=== PATIENT | female | born 1980 | race Caucasian/White ===

== ENCOUNTER 2022-08-31 16:14 | Outpatient (OUT) | payer BC, OTHER, SELFPAY ==
--- NOTE | 2022-08-31 16:15 | XR_ITS ---
The [address] [address] Patient Name: MELISSA BRYSON MRN: [id number] date: 1980 Sex: F Assigned Patient Location: [facility] Current Patient Location: [facility] Accession/Order Number: [id number] Exam Date: 08/31/2022 16:15 Report Date: 08/31/2022 16:56 At the request of: NON-STAFF PHYSICIAN Procedure: XR hand RT min 3V EXAM: XR hand RT min 3V HISTORY: right hand pain M79.641 COMPARISON: None. TECHNIQUE: 3 views of the right hand were obtained. FINDINGS: There is no evidence of an acute fracture or dislocation. No significant focal osseous abnormality is identified. The joint spaces are intact throughout. No abnormal soft tissue calcification or radiopaque foreign body is identified. IMPRESSION: No acute fracture or dislocation. No significant degenerative changes are present. Electronically authenticated by: NIK CORTEZ Date: 08/31/2022 16:56
== END 2022-08-31 16:15 ==
LOC: RAD 16:17
DX: M79.641 Pain in right hand (principal)
CPT/HCPCS: 73130

== ENCOUNTER 2022-09-08 07:48 | Outpatient (OUT) | payer BC, OTHER, SELFPAY ==
--- NOTE | 2022-09-08 08:31 | CT_ITS ---
The [address] [address] Patient Name: MELISSA BRYSON MRN: [id number] date: 1980 Sex: F Assigned Patient Location: CT Current Patient Location: CT Accession/Order Number: [id number] Exam Date: 09/08/2022 08:31 Report Date: 09/08/2022 09:03 At the request of: NON-STAFF PHYSICIAN Procedure: CT abdomen wo con EXAM: CT abdomen wo con HISTORY: Abdominal pain COMPARISON: None. TECHNIQUE: Axial soft tissue windows of the abdomen with coronal and sagittal reformats. CT dose reduction technique was used including Automated Exposure Control. Findings: Lack of intravenous contrast limits evaluation. The liver, gallbladder, spleen, pancreas, adrenal glands and kidneys are unremarkable. The visualized portions of the bilateral ureters are nondilated. The visualized bowel loops are unremarkable without evidence of wall thickening or obstruction. The aorta is normal caliber. No enlarged lymph nodes or free fluid. Small fat-containing umbilicus hernia. No aggressive sclerotic or lytic osseous lesions. IMPRESSION: 1. No acute abdominal abnormality. Electronically authenticated by: BRYN CALZADA Date: 09/08/2022 09:03
== END 2022-09-08 07:49 | disposition home or self-care (01) ==
DX: R10.11 Right upper quadrant pain (principal); R10.12 Left upper quadrant pain; R14.0 Abdominal distension (gaseous); R19.7 Diarrhea, unspecified
CPT/HCPCS: 74150

== ENCOUNTER 2022-09-15 13:49 | Emergency (ER) | payer BC, OTHER, SELFPAY ==
[2022-09-15 14:07] VITALS: BP 156/95; PULSE 72; RESP 16; TEMP 36.9; O2SAT 100; BMI 27.3
[2022-09-15 14:30] LABS: Glucometer 94 mg/dL (74-106)
--- NOTE | 2022-09-15 14:31 | ECG_ITS ---
The [facility] Test Date: 2022-09-15 Pat Name: MELISSA BRYSON Department: Room: - Gender: Female [place] Operator: : 1980 Requested By: Order Number: [id number] Reading MD: BRUCE HARDING Measurements Intervals [place] Rate: 71 P: 51 NC: 144 QRS: 53 QRSD: 74 T: 43 QT: 396 QTc: 419 Interpretive Statements 1100 Sinus rhythm [address] depression 9150 abnormal ECG No previous ECG available for comparison Electronically Signed On 09-18-2022 7:28:53 EDT by BRUCE HARDING
[2022-09-15 14:57] LABS: Basophils Absolute Auto 0.1 10^3/uL (0.0-0.1); Basophils Percent Auto 0.7 % (0.2-2.0); Eosinophils Absolute Auto 0.3 10^3/uL (0.0-0.7); Eosinophils Percent Auto 3.3 % (0.9-7.0); Hematocrit 36.8 % (36.0-48.0); Hemoglobin 12.3 g/dL (12.0-16.0); Immature Granulocytes Abs Auto 0.05 10^3/uL (0.00-0.03); Immature Granulocytes Pct Auto 0.5 % (0.0-0.5); Lymphocytes Absolute Auto 2.9 10^3/uL (1.2-3.8); Lymphocytes Percent Auto 29.5 % (20.5-60.0); Mean Corpuscular HGB Conc 33.4 g/dL (29.9-35.2); Mean Corpuscular Hemoglobin 30.5 pg (26.7-34.0); Mean Corpuscular Volume 91.3 fL (81.0-99.0); Mean Platelet Volume 9.8 fL (9.5-13.5); Monocytes Absolute Auto 0.8 10^3/uL (0.3-0.8); Monocytes Percent Auto 8.1 % (1.7-12.0); Neutrophils Absolute Auto 5.6 10^3/uL (1.4-6.5); Neutrophils Percent Auto 57.9 % (43.0-75.0); Platelet Count 302 10^3/uL (150-450); Red Blood Count 4.03 10^6/uL (4.20-5.40); White Blood Count 9.7 10^3/uL (4.0-11.0)
[2022-09-15 15:09] LABS: Bilirubin Urine NEGATIVE (NEGATIVE); Blood Urine NEGATIVE (NEGATIVE); Clarity Urine CLEAR (CLEAR); Color Urine LT. YELLOW (YELLOW); Glucose Urine UA NEGATIVE (NEGATIVE); Ketones Urine NEGATIVE (NEGATIVE); Leukocyte Esterase Urine NEGATIVE (NEGATIVE); Nitrite Urine NEGATIVE (NEGATIVE); Protein Urine NEGATIVE (NEG/TRACE); Specific Gravity Urine <=1.005 (1.005-1.025); Urobilinogen Urine 0.2 EU/dL (0.2-1.0); pH Urine 5.5 (5.0-9.0)
[2022-09-15 15:10] LABS: HCG Qualitative Urine* NEGATIVE (NEGATIVE)
[2022-09-15 15:12] LABS: Urine Microscopic Indicated NO
[2022-09-15 15:15] LABS: Alanine Aminotransferase 61 U/L (14-59); Albumin Level 3.8 g/dL (3.4-5.0); Alkaline Phosphatase 80 U/L (46-116); Anion Gap 12.8; Aspartate Amino Transferase 31 U/L (15-37); BUN Creatinine Ratio 8.3; Bilirubin Total 0.3 mg/dL (0.2-1.0); Calcium 9.2 mg/dL (8.5-10.1); Carbon Dioxide 25.6 mmol/L (21.0-32.0); Chloride 104 mmol/L (98-107); Estimated GFR (African America >60 (>=60); Estimated GFR (Non-African Ame >60 (>=60); Globulin 3.8 g/dL; Glucose 89 mg/dL (74-106); Potassium 3.4 mmol/L (3.5-5.1); Sodium 139 mmol/L (136-145); Total Protein 7.6 g/dL (6.4-8.2)
--- NOTE | 2022-09-15 15:15 | CT_ITS ---
The [address] [address] Patient Name: MELISSA BRYSON MRN: [id number] date: 1980 Sex: F Assigned Patient Location: ER Current Patient Location: Accession/Order Number: [id number] Exam Date: 09/15/2022 15:11 Report Date: 09/15/2022 16:25 At the request of: FINN HORVATH Procedure: CT head/brain wo con HEAD CT WITHOUT CONTRAST, 09/15/2022, 3:11 PM EDT: COMPARISON: CT scan of the head, 07/07/2022. CLINICAL HISTORY: Dizzy/confused while at work. Patient feels out of it. TECHNIQUE: 3 mm axial images performed through the head without contrast. 3 mm sagittal and coronal MPR reconstructions performed. Dose reduction techniques were achieved by using automated exposure control and/or adjustment of mA and/or kV according to patient size and/or use of iterative reconstruction technique. FINDINGS: Right eyebrow piercing cannot be removed creating some subtle adjacent to metallic streaking artifact. No acute hemorrhage, mass effect, or midline shift. The ventricles are normal in size, shape, and position. Visualized paranasal sinuses, mastoid air cells and bony structures are unremarkable. IMPRESSION: No acute intracranial abnormality identified. Electronically authenticated by: Kimberly GONZALEZ Date: 09/15/2022 16:25
--- NOTE | 2022-09-15 16:01 | ED.DIZZY1 ---
HPI - Dizziness General Chief Complaint: Dizziness Stated Complaint: CONFUSION/DIZZINESS Time Seen by Provider: 09/15/22 14:18 Source: patient Mode of arrival: walk-in Limitations: no limitations History of Present Illness HPI Narrative: 42-year-old female presents for an episode of dizziness which happened just before coming into the emergency department. She was at work and was standing up talking to her boss. She was in an air-conditioned area and hadn't had breakfast and lunch already today. Nothing unusual happened at work. She has had no changes in her medications. She did not pass out and she's feeling much better now. Her significant other states that she is essentially back to normal now. when the event occurred she felt like she could hear people talking but did not understand what they were saying. Related Data Home Medications Medication Instructions Recorded Confirmed asenapine maleate 5 mg sublingual 5 mg sublingual .at bedtime 09/15/22 09/15/22 tablet buspirone 10 mg tablet 10 mg PO BID 09/15/22 09/15/22 hydroxyzine pamoate 50 mg capsule 50 mg PO Q8H 09/15/22 09/15/22 (Vistaril) minocycline 50 mg capsule 50 mg PO DAILY 09/15/22 09/15/22 Allergies Allergy/AdvReac Type Severity Reaction Status Date / Time No Known Drug Allergies Allergy Verified 09/15/22 14:13 Review of Systems ROS Narrative A ten point review of systems is negative except as noted above. PFSH PFSH Social History Smoking status: Former smoker Exam Narrative Exam Narrative: Nurses note and vital signs reviewed and patient is not hypoxic. General: The patient appears well and in no apparent distress. Patient is resting comfortably on cart. Skin: Warm, dry, no pallor noted. There is no rash noted. Head: Normocephalic, atraumatic Eye: Normal conjunctiva, no drainage, EOMI. PERRL Ears, Nose, Mouth, and Throat: oral mucosa is moist. Nares patent. Cardiovascular: Regular Rate and Rhythm Respiratory: Patient is in no distress, no accessory muscle use, lungs are clear to auscultation, no wheezing, rales or rhonchi Back: non-tender GI: soft and nontender Musculoskeletal: The patient has no evidence of calf tenderness, no pitting edema, symmetrical pulses noted bilaterally Neurological: A&O x4, normal speech; upper and lower extremities five out of five and symmetric. Psychiatric: Cooperative Constitutional Vital Signs - 24 hr 09/15/22 14:07 Temperature 98.5 F Pulse Rate [Monitor] 72 Respiratory Rate 16 Blood Pressure [Left Arm] 156/95 H Pulse Oximetry 100 Oxygen Delivery Method Room Air Course Vital Signs Vital signs: Vital Signs Temperature 98.5 F 09/15/22 14:07 Pulse Rate 72 09/15/22 14:07 Respiratory Rate 16 09/15/22 14:07 Blood Pressure 156/95 H 09/15/22 14:07 Pulse Oximetry 100 09/15/22 14:07 Oxygen Delivery Method Room Air 09/15/22 14:07 Temperature 98.5 F 09/15/22 14:07 Pulse Rate 72 09/15/22 14:07 Respiratory Rate 16 09/15/22 14:07 Blood Pressure 156/95 H 09/15/22 14:07 Pulse Oximetry 100 09/15/22 14:07 Oxygen Delivery Method Room Air 09/15/22 14:07 MDM - Dizziness MDM Narrative Medical decision making narrative: her workup including CT of the brain is negative. She has a normal neurologic exam and is fully oriented now. She does not requiree admission the hospital or further workup at this time. Treatment diagnosis and follow-up were discussed with the patient. Differential Diagnosis Differential diagnosis: Likely benign paroxysmal positional vertigo, orthostatic hypotension and other (anemia, dehydration) Lab Data Attestation: I reviewed the patient's lab results. Labs: Lab Results 09/15/22 09/15/22 09/15/22 Range/Units 14:20 14:30 14:45 WBC 9.7 (4.0-11.0) 10^3/uL RBC 4.03 L (4.20-5.40) 10^6/uL Hgb 12.3 (12.0-16.0) g/dL Hct 36.8 (36.0-48.0) % MCV 91.3 (81.0-99.0) fL MCH 30.5 (26.7-34.0) pg MCHC 33.4 (29.9-35.2) g/dL RDW 13.0 (11.0-15.0) % Plt Count 302 (150-450) 10^3/uL MPV 9.8 (9.5-13.5) fL Neut % (Auto) 57.9 (43.0-75.0) % Lymph % (Auto) 29.5 (20.5-60.0) % [place] % (Auto) 8.1 (1.7-12.0) % Eos % (Auto) 3.3 (0.9-7.0) % Baso % (Auto) 0.7 (0.2-2.0) % Neut # (Auto) 5.6 (1.4-6.5) 10^3/uL Lymph # (Auto) 2.9 (1.2-3.8) 10^3/uL [place] # (Auto) 0.8 (0.3-0.8) 10^3/uL Eos # (Auto) 0.3 (0.0-0.7) 10^3/uL Baso # (Auto) 0.1 (0.0-0.1) 10^3/uL Abs Immat Gran (auto) 0.05 H (0.00-0.03) 10^3/uL Imm/Tot Granulo (auto) 0.5 (0.0-0.5) % Sodium 139 (136-145) mmol/L Potassium 3.4 L (3.5-5.1) mmol/L Chloride 104 (98-107) mmol/L Carbon Dioxide 25.6 (21.0-32.0) mmol/L Anion Gap 12.8 BUN 8.0 (7.0-18.0) mg/dL Creatinine 0.96 (0.55-1.02) mg/dL Est GFR ( Amer) >60 (>=60) Est GFR (Non-Af Amer) >60 (>=60) BUN/Creatinine Ratio 8.3 Glucose 89 (74-106) mg/dL Calcium 9.2 (8.5-10.1) mg/dL Total Bilirubin 0.3 (0.2-1.0) mg/dL AST 31 (15-37) U/L ALT 61 H (14-59) U/L Alkaline Phosphatase 80 (46-116) U/L Total Protein 7.6 (6.4-8.2) g/dL Albumin 3.8 (3.4-5.0) g/dL Globulin 3.8 g/dL Albumin/Globulin Ratio 1.0 Urine Color Lt. yellow (YELLOW) Urine Clarity Clear (CLEAR) Urine pH 5.5 (5.0-9.0) Ur Specific [place] <=1.005 A (1.005-1.025) Urine Protein Negative (NEG/TRACE) mg/dL Urine Glucose (UA) Negative (NEGATIVE) mg/dL Urine Ketones Negative (NEGATIVE) mg/dL Urine Occult Blood Negative (NEGATIVE) Urine Nitrite Negative (NEGATIVE) Urine Bilirubin Negative (NEGATIVE) Urine Urobilinogen 0.2 (0.2-1.0) EU/dL Ur Leukocyte Esterase Negative (NEGATIVE) Urine HCG, Qual (NEGATIVE) POC Glucose 94 (74-106) mg/dL 09/15/22 Range/Units 14:48 WBC (4.0-11.0) 10^3/uL RBC (4.20-5.40) 10^6/uL Hgb (12.0-16.0) g/dL Hct (36.0-48.0) % MCV (81.0-99.0) fL MCH (26.7-34.0) pg MCHC (29.9-35.2) g/dL RDW (11.0-15.0) % Plt Count (150-450) 10^3/uL MPV (9.5-13.5) fL Neut % (Auto) (43.0-75.0) % Lymph % (Auto) (20.5-60.0) % [place] % (Auto) (1.7-12.0) % Eos % (Auto) (0.9-7.0) % Baso % (Auto) (0.2-2.0) % Neut # (Auto) (1.4-6.5) 10^3/uL Lymph # (Auto) (1.2-3.8) 10^3/uL [place] # (Auto) (0.3-0.8) 10^3/uL Eos # (Auto) (0.0-0.7) 10^3/uL Baso # (Auto) (0.0-0.1) 10^3/uL Abs Immat Gran (auto) (0.00-0.03) 10^3/uL Imm/Tot Granulo (auto) (0.0-0.5) % Sodium (136-145) mmol/L Potassium (3.5-5.1) mmol/L Chloride (98-107) mmol/L Carbon Dioxide (21.0-32.0) mmol/L Anion Gap BUN (7.0-18.0) mg/dL Creatinine (0.55-1.02) mg/dL Est GFR ( Amer) (>=60) Est GFR (Non-Af Amer) (>=60) BUN/Creatinine Ratio Glucose (74-106) mg/dL Calcium (8.5-10.1) mg/dL Total Bilirubin (0.2-1.0) mg/dL AST (15-37) U/L ALT (14-59) U/L Alkaline Phosphatase (46-116) U/L Total Protein (6.4-8.2) g/dL Albumin (3.4-5.0) g/dL Globulin g/dL Albumin/Globulin Ratio Urine Color (YELLOW) Urine Clarity (CLEAR) Urine pH (5.0-9.0) Ur Specific [place] (1.005-1.025) Urine Protein (NEG/TRACE) mg/dL Urine Glucose (UA) (NEGATIVE) mg/dL Urine Ketones (NEGATIVE) mg/dL Urine Occult Blood (NEGATIVE) Urine Nitrite (NEGATIVE) Urine Bilirubin (NEGATIVE) Urine Urobilinogen (0.2-1.0) EU/dL Ur Leukocyte Esterase (NEGATIVE) Urine HCG, Qual Negative (NEGATIVE) POC Glucose (74-106) mg/dL ECG Data Attestation: I personally reviewed and interpreted this ECG as follows: (EKG on my interpretation shows normal sinus rhythm with a rate of 71) Discharge Plan Discharge Chief Complaint: Dizziness Clinical Impression: Dizziness Patient Disposition: Home, Self-Care Time of Disposition Decision: 16:00 Condition: Good Mode of Transportation: Private Vehicle Prescriptions / Home Meds: No Action asenapine maleate 5 mg tablet, sublingual 5 mg SUBLINGUAL .at bedtime buspirone 10 mg tablet 10 mg PO BID hydroxyzine pamoate [Vistaril] 50 mg capsule 50 mg PO Q8H minocycline 50 mg capsule 50 mg PO DAILY Instructions: Dizziness (ED) Stand Alone Forms: Portal Instructions Referrals: Physician,Non-Staff, MD [Primary Care Provider] - 1 week
[2022-09-15 16:12] VITALS: BP 128/88; PULSE 78; RESP 16; TEMP 37; O2SAT 99
== END 2022-09-15 16:13 | disposition home or self-care (01) ==
PROVIDERS: Physician Assistant; Emergency Provider Emergency Medicine
DX: R42 Dizziness and giddiness (principal); Z79.899 Other long term (current) drug therapy; Z87.891 Personal history of nicotine dependence
CPT/HCPCS: 36415; 36416; 70450; 80053; 81003; 82948; 84703; 85025; 93005; 99285

== ENCOUNTER 2022-10-04 15:37 | Outpatient (OUT) | payer BC, OTHER, SELFPAY ==
[2022-10-04 16:09] LABS: Amylase 29 U/L (25-115)
== END 2022-10-04 15:38 | disposition home or self-care (01) ==
LOC: LAB 15:39
DX: R19.7 Diarrhea, unspecified (principal); Z09 Encounter for follow-up examination after completed treatment for conditions other than malignant neoplasm; R14.0 Abdominal distension (gaseous); K21.9 Gastro-esophageal reflux disease without esophagitis
CPT/HCPCS: 36415; 82150; 83690

== ENCOUNTER 2023-01-02 09:21 | Outpatient (OUT) | payer BC, OTHER, SELFPAY ==
[2023-01-02 10:15] LABS: Erythrocyte Sedimentation Rate 10 mm/hr (<=20)
[2023-01-02 10:30] LABS: Thyroid Stimulating Hormone 0.352 uIU/mL (0.358-3.740)
[2023-01-02 10:35] LABS: C Reactive Protein <0.2 mg/dL (<=1.0)
[2023-01-02 15:18] LABS: C. Difficile PCR NEGATIVE (NEGATIVE)
[2023-01-03 08:11] LABS: HIV Ab/p24 Ag Screen Non Reactive (Non Reactive)
[2023-01-03 16:11] LABS: Deamidated Gliadin Abs, IgA 7 units (0-19); Deamidated Gliadin Abs, IgG 2 units (0-19); Endomysial Antibody IgA Negative (Negative); Immunoglobulin A, Qn, Serum 308 mg/dL (87-352); t-Transglutaminase (tTG) IgA <2 U/mL (0-3); t-Transglutaminase (tTG) IgG <2 U/mL (0-5)
[2023-01-07 00:06] LABS: Pancreatic Elastase, Fecal 311 (>200)
[2023-01-08 17:07] LABS: Calprotectin, Fecal <5 ug/g (0-120)
[2023-01-15 18:07] LABS: Ova + Parasite Exam Final report (.)
== END 2023-01-02 09:22 | disposition home or self-care (01) ==
LOC: LAB 09:22
DX: R19.7 Diarrhea, unspecified (principal)
CPT/HCPCS: 36415; 82656; 83993; 84443; 85652; 86140; 87045; 87046; 87177; 87209; 87389; 87427; 87493

== ENCOUNTER 2023-01-28 09:11 | Emergency (ER) | payer BC, OTHER, SELFPAY ==
[2023-01-28 09:21] VITALS: BP 123/92; PULSE 64; RESP 18; TEMP 36.7; O2SAT 100; BMI 25.1
--- NOTE | 2023-01-28 09:23 | ED.EYEPROB1 ---
HPI - Eye Problem General Chief complaint: Eye Problems Stated complaint: EYE PAIN Time Seen by Provider: 01/28/23 09:13 History of Present Illness HPI Narrative: patient got new contact lenses 3 days ago - initially they felt fine . 2 days ago she had a sensation of foreign body in the right eye. She removed her contact lens and cleaned it thoroughly and put it back in the eye. She then kept it in for greater than 48 hours and woke this morning with rredness and pain in the right eye. She removed the contact lens this morning. No visual change or loss. Related Data Home Medications Medication Instructions Recorded Confirmed asenapine maleate 5 mg sublingual 5 mg sublingual .at bedtime 09/15/22 09/15/22 tablet buspirone 10 mg tablet 10 mg PO BID 09/15/22 09/15/22 hydroxyzine pamoate 50 mg capsule 50 mg PO Q8H 09/15/22 09/15/22 (Vistaril) minocycline 50 mg capsule 50 mg PO DAILY 09/15/22 09/15/22 Previous Rx's Medication Instructions Recorded tobramycin 0.3 %-dexamethasone 1 drp ophthalmic (eye) Q6H 7 days 01/28/23 0.05 % eye drops,suspension #5 mL (Tobradex ST) Allergies Allergy/AdvReac Type Severity Reaction Status Date / Time No Known Drug Allergies Allergy Verified 09/15/22 14:13 PFSH [facility] Social History Smoking status: Never smoker Exam Narrative Exam Narrative: General: The patient appears well and in no apparent distress. Patient is resting comfortably on cart. Skin: Warm, dry, no pallor noted. Head: Normocephalic, atraumatic Neck: Supple, trachea mid-line, no tenderness, no lymphadenopathy Eye: Normal extraocular motion without associated pain. Pupils equal, round and reactive to light. Conjunctival injection noted. Mild swelling of the right upper eyelid. Patient's upper eyelid was everted - no evidence of foreign body. The patient had TETRACAINE applied to the right eye with fluorescein dye instilled afterward. Exam with Wood's lamp showed no uptake on the cornea. No evidence of hyphema, dendritic lesion, corneal ulcerations, preseptal cellulitis or orbital cellulitis. Ears, Nose, Mouth, and Throat: oral mucosa is moist Respiratory: Patient is in no distress Neurological: A&O x4, normal speech Psychiatric: Cooperative and interactive. Constitutional Vital Signs, click to edit/add: Last Vital Signs Temp 98.1 F 01/28/23 09:21 Pulse 64 01/28/23 09:21 Resp 18 01/28/23 09:21 BP 123/92 H 01/28/23 09:21 Pulse Ox 100 01/28/23 09:21 O2 Del Method Room Air 01/28/23 09:21 Course Vital Signs Vital signs: Vital Signs Temperature 98.1 F 01/28/23 09:21 Pulse Rate 64 01/28/23 09:21 Respiratory Rate 18 01/28/23 09:21 Blood Pressure 123/92 H 01/28/23 09:21 Pulse Oximetry 100 01/28/23 09:21 Oxygen Delivery Method Room Air 01/28/23 09:21 Temperature 98.1 F 01/28/23 09:21 Pulse Rate 64 01/28/23 09:21 Respiratory Rate 18 01/28/23 09:21 Blood Pressure 123/92 H 01/28/23 09:21 Pulse Oximetry 100 01/28/23 09:21 Oxygen Delivery Method Room Air 01/28/23 09:21 MDM - Eye Problem MDM Narrative Medical decision making narrative: No corneal ulcer or abrasion. Suspect irritation from prolonged contact lens wearing with associated conjunctivitis and blepharitis. Prescribed tobradex ophth drops - recommended to see her eye physician for follow up Discharge Plan Discharge Chief Complaint: Eye Problems Clinical Impression: Acute iritis, Blepharitis Patient Disposition: Home, Self-Care Time of Disposition Decision: 09:31 Prescriptions / Home Meds: New Tobradex ST 0.3-0.05 % drops,suspension 1 drp ophthalmic (eye) Q6H 7 Days Qty: 5 0RF Rx Instructions: one drop to right eye No Action asenapine maleate 5 mg tablet, sublingual 5 mg SUBLINGUAL .at bedtime buspirone 10 mg tablet 10 mg PO BID hydroxyzine pamoate [Vistaril] 50 mg capsule 50 mg PO Q8H minocycline 50 mg capsule 50 mg PO DAILY Instructions: Iritis (ED), Blepharitis (ED) Additional Instructions: call her eye doctor for follow up Stand Alone Forms: Portal Instructions
[2023-01-28] MEDS: FLUORESCEIN SODIUM 1 MG STRIP OP (09:33)
[2023-01-28] MEDS: TETRACAINE HCL 0.5% OP SOL 80 DROP/4 ML BOTTLE OP (09:33)
== END 2023-01-28 09:41 | disposition home or self-care (01) ==
PROVIDERS: Emergency Provider Emergency Medicine
DX: H20.00 Unspecified acute and subacute iridocyclitis (principal); H01.001 Unspecified blepharitis right upper eyelid; Z79.899 Other long term (current) drug therapy
CPT/HCPCS: 99283

== ENCOUNTER 2023-08-09 16:10 | Outpatient (OUT) | payer BC, SELFPAY ==
--- NOTE | 2023-08-09 | XR_ITS ---
The [address] [address] Patient Name: MELISSA BRYSON MRN: [id number] date: 1980 Sex: F Assigned Patient Location: [facility] Current Patient Location: Accession/Order Number: [id number] Exam Date: 08/09/2023 16:25 Report Date: 08/10/2023 10:51 At the request of: KHANH GALINDO Procedure: XR cervical spine w flex/ext EXAMINATION: XR cervical spine w flex/ext HISTORY: Cervical pain M54.2 COMPARISON: No relevant comparison available. FINDINGS: BONES: Mild degenerative facet arthropathy C6-7. No significant spondylosis, scoliosis, fracture, or visible bony lesion. No change in alignment during flexion and extension. DISC SPACES: No significant disc height narrowing, subluxation, or endplate abnormality. PARASPINOUS: Negative. No paraspinous abnormality is seen. OTHER: Negative. XR/XR cervical spine w flex/ext IMPRESSION: 1. Mild degenerative facet arthropathy of lower cervical spine. 2. No significant degenerative disc disease. Electronically authenticated by: ANUPAMA GRAMAJO Date: 08/10/2023 10:51
--- OUTSIDE RECORDS SUMMARY | 2023-08-09 16:31 | XMS_ITS | CCD ---
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 Neutrophils/100 WBC (Bld) 56.8 % Normal 43.0-75.0 [facility] Comment on above: Performed By: #### C BC #### [facility] [address] [place] [address] Dr. Jason Floyd Platelet mean volume (Bld) [Entitic vol] 10.1 fL Normal 9.5-13.5 [facility] Comment on above: Performed By: #### C BC #### [facility] [address] [place] [address] Dr. Jason Floyd PLT 275 103/ul Normal 150-450 [facility] Comment on above: Performed By: #### C BC #### [facility] [address] [place] [address] Dr. Jason Floyd RBC 4.31 106/ul Normal 4.20-5.40 [facility] Comment on above: Performed By: #### C BC #### [facility] [address] [place] [address] Dr. Jason Floyd WBC 8.2 103/ul Normal 4.0-11.0 [facility] Comment on above: Performed By: #### C BC #### [facility] [address] [place] [address] Dr. Jason Floyd PROF 14(COMP METB)on 023 Albumin [Mass/Vol] 4.4 g/dL Normal 3.4-5.0 [facility] Comment on above: Performed By: #### C MP #### [facility] [address] [place] [address] Dr. Jason Floyd Albumin/Globulin [Mass ratio] 1.5 {ratio} Normal [facility] Comment on above: Performed By: #### C MP #### [facility] [address] [address] [address] Jason Floyd ALP [Catalytic activity/Vol] 73 U/L Normal 46-116 [facility] Comment on above: Performed By: #### C MP #### [facility] [address] [address] [address] Jason Floyd ALT [Catalytic activity/Vol] 30 U/L Normal 14-59 [facility] Comment on above: Performed By: #### C MP #### [facility] [address] [address] [address] Jason Floyd Anion gap [Moles/Vol] 13.0 mmol/L Normal [facility] Comment on above: Performed By: #### C MP #### [facility] [address] [place] [address] Dr. Jason Floyd AST [Catalytic activity/Vol] 17 U/L Normal 15-37 [facility] Comment on above: Performed By: #### C MP #### [facility] [address] [address] [address] Jason Floyd Bilirubin [Mass/Vol] 0.4 mg/dL Normal 0.2-1.0 [facility] Comment on above: Performed By: #### C MP #### [facility] [address] [address] [address] Jason Floyd Calcium [Mass/Vol] 10.8 mg/dL Critically high 8.5-10.1 [facility] Comment on above: Performed By: #### C MP #### [facility] [address] [address] [address] Jason Floyd Chloride [Moles/Vol] 101 mmol/L Normal 98-107 [facility] Comment on above: Performed By: #### C MP #### [facility] [address] [address] [address] Jason Floyd CO2 [Moles/Vol] 27.6 mmol/L Normal 21.0-32.0 [facility] Comment on above: Performed By: #### C MP #### [facility] [address] [address] [address] Jason Floyd Creatinine [Mass/Vol] 0.83 mg/dL Normal 0.55-1.02 [facility] Comment on above: Performed By: #### C MP #### [facility] [address] [address] [address] Jason Floyd EGFR-AF BOLIVIAN >60 Normal >=60 [facility] Comment on above: Performed By: #### C MP #### [facility] [address] [address] [address] Jason Floyd EGFR-NON AF BOLIVIAN >60 Normal >=60 [facility] Comment on above: Performed By: #### C MP #### [facility] [address] [place] [address] Dr. Jason Floyd Globulin (S) [Mass/Vol] 2.9 g/dL Normal [facility] Comment on above: Performed By: #### C MP #### [facility] [address] [place] [address] Dr. Jason Floyd Glucose [Mass/Vol] 99 mg/dL Normal 74-106 [facility] Comment on above: Performed By: #### C MP #### [facility] [address] [place] [address] Dr. Jason Floyd Potassium [Moles/Vol] 3.6 mmol/L Normal 3.5-5.1 [facility] Comment on above: Performed By: #### C MP #### [facility] [address] [place] [address] Dr. Jason Floyd Protein [Mass/Vol] 7.3 g/dL Normal 6.4-8.2 [facility] Comment on above: Performed By: #### C MP #### [facility] [address] [place] [address] Dr. Jason Floyd Sodium [Moles/Vol] 138 mmol/L Normal 136-145 [facility] Comment on above: Performed By: #### C MP #### [facility] [address] [place] [address] Dr. Jason Floyd Urea nitrogen [Mass/Vol] 8.0 mg/dL Normal 7.0-18.0 [facility] Comment on above: Performed By: #### C MP #### [facility] [address] [address] [address] Jason Floyd Urea nitrogen/Creatinine [Mass ratio] 9.6 mg/mg Normal [facility] Comment on above: Performed By: #### C MP #### [facility] [address] [address] [address] Jason Floyd 29on 01-20-2022 29 Addended by: LUCA VILLAGRAN on: 01/23/2022 09:04 AM Modules accepted: Level of Service Normal [facility] Follow-Upon 01-20-2022 Follow-Up [id number] Isis Bryson 1980 F Date Provider Department Center 01/20/2022 LUCA CEJA HVC CARD [facility] Family History Problem Relation Age of Onset Heart attack Father Family Status - Relation Status Age at Father Level of Service:42646 OR OFFICE/OUTPATIENT ESTABLISHED LOW MDM 20-29 MIN Reason for Visit and Comments: Follow-up [432483] Normal [facility] Abstracton 11-10-2021 Abstract [id number] Isis Goncalves 1980 Date Provider Department Center 11/10/2021 CAMERON BERNAL HVC CARD [facility] Family History Problem Relation Age of Onset Heart attack Father Family Status - Relation Status Age at Father Normal [facility] SARS-CoV-2 (COVID-19) RNA NA A+probe Ql (Resp)on 10-19-2021 SARS-CoV-2 (COVID-19) RNA DIANE+probe Ql (Unsp spec) Negative [employer] Other Cardiovascular Lab Reporton 01-06-2021 Cardiovascular Lab Report [facility] Patient Name: Isis Goncalves [facility] MR #: [id number] Physician: Luca Villagran MD Department of Service Date: 01/06/2021 Medicine Birthdate: 1980 Division of Room #: CC Cardiology Adult Cardiovascular Services [facility] [address] [place], [place] [address] Cardiovascular Laboratory Report LOOP IMPLANT PROCEDURE NOTE DATE OF PROCEDURE: 01/06/2021 PERFORMING PHYSICIAN: Dr. Luca Villagran INDICATIONS FOR PROCEDURE: 1. Palpitations CONSENT: Patient LOCATION: EP Lab PROCEDURAL SEDATION: None FLUOROSCOPY TIME: 0min PREPARATION: Preoperative antibiotics was administered. PROCEDURES PERFORMED: 1. LOOP implant PROCEDURE NOTE: 40-year-old lady with a history of palpitation, who had an event monitor placed with no conclusive evidence fo pathology is having a loop monitor for detection of the arrhythmia. The risks, benefits and alternatives of the procedure were discussed with the patient who agreed to proceed. Please refer to my consult note for details of the discussion and of indications. Patient was brought to the EP lab in the post absorptive state. A procedural pause was performed verifying the patient, the procedure. Sterile prep and drape were performed over the left precordium and anesthesia with 1% lidocaine was followed by a small incision was made in the 3rd intercostal space near the sternum on the left using the Pegastech tool. The loop recorder was then injected subcutaneously. It is to be noted that when we placed the device in standard way at 45degrees agle, the patient had significant amount of noise. Hence, I did try to manipulate and put the location in 2, 3 other areas, still was noted to have noise. I tried also in a vertical position slightly down with the RV sensing in the 0.12 range with more noise. Hence, I repositioned back into the tangential position and interrogation device noted good sensing parameters. Technical details of the device as noted below. The skin was then closed with 3-0 absorbable monofilament suture and glue applied to hold the edges together. Tegaderm was applied to cover the wound. The patient appeared to tolerate the procedure well and was returned to her room in stable condition. No complications were immediately observed. LOOP details: Device Model: M301 Lux-Dx Serial#: [id number] Sensing is 0.18mV. IMPRESSION: Successful placement of LOOP implant with excellent sensing parameters. RECOMMENDATIONS: 1. Occlusive dressing to be changed after 7 days. 2. Do not wet the incision. Luca Villagran MD Cardiac Electrophysiology Electronically Signed by: Luca Villagran MD 01/17/2021 04:41 P Luca Villagran MD Date Dict: 01/06/2021/01:22 P/Luca Villagran MD Date Trans: 01/06/2021 01:32 P/so [id number] Normal [facility] POC SARS COV2 ANTIGEN NEGATI VEon 01-06-2021 POC SARS COV2 ANTIGEN NEG Negative Normal NEGATIVE [facility] Comment on above: Result Comment: Nega tive results from patients with symptom onset beyond seven days, should be treated presumptive and confirmation with a molecular assay, if necessary, for patient management, may be performed. Negative results do not rule out SARS-CoV-2 infection and should not be used as the sole basis for treatment or patient management decisions, including infection control decisions. Negative results should be considered in the context of a patient?s recent exposures, history and the presence of clinical signs and symptoms consistent with COVID-19. The [employer] COVID-19 Ag Card is a lateral flow immunoassay intended for the qualitative detection of nucleocapsid protein antigen from SARS-CoV-2 in direct nasal swabs from individuals within the first seven days of symptom onset. Testing is limited to laboratories certified under the Clinical Laboratory Improvement Amendments of 1988 (CLIA), 42 U.S.C. ???263a, that meet the requirements to perform moderate, high or waived complexity tests. This test is authorized for use at the Point of Care (POC), i.e., in patient care settings operating under a CLIA Certificate of Waiver, Certificate of Compliance, or Certificate of Accreditation. Performed By: #### 3 1977 #### [address] [place] [address], [facility] [place] LIPID PANEL (CORONARY RISK 2 )on 11-05-2019 Cholesterol [Mass/Vol] 164 mg/dL Normal 0 - 199 [facility] Comment on above: Order Comment: Order ing is aware patient is non-fasting. Result Comment: . AGE DESIRABLE BORDERLINE HIGH HIGH 0-19 Y 0 - 169 170 - 199 >/= 200 20-24 Y 0 - 189 190 - 224 >/= 225 >24 Y 0 - 199 200 - 239 >/= 240 All ranges are based on fasting samples. Specific therapeutic targets will vary based on patient-specific cardiac risk. . Pediatric guidelines reference:Pediatrics 2011, 128(S5). Adult guidelines reference: NCEP ATPIII Guidelines, YURIY 2001, 258:2486-97 . Venipuncture immediately after or during the administration of Metamizole may lead to falsely low results. Testing should be performed immediately prior to Metamizole dosing. Performed By: #### L IPID #### [address] [id number] Cholesterol in HDL [Mass/Vol] 39.0 mg/dL Abnormal [facility] Comment on above: Order Comment: Order ing is aware patient is non-fasting. Result Comment: . AGE VERY LOW LOW NORMAL HIGH 0-19 Y < 35 < 40 40-45 ---- 20-24 Y ---- < 40 >45 ---- >24 Y ---- < 40 40-60 >60 . Performed By: #### L IPID #### [address] [id number] Cholesterol in LDL [Mass/Vol] 79 mg/dL Normal 0 - 99 [facility] Comment on above: Order Comment: Order ing is aware patient is non-fasting. Result Comment: . NEAR BORD AGE DESIRABLE OPTIMAL HIGH HIGH VERY HIGH 0-19 Y 0 - 109 --- 110-129 >/= 130 ---- 20-24 Y 0 - 119 --- 120-159 >/= 160 ---- >24 Y 0 - 99 100-129 130-159 160-189 >/=190 . Performed By: #### L IPID #### [address] [id number] Cholesterol in VLDL [Mass/Vol] 46 mg/dL High 0 - 40 [facility] Comment on above: Order Comment: Order ing is aware patient is non-fasting. Performed By: #### L IPID #### [address] [id number] Cholesterol.total/C holesterol in HDL [Mass ratio] 4.2 {ratio} Normal [facility] Comment on above: Order Comment: Order ing is aware patient is non-fasting. Result Comment: REF VALUES DESIRABLE < 3.4 HIGH RISK > 5.0 Performed By: #### L IPID #### [address] [id number] NON-HDL CHOLESTEROL 125 mg/dL Normal [facility] [place] Comment on above: Order Comment: Order ing is aware patient is non-fasting. Result Comment: AGE DESIRABLE BORDERLINE HIGH HIGH VERY HIGH 0-19 Y 0 - 119 120 - 144 >/= 145 >/= 160 20-24 Y 0 - 149 150 - 189 >/= 190 ---- >24 Y 30 MG/DL ABOVE LDL CHOLESTEROL GOAL . Performed By: #### L IPID #### [address] [id number] Triglyceride [Mass/Vol] 230 mg/dL High 0 - 149 [facility] Comment on above: Order Comment: Order ing is aware patient is non-fasting. Result Comment: . AGE DESIRABLE BORDERLINE HIGH HIGH VERY HIGH 0 D-90 D 19 - 174 ---- ---- ---- 91 D- 9 Y 0 - 74 75 - 99 >/= 100 ---- 10-19 Y 0 - 89 90 - 129 >/= 130 ---- 20-24 Y 0 - 114 115 - 149 >/= 150 ---- >24 Y 0 - 149 150 - 199 200- 499 >/= 500 . Venipuncture immediately after or during the administration of Metamizole may lead to falsely low results. Testing should be performed immediately prior to Metamizole dosing. Performed By: #### L IPID #### [address] [id number] MARIAHOVon 04-22-2018 CNOV Office Visit ([facility] ) ISIS [id number]) 1980 F Date Time Provider Department 04/22/18 1:10 PM LISE PIRES (ALISON) MARIA G During your visit today, we recorded the following information about you: Pulse Respiration Blood pressure Weight 89/minute 18/minute 114/64 51.7 kg Height 1.753 m Lise Pires APRN.CNP 04/22/2018 1:58 PM Signed [facility] Follow up/ Established patient visit Date of last visit : 01/22/2018 IMPRESSION: ? 37 yoa woman with Bipolar Disorder and Tobacco Use disorder (with recent start of Chantix) presents to clinic for management of Narcolepsy which is stable on current stimulant regimen. She recently identified new PCP and remains engaged in care with her Counselor. At next visit with Counselor, she will request referral to Psychiatry. ? PLAN: - Continue taking Metadate ER 20-60 mg/day as directed. - Avoid driving when drowsy. - covered button maker for short naps (20-30 minutes) and use of caffeine if needed to help stay awake when driving. - Try to get at least 7-9 hours of sleep in a 24 hour period. Healthy diet and exercise can also promote better sleep. - Follow up in 3 months in the office. Recommend scheduling this appointment now to ensure the best time for you. ? ?? Lise Pires APRN.CNP Interval history : Here for follow up for refill on stimulant medication. She sees new Psychiatrist on 05/02/18. HYPERSOMNIA : Narcolepsy 2009 MSLT demonstrated MSL 4.1 min with 3 SOREMPs. Naps: Yes. Number of naps per day: daily, Timing of naps: about 1-2 PM when able to do so, Nap duration: 45 min - 1+ hours She sometimes wakes up feeling refreshed from naps. Reports that is she does not sleep long enough, then she odes not feel refreshed from nap. Drowsy driving: No Current medications: Metadate ER 60 mg/day She takes 20 mg around 5:30 AM, at 9 AM and between 12-1 PM. SLEEP HYGIENE QUESTIONS: Bedtime : 9-10 PM Wake up Time : 6:45 - 7 AM (sometimes earlier or later) Time it takes to fall sleep : 30 minutes Activities in bed before falling asleep : Listening to boyfriend snoring in bed Number of times patient wakes up per night : Not usually Estimated total sleep time ( in a 24 hour period of time) : 8-9 SLEEP FUNCTIONAL OUTCOME MEASURES See end of note for questionnaire answers PMH, PSH, SH: see HPI SLEEP RELATED ROS REVIEW OF SYSTEMS SLEEP RELATED ROS GENERAL: See HPI RESPIRATORY: negative dyspnea on exertion CARDIOVASCULAR: negative palpitations and chest pain MUSCULOSKELETAL: positive joint discomfort PSYCH: positive bipolar disorder NEURO: negative morning headaches All other systems reviewed and are negative. ALLERGIES No Known Allergies CURRENT MEDICATIONS: varenicline tartrate (CHANTIX ORAL) Take by mouth twice daily. methylphenidate ER (METADATE ER) 20 mg ER tablet Take 1-3 tablets by mouth each day as needed.Earliest Fill Date: 03/23/18 PHYSICAL EXAMINATION: Vital Signs: BP 114/64 (BP Site: Right Arm, BP Position: Sitting, BP Cuff Size: Pediatric) Pulse 89 Resp 18 Ht 175.3 cm (5' 9 ) Wt 51.7 kg (114 lb) SpO2 100% BMI 16.83 kg/m? PHYSICAL EXAM: General appearance: NAD, pleasant Mental status: awake AND alert Constitutional: WNL Skin: WNL Chest: Regular S1 and S2, Lungs clear to auscultation Neuro: Normal gait IMPRESSION: 37 yoa woman with Bipolar Disorder and Tobacco Use disorder (on Chantix) presents to clinic for management of Narcolepsy which is stable on current stimulant regimen. She will meet with new Psychiatrist next week. PLAN: - Continue taking Metadate ER 20-60 mg as directed. - Avoid driving when drowsy. - covered button maker for short naps (20-30 minutes) and use of caffeine if needed to help stay awake when driving. - Try to get at least 7-9 hours of sleep in a 24 hour period. Healthy diet and exercise can also promote better sleep. - Follow up in 3 months in the office. Recommend scheduling this appointment now to ensure the best time for you. 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 Earliest Fill Date: 06/19/18Disp: 90 tabletRfl: 0 Prescriptions as of 04/22/2018 Sig: METHYLPHENIDATE ER 20 MG TABL* Take 1-3 tablets by mouth eac* CHANTIX ORAL Take by mouth twice daily. Problem List As Of Date: 04/22/2018 (None) Prescriptions ordered this encounter Disp Refills Start End METHYLPHENIDATE ER 20 MG TABLET,EXTE* 90 t* 0 04/22/2018 04/22/2018 Class: Print RX Sig: Take 1-3 tablets by mouth each day as needed. METHYLPHENIDATE ER 20 MG TABLET,EXTE* 90 t* 0 05/20/2018 04/22/2018 Class: Print RX Sig: Take 1-3 tablets by mouth each day as needed. Earliest Fill Date: 05/20/18 METHYLPHENIDATE ER 20 MG TABLET,EXTE* 90 t* 0 06/19/2018 07/21/2018 Class: Print RX Sig: Take 1-3 tablets by mouth each day as needed. Earliest Fill Date: 06/19/18 Medications Discontinued During This Encounter methylphenidate ER (METADATE ER) 20 * 90 t* 0 03/23/2018 04/22/2018 Class: Print RX Sig: Take 1-3 tablets by mouth each day as needed. Earliest Fill Date: 03/23/18 Disc: Reason for discontinue is not on file. methylphenidate ER (METADATE ER) 20 * 90 t* 0 04/22/2018 04/22/2018 Class: Print RX Sig: Take 1-3 tablets by mouth each day as needed. Disc: Reason for discontinue is not on file. methylphenidate ER (METADATE ER) 20 * 90 t* 0 05/20/2018 04/22/2018 Class: Print RX Sig: Take 1-3 tablets by mouth each day as needed. Earliest Fill Date: 05/20/18 Disc: Reason for discontinue is not on file. Disposition: Return in about 3 months (around 07/20/2018) for with Dr. Pablo. Follow-up and Disposition History Recorded Encounter Status:Closed by ALISON PIRES on 04/22/18 Normal [facility] PROGRESSon 04-22-2018 Protein mass conc HNO ID: [id number] Author: Lise Dewitt (Alison) Eloisa Service: (none) Author Type: Nurse Practitioner Type: Progress Notes Filed: 04/22/2018 1:58 PM Note Text: [facility] Follow up/ Established patient visit Date of last visit : 01/22/2018 IMPRESSION: ? 37 yoa woman with Bipolar Disorder and Tobacco Use disorder (with recent start of Chantix) presents to clinic for management of Narcolepsy which is stable on current stimulant regimen. She recently identified new PCP and remains engaged in care with her Counselor. At next visit with Counselor, she will request referral to Psychiatry. ? PLAN: - Continue taking Metadate ER 20-60 mg/day as directed. - Avoid driving when drowsy. - covered button maker for short naps (20-30 minutes) and use of caffeine if needed to help stay awake when driving. - Try to get at least 7-9 hours of sleep in a 24 hour period. Healthy diet and exercise can also promote better sleep. - Follow up in 3 months in the office. Recommend scheduling this appointment now to ensure the best time for you. ? ?? Lise Pires APRN.ALISON Interval history : Here for follow up for refill on stimulant medication. She sees new Psychiatrist on 05/02/18. HYPERSOMNIA : Narcolepsy 2009 MSLT demonstrated MSL 4.1 min with 3 SOREMPs. Naps: Yes. Number of naps per day: daily, Timing of naps: about 1-2 PM when able to do so, Nap duration: 45 min - 1+ hours She sometimes wakes up feeling refreshed from naps. Reports that is she does not sleep long enough, then she odes not feel refreshed from nap. Drowsy driving: No Current medications: Metadate ER 60 mg/day She takes 20 mg around 5:30 AM, at 9 AM and between 12-1 PM. SLEEP HYGIENE QUESTIONS: Bedtime : 9-10 PM Wake up Time : 6:45 - 7 AM (sometimes earlier or later) Time it takes to fall sleep : 30 minutes Activities in bed before falling asleep : Listening to boyfriend snoring in bed Number of times patient wakes up per night : Not usually Estimated total sleep time ( in a 24 hour period of time) : 8-9 SLEEP FUNCTIONAL OUTCOME MEASURES See end of note for questionnaire answers PMH, PSH, SH: see HPI SLEEP RELATED ROS REVIEW OF SYSTEMS SLEEP RELATED ROS GENERAL: See HPI RESPIRATORY: negative dyspnea on exertion CARDIOVASCULAR: negative palpitations and chest pain MUSCULOSKELETAL: positive joint discomfort PSYCH: positive bipolar disorder NEURO: negative morning headaches All other systems reviewed and are negative. ALLERGIES No Known Allergies CURRENT MEDICATIONS: varenicline tartrate (CHANTIX ORAL) Take by mouth twice daily. methylphenidate ER (METADATE ER) 20 mg ER tablet Take 1-3 tablets by mouth each day as needed.Earliest Fill Date: 03/23/18 PHYSICAL EXAMINATION: Vital Signs: BP 114/64 (BP Site: Right Arm, BP Position: Sitting, BP Cuff Size: Pediatric) Pulse 89 Resp 18 Ht 175.3 cm (5' 9 ) Wt 51.7 kg (114 lb) SpO2 100% BMI 16.83 kg/m? PHYSICAL EXAM: General appearance: NAD, pleasant Mental status: awake AND alert Constitutional: WNL Skin: WNL Chest: Regular S1 and S2, Lungs clear to auscultation Neuro: Normal gait IMPRESSION: 37 yoa woman with Bipolar Disorder and Tobacco Use disorder (on Chantix) presents to clinic for management of Narcolepsy which is stable on current stimulant regimen. She will meet with new Psychiatrist next week. PLAN: - Continue taking Metadate ER 20-60 mg as directed. - Avoid driving when drowsy. - covered button maker for short naps (20-30 minutes) and use of caffeine if needed to help stay awake when driving. - Try to get at least 7-9 hours of sleep in a 24 hour period. Healthy diet and exercise can also promote better sleep. - Follow up in 3 months in the office. Recommend scheduling this appointment now to ensure the best time for you. Lise Pires APRN.[facility] 01-22-2018 CNOV Office Visit ([facility] ) ISIS GONCALVES ([id number]) 1980 F Date Time Provider Department 01/22/18 10:10 AM LISE PIRES (ALISON) MARIA G During your visit today, we recorded the following information about you: Pulse Respiration Blood pressure Weight 64/minute 19/minute 100/64 51.4 kg Height 1.727 m Lise Pires APRN.CNP 01/22/2018 11:01 AM Signed [facility] Follow up/ Established patient visit Date of last visit : 10/22/2017 IMPRESSION: ? 37 yoa woman with Bipolar disorder presents to clinic after stimulants restarted at last visit. ? Narcolepsy without cataplexy improved with Metadate ER 30 mg with no SE. She would like to increase dosage. Insurance provider limits quantity of extended release capsules to 90/month. She was previously taking 60 mg with Provigil. She is uncertain if there were SE with Provigil. Could consider adding Nuvigil and perhaps have her try taking it at bedtime to assist with daytime awakening. Before further adjustments can be made to medication regimen, it would be best for her to engage in care with Psychiatry. ? PLAN: - Increase Metadate ER from 30 mg up to 60 mg/day as directed. - Avoid driving when drowsy. - covered button maker for short naps (20-30 minutes) and use of caffeine if needed to help stay awake when driving. - Try to get at least 7-9 hours of sleep in a 24 hour period. Healthy diet and exercise can also promote better sleep. - Discussed Stimulant Refill clinic. At this time, she is not a candidate as there may need to be additional changes to medication regimen. - Encouraged to engage in care with Psychiatry. There has been no neri with stimulants. - Follow up in 3 months in the office. Recommend scheduling this appointment now to ensure the best time for you. ?? ? Lise Pires APRN.CNP Interval history : Time in: 10:08 AM Time out: 10:36 AM Here for follow up for management of Narcolepsy. Reports that she has a good appetite since starting Chantix. HYPERSOMNIA : Narcolepsy Drowsy driving: No Reports that she is able to get up and drive her kids to school. It is not a far distance from home to school. Current medications: She takes Metadate ER 10-20 mg in the morning and 10 mg around 1-2 PM. No neri has occurred with stimulants. Her next appointment with her Counselor is next week and she will discuss options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
== END 2023-08-09 16:11 | disposition home or self-care (01) ==
LOC: RAD 16:11
PROVIDERS: Visit Provider Psychiatry & Neurology Neurology
DX: M54.2 Cervicalgia (principal); M47.812 Spondylosis without myelopathy or radiculopathy, cervical region
CPT/HCPCS: 72052

== ENCOUNTER 2023-09-21 11:05 | Outpatient (OUT) | payer BC, SELFPAY ==
--- OUTSIDE RECORDS SUMMARY | 2023-09-21 11:20 | XMS_ITS | CCD ---
Author Organization [facility] Care Team Providers Care Supervisor Ditching Name Role Phone TULIO PABLO Attending Unavailable LISE PIRES (FIGHTING VEHICLE SYSTEMS MAINTAINER) Attending Unavailable TULIO PABLO Referring Unavailable LISE PIRES (FIGHTING VEHICLE SYSTEMS MAINTAINER) Attending Unavailable TULIO PABLO Referring Unavailable LISE PIRES (FIGHTING VEHICLE SYSTEMS MAINTAINER) Attending Unavailable TULIO PABLO Referring Unavailable SELF, REFERRED Referring Unavailable ALEJANDRA EDWARD Primary Care Unavailable LUCA VILLAGRAN Attending Unavailable LUCA VILLAGRAN Admitting Unavailable SELF, REFERRED Referring Unavailable SELF, REFERRED Primary Care Unavailable LUCA VILLAGRAN Attending Unavailable LUCA VILLAGRAN Admitting Unavailable LUCA VILLAGRAN Admitting Unavailable SELF, REFERRED Referring Unavailable SELF, REFERRED Primary Care Unavailable LUCA VILLAGRAN Attending Unavailable Lilly Ellington Unavailable LUCA VILLAGRAN Referring Unavailable LUCA VILLAGRAN Referring Unavailable [...] Unavailable LIZBET EDWARD Primary Care Physician Unavailab le Triston Moe G. Admitting Unavailable BEKHANH Morfin Referring Unavailable Moe Basem G. Attending Unavailable Moe Basem G. Attending Unavailable Moe, Basem GShahrzad Admitting Unavailable BENavjot KHANH D Referring Unavailable Moe Basem G. Attending Unavailable Moe, Basem G. Admitting Unavailable Roshan Plaza Unavailable TIMOTHY Edward Primary Care Provider [phone] MACK Plaza Attending Provider Francesca Stiles MD Primary Care Provider [phone] Lizbet Edward NP Unavailable Francesca Stiles MD Unavailable [phone] LIZBET EDWARD Attending Unavailable LUCIANO TOAMS Attending Unavailable LUCIANO TOMAS Referring Unavailable DOLLUCIANO CHOI Referring Unavailable BEJ, KHANH Flores Attending Unavailable LIZBET EDWARD Referring Unavailable BEJKHANH Attending Unavailable BEJ, KHANH Flores Attending Unavailable BEJKHANH Attending Unavailable ISABELL FLOYD Attending Unavailable BEJ, KHANH Flores Referring Unavailable BANG BADILLO Attending Unavailable BEJ, KHANH Flores Referring Unavailable BEJKHANH Attending Unavailable BEJKHANH Referring Unavailable BEJKHANH Attending Unavailable BENavjot, KHANH Flores Referring Unavailable CANDICE URRUTIA Attending Unavailable Roshan Plaza Admitting Unavailable Lizbet Edward Primary Care Unavailable Roshan Plaza Attending Unavailable Sloan West Attending Unavailab Sloan Mercedes Admitting Unavailab Lizbet Morrison Primary Care Unavailable Allergies Allergy Classification Reported Allergen(s) Allergy Type Date of Onset Reaction(s) Facility (1 source) 83898,00 Drug allergy (disorder) 1 [facility] Repository (2 sources) Azithromycin Drug Allergy 3 Shortness of breath [facility] Healthcare (2 sources) Cephalexin Drug Allergy 3 Shortness of breath [facility] Medications Current Medications Medication Drug Class(es) [...] day for 30 days PLEASE CHECK ALLERGIES 11 Dec, 2022 Active Loperamide (3 sources) Opioid Agonist Imodium A-D Active meloxicam 15 mg oral tablet (2 sources) Nonsteroidal Anti-inflammatory Drug Start: 05-06-2020 take 1 tablet by mouth once daily at mealtime meloxicam 15 mg oral tablet 15 mg = 1 tab(s), Oral, Daily, with food, # 30 tab(s), Refills(s) 1, [facility] Start Date: 05/06/20 Status: Ordered minocycline [...] Active Anuja Cohn (2 sources) Start: 04-30-2019 Anuja Cohn SubLingual, BID, Refills(s) 0 Start Date: [...] Prednisone Discontinued 50 MG PO Daily 5 5 October 01, 2020 11:00pm May 16, [...] 06-04-2019 Episodic Other aftercare (1 source) Other intermediate (current) drug therapy; Translations: [OTH SKILLED NURSING CURRENT DRUG THERAPY] Onset: 3 Episodic Other connective tissue disease (1 source) Musculoskeletal pain; Translations: [Myalgia, other site] 06-11-2019 Episodic Other gastrointestinal disorders (4 sources) Diarrhea; Translations: [Diarrhea, unspecified] 05-16-2021 Episodic Other gastrointestinal disorders (2 sources) Swollen abdomen; Translations: [Abdominal distension (gaseous)] Episodic Other nervous system disorders (2 sources) Narcolepsy without cataplexy; 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 THE [employer] GUIDELINES RECOMMEND THAT WOMEN 40 [...] pelvis w tara CT abdomen pelvis w [facility] [place] [address] CT Scan Report Signed Patient: Isis Dumas MR#: [id number] : 1980 Acct:[id number] Age/Sex: 42 / F ADM Date: 01/25/23 Loc: CT Room: Type: [facility] Attending Dr: Roshan Plaza APRN Copies to: [...] Esme Taylor M.D.01/25/2023 1:18 PM Dictation Location: [place] [address] Transcribed By: [facility] 01/25/23 1318 Dictated By: Esme Taylor MD 01/25/23 1309 Signed By: 01/25/23 1318 Normal [facility] Consenton 09-28-2022 Consent [id number]# 1.00CD:127 Normal [facility] Patient Eval Forms Officeon 09-28-2022 Patient Eval Forms Office [id number]# 1.00CD:127 Normal [facility] Consent for Treatmenton 09-16 Consent for Treatment [id number]#1 .00CD:127 Normal [facility] Physician Orderon 08-08-2022 Physician Order [id number]# 1.00CD:127 Normal [facility] Physician Orderon 08-01-2022 Physician Order [id number]# 1.00CD:127 Normal [facility] CT HEAD WO CONon 07-07-2022 CT HEAD [...] by: MAU ROSE Date: 2022-07-07 14:18 Normal [facility] CALCIUM IONIZEDon 05-19-2022 Calcium, Ionized, Serum 5.5 mg/dL Normal 4.5-5.6 [facility] Comment on above: Performed By: #### C FORTINO #### [facility] [address] [address] [address] Jason Floyd PTH INTACTon 05-19-2022 PTH, Intact 16 pg/mL Normal 15-65 [facility] Comment on above: Performed By: #### P THINT #### [facility] [address] [place] [address] Dr. Jason Floyd CBC AUTO DIFFon 05-15-2022 BASO # 0.0 103/ul Normal 0.0-0.1 [facility] Comment on above: Performed By: #### C BC #### [facility] [address] [place] [address] Dr. Jason Floyd Basophils/100 WBC (Bld) 0.5 % Normal 0.2-2.0 [facility] Comment on above: Performed By: #### C BC #### [facility] [address] [place] [address] Dr. Jason Floyd EO # 0.2 103/ul Normal 0.0-0.7 [facility] Comment on above: Performed By: #### C BC #### [facility] [address] [place] [address] Dr. Jason Floyd Eosinophils/100 WBC (Bld) 2.2 % Normal 0.9-7.0 [facility] Comment on above: Performed By: #### C BC #### [facility] [address] [place] [address] Dr. Jason Floyd Erythrocyte distribution width (RBC) [Ratio] 12.7 % Normal 11.0-15.0 [facility] Comment on above: Performed By: #### C BC #### [facility] [address] [place] [address] Dr. Jason Floyd Hematocrit (Bld) [Volume fraction] 38.2 % Normal 36.0-48.0 [facility] Comment on above: Performed By: #### C BC #### [facility] [address] [place] [address] Dr. Jason Floyd Hemoglobin (Bld) [Mass/Vol] 12.9 g/dL Normal 12.0-16.0 [facility] Comment on above: Performed By: #### C BC #### [facility] [address] [place] [address] Dr. Jason Floyd IG # 0.01 10e3/ul Normal 0.00-0.03 [facility] Comment on above: Performed By: #### C BC #### [facility] [address] [place] [address] Dr. Jason Floyd IG % 0.1 % Normal 0.0-0.5 [facility] Comment on above: Performed By: #### C BC #### [facility] [address] [place] [address] Dr. Jason Floyd LYMPH # 2.8 103/ul Normal 1.2-3.8 [facility] Comment on above: Performed By: #### C BC #### [facility] [address] [place] [address] Dr. Jason Floyd Lymphocytes/100 WBC (Bld) 33.4 % Normal 20.5-60.0 [facility] Comment on above: Performed By: #### C BC #### [facility] [address] [place] [address] Dr. Jason Floyd MANUAL DIFF REQ NO Normal [facility] Comment on above: Performed By: #### C BC #### [facility] [address] [place] [address] Dr. Jason Floyd MCH (RBC) [Entitic mass] 29.9 pg Normal 26.7-34.0 [facility] Comment on above: Performed By: #### C BC #### [facility] [address] [place] [address] Dr. Jason Floyd MCHC (RBC) [Mass/Vol] 33.8 g/dL Normal 29.9-35.2 [facility] Comment on above: Performed By: #### C BC #### [facility] [address] [place] [address] Dr. Jason Floyd MCV (RBC) [Entitic vol] 88.6 fL Normal 81.0-99.0 [facility] Comment on above: Performed By: #### C BC #### [facility] [address] [place] [address] Dr. Jason Floyd MONO # 0.6 103/ul Normal 0.3-0.8 [facility] Comment on above: Performed By: #### C BC #### [facility] [address] [place] [address] Dr. Jason Floyd Monocytes/100 WBC (Bld) 7.0 % Normal 1.7-12.0 [facility] Comment on above: Performed By: #### C BC #### [facility] [address] [place] [address] Dr. Jason Floyd NEUT # 4.7 103/ul Normal 1.4-6.5 [facility] Comment on above: Performed By: #### C BC #### [facility] [address] [place] [address] Dr. Jason Floyd Neutrophils/100 WBC (Bld) 56.8 % Normal 43.0-75.0 [facility] Comment on above: Performed By: #### C BC #### [facility] [address] [place] [address] Dr. Jason Floyd Platelet mean volume (Bld) [Entitic vol] 10.1 fL Normal 9.5-13.5 [facility] Comment on above: Performed By: #### C BC #### [facility] [address] [place] [address] Dr. Jason Floyd PLT 275 103/ul Normal 150-450 [facility] Comment on above: Performed By: #### C BC #### [facility] [address] [place] [address] Dr. Jason Floyd RBC 4.31 106/ul Normal 4.20-5.40 [facility] Comment on above: Performed By: #### C BC #### [facility] [address] [place] [address] Dr. Jason Floyd WBC 8.2 103/ul Normal 4.0-11.0 [facility] Comment on above: Performed By: #### C BC #### [facility] [address] [place] [address] Dr. Jason Floyd PROF 14(COMP METB)on 023 Albumin [Mass/Vol] 4.4 g/dL Normal 3.4-5.0 [facility] Comment on above: Performed By: #### C MP #### [facility] [address] [place] [address] Dr. Jason Floyd Albumin/Globulin [Mass ratio] 1.5 {ratio} Normal [facility] Comment on above: Performed By: #### C MP #### [facility] [address] [place] [address] Dr. Jason Floyd ALP [Catalytic activity/Vol] 73 U/L Normal 46-116 [facility] Comment on above: Performed By: #### C MP #### [facility] [address] [address] [address] Jason Floyd ALT [Catalytic activity/Vol] 30 U/L Normal 14-59 [facility] Comment on above: Performed By: #### C MP #### [facility] [address] [place] [address] Dr. Jason Floyd Anion gap [Moles/Vol] 13.0 mmol/L Normal [facility] Comment on above: Performed By: #### C MP #### [facility] [address] [place] [address] Dr. Jason Floyd AST [Catalytic activity/Vol] 17 U/L Normal 15-37 [facility] Comment on above: Performed By: #### C MP #### [facility] [address] [place] [address] Dr. Jason Floyd Bilirubin [Mass/Vol] 0.4 mg/dL Normal 0.2-1.0 [facility] Comment on above: Performed By: #### C MP #### [facility] [address] [place] [address] Dr. Jason Floyd Calcium [Mass/Vol] 10.8 mg/dL Critically high 8.5-10.1 [facility] Comment on above: Performed By: #### C MP #### [facility] [address] [place] [address] Dr. Jason Floyd Chloride [Moles/Vol] 101 mmol/L Normal 98-107 [facility] Comment on above: Performed By: #### C MP #### [facility] [address] [place] [address] Dr. Jason Floyd CO2 [Moles/Vol] 27.6 mmol/L Normal 21.0-32.0 [facility] Comment on above: Performed By: #### C MP #### [facility] [address] [address] [address] Jason Floyd Creatinine [Mass/Vol] 0.83 mg/dL Normal 0.55-1.02 [facility] Comment on above: Performed By: #### C MP #### [facility] [address] [address] [address] Jason Floyd EGFR-AF CENTRAL AFRICAN >60 Normal >=60 [facility] Comment on above: Performed By: #### C MP #### [facility] [address] [address] [address] Jason Floyd EGFR-NON AF CENTRAL AFRICAN >60 Normal >=60 [facility] Comment on above: Performed By: #### C MP #### [facility] [address] [address] [address] Jason Floyd Globulin (S) [Mass/Vol] 2.9 g/dL Normal [facility] Comment on above: Performed By: #### C MP #### [facility] [address] [address] [address] Jason Floyd Glucose [Mass/Vol] 99 mg/dL Normal 74-106 [facility] Comment on above: Performed By: #### C MP #### [facility] [address] [place] [address] Dr. Jason Floyd Potassium [Moles/Vol] 3.6 mmol/L Normal 3.5-5.1 [facility] Comment on above: Performed By: #### C MP #### [facility] [address] [address] [address] Jason Floyd Protein [Mass/Vol] 7.3 g/dL Normal 6.4-8.2 [facility] Comment on above: Performed By: #### C MP #### [facility] [address] [place] [address] Dr. Jason Floyd Sodium [Moles/Vol] 138 mmol/L Normal 136-145 [facility] Comment on above: Performed By: #### C MP #### [facility] [address] [address] [address] Jason Floyd Urea nitrogen [Mass/Vol] 8.0 mg/dL Normal 7.0-18.0 [facility] Comment on above: Performed By: #### C MP #### [facility] [address] [address] [address] Jason Floyd Urea nitrogen/Creatinine [Mass ratio] 9.6 mg/mg Normal [facility] Comment on above: Performed By: #### C MP #### [facility] [address] [address] [address] Jason Floyd 29on 01-20-2022 29 Addended by: LUCA VILLAGRAN on: 01/23/2022 09:04 AM Modules accepted: Level of Service Normal [facility] Follow-Upon 01-20-2022 Follow-Up [id number] Isis Dumas 1980 F Date Provider Department Center 01/20/2022 LUCA CEJA HVC CARD [facility] Family History Problem Relation Age of Onset Heart attack Father Family Status - Relation Status Age at Father Level of Service:73637 SC OFFICE/OUTPATIENT ESTABLISHED LOW MDM 20-29 MIN Reason for Visit and Comments: Follow-up [889323] Normal [facility] Abstracton 11-10-2021 Abstract [id number] Isis Goncalves 1980 Date Provider Department Center 11/10/2021 CAMERON BERNAL HVC CARD [facility] Family History Problem Relation Age of Onset Heart attack Father Family Status - Relation Status Age at Father Normal [facility] SARS-CoV-2 (COVID-19) RNA NA A+probe Ql (Resp)on 10-19-2021 SARS-CoV-2 (COVID-19) RNA DIANE+probe Ql (Unsp spec) Negative [facility] Other Cardiovascular Lab Reporton 01-06-2021 Cardiovascular Lab Report [facility] Patient Name: Isis Goncalves [facility] MR #: [id number] Physician: Luca Villagran MD Department of Service Date: 01/06/2021 Medicine Birthdate: 1980 Division of Room #: CC Cardiology Adult Cardiovascular Services [facility] [address] [place], [place] [address] Cardiovascular Laboratory Report LOOP IMPLANT PROCEDURE NOTE [...] the sternum on the left using the C2cube tool. The loop recorder was then injected [...] LOOP details: Device Model: M301 Lux-Dx Serial#: [id number] Sensing is 0.18mV. IMPRESSION: Successful placement of LOOP implant with excellent sensing parameters. RECOMMENDATIONS: 1. Occlusive dressing to be changed after 7 days. 2. Do not wet the incision. Luca Villagran MD Cardiac Electrophysiology Electronically Signed by: Luca Villagran MD 01/17/2021 04:41 P Luca Villagran MD Date Dict: 01/06/2021/01:22 P/Luca Villagran MD Date Trans: 01/06/2021 01:32 P/so [id number] Normal [facility] POC SARS COV2 ANTIGEN NEGATI VEon 01-06-2021 POC SARS COV2 ANTIGEN NEG Negative Normal NEGATIVE [facility] Comment on above: Result Comment: [...] signs and symptoms consistent with COVID-19. [facility] COVID-19 Ag Card is a lateral flow [...] Accreditation. Performed By: #### 3 1977 #### [address] [place] [address], [facility] LIPID PANEL (CORONARY RISK 2 )on 11-05-2019 Cholesterol [Mass/Vol] 164 mg/dL Normal 0 - 199 [facility] Comment on above: Order Comment: Order ing [...] dosing. Performed By: #### L IPID #### [address] [id number] Cholesterol in HDL [Mass/Vol] 39.0 mg/dL Abnormal [facility] Comment on above: Order Comment: Order ing is aware patient is non-fasting. Result Comment: . AGE VERY LOW LOW NORMAL HIGH 0-19 Y < 35 < 40 40-45 ---- 20-24 Y ---- < 40 >45 ---- >24 Y ---- < 40 40-60 >60 . Performed By: #### L IPID #### [address] [id number] Cholesterol in LDL [Mass/Vol] 79 mg/dL Normal 0 - 99 [facility] Comment on above: Order Comment: Order ing is aware patient is non-fasting. Result Comment: . NEAR BORD AGE DESIRABLE OPTIMAL HIGH HIGH VERY HIGH 0-19 Y 0 - 109 --- 110-129 >/= 130 ---- 20-24 Y 0 - 119 --- 120-159 >/= 160 ---- >24 Y 0 - 99 100-129 130-159 160-189 >/=190 . Performed By: #### L IPID #### [address] [id number] Cholesterol in VLDL [Mass/Vol] 46 mg/dL High 0 - 40 [facility] Comment on above: Order Comment: Order ing is aware patient is non-fasting. Performed By: #### L IPID #### [address] [id number] Cholesterol.total/C holesterol in HDL [Mass ratio] 4.2 {ratio} Normal [facility] Comment on above: Order Comment: Suzy ing is aware patient is non-fasting. Result Comment: REF VALUES DESIRABLE < 3.4 HIGH RISK > 5.0 Performed By: #### L IPID #### [address] [id number] NON-HDL CHOLESTEROL 125 mg/dL Normal [facility] Comment on above: Order Comment: Suzy ing is aware patient is non-fasting. Result Comment: AGE DESIRABLE BORDERLINE HIGH HIGH VERY HIGH 0-19 Y 0 - 119 120 - 144 >/= 145 >/= 160 20-24 Y 0 - 149 150 - 189 >/= 190 ---- >24 Y 30 MG/DL ABOVE LDL CHOLESTEROL GOAL . Performed By: #### L IPID #### [address] [id number] Triglyceride [Mass/Vol] 230 mg/dL High 0 - 149 [facility] Comment on above: Order Comment: Suzy tinajero Dr is aware patient is non-fasting. Result Comment: [...] dosing. Performed By: #### L IPID #### [address] [id number] Gloria 04-22-2018 CNOV Office Visit ([facility] ) ISIS GONCALVES ([id number]) 1980 F Date Time Provider Department 04/22/18 1:10 PM LISE PIRES (ALISON) GABE During your visit today, we recorded the following information about you: Pulse Respiration Blood pressure Weight 89/minute 18/minute 114/64 51.7 kg Height 1.753 m Lise Pires APRN.CNP 04/22/2018 1:58 PM Signed [facility] Follow up/ Established patient [...] directed. - Avoid driving when drowsy. - blade groover for short naps (20-30 minutes) and use [...] directed. - Avoid driving when drowsy. - blade groover for short naps (20-30 minutes) and use [...] the best time for you. Lise Pires APRN.FIGHTING VEHICLE SYSTEMS MAINTAINER Referring Provider: TULIO PABLO [[id number]] Allergies As of Date: 04/22/2018 (No Known [...] Status:Closed by ALISON PIRES on 04/22/18 Normal [facility] PROGRESSon 04-22-2018 Protein mass conc HNO ID: [id number] Author: Lise Dewitt (Alison) Eloisa Service: (none) Author Type: Nurse Practitioner Type: Progress Notes Filed: 04/22/2018 1:58 PM Note Text: [facility] Follow up/ Established patient [...] directed. - Avoid driving when drowsy. - blade groover for short naps (20-30 minutes) and use [...] directed. - Avoid driving when drowsy. - blade groover for short naps (20-30 minutes) and use [...] the best time for you. Lise Pires APRN.[facility] Normal [facility] Gloria 01-22-2018 CNOV Office Visit ([facility] ) ISIS GONCALVES ([id number]) 1980 F Date Time Provider Department 01/22/18 10:10 AM LISE PIRES (ALISON) MARIA G During your visit today, we recorded the following information about you: Pulse Respiration Blood pressure Weight 64/minute 19/minute 100/64 51.4 kg Height 1.727 m Lise Pires APRN.CNP 01/22/2018 11:01 AM Signed [facility] Follow up/ Established patient [...] directed. - Avoid driving when drowsy. - blade groover for short naps (20-30 minutes) and use [...] directed. - Avoid driving when drowsy. - blade groover for short naps (20-30 minutes) and use of caffeine if needed to help stay awake when driving. - Try to get at least 7-9 hours of sleep in a 24 hour period. Healthy diet and exercise can also promote better sleep. - Follow up in 3 months in the office. Recommend scheduling this appointment now to ensure the best time for you. Lise Pires, PEDIATRIC OCCUPATIONAL THERAPIST.FIGHTING VEHICLE SYSTEMS MAINTAINER Referring Provider: TULIO PABLO [[id number]] Allergies As of Date: 01/22/2018 (No Known [...] with MACK and [address] aPblo. Follow-up and Disposition History Recorded Encounter Status:Closed by ALISON PIRES on 01/22/18 Normal [facility] PROGRESSon 01-22-2018 Protein mass conc HNO ID: [id number] Author: Lise Pires Service: (none) Author Type: Nurse Practitioner Type: Progress Notes Filed: 01/22/2018 11:01 AM Note Text: [facility] Follow up/ Established patient [...] directed. - Avoid driving when drowsy. - blade groover for short naps (20-30 minutes) and use [...] time for you. ?? ? Lise Pires, PEDIATRIC OCCUPATIONAL THERAPIST.FIGHTING VEHICLE SYSTEMS MAINTAINER Interval history : Time in: 10:08 AM [...] directed. - Avoid driving when drowsy. - blade groover for short naps (20-30 minutes) and use of caffeine if needed to help stay awake when driving. - Try to get at least 7-9 hours of sleep in a 24 hour period. Healthy diet and exercise can also promote better sleep. - Follow up in 3 months in the office. Recommend scheduling this appointment now to ensure the best time for you. Lise Pires, MACK.[facility] Normal [facility] CNOVon 10-22-2017 CNOV Office Visit ([facility] ) ISIS GONCALVES ([id number]) 1980 F Date Time Provider Department 10/22/17 8:40 AM LISE PIRES (ALISON) GABE During your visit today, we recorded the following information about you: Pulse Blood pressure Weight Height 60/minute 105/75 58.5 kg 1.753 m Lise Pires APRN.CNP 10/22/2017 10:00 AM Signed [facility] Follow up/ Established patient [...] directed. - Avoid driving when drowsy. - blade groover for short naps (20-30 minutes) and use [...] the best time for you. Lise Pires APRN.FIGHTING VEHICLE SYSTEMS MAINTAINER Referring Provider: TULIO PABLO [[id number]] Allergies As of Date: 10/22/2017 (No Known [...] Encounter Status:Closed by ALISON PIRES on 10/22/17 Normal [facility] PROGRESSon 10-22-2017 Protein mass conc HNO ID: [id number] Author: Lise Dewitt (Viri Pires Service: (none) Author Type: Nurse Practitioner Type: Progress Notes Filed: 10/22/2017 10:00 AM Note Text: [facility] Follow up/ Established patient [...] directed. - Avoid driving when drowsy. - blade groover for short naps (20-30 minutes) and use [...] the best time for you. 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 [...] in 3 months. Tulio Pablo MD Normal [facility] Vital Signs Date Time Vital Sign Value Performing Clinician Facility 04-24-2023 16:14-0500 Body height 175.3 cm Khanh Cerda MD Work Phone: [facility] [employer] 04-24-2023 16:14-0500 Body mass index (BMI) [Ratio] 24.22 kg/m2 Khanh Cerda MD Work Phone: [facility] 04-24-2023 16:14-0500 Body weight 74.39 kg Khanh Cerda MD Work Phone: [facility] 04-24-2023 16:14-0500 Diastolic blood pressure 77 mm[Hg] Khanh Cerda MD Work Phone: [facility] 04-24-2023 16:14-0500 Heart rate 67 /min Khanh Cerda MD Work Phone: [facility] 04-24-2023 16:14-0500 Systolic blood pressure 128 mm[Hg] Khanh Cerda MD Work Phone: [facility] 03-07-2023 14:20-0500 Body height 175.26 cm Roshan Scovanner Other [facility] Other 03-07-2023 14:20-0500 Body mass index (BMI) [Ratio] 25.54 kg/m2 Roshan Scovanner Other [facility] Other 03-07-2023 14:20-0500 Body weight 78.47 kg Roshan Scovanner Other [facility] Other 12-27-2022 09:20-0400 Body height 175.26 cm Roshan Scovanner Other [facility] Other 12-27-2022 09:20-0400 Body mass index (BMI) [Ratio] 25.54 kg/m2 Roshan Scovanner Other [facility] Other 12-27-2022 09:20-0400 Body weight 78.47 kg Roshan Scovanner Other [facility] Other 12-27-2022 09:20-0400 Diastolic blood pressure 77 mm[Hg] Roshan Plaza Other [facility] Other 12-27-2022 09:20-0400 Systolic blood pressure 120 mm[Hg] Roshan Mela Other [facility] Other 10-19-2021 10:05-0400 Body height 175.26 cm Lilly Ellington Other [facility] Other 10-19-2021 10:05-0400 Body mass index (BMI) [Ratio] 25.1 kg/m2 Lilly Ellington Other [facility] Other 10-19-2021 10:05-0400 Body temperature 98.9 [degF] Lilly Ellington Other [facility] Other 10-19-2021 10:05-0400 Body weight 77.11 kg Lilly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
[2023-09-21 12:20] LABS: Free T4 0.93 ng/dL (0.76-1.46)
[2023-09-21 12:28] LABS: Thyroid Stimulating Hormone 0.808 uIU/mL (0.358-3.740)
[2023-09-21 12:53] LABS: Estimated Average Glucose 97 mg/dL
== END 2023-09-21 11:06 | disposition home or self-care (01) ==
PROVIDERS: Visit Provider Psychiatry & Neurology Neurology
DX: G62.9 Polyneuropathy, unspecified (principal); R79.89 Other specified abnormal findings of blood chemistry; G60.9 Hereditary and idiopathic neuropathy, unspecified; Z11.3 Encounter for screening for infections with a predominantly sexual mode of transmission; E53.1 Pyridoxine deficiency; I70.91 Generalized atherosclerosis; D51.3 Other dietary vitamin B12 deficiency anemia; M79.10 Myalgia, unspecified site; E78.5 Hyperlipidemia, unspecified
CPT/HCPCS: 36415; 83036; 84439; 84443

== ENCOUNTER 2023-12-22 07:23 | Outpatient (OUT) | payer BC, SELFPAY ==
--- OUTSIDE RECORDS SUMMARY | 2023-12-22 07:27 | XMS_ITS | CCD ---
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 information in this document.
[2023-12-22 09:00] LABS: Cholesterol 159 mg/dL (<=200); Glucose Fasting 89 mg/dL (<95); HDL Cholesterol 40 mg/dL (40-60); LDL Cholesterol Calculated 95.6 mg/dL; Thyroid Stimulating Hormone 0.883 uIU/mL (0.358-3.740); Triglycerides 117 mg/dL (<=150); VLDL CHOLESTEROL 23.4 mg/dL
== END 2023-12-22 07:24 | disposition home or self-care (01) ==
PROVIDERS: PCP Student in an Organized Health Care Education/Training Program
DX: Z00.00 Encounter for general adult medical examination without abnormal findings (principal)
CPT/HCPCS: 36415; 80061; 82947; 84443

== ENCOUNTER 2024-05-13 07:02 | Outpatient (OUT) | payer BC, SELFPAY ==
--- OUTSIDE RECORDS SUMMARY | 2024-05-13 07:08 | XMS_ITS | CCD ---
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 [facility] [address] [place] [address] Dr. Jason Floyd Platelet mean volume (Bld) [Entitic vol] 10.1 fL Normal 9.5-13.5 [facility] Comment on above: Performed By: #### C BC #### [facility] [address] [place] [address] Dr. Jason Floyd PLT 275 103/ul Normal 150-450 [facility] Comment on above: Performed By: #### C BC #### [facility] [address] [place] [address] Dr. Jasno Floyd RBC 4.31 106/ul Normal 4.20-5.40 [facility] Comment on above: Performed By: #### C BC #### [facility] [address] [place] [address] Dr. Jason Floyd WBC 8.2 103/ul Normal 4.0-11.0 [facility] Comment on above: Performed By: #### C BC #### [facility] [address] [place] [address] Dr. Jason Floyd PROF 14(COMP METB)on 023 Albumin [Mass/Vol] 4.4 g/dL Normal 3.4-5.0 [facility] Comment on above: Performed By: #### C MP #### [facility] [address] [address] [address] Jason Floyd Albumin/Globulin [Mass ratio] 1.5 {ratio} Normal [facility] Comment on above: Performed By: #### C MP #### [facility] [address] [address] [address] Jason Floyd ALP [Catalytic activity/Vol] 73 U/L Normal 46-116 [facility] Comment on above: Performed By: #### C MP #### [facility] [address] [address] [address] Jason Floyd ALT [Catalytic activity/Vol] 30 U/L Normal 14-59 [facility] Comment on above: Performed By: #### C MP #### [facility] [address] [place] [address] Dr. Jason Floyd Anion gap [Moles/Vol] 13.0 mmol/L Normal [facility] Comment on above: Performed By: #### C MP #### [facility] [address] [place] [address] Dr. Jason Floyd AST [Catalytic activity/Vol] 17 U/L Normal 15-37 [facility] Comment on above: Performed By: #### C MP #### [facility] [address] [place] [address] Dr. Jason Floyd Bilirubin [Mass/Vol] 0.4 mg/dL Normal 0.2-1.0 [facility] Comment on above: Performed By: #### C MP #### [facility] [address] [place] [address] Dr. Jason Floyd Calcium [Mass/Vol] 10.8 mg/dL Critically high 8.5-10.1 T [facility] Comment on above: Performed By: #### C MP #### [facility] [address] [place] [address] Dr. Jason Floyd Chloride [Moles/Vol] 101 mmol/L Normal 98-107 [facility] Comment on above: Performed By: #### C MP #### [facility] [address] [address] [address] Jason Floyd CO2 [Moles/Vol] 27.6 mmol/L Normal 21.0-32.[address] [facility] Comment on above: Performed By: #### C MP #### [facility] [address] [address] [address] Jason Floyd Creatinine [Mass/Vol] 0.83 mg/dL Normal 0.55-1.02 [facility] Comment on above: Performed By: #### C MP #### [facility] [address] [address] [address] Jason Floyd EGFR-AF ISRAELI >60 Normal >=[address] [facility] Comment on above: Performed By: #### C MP #### [facility] [address] [address] [address] Jason Floyd EGFR-NON AF ISRAELI >60 Normal >=60 [facility] Comment on above: Performed By: #### C MP #### [facility] [address] [address] [address] Jason Floyd Globulin (S) [Mass/Vol] 2.9 g/dL Normal [facility] Comment on above: Performed By: #### C MP #### [facility] [address] [address] [address] Jason Floyd Glucose [Mass/Vol] 99 mg/dL Normal 74-106 [facility] Comment on above: Performed By: #### C MP #### [facility] [address] [address] [address] Jason Floyd Potassium [Moles/Vol] 3.6 mmol/L Normal 3.5-5.1 [facility] Comment on above: Performed By: #### C MP #### [facility] [address] [address] [address] Jason Floyd Protein [Mass/Vol] 7.3 g/dL Normal 6.4-8.2 [facility] Comment on above: Performed By: #### C MP #### [facility] [address] [address] [address] Jason Floyd Sodium [Moles/Vol] 138 mmol/L Normal 136-145 [facility] Comment on above: Performed By: #### C MP #### [facility] [address] [address] [address] Jason Floyd Urea nitrogen [Mass/Vol] 8.0 mg/dL Normal 7.0-18.0 [facility] Comment on above: Performed By: #### C MP #### [facility] [address] [address] [address] Jason Floyd Urea nitrogen/Creatinin e [Mass ratio] 9.6 mg/mg Normal [facility] Comment on above: Performed By: #### C MP #### [facility] [address] [address] [address] Jason Floyd 29on 01-20-2022 29 Addended by: LUCA VILLAGRAN on: 01/23/2022 09:04 AM Modules accepted: Level of Service Normal [facility] Follow-Upon 01-20-2022 Follow-Up [id number] Isis Bryson 1980 F Date Provider Department Center 01/20/2022 LUCA CEJA [facility] CARD AR HeartVAS Family History Problem Relation Age of Onset Heart attack Father Family Status - Relation Status Age at Father Level of Service:[address]387 [place] OFFICE/OUTPATIENT ESTABLISHED LOW MDM 20-29 MIN Reason for Visit and Comments: Follow-up [295776] Normal [facility] Abstracton 11-10-2021 Abstract [id number] Isis Goncalves 1980 Date Provider Department Center 11/10/2021 CAMERON BERNAL [facility] CARD AR HeartVAS Family History Problem Relation Age of Onset Heart attack Father Family Status - Relation Status Age at Father Normal [facility] SARS-CoV-2 (COVID-19) RNA NA A+probe Ql (Resp)on 10-19-2021 SARS-CoV-2 (COVID-19) RNA DIANE+probe Ql (Unsp spec) Negative [employer] [employer] Other Cardiovascular Lab Reporton 01-06-2021 Cardiovascular Lab Report [facility] Patient Name: Isis Goncalves [facility] MR #: [id number] Physician: Luca Villagran MD Department of Service Date: 01/06/2021 Medicine Birthdate: 1980 Division of Room #: CC Cardiology Adult Cardiovascular Services [address] [place] [address] Cardiovascular Laboratory Report LOOP IMPLANT PROCEDURE NOTE [...] the sternum on the left using the Insight Guru tool. The loop recorder was then injected [...] LOOP details: Device Model: M301 Lux-Dx Serial#: [id number] Sensing is 0.18mV. IMPRESSION: Successful placement of LOOP implant with excellent sensing parameters. RECOMMENDATIONS: 1. Occlusive dressing to be changed after 7 days. 2. Do not wet the incision. Luca Villagran MD Cardiac Electrophysiology Electronically Signed by: Luca Villagran MD 01/17/2021 04:41 P Luca Villagran MD Date Dict: 01/06/2021/01:22 P/Luca Villagran MD Date Trans: 01/06/2021 01:32 P/mmo [id number] Normal The [facility] POC SARS COV2 ANTIGEN NEGATI VEon 01-06-2021 POC SARS COV2 ANTIGEN NEG Negative Normal NEGATIVE The [facility] Comment on above: Result Comment: Nega [...] signs and symptoms consistent with COVID-19. The [employer] COVID-19 Ag Card is a lateral flow [...] Accreditation. Performed By: #### 3 1977 #### [facility] [address] [place] [address], [facility] LIPID PANEL (CORONARY RISK 2 )on 11-05-2019 Cholesterol [Mass/Vol] 164 mg/dL Normal 0 - 199 [facility] Comment on above: Order Comment: Order ing [...] dosing. Performed By: #### L IPID #### [address] [id number] Cholesterol in HDL [Mass/Vol] 39.0 mg/dL Abnormal [facility] Comment on above: Order Comment: Order ing is aware patient is non-fasting. Result Comment: . AGE VERY LOW LOW NORMAL HIGH 0-19 Y < 35 < 40 40-45 ---- 20-24 Y ---- < 40 >45 ---- >24 Y ---- < 40 40-60 >60 . Performed By: #### L IPID #### [address] [id number] Cholesterol in LDL [Mass/Vol] 79 mg/dL Normal 0 - 99 [facility] Comment on above: Order Comment: Order tanvi Tse is aware patient is non-fasting. Result Comment: . NEAR BORD AGE DESIRABLE OPTIMAL HIGH HIGH VERY HIGH 0-19 Y 0 - 109 --- 110-129 >/= 130 ---- 20-24 Y 0 - 119 --- 120-159 >/= 160 ---- >24 Y 0 - 99 100-129 130-159 160-189 >/=190 . Performed By: #### L IPID #### [address] [id number] Cholesterol in VLDL [Mass/Vol] 46 mg/dL High 0 - 40 [facility] Comment on above: Order Comment: Order tanvi Tse is aware patient is non-fasting. Performed By: #### L IPID #### [address] [id number] Cholesterol.total/ Cholesterol in HDL [Mass ratio] 4.2 {ratio} Normal [facility] Comment on above: Order Comment: Order ing is aware patient is non-fasting. Result Comment: REF VALUES DESIRABLE < 3.4 HIGH RISK > 5.0 Performed By: #### L IPID #### [address] [id number] NON-HDL CHOLESTEROL 125 mg/dL Normal [facility] Comment on above: Order Comment: Order ing is aware patient is non-fasting. Result Comment: AGE DESIRABLE BORDERLINE HIGH HIGH VERY HIGH 0-19 Y 0 - 119 120 - 144 >/= 145 >/= 160 20-24 Y 0 - 149 150 - 189 >/= 190 ---- >24 Y 30 MG/DL ABOVE LDL CHOLESTEROL GOAL . Performed By: #### L IPID #### [address] [id number] Triglyceride [Mass/Vol] 230 mg/dL High 0 - 149 [facility] Comment on above: Order Comment: Order ing [...] dosing. Performed By: #### L IPID #### [address] [id number] CNOVon 04-22-2018 CNOV Office Visit ([facility] ) ISIS GONCALVES ([id number]) 1980 F Date Time Provider Department 04/22/18 1:10 PM LISE PIRES (IAN) MARIA G During your visit today, we recorded the following information about you: Pulse Respiration Blood pressure Weight 89/minute 18/minute 114/64 51.7 kg Height 1.753 m Lise Pires APRN.CNP 04/22/2018 1:58 PM Signed [facility] Follow up/ Established [...] directed. - Avoid driving when drowsy. - stock mover for short naps (20-30 minutes) and use [...] directed. - Avoid driving when drowsy. - stock mover for short naps (20-30 minutes) and use [...] the best time for you. Lise Pires APRN.PROJECT HIRE Referring Provider: TULIO PABLO [[id number]] Allergies As of Date: 04/22/2018 (No Known [...] and Disposition History Recorded Encounter Status:Closed by IAN PIRES on 04/22/[address] [facility] PROGRESSon 04-22-2018 Protein mass conc HNO ID: [id number] Author: Lise Dewitt (Ian) Eloisa Service: (none) Author Type: Nurse Practitioner Type: Progress Notes Filed: 04/22/2018 1:58 PM Note Text: [facility] Follow up/ Established [...] directed. - Avoid driving when drowsy. - stock mover for short naps (20-30 minutes) and use [...] time for you. ? ?? Lise Pires APRN.IAN Interval history : Here for follow up [...] directed. - Avoid driving when drowsy. - stock mover for short naps (20-30 minutes) and use [...] the best time for you. Lise Pires APRN.[facility] Normal [facility] MARIAHOVon 01-22-2018 CNOV Office Visit ([facility] ) ISIS GONCALVES ([id number]) 1980 F Date Time Provider Department 01/22/18 10:10 AM LISE PIRES (IAN) MARIA G During your visit today, we recorded the following information about you: Pulse Respiration Blood pressure Weight 64/minute 19/minute 100/64 51.4 kg Height 1.727 m Lise Pires APRN.CNP 01/22/2018 11:01 AM Signed [facility] Follow up/ Established [...] directed. - Avoid driving when drowsy. - stock mover for short naps (20-30 minutes) and use [...] directed. - Avoid driving when drowsy. - stock mover for short naps (20-30 minutes) and use [...] the best time for you. Lise Pires APRN.PROJECT HIRE Referring Provider: TULIO PABLO [[id number]] Allergies As of Date: 01/22/2018 (No Known [...] and Disposition History Recorded Encounter Status:Closed by IAN PIRES on 01/22/[address] [facility] PROGRESSon 01-22-2018 Protein mass conc HNO ID: [id number] Author: Lise Pires Service: (none) Author Type: Nurse Practitioner Type: Progress Notes Filed: 01/22/2018 11:01 AM Note Text: [facility] Follow up/ Established [...] directed. - Avoid driving when drowsy. - stock mover for short naps (20-30 minutes) and use [...] time for you. ?? ? Lise Pires, PHYSICIAN CODING SPECIALIST.PROJECT HIRE Interval history : Time in: 10:08 AM [...] directed. - Avoid driving when drowsy. - stock mover for short naps (20-30 minutes) and use [...] the best time for you. Lise Pires APRN.[facility] Normal [facility] Gloria 10-22-2017 CNOV Office Visit ([facility] ) ISIS GONCALVES ([id number]) 1980 F Date Time Provider Department 10/22/17 8:40 AM LISE PIRES (IAN) GABE During your visit today, we recorded the following information about you: Pulse Blood pressure Weight Height 60/minute 105/75 58.5 kg 1.753 m Lise Pires APRN.CNP 10/22/2017 10:00 AM Signed [facility] Follow up/ Established [...] directed. - Avoid driving when drowsy. - stock mover for short naps (20-30 minutes) and use [...] the best time for you. Lise Pires, MACK.PROJECT HIRE Referring Provider: TULIO PABLO [[id number]] Allergies As of Date: 10/22/2017 (No Known [...] about 3 months (around 01/22/2018) for with PHYSICIAN CODING SPECIALIST or Dr. Pablo. Follow-up and Disposition History Recorded Encounter Status:Closed by IAN PIRES on 10/22/[address] [facility] PROGRESSon 10-22-2017 Protein mass conc HNO ID: [id number] Author: Lise Dewitt (Ian) Eloisa Service: (none) Author Type: Nurse Practitioner Type: Progress Notes Filed: 10/22/2017 10:00 AM Note Text: [facility] Follow up/ Established [...] directed. - Avoid driving when drowsy. - stock mover for short naps (20-30 minutes) and use [...] the best time for you. Lise Pires APRN.PROJECT HIRE Normal 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 [...] by TULIO PABLO MD on 07/20/[address] 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 [...] up in 3 months. Tulio Pablo MD [facility] Vital Signs Date Time Vital Sign Value Performing Clinician Facility 05-12-2024 09:52-0500 Body height 175.3 cm Candice King MD, IBCLC Work Phone: [facility] 05-12-2024 09:52-0500 Body mass index (BMI) [Ratio] 20.05 kg/m2 Candice King MD, IBCLC Work Phone: [facility] 05-12-2024 09:52-0500 Body temperature 97.11 [degF] Candice King MD, IBCLC Work Phone: [facility] 05-12-2024 09:52-0500 Body weight 61.6 kg Candice King MD, IBCLC Work Phone: [facility] 05-12-2024 09:52-0500 Diastolic blood pressure 74 mm[Hg] Candice King MD, IBCLC Work Phone: [facility] 05-12-2024 09:52-0500 Heart rate 75 /min Candice King MD, IBCLC Work Phone: [facility] 05-12-2024 09:52-0500 SaO2% (BldA) [Mass fraction] 99 % Candice King MD, IBCLC Work Phone: [facility] 05-12-2024 09:52-0500 Systolic blood pressure 124 mm[Hg] Candice King MD, IBCLC Work Phone: [facility] 03-25-2024 10:22-0500 Body height 175.3 cm Khanh Cerda MD Work Phone: [facility] 03-25-2024 10:22-0500 Body mass index (BMI) [Ratio] 20.67 kg/m2 Khanh Cerda MD Work Phone: [facility] 03-25-2024 10:22-0500 Body weight 63.5 kg Khanh Cerda MD Work Phone: [facility] 03-25-2024 10:22-0500 Diastolic blood pressure 83 mm[Hg] Khanh Prashant SCHROEDER Work Phone: [facility] 03-25-2024 10:22-0500 Heart rate 86 /min Khanh Prashant SCHROEDER Work Phone: [facility] 03-25-2024 10:22-0500 Systolic blood pressure 134 mm[Hg] Khanh Prashant SCHROEDER Work Phone: [facility] 01-22-2024 11:35-0500 Body height 175.3 cm Khanh Prashant SCHROEDER Work Phone: [facility] 01-22-2024 11:35-0500 Body mass index (BMI) [Ratio] 21.56 kg/m2 Khanh Prashant SCHROEDER Work Phone: [facility] 01-22-2024 11:35-0500 Body weight 66.22 kg Khanh Cerda MD Work Phone: [facility] 01-22-2024 11:35-0500 Diastolic blood pressure 88 mm[Hg] Khanh Prashant SCHROEDER Work Phone: [facility] 01-22-2024 11:35-0500 Heart rate 62 /min Khanh Cerda MD Work Phone: [facility] 01-22-2024 11:35-0500 Systolic blood pressure 117 mm[Hg] Khanh Cerda MD Work Phone: [facility] 12-18-2023 16:04-0400 Body height 175.3 cm Khanh Cerda MD Work Phone: [facility] 12-18-2023 16:04-0400 Body mass index (BMI) [Ratio] 21.41 kg/m2 Khanh Cerda MD Work Phone: [facility] 12-18-2023 16:04-0400 Body weight 65.77 kg Khanh Cerda MD Work Phone: [facility] 12-18-2023 16:04-0400 Diastolic blood pressure 77 mm[Hg] Khanh Cerda MD Work Phone: [facility] 12-18-2023 16:04-0400 Heart rate 72 /min Khanh Cerda MD Work Phone: [facility] 12-18-2023 16:04-0400 Systolic blood pressure 117 mm[Hg] Khanh Cerda MD Work Phone: [facility] 04-24-2023 16:14-0500 Body height 175.3 cm Khanh Cerda MD Work Phone: [facility] 04-24-2023 16:14-0500 Body mass index (BMI) [Ratio] 24.22 kg/m2 Khanh Cerda MD Work Phone: [facility] 04-24-2023 16:14-0500 Body weight 74.39 kg Khanh Cerda MD Work Phone: [facility] 04-24-2023 16:14-0500 Diastolic blood pressure 77 mm[Hg] Khanh Cerda MD Work Phone: [facility] 04-24-2023 16:14-0500 Heart rate 67 /min Khanh Cerda MD Work Phone: [facility] 04-24-2023 16:14-0500 Systolic blood pressure 128 mm[Hg] Khanh Cerda MD Work Phone: [facility] 03-07-2023 14:20-0500 Body height 175.[address] Other [employer] Other 03-07-2023 14:20-0500 Body mass index (BMI) [Ratio] 25.54 kg/m2 Roshan Scovanjorge Other [employer] Other 03-07-2023 14:20-0500 Body weight 78.47 kg Roshan Scludwig Other [employer] Other 12-27-2022 09:20-0400 Body height 175.[address] Other [employer] Other 12-27-2022 09:20-0400 Body mass index (BMI) [Ratio] 25.54 kg/m2 Roshan Kanaovanner Other [employer] Other 12-27-2022 09:20-0400 Body weight 78.47 kg Roshan Scovanner Other [employer] Other 12-27-2022 09:20-0400 Diastolic blood pressure 77 mm[Hg] Roshan Scovanner Other [employer] Other 12-27-2022 09:20-0400 Systolic blood pressure 120 mm[Hg] Roshan Scovanner Other [employer] Other 10-19-2021 10:05-0400 Body height 175.26 cm Lilly Rakel Other [employer] Other 10-19-2021 10:05-0400 Body mass index (BMI) [Ratio] 25.1 kg/m2 Lilly Rakel Other [employer] Other 10-19-2021 10:05-0400 Body temperature 98.9 [degF] Lilly Rakel Other [employer] Other 10-19-2021 10:05-0400 Body weight 77.11 kg Lilly Duttonmond Other [employer] Other 10-19-2021 10:05-0400 Respiratory rate 18 /min Lilly Rakel Other [employer] Other 10-19-2021 10:05-0400 SaO2% (BldA) [Mass fraction] 95 % Lilly Ellington Other [facility] [employer] Other Encounters Encounter Date Encounter Type Care Provider Facility Start: 05-12-2024 End: 05-12-2024 Bamboo capri King MD, IBCLC Work Phone: [facility] Start: 05-12-2024 End: 05-12-2024 Chapoboo capri King MD, IBCLC Work Phone: [facility] Start: 05-12-2024 End: 05-12-2024 Office outpatient visit 25 minutes Candice King MD, IBCLC Work Phone: [facility] Comment on above: Diarrhea, unspecifie d type (Primary Dx); TMJ (temporomandibular joint disorder); Hemorrhoids, unspecified hemorrhoid type; Hot flashes; Encounter for screening mammogram for malignant neoplasm of breast Start: 04-23-2024 End: 04-23-2024 Bamboo flowsheet Jamil [facility] PA Work Phone: [facility] Start: 04-23-2024 End: 04-23-2024 [facility] Start: 04-23-2024 End: 04-23-2024 [facility] Comment on above: Other rosacea (Prima ry Dx); Acrochordon Start: 04-23-2024 End: 04-23-2024 ambulatory [facility] Not Available Start: 04-14-2024 End: 04-15-2024 Telephone encounter Khanh Cerda MD Work Phone: [facility] Start: 03-25-2024 End: 03-25-2024 Bamboo flowsheet Khanh Cerda MD Work Phone: [facility] Start: 03-25-2024 End: 03-25-2024 Bamboo flowsheet Khanh Cerda MD Work Phone: [facility] Start: 03-25-2024 End: 03-25-2024 Office outpatient visit 15 minutes Khanh Cerda MD Work Phone: [facility] Comment on above: Narcolepsy and catap soledad (CMS/HCC) (Primary Dx); Carpal tunnel syndrome, bilateral; Cervical paraspinal muscle spasm Start: 03-25-2024 End: 03-25-2024 ambulatory KHANH Flores BENavjot Not Available Start: 02-19-2024 End: 02-20-2024 Refill Rocio Taylor MA [facility] 111 Comment on above: Narcolepsy and catap soledad (CMS/HCC) (Primary Dx) Start: 01-29-2024 ambulatory Sloan Christianson acility:[facility] Start: 01-22-2024 End: 01-22-2024 Bamboo flowsmiguelina Cerda MD Work Phone: [facility] Start: 01-22-2024 End: 01-22-2024 Bamboo flowsmiguelina Cerda MD Work Phone: [facility] Start: 01-22-2024 End: 01-22-2024 Office outpatient visit 25 minutes Khanh Cerda MD Work Phone: [facility] Comment on above: Narcolepsy and catap soledad (CMS/HCC) (Primary Dx); Carpal tunnel syndrome, bilateral; Cervical paraspinal muscle spasm Start: 01-22-2024 End: 01-22-2024 ambulatory KHANH Flores BENavjot Not Available Start: 01-09-2024 End: 01-09-2024 Telephone encounter Khanh Cerda MD Work Phone: [facility] Start: 12-18-2023 End: 12-18-2023 Office outpatient visit 25 minutes Khanh Cerda MD Work Phone: [facility] Comment on above: Narcolepsy and catap soledad (CMS/HCC) (Primary Dx); Carpal tunnel syndrome, bilateral; Cervical paraspinal muscle spasm Start: 12-18-2023 End: 12-18-2023 ambulatory KHANH D BEJ Not Available Start: 12-18-2023 End: 12-18-2023 Chapoboo flowsmiguelina Cerda MD Work Phone: [facility] Start: 12-18-2023 End: 12-18-2023 Bamboo flowsmiguelina Cerda MD Work Phone: [facility] Start: 12-11-2023 End: 12-13-2023 Telephone encounter Khanh Cerda MD Work Phone: [facility] Start: 12-03-2023 End: 12-03-2023 ambulatory Alyssa J Shaina Facility:[facility] Start: 12-03-2023 End: 12-03-2023 Lab Drop off Alyssa J Shaina [facility] Start: 11-23-2023 End: 11-23-2023 Refill Rocio Taylor MA [facility] Comment on above: Narcolepsy and catap soledad (CMS/HCC) Start: 11-20-2023 End: 11-21-2023 Refill Khanh Cerda MD Work Phone: [facility] Comment on above: Narcolepsy and catap soledad (CMS/HCC) Start: 10-26-2023 End: 10-26-2023 ambulatory Alyssa J Shaina Facility:[facility] Start: 10-26-2023 End: 10-26-2023 Lab Drop off Alyssa J Shaina [facility] Start: 10-23-2023 End: 10-23-2023 ambulatory KHANH D BEJ Not Available Start: 09-25-2023 End: 09-25-2023 ambulatory KHANH D BEJ Not Available Start: 08-30-2023 End: 08-30-2023 ambulatory CANDICE CHRISTINE Not Available Start: 08-24-2023 End: 08-24-2023 ambulatory KHANH D BEJ Not Available Start: 08-02-2023 End: 08-02-2023 ambulatory KHANH D BEJ Not Available Start: 07-17-2023 End: 07-19-2023 ambulatory BANG BADILLO Not Available Start: 07-11-2023 End: 07-11-2023 ambulatory ISABELL FLOYD Not Available Start: 06-26-2023 End: 06-26-2023 ambulatory KHANH D BEJ Not Available Start: 05-04-2023 End: 05-04-2023 ambulatory KILO EDWARD Not Available Start: 04-24-2023 End: 04-24-2023 Office outpatient visit 15 minutes Khahn Cerda MD Work Phone: [facility] Comment on above: Narcolepsy and catap soledad (CMS/HCC) (Primary Dx); Carpal tunnel syndrome, bilateral Start: 03-07-2023 End: 03-07-[address] Other [employer] Other Start: 03-07-2023 Office outpatient visit 15 minutes Ros[address] Plaza [facility] G[facility] Start: 02-19-2023 End: 02-19-20[address] Other [employer] Other Start: 02-19-2023 Telephone encounter [facility] Start: 01-25-2023 End: 01-25-2023 ambulatory SLOTTER OPERATOR-C Kilo Edward Work Phone: [facility] Work Phone: Start: 01-25-2023 End: 01-25-2023 Patient encounter procedure SLOTTER OPERATOR-Ministerio Edward Work Phone: [facility] [place] Work Phone: Start: 12-27-2022 End: 12-27-20[address] Other [employer] Other Start: 12-27-2022 Office outpatient visit 15 minutes [address] [facility] Gastro[facility] Start: 09-29-2022 End: 09-29-2022 Pre-admission assessment Triston Moe [facility] Start: 08-01-2022 End: 08-01-2022 Patient encounter procedure Triston Moe [facility] Start: 07-07-2022 End: 07-07-[address] DOCTOR SHEETS Facility:[facility] Start: 05-17-2022 End: 05-18-[address] DOCTOR SHEETS Facility:[facility] Start: 05-15-2022 End: 05-16-[address] DOCTOR SHEETS Facility:[facility] Start: 04-13-2022 ambulatory [facility] Start: 01-20-2022 End: 01-21-2022 ambulatory [facility] Start: 10-19-2021 End: 10-19-2021 ambulatory Lilly Ellington Other [employer] Other Start: 10-19-2021 Office outpatient ne w 20 minutes Lilly Ellington [facility] Start: 01-07-2021 End: 01-16-2021 ambulatory LUCA TROY Facility:[facility] Start: 01-06-2021 End: 01-07-2021 ambulatory REFERRED SELF Facility:[facility] Start: 11-30-2020 End: 12-30-2020 ambulatory REFERRED SELF Facility:[facility] Start: 04-22-2018 End: 04-22-2018 Patient encounter procedure LISE Dewitt (IAN) ELOISA [facility] Start: 01-22-2018 End: 01-22-2018 Patient encounter procedure LISE Dewitt (IAN) ELOISA [facility] Start: 10-22-2017 End: 10-22-2017 Patient encounter procedure LISE Dewitt (IAN) ELOISA [facility] Start: 07-20-2017 End: 07-23-2017 Patient encounter procedure TULIO PABLO [facility] Procedures Date Procedure Procedure Detail Performing Clinician Start: 05-04-2023 Mammography Khanh Flores Work Phone: Start: 01-25-2023 Computed tomography of abdomen and pelvis with contrast TIMOTHY Edward Work Phone: Start: 09-23-2020 Microscopic observat ion [Identifier] in Cervix by Cyto stain Khanh Cerda MD Work Phone: [facility] Base[facility] Moe H/O: tubal ligation Basem Zaragoza ddad Plan of Treatment Date Care Activity Detail Author Start: 09-23-2025 Screening for malign ant neoplasm of cervix [facility] Start: 06-24-2024 End: 06-24-2024 Patient encounter procedure 06/24/2024 4:00 PM EDT Office Visit [facility] [address] [facility] [address] [place] [address] Kiarra Macias, SLOTTER OPERATOR [address], [facility] [address] [place] [address] [facility] Start: 05-12-2024 End: 05-12-2025 25-hydroxyvitamin D3 [Mass/volume] in Serum or Plasma Vitamin D 25 hydroxy Total Lab Routine Diarrhea, unspecified type Hot flashes Expected: 05/12/2024 (Approximate), Expires: 05/12/2025 [facility] Comment on above: Expected: 05/12/2024 (Approximate), Expires: 05/12/2025 Start: 05-12-2024 End: 05-12-2025 CBC W Auto Differential panel - Blood CBC and differential Lab Routine Diarrhea, unspecified type Hot flashes Expected: 05/12/2024 (Approximate), Expires: 05/12/2025 [facility] Work Phone: Comment on above: Expected: 05/12/2024 (Approximate), Expires: 05/12/2025 Start: 05-12-2024 End: 05-12-2025 Cobalamin (Vitamin B12) [Mass/volume] in Serum or Plasma Vitamin B12 Lab Routine Diarrhea, unspecified type Hot flashes Expected: 05/12/2024 (Approximate), Expires: 05/12/2025 [facility] Comment on above: Expected: 05/12/2024 (Approximate), Expires: 05/12/2025 Start: 05-12-2024 End: 05-12-2025 Comprehensive metabolic 2000 panel - Serum or Plasma Comprehensive metabolic panel Lab Routine Diarrhea, unspecified type Hot flashes Expected: 05/12/2024 (Approximate), Expires: 05/12/2025 [facility] Comment on above: Expected: 05/12/2024 (Approximate), Expires: 05/12/2025 Start: 05-12-2024 End: 07-10-2025 DBT Breast - bilateral screening Bilateral screening mammogram with tomosynthesis Imaging Routine Encounter for screening mammogram for malignant neoplasm of breast Expected: 05/12/2024, Expires: 07/10/2025 [facility] Comment on above: Expected: 05/12/2024 , Expires: 07/10/2025 Start: 05-12-2024 End: 05-12-2025 Ferritin [Mass/volume] in Serum or Plasma Ferritin Lab Routine Diarrhea, unspecified type Hot flashes Expected: 05/12/2024 (Approximate), Expires: 05/12/2025 [facility] Comment on above: Expected: 05/12/2024 (Approximate), Expires: 05/12/2025 Start: 05-12-2024 End: 05-12-2025 IgA [Mass/volume] in Serum or Plasma IgA Lab Routine Diarrhea, unspecified type Hot flashes Expected: 05/12/2024 (Approximate), Expires: 05/12/2025 [facility] Comment on above: Expected: 05/12/2024 (Approximate), Expires: 05/12/2025 Start: 05-12-2024 End: 05-12-2025 Lipid 1996 panel - Serum or Plasma Lipid panel Lab Routine Diarrhea, unspecified type Hot flashes Expected: 05/12/2024 (Approximate), Expires: 05/12/2025 [facility] Comment on above: Expected: 05/12/2024 (Approximate), Expires: 05/12/2025 Start: 05-12-2024 End: 05-12-2025 Thyrotropin [Units/volume] in Serum or Plasma TSH Lab Routine Diarrhea, unspecified type Hot flashes Expected: 05/12/2024 (Approximate), Expires: 05/12/2025 [facility] Comment on above: Expected: 05/12/2024 (Approximate), Expires: 05/12/2025 Start: 05-12-2024 End: 05-12-2025 Thyroxine (T4) free [Mass/volume] in Serum or Plasma T4, free Lab Routine Diarrhea, unspecified type Hot flashes Expected: 05/12/2024 (Approximate), Expires: 05/12/2025 [facility] Comment on above: Expected: 05/12/2024 (Approximate), Expires: 05/12/2025 Start: 05-12-2024 End: 05-12-2025 Tissue transglutaminase, IgA Tissue transglutaminase, IgA Lab Routine Diarrhea, unspecified type Hot flashes Expected: 05/12/2024 (Approximate), Expires: 05/12/2025 [facility] Comment on above: Expected: 05/12/2024 (Approximate), Expires: 05/12/2025 Start: 05-12-2024 End: 05-12-2024 Patient encounter procedure 05/12/2024 10:00 AM EST Office Visit [facility] [address] [place] [address] Candice King MD, IBCLC [address] [place], [place] [id number] [facility] Comment on above: Arrived Start: 05-04-2024 Screening for malign ant neoplasm of breast Mammogram [facility] Start: 04-23-2024 End: 04-23-2024 Patient encounter procedure [facility] Comment on above: Arrived Start: 03-25-2024 End: 03-25-2024 Patient encounter procedure [facility] Comment on above: Arrived Start: 03-04-2024 End: 03-04-2024 Patient encounter procedure 03/04/2024 4:30 PM EST Office Visit [facility] [address] [place] [address] Khanh Cerda MD [address] [facility] [address] [id number] [facility] Start: 01-22-2024 End: 01-22-2024 Patient encounter procedure 01/22/2024 11:30 AM EST Office Visit [facility] [address] [place] [address] [place] [id number] Khanh Cerda MD [address] [address] Arrived [facility] Comment on above: Arrived Start: 01-21-2024 End: 01-21-2024 Patient encounter procedure 01/21/2024 4:00 PM EST Office Visit [facility] [address] [place] [address] Candice King MD, IBCLC [address] [place] [address] [facility] Start: 12-20-2023 End: 12-20-2023 Patient encounter procedure 12/20/2023 8:20 AM EDT Office Visit [facility] [address] [place] [address] Candice King MD, IBCLC [address] [place] [address] [facility] Start: 12-18-2023 End: 12-18-2023 Patient encounter procedure [facility] Comment on above: Arrived Start: 11-18-2023 Influenza vaccination Influenza Vacc ine (#1) [facility] Start: 09-24-2023 Screening for malign ant neoplasm of cervix Pap Smear [facility] Start: 09-16-2023 Influenza vaccination Influenza Vacc ine (#1) [facility] Comment on above: Postponed from 11/17 (Patient Refused) Start: 06-26-2023 End: 06-26-2023 Patient encounter procedure 06/26/2023 4:15 PM EDT Office Visit [facility] [address] [place] [address] Khanh Cerda MD [address] [facility] [address] [place] [address] [facility] Start: 2020 Screening for malign ant neoplasm of breast Mammogram [facility] Start: 2010 Screening for malign ant neoplasm of cervix [facility] Start: 2001 Screening for malign ant neoplasm of cervix Pap Smear [facility] Immunizations Immunization Date Immunization Notes Care Provider Fa cility 10-02-2020 COVID-19 mRNA, Comirnaty (Pfizer) SLOTTER OPERATOR-Ministerio Edward Work Phone: [facility] 09-11-2020 COVID-19 mRNA, Comirnaty (Pfizer) SLOTTER OPERATOR-Ministerio Edward Work Phone: [facility] 07-09-2014 tetanus toxoid, redu alesha diphtheria toxoid, and acellular pertussis vaccine, adsorbed Basem Moe [facility] Payers Date Payer Category Payer Self-pay [id number] 2021 [place] [employer] [place] [id number] 5 2021 Unknown [id number] .[id number] 2018 Unknown [id number] 2014 Medicaid [employer] [place] [id number] 2014-Present [address] [place] [address] [id number] 2014 Medicaid [id number] [id number] 1980 Unknown [id number] 2.16.840.1.631729.3.579 .2.647 1980 Unknown [id number] 2.16.840.1.992607.3.579 .2.647 1980 Unknown [id number] 2.16.840.1.272516.3.579 .2.647 1980 Unknown [id number] 2.16.840.1.622763.3.579 .2.593 1980 Unknown [id number] 2.16.840.1.868320.3.579 .2.593 1980 Unknown [id number] 2.16.840.1.057169.3.579 .2.593 1980 Unknown [id number] 2.16.840.1.409573.3.579 .2.727 1980 Unknown [id number] 2.16.840.1.847982.3.579 .2.727 1980 Unknown [id number] 2.16.840.1.550818.3.579 .2.1259 1980 Unknown [id number] 2.16.840.1.389814.3.579 .2.1259 1980 Unknown [id number] 2.16.840.1.660306.3.579 .2.1258 1980 Unknown [id number] 2.16.840.1.608232.3.579 .2.1258 1980 Unknown [id number] 2.16.840.1.961526.3.579 .2.1258 1980 Unknown [id number] 2.16.840.1.006775.3.579 .2.1258 1980 Unknown [id number] 2.16.840.1.139681.3.579 .2.1258 1980 Unknown [id number] 2.16.840.1.478184.3.579 .2.1258 1980 Unknown [id number] 2.16.840.1.190477.3.579 .2.1258 1980 Unknown [id number] 2.16.840.1.470502.3.579 .2.1258 1980 Unknown [id number] 2.16.840.1.238090.3.579 .2.1258 1980 Unknown [id number] 2.16.840.1.506225.3.579 .2.1258 1980 Unknown [id number] 2.16.840.1.705564.3.579 .2.9 1959 [facility] [id number] 2.16.840.1.398628.19 Medicaid [employer] [id number] Unknown [id number] 2.16.840.1.143497.3.579 .2.531 Worker's Compensation [id number] Social History Date Type Detail Facility Start: 04-13-2023 End: 05-12-2024 Sex Assigned At [facility] Start: 04-30-2019 Tobacco smoking status Former smokeless tobacco user, quit more than 30 days ago [facility] Start: 05-16-2021 End: 08-30-2023 Tobacco smoking status NHIS Ex-smoker (finding) [facility] Start: 1980 Sex Assigned At Female F [facility] End: 03-19-2018 History of tobacco use Current smoker [facility] End: 03-19-2018 History of tobacco use Cigar Smoker [facility] Start: 01-30-2023 End: 08-30-2023 Tobacco use and exposure Smokeless tobacco non-user [facility] Start: 04-13-2023 End: 05-12-2024 Alcohol intake Current drinker of alcohol (finding) [facility] Start: 04-13-2023 End: 05-12-2024 History of Social function [facility] Start: 09-01-2022 Alcohol Comment Monthly or les s, Caffeine: 1-2 cups per day [facility] Start: 1980 Sex Assigned At Not on file [facility] Start: 08-30-2023 Tobacco Comment 3-[address] [facility] Clinical Notes 10-19-2021 to 05-12-2024 Candice King MD, IBCLC - 05/12/2024 10:00 AM YING Han - 04/23/2024 8:40 AM ESTTelephone Encounter - Kiarra Macias NP - 04/15/2024 12:37 PM EST Note Date & Type Note Facility 05-12-2024 History of Present illness Narrative Images from the original note were not included. Isis Bryson is a 43 y.o. female here today for Hemorrhoids and neck spasm SUBJECTIVE: History Provided by: patient History of Present Illness The patient came in to discuss several issues including neck spasms, hemorrhoids, diarrhea, weight loss, and general health maintenance. She mentioned having sharp neck spasms that started a few weeks ago. These spasms come and go, and sometimes the pain shoots up into her ear, making one side of her neck stiff. The last episode was a couple of days ago. She hasn't noticed any numbness, tingling, or changes in her speech when this happens. This is the first time she's experiencing these symptoms. She hasn't started any new medications or activities, and there haven't been any recent injuries. She does neck stretching exercises and hasn't changed her sleeping arrangements or pillows. 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 She also mentioned frequent numbness and tingling in her hands and fingers, which is an ongoing issue. She isn't sure if she grinds her teeth at night and can't take medications that make her tired because of her other medications. She hasn't noticed any vision changes during these episodes but did mention having severe anxiety, which might be making things worse. She has felt a lump or mass in her rectal area for the past 6 months, which she thinks is a hemorrhoid. It doesn't hurt or bleed, and she hasn't seen any blood in her stool. Her bowel habits are irregular, switching between constipation and diarrhea, with diarrhea being more common. She usually has diarrhea a few times a day, with loose, watery stools. She saw a type soldering machine tender for her diarrhea, who gave her medication that worked at first but then made her very constipated, so she stopped taking it. She had a colonoscopy less than a year ago, which was normal. She hasn't noticed any mucus in her stool and isn't taking magnesium supplements. She's been dealing with chronic diarrhea since 2017 and uses Imodium to manage it, which then leads to constipation. She has lost a lot of weight unintentionally. She was taking buspirone twice a day without Focalin, which suppressed her appetite. The buspirone made her overeat for 2 hours in the morning and evening, leading to a weight loss of 66 pounds from almost 200 pounds. She's currently going through a divorce, which has been stressful. She isn't a stress eater and is trying to regain some weight and maintain it. She is seeing Dr. Reyez for narcolepsy and mentioned having severe night sweats. She recalled a previous episode of elevated liver enzymes and calcium levels. She is also due for a mammogram. She was having dizzy spells and heart palpitations, which were eventually attributed to anxiety. However, one doctor noticed something on an EKG, where one part dropped really low (long Q). She went to a social media community manager who put a Holter monitor on her, and now she has a 3-year implant. They thought it was just static with the device, but it still doesn't explain the long Q on her EKGs. 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 MEDICATIONS Current: Imodium, buspirone, Focalin Current Outpatient Medications Medication Instructions busPIRone (Buspar) 5 MG tablet 2 times daily clindamycin (Cleocin T) 1 % lotion 1 application , Daily dexmethylphenidate XR (Focalin XR) 5 MG 24 hr capsule 1 cap QAM and 1 cap Qnoon minocycline 100 MG capsule 1 capsule, 2 times daily nitroglycerin (Rectiv) 0.4 % (w/w) rectal ointment 1 application , Rectal, Every 12 hours oxybates, calcium, magnesium, potassium and sodium, (Xywav) 500 MG/ML solution 3.5 g pantoprazole (ProtoNix) 40 MG EC tablet TAKE 1 TABLET BY MOUTH EVERY DAY FOR 30 DAYS varenicline (CHANTIX CONTINUING MONTH MAI) 1 mg, Oral, 2 times daily, Take with full glass of water. varenicline (CHANTIX CONTINUING MONTH MAI) 1 mg, Oral, 2 times daily, Take with full glass of water. I have reviewed and reconciled the history, allergies, family history, social history, and medication list with the patient today. OBJECTIVE: BP 124/74 Pulse 75 Temp 97.1 F Ht 5' 9 Wt 135 lb 12.8 oz SpO2 99% BMI 20.05 kg/m Physical Exam Physical Exam General Appearance: Awake, Alert, NAD. HEENT: palpable click on left TMJ. TMs normal. Respiratory: Clear to auscultation, no wheezing/rhonchi/rales. Back, Musculoskeletal: Good range of motion of the neck. No tenderness in the spine. No muscle spasm Skin: Warm and dry, no rash. Neurological: motor and sensory function grossly intact, normal gait. CN II-XII intact Psychiatric: appropriate affect, normal speech, good eye contact. Results ASSESSMENT AND PLAN: Assessment & Plan 1. Temporomandibular joint disorder - chronic DISCUSSION: - The patient's symptoms are likely attributable to temporomandibular joint (TMJ) disorder, potentially exacerbated by nocturnal bruxism. The neurological examination yielded normal results, and there was no evidence of spinal tenderness or muscle tightness. A slight clicking sound was detected upon palpation of the jaw. PLAN - She was advised to utilize an [id number]-hvv-[id number] mouthguard during sleep. The application of an ice pack to the jaw prior to bedtime was also recommended. For symptomatic relief, ibuprofen may be taken as needed. If these measures prove ineffective, the use of a muscle relaxant could be considered; however, this option is not preferred due to her current medication regimen. 2. Hemorrhoids - chronic DISCUSSION: - The patient's symptoms are consistent with a diagnosis of hemorrhoids, likely resulting from chronic constipation. She was informed that the absence of pain suggests that the hemorrhoid originates from higher up in the rectum. PLAN - She was advised to maintain adequate hydration and ensure soft stools to prevent constipation and facilitate the natural resolution of the hemorrhoid. A prescription for a topical cream was provided, to be applied once daily for a duration of 2 weeks. The prescription was sent to [facility] in [place]. If the cream does not provide relief, she is to inform the provider. 3. Diarrhea - chronic DISCUSSION: - The patient reports chronic diarrhea, which occurs 90% of the time. She has previously seen a GI specialist and was prescribed medication that resulted in severe constipation. PLAN - She was advised to avoid magnesium supplements, which can exacerbate diarrhea. A comprehensive blood panel will be ordered to assess vitamin D, B12, thyroid function, and celiac disease screening. She was instructed to fast prior to the blood draw. 4. Weight loss - chronic DISCUSSION: - The patient has experienced significant weight loss, losing 66 pounds unintentionally. She attributes this to the use of buspirone, which caused her to overeat, and the stress from her ongoing divorce. PLAN - She was advised to try to regain some weight and maintain it. 5. Health maintenance PLAN - A mammogram was ordered, and she will be contacted to schedule the appointment. A comprehensive blood panel will be ordered to assess vitamin D, B12, thyroid function, and celiac disease screening. She was instructed to fast prior to the blood draw. Follow-up: pending labs PROCEDURE Colonoscopy performed less than a year ago did not reveal any abnormalities. Problem List Items Addressed This Visit None Visit Diagnoses Diarrhea, unspecified type - Primary Relevant Orders CBC and differential Comprehensive metabolic panel Lipid panel Vitamin D 25 hydroxy Total Vitamin B12 TSH T4, free Ferritin Tissue transglutaminase, IgA IgA Hot flashes Relevant Orders CBC and differential Comprehensive metabolic panel Lipid panel Vitamin D 25 hydroxy Total Vitamin B12 TSH T4, free Ferritin Tissue transglutaminase, IgA IgA Hemorrhoids, unspecified hemorrhoid type Relevant Medications nitroglycerin (Rectiv) 0.4 % (w/w) rectal ointment Encounter for screening mammogram for malignant neoplasm of breast Relevant Orders Bilateral screening mammogram with tomosynthesis Candice King MD, IBCLC [facility] documented in this encounter [facility] 04-23-2024 History of Present illness Narrative Lesions: Location: nose Duration: 1 week Quality: denies pain, denies itch, denies bleeding Associated symptoms: non-healing, red Treatments: none Patient states they are mostly clear today but has redness and textured skin on cheeks. Lesion # 2: Location: right inner thigh Duration: on going Quality: painful Modifying factors: rubs on clothing Associated symptoms: non-healing Treatments: none New patient All pertinent medical history, medications, and allergies were reviewed. General Exam: alert, oriented to person, place, and time, normal affect, well appearing Unaccompanied A focused exam completed based on patient reported problems, see below: 1. Other rosacea Head - Anterior (Face) Mid face erythema with telangiectasias +/- scattered inflammatory papules/pustules. The patient was informed that rosacea is a chronic condition that can be controlled but not cured. The appearance of redness and pimples can often be improved with a low dose antibiotic or topical medications. The patient was informed that telangiectasia is common and can be improved with laser treatment. Patient has done well with Minocycline in the past. Restart Minocycline 100 mg BID daily or as needed for rosacea symptoms. minocycline 100 MG capsule - Head - Anterior (Face) Take 1 capsule, by mouth, bid, 30 days 2. Acrochordon Right Medial Thigh Fleshy, skin-colored sessile and pedunculated papules with surrounding erythema The patient was informed that skin tags are benign growths usually found around the neck or in the axillae. Due to symptoms/inflammation, removal performed today, see procedure note. Procedure: Skin tag removal Informed consent: Discussed risks (permanent scarring, infection, pain, bleeding, bruising, redness, and recurrence of the lesion) and benefits of the procedure, as well as the alternatives. She is aware that skin tags are benign lesions, and their removal is often not considered medically necessary. Informed consent was obtained and waiver was signed if needed. Anesthesia: 1% lidocaine with epinephrine and a 1:10 solution of 8.4% sodium bicarbonate, Quantity: 1.0 ml The area was prepared and draped in a standard fashion. Snip removal was performed. Bleeding was controlled with electrocautery A sterile dressing was applied. The patient tolerated procedure well. The patient was instructed on post-op care. Number of lesions removed: 1 Next Visit: prn for any new/changing lesions documented in this encounter [facility] 04-15-2024 Telephone encounter Note Told her to stop the 5mg first for 3-4 days (already done). Stop the 15mg and take 2 of the 5mg (10mg) for 3-4 days. Then 5mg for 3-4 days then DC. If at anytime she feels like she is feeling better and still focused she can stay at the lower dose. She will let us know what dose she is ultimately staying on for a refill or if she stops it all together. [facility] Work Phone: 04-15-2024 Miscellaneous Notes Told her to stop the 5mg first for 3-4 days (already done). Stop the 15mg and take 2 of the 5mg (10mg) for 3-4 days. Then 5mg for 3-4 days then DC. If at anytime she feels like she is feeling better and still focused she can stay at the lower dose. She will let us know what dose she is ultimately staying on for a refill or if she stops it all together. Patient is taking Focalin XR 15 mg in the morning and Focalin XR 5 mg at noon. She wants to go off both meds, because she is losing too much weight and her anxiety is through the roof. She wants to start by decreasing both meds. If she finds her anxiety is under control while decreasing she will considering staying on it with that dose. documented in this encounter [facility] 04-14-2024 Telephone encounter Note Patient is taking Focalin XR 15 mg in the morning and Focalin XR 5 mg at noon. She wants to go off both meds, because she is losing too much weight and her anxiety is through the roof. She wants to start by decreasing both meds. If she finds her anxiety is under control while decreasing she will considering staying on it with that dose. [facility] 03-25-2024 History of Present illness Narrative Associated Problem(s): Narcolepsy and cataplexy (CMS/HCC) (Continue dMPH.) Recommend not taking 2nd dose sooner than 11:00. Incr GHB to 4.5 g bin. Urine level q Dec. Associated Problem(s): Carpal tunnel syndrome, bilateral (Continue splints B nightly.) Associated Problem(s): Cervical paraspinal muscle spasm (Continue home PT, Mg.) Images from the original note were not included. Outpatient Progress Note Patient: Isis Bryson Dept: Neurology : 1980 Appt Date: 03/25/2024 Prev Appt: 01/22/2024 Chief Complaint Patient presents with Narcolepsy Assessment and Plan - Assessment & Plan Narcolepsy and cataplexy (CMS/HCC) (Continue dMPH.) Recommend not taking 2nd dose sooner than 11:00. Incr GHB to 4.5 g bin. Urine level q Dec. Carpal tunnel syndrome, bilateral (Continue splints B nightly.) Cervical paraspinal muscle spasm (Continue home PT, Mg.) No orders of the defined types were placed in this encounter. Follow-Up - Follow up in about 3 months (around 06/23/2024), or MD. Lab Frequency Next Occurrence History of Present Illness, Associated Treatments and Results - Dx NARCOLEPSY Tx Focalin ER 31/07 @ 0500, 1200 + GHB (Xywav) 3.5 g bin (buspirone 10 bid --psych) + CBT for insomnia AEs Hx Diurnal - dMPH tolerated, fairly well controlled. Pt had questions about timing of 2nd dose. Nocturnal - tolerating this dose of GHB, noticeably more alert. Effect still somewhat variable for half of nights; often . Brain still going . Bipolar, hx suicide attempt. Failed MPH XR 30 ( hyper even with XR, tachycardia, anxiety), Adderall (tachycardia), modafinil 300 ( fog ) GHB/Xyrem (nausea) Semeiology Diurnal hypersomnia. Sleep paralysis. No known HH. 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 getting upset. Circadian Often works until 1800, sometimes 1900. In bed 2940-7676. Noct oxim PSG ([facility]) - AHI=0.8, REM=3.3 vs 0, supine=2.9 vs 0.2; PLMI=3.7, PLMAI=1.1 ~2009, ([facility]) - no longer available. PAPT MSLT ([facility]) - SOREM x 5 ~2009 ([facility]) - no longer available. [facility] Imaging Testing Surgery Dx CTS . MYOFASCIITIS Tx splints + injs (07/2023, 02/2023) AEs Hx CTS - no new complaints. Myofasciitis - neck remains stiff. Onset Semeiology Imaging Testing [facility] (08/2023, [facility]) - DMLs 4.4R 4.5L sens CVs 55B . . . . (12/2022) - DMLs 3.6R 3.8L, mild chronic APBs Surgery Failed Physical Exam - General appearance, mentation, extraocular movements, facial strength and movement, hearing, upper and lower extremity strength and tone, sensation to gross testing, coordination, and gait are normal or at baseline unless noted below. HEENT - ___, unchanged: ___, orig: ___ MS - Significantly more alert, not yawning, unchanged: ___, orig: Yawning CNN - ___, unchanged: ___, orig: ___ [...] ___ Vital Signs - Visit Vitals BP 134/83 Pulse 86 Ht 5' 9 Wt 140 lb BMI 20.67 kg/m Smoking Status Former BSA 1.76 m Review of Systems - . Const: [...] Neg Hx Outpatient Encounter Medications as of 03/25/2024 Medication Sig Dispense Refill asenapine (Saphris) SL tablet Place 5 mg under the tongue at bedtime. (Patient not taking: Reported on 03/25/2024) busPIRone (Buspar) 5 MG tablet Take by mouth 2 (two) times a day clindamycin (Cleocin T) 1 % lotion Apply 1 application topically 1 (one) time each day. dexmethylphenidate XR (Focalin XR) 15 MG 24 hr capsule Take 1 capsule (15 mg) by mouth in the morning. 30 capsule 0 dexmethylphenidate XR (Focalin XR) 15 MG 24 hr capsule 1 cap QAM 30 capsule 0 dexmethylphenidate XR (Focalin XR) 15 MG 24 hr capsule 1 cap QAM Do not start before March 20, 2024. 30 capsule 0 [START ON 04/19/2024] dexmethylphenidate XR (Focalin XR) 15 MG 24 hr capsule 1 cap QAM Do not start before April 19, 2024. 30 capsule 0 dexmethylphenidate XR (Focalin XR) 5 MG 24 hr capsule Take 1 capsule (5 mg) by mouth at noon. Take with meals 30 capsule 0 dexmethylphenidate XR (Focalin XR) 5 MG 24 hr capsule 1 cap Qnoon 30 capsule 0 dexmethylphenidate XR (Focalin XR) 5 MG 24 hr capsule 1 cap Qnoon Do not start before March 20, 2024. 30 capsule 0 [START ON 04/19/2024] dexmethylphenidate XR (Focalin XR) 5 MG 24 hr capsule 1 cap Qnoon Do not start before April 19, 2024. 30 capsule 0 minocycline 100 MG capsule Take 1 capsule by mouth in the morning and 1 capsule in the evening. oxybates, calcium, magnesium, potassium and sodium, (Xywav) 500 MG/ML solution 3.5 g Twice nightly pantoprazole (ProtoNix) 40 MG EC tablet TAKE 1 TABLET BY MOUTH EVERY DAY FOR 30 DAYS varenicline (Chantix Continuing Month Mai) 1 MG tablet Take 1 tablet (1 mg) by mouth in the morning and 1 tablet (1 mg) before bedtime. Take with full glass of water.. 180 tablet 0 varenicline (Chantix Continuing Month Mai) 1 MG tablet Take 1 tablet (1 mg) by mouth in the morning and 1 tablet (1 mg) before bedtime. Take with full glass of water.. 60 tablet 2 No facility-administered encounter medications on file as of 03/25/2024. Khanh Cerda M.D. [facility] Neurology ? [address] [facility] [address] ? [place], [place] [address] ? ? fax Neurology ? Clinical Neurophysiology ? Epilepsy ? Sleep Disorders ? Clinical Informatics documented in this encounter [facility] 02-19-2024 Telephone encounter Note Pt called and said she felt Focalin XR 15/5 was enough and she did not want to incr afternoon dose to 10. Pt asked for 3 mo scripts to go to [facility] 02-19-2024 Miscellaneous Notes Pt called and said she felt Focalin XR 15/5 was enough and she did not want to incr afternoon dose to 10. Pt asked for 3 mo scripts to go to [facility] documented in this encounter [facility] 01-22-2024 History of Present illness Narrative Associated Problem(s): Narcolepsy and cataplexy (CMS/HCC) [facility] Pt to observe effect for 1-2 w. If she feels that PM dose needs to be increased to 10, proceed. Orders: dexmethylphenidate XR (Focalin XR) 5 MG 24 hr capsule; Take 1 capsule (5 mg) by mouth at noon. Take with meals dexmethylphenidate XR (Focalin XR) 15 MG 24 hr capsule; Take 1 capsule (15 mg) by mouth in the morning. Associated Problem(s): Carpal tunnel syndrome, bilateral (Continue splints B nightly.) Associated Problem(s): Cervical paraspinal muscle spasm (Continue home PT, Mg.) Images from the original note were not included. Outpatient Progress Note Patient: Isis Bryson Dept: Neurology : 1980 Appt Date: 01/22/2024 Prev Appt: 12/18/2023 Chief Complaint Patient presents with Narcolepsy Assessment and Plan - Assessment & Plan Narcolepsy and cataplexy (CMS/HCC) Incr [facility] ER to 31/07. Pt to observe effect for 1-2 w. If she feels that PM dose needs to be increased to 10, proceed. Orders: dexmethylphenidate XR (Focalin XR) 5 MG 24 hr capsule; Take 1 capsule (5 mg) by mouth at noon. Take with meals dexmethylphenidate XR (Focalin XR) 15 MG 24 hr capsule; Take 1 capsule (15 mg) by mouth in the morning. Carpal tunnel syndrome, bilateral (Continue splints B nightly.) Cervical paraspinal muscle spasm (Continue home PT, Mg.) No orders of the defined types were placed in this encounter. Follow-Up - Follow up in about 2 months (around 03/23/2024). Lab Frequency Next Occurrence History of Present Illness, Associated Treatments and Results - Dx NARCOLEPSY Tx Focalin ER 12/21 + GHB (Xywav) 3.5 g bin (buspirone 10 bid --psych) + CBT for insomnia AEs nausea, mild Hx Diurnal - dMPH tolerated, somewhat less effective than Adderall was at double this dose. Nocturnal - tolerating this dose of GHB. Noticeably more alert. GHB takes 1 h to be effective, brain still going . Sleep is also better now that is not in the bedroom with her. Bipolar, hx suicide attempt. Failed MPH XR 30 ( hyper even with XR, tachycardia, anxiety), Adderall (tachycardia), modafinil 300 ( fog ) GHB/Xyrem (nausea) Semeiology Diurnal hypersomnia. Sleep paralysis. No known HH. 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 getting upset. Circadian Often works until 1800, sometimes 1900. In bed [id number]. Noct oxim PSG ([facility]) - AHI=0.8, REM=3.3 vs 0, supine=2.9 vs 0.2; PLMI=3.7, PLMAI=1.1 ~2009, ([facility]) - no longer available. PAPT MSLT ([facility]) - SOREM x ~2009 ([facility]) - no longer available. [facility] Imaging Testing Surgery Dx CTS . MYOFASCIITIS Tx splints + injs (07/2023, 02/2023) AEs Hx CTS - no new complaints. Myofasciitis - neck remains stiff. Onset Semeiology Imaging Testing [facility] (08/2023, [facility]) - DMLs 4.4R 4.5L sens CVs 55B . . . . (12/2022) - DMLs 3.6R 3.8L, mild chronic APBs Surgery Failed Physical Exam - General appearance, mentation, extraocular movements, facial strength and movement, hearing, upper and lower extremity strength and tone, sensation to gross testing, coordination, and gait are normal or at baseline unless noted below. HEENT - ___, unchanged: ___, orig: ___ MS - Significantly more alert, not yawning, unchanged: ___, orig: Yawning CNN - ___, unchanged: ___, orig: ___ [...] ___ Vital Signs - Visit Vitals BP 117/88 Pulse 62 Ht 5' 9 Wt 146 lb BMI 21.56 kg/m Smoking Status Former BSA 1.8 m Review of Systems - . Const: [...] (CMS/HCC) Narcolepsy (CMS/HCC) PTSD (post-traumatic stress disorder) (CMS/[facility]) Past Surgical History: Procedure Laterality Date [...] Neg Hx Outpatient Encounter Medications as of 01/22/2024 Medication Sig Dispense Refill amphetamine-dextroamphetamine XR (Adderall XR) 10 MG 24 hr capsule Take 1 capsule (10 mg) by mouth at noon. Take with meals Do not start before October 24, 2023. 30 capsule 0 amphetamine-dextroamphetamine XR (Adderall XR) 10 MG 24 hr capsule Take 1 capsule (10 mg) by mouth at noon. Take with meals 30 capsule 0 amphetamine-dextroamphetamine XR (Adderall XR) 20 MG 24 hr capsule Take 1 capsule (20 mg) by mouth in the morning. 30 capsule 0 amphetamine-dextroamphetamine XR (Adderall XR) 20 MG 24 hr capsule Take 1 capsule (20 mg) by mouth in the morning. Do not start before November 22, 2023. 30 capsule 0 asenapine (Saphris) SL tablet Place 5 mg under the tongue at bedtime. busPIRone (Buspar) 5 MG tablet Take by mouth 2 (two) times a day clindamycin (Cleocin T) 1 % lotion Apply 1 application topically 1 (one) time each day. dexmethylphenidate XR (Focalin XR) 10 MG 24 hr capsule Take 1 capsule (10 mg) by mouth in the morning. 30 capsule 0 dexmethylphenidate XR (Focalin XR) 5 MG 24 hr capsule Take 1 capsule (5 mg) by mouth at noon. Take with meals 30 capsule 0 minocycline 100 MG capsule Take 1 capsule by mouth in the morning and 1 capsule in the evening. oxybates, calcium, magnesium, potassium and sodium, (Xywav) 500 MG/ML solution 4.5 g Twice nightly pantoprazole (ProtoNix) 40 MG EC tablet TAKE 1 TABLET BY MOUTH EVERY DAY FOR 30 DAYS varenicline (Chantix Continuing Month Mai) 1 MG tablet Take 1 tablet (1 mg) by mouth in the morning and 1 tablet (1 mg) before bedtime. Take with full glass of water.. 180 tablet 0 varenicline (Chantix Continuing Month Mai) 1 MG tablet Take 1 tablet (1 mg) by mouth in the morning and 1 tablet (1 mg) before bedtime. Take with full glass of water.. 60 tablet 2 No facility-administered encounter medications on file as of 01/22/2024. Khanh Cerda M.D. [facility] Neurology ? [address] ? [place], [place] [address] ? ? fax Neurology ? Clinical Neurophysiology ? Epilepsy ? Sleep Disorders ? Clinical Informatics documented in this encounter [facility] 01-09-2024 Telephone encounter Note Patient canceled her 01/10/24 appt. States she wants to try meds the way they are, she has been working a lot of hours lately. [facility] 01-09-2024 Miscellaneous Notes Patient canceled her 01/10/24 appt. States she wants to try meds the way they are, she has been working a lot of hours lately. documented in this encounter [facility] 12-18-2023 History of Present illness Narrative Associated Problem(s): Cervical paraspinal muscle spasm (Continue home PT, Mg.) Associated Problem(s): Carpal tunnel syndrome, bilateral (Continue splints B nightly.) Associated Problem(s): Narcolepsy and cataplexy (CMS/HCC) Continue GHB titration. Pt may need further titration toward 6 g for first dose. (Pt must remain off clonazepam & THC gummies while on GHB. Pt must remain on tx for bipolar while on GHB.) Urine level q Jun. Images from the original note were not included. Outpatient Progress Note Prev Appt: 10/23/2023 Chief Complaint Patient presents with Narcolepsy Assessment and Plan - Narcolepsy and cataplexy (CMS/HCC) Continue GHB titration. Pt may need further titration toward 6 g for first dose. (Pt must remain off clonazepam & THC gummies while on GHB. Pt must remain on tx for bipolar while on GHB.) Urine level q Jun. Carpal tunnel syndrome, bilateral (Continue splints B nightly.) Cervical paraspinal muscle spasm (Continue home PT, Mg.) No orders of the defined types were placed in this encounter. Follow-Up - Follow up in about 2 months (around 02/17/2024). Lab Frequency Next Occurrence History of Present Illness, Associated Treatments and Results - Dx NARCOLEPSY Tx Adderall XR / + GHB (Xywav) 4 g bin NOW OFF asenapine (Saphris) ... NOW ON buspirone 5 qd + CBT for insomnia AEs nausea, mild Hx Regimen reasonably effective. Noticeably more alert. Sleeping at least 4 h daily. GHB takes 1-1.5 h to be effective, brain still going . Bipolar, hx suicide attempt. Failed MPH XR 30 ( hyper even with XR, tachycardia, anxiety), Adderall (tachycardia), modafinil 300 ( fog ) GHB/Xyrem (nausea) Semeiology Diurnal hypersomnia. Sleep paralysis. No known HH. 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 getting upset. Circadian Often works until 1800, sometimes 1900. In bed [id number]. Noct oxim PSG ([facility]) - AHI=0.8, REM=3.3 vs 0, supine=2.9 vs 0.2; PLMI=3.7, PLMAI=1.1 ~2009, ([facility]) - no longer available. PAPT MSLT ([facility]) - SOREM x ~2009 ([facility]) - no longer available. [facility] Imaging Testing Surgery Dx CTS . MYOFASCIITIS Tx splints + injs (07/2023, 02/2023) AEs Hx CTS - no new complaints. Myofasciitis - neck remains stiff. Onset Semeiology Imaging Testing [facility] (08/2023, [facility]) - DMLs 4.4R 4.5L sens CVs 55B . . . . (12/2022) - DMLs 3.6R 3.8L, mild chronic APBs Surgery Failed Physical Exam - General appearance, mentation, extraocular movements, facial strength and movement, hearing, upper and lower extremity strength and tone, sensation to gross testing, coordination, and gait are normal or at baseline unless noted below. HEENT - ___, unchanged: ___, orig: ___ MS - Significantly more alert, not yawning, unchanged: ___, orig: Yawning CNN - ___, unchanged: ___, orig: ___ Motor - ___, unchanged: ___, orig: ___ Sens - ___, unchanged: ___, orig: ___ Reflex - ___, unchanged: ___, orig: ___ Coord - ___, unchanged: ___, orig: ___ Gait - ___, unchanged: ___, orig: ___ Vestib - ___, unchanged: ___, orig: ___ MSK - Spasm - SCMs sev Tr C mod, unchanged: ___, orig: ___ Other - ___, unchanged: ___, orig: ___ Vital Signs - Visit Vitals BP 117/77 Pulse 72 Ht 5' 9 Wt 145 lb BMI 21.41 kg/m Smoking Status Former BSA 1.79 m Review of Systems - . Const: [...] Neg Hx Outpatient Encounter Medications as of 12/18/2023 Medication Sig Dispense Refill amphetamine-dextroamphetamine XR (Adderall XR) 10 MG 24 hr capsule Take 1 capsule (10 mg) by mouth at noon. Take with meals Do not start before October 24, 2023. 30 capsule 0 amphetamine-dextroamphetamine XR (Adderall XR) 10 MG 24 hr capsule Take 1 capsule (10 mg) by mouth at noon. Take with meals 30 capsule 0 amphetamine-dextroamphetamine XR (Adderall XR) 20 MG 24 hr capsule Take 1 capsule (20 mg) by mouth in the morning. 30 capsule 0 amphetamine-dextroamphetamine XR (Adderall XR) 20 MG 24 hr capsule Take 1 capsule (20 mg) by mouth in the morning. Do not start before November 22, 2023. 30 capsule 0 asenapine (Saphris) SL tablet Place 5 mg under the tongue at bedtime. busPIRone (Buspar) 5 MG tablet Take by mouth 2 (two) times a day clindamycin (Cleocin T) 1 % lotion Apply 1 application topically 1 (one) time each day. minocycline 100 MG capsule Take 1 capsule by mouth in the morning and 1 capsule in the evening. oxybates, calcium, magnesium, potassium and sodium, (Xywav) 500 MG/ML solution 4.5 g Twice nightly pantoprazole (ProtoNix) 40 MG EC tablet TAKE 1 TABLET BY MOUTH EVERY DAY FOR 30 DAYS varenicline (Chantix Continuing Month Mai) 1 MG tablet Take 1 tablet (1 mg) by mouth in the morning and 1 tablet (1 mg) before bedtime. Take with full glass of water.. 180 tablet 0 varenicline (Chantix Continuing Month Mai) 1 MG tablet Take 1 tablet (1 mg) by mouth in the morning and 1 tablet (1 mg) before bedtime. Take with full glass of water.. 60 tablet 2 No facility-administered encounter medications on file as of 12/18/2023. Khanh Cerda M.D. documented in this encounter [facility] 12-13-2023 Telephone encounter Note Advised patient and completed xywav paperwork, on station waiting for signature. [facility] 12-13-2023 Miscellaneous Notes Advised patient and completed xywav paperwork, on station waiting for signature. Spoke to patient and advised of Dr. Cerda answer may incr to 4.5 g bin. (IF she desires, she may increase the first dose first, then a couple of days later, the 2nd dose.) Re-review that she must take these on an empty stomach (no food for 3 hours prior) or else it will not absorb well & be less effective. Isis wants to know if she can increase her Xywav? She is still not sleeping-She is extremely relaxed and getting maybe 1 hour of sleep with each 3 gram dose for a total of maybe 2 hours of sleep. documented in this encounter [facility] 12-12-2023 Telephone encounter Note Spoke to patient and advised of Dr. Cerda answer may incr to 4.5 g bin. (IF she desires, she may increase the first dose first, then a couple of days later, the 2nd dose.) Re-review that she must take these on an empty stomach (no food for 3 hours prior) or else it will not absorb well & be less effective. [facility] 12-11-2023 Telephone encounter Note Isis wants to know if she can increase her Xywav? She is still not sleeping-She is extremely relaxed and getting maybe 1 hour of sleep with each 3 gram dose for a total of maybe 2 hours of sleep. [facility] 11-23-2023 Telephone encounter Note Charlee was out of Focalin XR 10mg by the time they received the last script. Pt states she spoke to pharmacist at [facility] and they have 10's in stock. Please send script to [facility]. [facility] 11-23-2023 Miscellaneous Notes Charlee was out of Focalin XR 10mg by the time they received the last script. Pt states she spoke to pharmacist at [facility] and they have 10's in stock. Please send script to [facility]. documented in this encounter [facility] 11-20-2023 Telephone encounter Note Patient needs adderall xr 10 mg and adderall xr 20 mg called into [facility] or another pharmacy in [place] Please. Thank You [facility] 11-20-2023 Miscellaneous Notes Patient needs adderall xr 10 mg and adderall xr 20 mg called into [facility] or another pharmacy in [place] Please. Thank You documented in this encounter [facility] 10-28-2023 Note Microbiology PROCEDURE: Gynecological Culture [R1] [...] Locations R1: This test was performed at: [facility], [address] [place] [address], [id number] , , [facility] Comment on above: Performed By: #### 1 [id number] #### [facility] [address] [place] [address] 10-26-2023 Evaluation + Plan note Diagnostic Tests PendingGynecological Culture 10/26/23 [facility] 04-24-2023 History of Present illness Narrative Associated [...] works until 1800, sometimes 1900. In bed [id number]. Noct oxim PSG ([facility]) - AHI=0.8, REM=3.3 vs 0, supine=2.9 vs 0.2; PLMI=3.7, PLMAI=1.1 ~2009, ([facility]) - no longer available. PAPT MSLT ([facility]) - SOREM x 5 ~2009 ([facility]) - no longer available. [facility] Imaging Testing [...] (CMS/HCC) Narcolepsy (CMS/HCC) PTSD (post-traumatic stress disorder) (CMS/[facility]) Past Surgical History: Procedure Laterality Date [...] as of 04/24/2023. documented in this encounter [facility] [facility] Evaluation note Encounter Date [...] (gastroesoph ageal reflux disease) (ICD-10 - K21.9) [employer] Other 10-11-2023 Evaluation note* Encounter Date Diagnosis Assessment Notes Treatment Notes Treatment Clinical Notes Dec, Diarrhea (ICD-10 - R19.7) Patient advised to start low fodmap diet-educational handout given to patient Rto 2 months Dec, GERD (gastroesophageal reflux disease) (ICD-10 - K21.9) Dec, Bloating (ICD-10 - R14.0) Dec, Abdominal pain (ICD-10 - R10.9) [employer] Other 11-04-2022 Note Attestation signed by Luca [...] be an additional personal documentation from me. [facility] Consult Note Reason for Consultation: palpitations, [...] previous work done including holter monitors ([facility] and Dr. Dunn in [place]), stress testing, echo. However, these have been [...] no bleeding gums, no (more content not included)...[facility]08-03-2022 Evaluation note* Encounter Date Diagnosis Assessment [...] no improvement in 2 to 3 days. [employer] Other Evaluation + Plan note No data available for this section [facility] assessment information available [facility] Work Phone: Evaluation noteNo InformationNort Times [employer] Other Evaluation note* Diagnosis 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 Carpal tunnel syndrome, bilateral Carpal tunnel syndrome [facility] Diagnosis 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 Carpal tunnel syndrome, bilateral Carpal tunnel syndrome Cervical paraspinal muscle spasm Spasm of muscle [facility] Diagnosis 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 Carpal tunnel syndrome, bilateral Carpal tunnel syndrome Cervical paraspinal muscle spasm Spasm of muscle Hypersomnia Hypersomnia, unspecified 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 Carpal tunnel syndrome, bilateral Carpal tunnel syndrome 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 Carpal tunnel syndrome, bilateral Carpal tunnel syndrome Cervical paraspinal muscle spasm Spasm of muscle 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 Carpal tunnel syndrome, bilateral Carpal tunnel syndrome Cervical paraspinal muscle spasm Spasm of muscle 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 Carpal tunnel syndrome, bilateral Carpal tunnel syndrome Cervical paraspinal muscle spasm Spasm of muscle 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 Carpal tunnel syndrome, bilateral Carpal tunnel syndrome Cervical paraspinal muscle spasm Spasm of muscle 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 Carpal tunnel syndrome, bilateral Carpal tunnel syndrome Cervical paraspinal muscle spasm Spasm of muscle [facility] Diagnosis 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 Carpal tunnel syndrome, bilateral Carpal tunnel syndrome Cervical paraspinal muscle spasm Spasm of muscle Hypersomnia Hypersomnia, unspecified 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 Carpal tunnel syndrome, bilateral Carpal tunnel syndrome 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 Carpal tunnel syndrome, bilateral Carpal tunnel syndrome Cervical paraspinal muscle spasm Spasm of muscle 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 Carpal tunnel syndrome, bilateral Carpal tunnel syndrome Cervical paraspinal muscle spasm Spasm of muscle 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 Carpal tunnel syndrome, bilateral Carpal tunnel syndrome Cervical paraspinal muscle spasm Spasm of muscle 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 Carpal tunnel syndrome, bilateral Carpal tunnel syndrome Cervical paraspinal muscle spasm Spasm of muscle 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 Carpal tunnel syndrome, bilateral Carpal tunnel syndrome Cervical paraspinal muscle spasm Spasm of muscle 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 [facility] Diagnosis 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 [facility] Diagnosis 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 [facility] Diagnosis 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 Carpal tunnel syndrome, bilateral Carpal tunnel syndrome Cervical paraspinal muscle spasm Spasm of muscle Hypersomnia Hypersomnia, unspecified 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 Carpal tunnel syndrome, bilateral Carpal tunnel syndrome 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 Carpal tunnel syndrome, bilateral Carpal tunnel syndrome Cervical paraspinal muscle spasm Spasm of muscle 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 Carpal tunnel syndrome, bilateral Carpal tunnel syndrome Cervical paraspinal muscle spasm Spasm of muscle 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 Carpal tunnel syndrome, bilateral Carpal tunnel syndrome Cervical paraspinal muscle spasm Spasm of muscle 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 Carpal tunnel syndrome, bilateral Carpal tunnel syndrome Cervical paraspinal muscle spasm Spasm of muscle 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 Carpal tunnel syndrome, bilateral Carpal tunnel syndrome Cervical paraspinal muscle spasm Spasm of muscle 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 Carpal tunnel syndrome, bilateral Carpal tunnel syndrome Cervical paraspinal muscle spasm Spasm of muscle [facility] Diagnosis 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 Carpal tunnel syndrome, bilateral Carpal tunnel syndrome Cervical paraspinal muscle spasm Spasm of muscle Hypersomnia Hypersomnia, unspecified 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 Carpal tunnel syndrome, bilateral Carpal tunnel syndrome 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 Carpal tunnel syndrome, bilateral Carpal tunnel syndrome Cervical paraspinal muscle spasm Spasm of muscle 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 Carpal tunnel syndrome, bilateral Carpal tunnel syndrome Cervical paraspinal muscle spasm Spasm of muscle 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 Carpal tunnel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
[2024-05-13 07:45] LABS: Basophils Percent Auto 0.3 % (0.2-2.0); Eosinophils Absolute Auto 0.2 10^3/uL (0.0-0.7); Eosinophils Percent Auto 2.3 % (0.9-7.0); Hemoglobin 12.8 g/dL (12.0-16.0); Immature Granulocytes Abs Auto 0.01 10^3/uL (0.00-0.03); Immature Granulocytes Pct Auto 0.1 % (0.0-0.5); Lymphocytes Absolute Auto 2.4 10^3/uL (1.2-3.8); Lymphocytes Percent Auto 33.5 % (20.5-60.0); Mean Corpuscular HGB Conc 33.7 g/dL (29.9-35.2); Mean Corpuscular Hemoglobin 30.7 pg (26.7-34.0); Mean Corpuscular Volume 91.1 fL (81.0-99.0); Mean Platelet Volume 10.7 fL (9.5-13.5); Monocytes Absolute Auto 0.5 10^3/uL (0.3-0.8); Monocytes Percent Auto 7.3 % (1.7-12.0); Neutrophils Percent Auto 56.5 % (43.0-75.0); Platelet Count 290 10^3/uL (150-450); Red Blood Count 4.17 10^6/uL (4.20-5.40); Red Cell Distribution Width 13.1 % (11.0-15.0); White Blood Count 7.1 10^3/uL (4.0-11.0)
[2024-05-13 10:13] LABS: Alanine Aminotransferase 22 U/L (14-59); Albumin Globulin Ratio 1.2; Albumin Level 3.7 g/dL (3.4-5.0); Alkaline Phosphatase 59 U/L (46-116); Anion Gap 12.3; Aspartate Amino Transferase 9 U/L (15-37); BUN Creatinine Ratio 8.2; Carbon Dioxide 28.4 mmol/L (21.0-32.0); Chloride 104 mmol/L (98-107); Cholesterol 142 mg/dL (<=200); Estimated GFR (African America >60 (>=60 mL/min/1.73m^2); Estimated GFR (Non-African Ame >60 (>=60 mL/min/1.73m^2); Globulin 3.2 g/dL; Glucose 87 mg/dL (74-106); HDL Cholesterol 48 mg/dL (40-60); LDL Cholesterol Calculated 66.2 mg/dL; Potassium 3.7 mmol/L (3.5-5.1); Sodium 141 mmol/L (136-145); Thyroid Stimulating Hormone 0.952 uIU/mL (0.358-3.740); Total Protein 6.9 g/dL (6.4-8.2); Triglycerides 139 mg/dL (<=150); VLDL CHOLESTEROL 27.8 mg/dL
[2024-05-13 10:31] LABS: Free T4 0.99 ng/dL (0.76-1.46)
[2024-05-14 04:07] LABS: Vitamin B12 308 pg/mL (232-1245)
[2024-05-14 06:08] LABS: Immunoglobulin A, Qn 303 mg/dL (87-352)
[2024-05-14 15:09] LABS: t-Transglutaminase (tTG) IgA <2 U/mL (0-3)
== END 2024-05-13 07:03 | disposition home or self-care (01) ==
LOC: LAB 07:06
PROVIDERS: PCP Student in an Organized Health Care Education/Training Program; Visit Provider Student in an Organized Health Care Education/Training Program
DX: R19.7 Diarrhea, unspecified (principal); R23.2 Flushing
CPT/HCPCS: 36415; 80053; 80061; 82306; 82607; 82728; 82784; 84439; 84443; 85025; 86364

== ENCOUNTER 2024-09-16 19:09 | Emergency (ER) | payer BC, SELFPAY ==
[2024-09-16 19:13] VITALS: BP 155/92; PULSE 78; TEMP 36.9; O2SAT 100; BMI 19.9
--- OUTSIDE RECORDS SUMMARY | 2024-09-16 19:13 | XMS_ITS | Encounter Summary ---
Author Organization [facility] Address [address] [place] [address] Care Team Providers Care Wash Box Operator Name Role Phone Lizbet Sandoval MOTOR AND GENERATOR ASSEMBLER Unavailable [phone] Francesca Stiles MD Primary Care Provider [phone] Lizbet Sandoval MOTOR AND GENERATOR ASSEMBLER Unavailable [phone] Francesca Stiles MD Unavailable [phone] Audrey King MD, IBCLC Primary Care Provid er Encounter Details Date Type Department Care Team (Late st Contact Info) Description 09/29/2022 Orders Only [facility] [address] [place] [phone] Provider, MD Dao [address] [place], [place] [id number] Social History Tobacco Use Types Packs/Day Years Used Date Smoking Tobacco: Former Cigarettes Q uit: 03/19/2018 Smokeless Tobacco: Never Alcohol Use Standard Drinks/Week Comments Yes 0 (1 standard drink = 0.6 oz pure alcohol) Monthly or less, Caffeine: 1-2 cups per day Comments Unknown Sex and Gender Information Value Date Recorded Sex Assigned at Not on file Legal Sex Female 6:37 PM EDT Gender Identity Not on file Sexual Orientation Not on file documented as of this encounter Plan of Treatment Upcoming Encounters Date Type Department Care Team (Late st Contact Info) Description 12/16/2024 4:30 PM EDT Office Visit [facility] [address] [place] [address] Kingston Cerda MD [address] [facility] [address] [place], [place] [phone] documented as of this encounter Procedures Procedure Name Priority Date/Time Associated Diagnosis Comments ECG 12-LEAD Routine 09/15/2022 11:17 AM EDT documented in this encounter Results * ECG 12 lead (09/15/2022 11:17 AM EDT) us Historical Provider ECG ORDERABLES Final Res ult documented in this encounter Visit Diagnoses Not on filedocumented in this encounter Care Teams Wash Box Operator Relationship Specialty Start Date End Date Lizbet Sandoval, MOTOR AND GENERATOR ASSEMBLER [address] [place] [address] PCP - [place] [employer] 03/19/21 Francesca Stiles MD [address] [place], [place] [phone] PCP - General Family Medicine 08/29/22 04/04/24 Lizbet Sandoval, MOTOR AND GENERATOR ASSEMBLER [address] [place], [place] [phone] PCP - [facility] 06/17/22 Francesca Stiles MD [address] [place] [address] PCP - [place] [employer] 10/17/22 Audrey King MD, IBCLC [address] [place], [place] [phone] PCP - General Family Medicine 04/05/24 documented as of this encounter
--- OUTSIDE RECORDS SUMMARY | 2024-09-16 19:13 | XMS_ITS | Encounter Summary ---
Author Organization [facility] Address [address] [place] [address] Care Team Providers Care Tool Grinder Operator Name Role Phone Francesca Stiles MD Primary Care Provider [phone] Francesca Stiles MD Unavailable [phone] Audrey King MD, IBCLC Primary Care Provid er Reason for Visit * Reason Comments Med Refill Encounter Details Date Type Department Care Team (Late st Contact Info) Description 09/30/2023 Refill [facility] [address] [place] [address] Audrey King MD, IBCLC [address] [place] [address] Tobacco use; Encounter for smoking cessation counseling Social History Tobacco Use Types Packs/Day Years Used Date Smoking Tobacco: Former Cigars Q uit: 03/19/2018 Smokeless Tobacco: Never Comments:3-4 cigars per day Alcohol Use Standard Drinks/Week Comments Yes 0 (1 standard drink = 0.6 oz pure alcohol) Monthly or less, Caffeine: 1-2 cups per day Comments Unknown Sex and Gender Information Value Date Recorded Sex Assigned at Not on file Legal Sex Female 6:37 PM EDT Gender Identity Not on file Sexual Orientation Not on file documented as of this encounter Miscellaneous Notes * Telephone Encounter - Audrey King MD, IBCLC - 10/02/2023 12:44 PM EDT Duplicate: Addressed in a previous response or encounter documented in this encounter Plan of Treatment Upcoming Encounters Date Type Department Care Team (Late st Contact Info) Description 12/16/2024 4:30 PM EDT Office Visit [facility] [address] [place] [phone] Kingston Cerda MD [address] [facility] [address] [place], [place] [phone] documented as of this encounter Visit Diagnoses Diagnosis Tobacco use Encounter for smoking cessation counseling documented in this encounter Care Teams Tool Grinder Operator Relationship Specialty Start Date End Date Francesca Stiles MD [address] [place] [address] PCP - General Family Medicine 08/29/22 04/04/24 Francesca Stiles MD [address] [place] [address] [facility] 10/17/22 Audrey King MD, IBCLC [address] [place] [address] PCP - General Family Medicine 04/05/24 documented as of this encounter
--- OUTSIDE RECORDS SUMMARY | 2024-09-16 19:13 | XMS_ITS | Clinical Summary ---
Author Organization [facility] Address [address] [place] [address] Care Team Providers Care Gang Worker Name Role Phone Luca Villagran MD Unavailable Allergies No known active allergies Medications asenapine (Saphris) SL tablet DISSOLVE 1 TABLET UNDER THE FORREST DAILY AT BEDTIME Active clindamycin (Cleocin T) 1 % lotion APPLY TO THE AFFECTED AREA ON THE FACE DAILY IN THE MORNING Active ibuprofen 800 mg tablet TAKE 1 TABLET BY MOUTH THREE TIMES A DAY WITH FOOD OR MILK NEEDED FOR 7 DAYS Active minocycline 100 mg capsule Take 1 capsule by mouth in the morning and at bedtime. Active tretinoin (Retin-A) 0.025 % cream APPLY TO THE FACE DAILY IN THE EVENING Active doxycycline (Vibra-Tabs) 100 mg tablet Take 100 mg by mouth in the morning and at bedtime. Take with a full glass of water and do not lie down for at least 30 minutes after. Active Family History Medical History Relation Name Comments Heart attack Father Relation Name Status Comments Father Social History Tobacco Use Types Packs/Day Years Used Date Smoking Tobacco: Former Cigarettes Tobacco Cessation:Counseling Given: Not Answered Alcohol Use Standard Drinks/Week Comments Yes 0 (1 standard drink = 0.6 oz pur e alcohol) [place] Safety & Environment Answer Date Rec orded Fear of Current or Ex-Partner Not on file Emotionally Abused Not on file 05/10/2023 Physically Abused Not on file 05/10/2023 Sexually Abused Not on file 05/10/2023 Physically or Sexually Abused Not on file Comments Unknown Sex and Gender Information Value Date Recorded Sex Assigned at Not on file Legal Sex Female 11:52 PM EDT Gender Identity Not on file Sexual Orientation Not on file Last Filed Vital Signs Vital Sign Reading Time Taken Comments Blood Pressure 113/67 01/20/2022 1:42 PM EDT Pulse 74 01/20/2022 1:42 PM EDT Temperature - - Respiratory Rate - - Oxygen Saturation 100% 11/26/2020 1:47 PM EDT Inhaled Oxygen Concentration - - Weight 84.8 kg (187 lb) 01/20/2022 1:42 PM EDT Height 175.3 cm (5' 9 ) 11/26/2020 1:45 PM EDT Body Mass Index 27.62 11/26/2020 1:45 PM EDT Plan of Treatment Health Maintenance Due Date Last Done Comments Depression Screening 1992 Varicella Vaccines (1 of 2 - 13+ 2-dose series) 1993 Hepatitis B Vaccines (1 of 3 - 19+ 3-dose series) 08/05/1999 Pap Smear 2001 Cervical Cancer Screening 2010 HPV/Cotest 2010 Mammogram 2020 Adult Tetanus 07/09/2024 07/09/2014 Influenza Vaccine (Season Ended) 2024 Zoster Vaccines (1 of 2) 2030 HIB Vaccines Aged Out No longer eligi ble based on patient's age to complete this topic HPV Vaccines Aged Out No longer eligi ble based on patient's age to complete this topic IPV Vaccines Aged Out No longer eligi ble based on patient's age to complete this topic Meningococcal B Vaccine Aged Out No l onger eligible based on patient's age to complete this topic Meningococcal Vaccine Aged Out No kirk carlos eligible based on patient's age to complete this topic Pneumococcal Vaccine: Pediat rics (0 to 5 Years) and At-Risk Patients (6 to 64 Years) Aged Out No longer eligi ble based on patient's age to complete this topic Rotavirus Vaccines Aged Out No longer eligible based on patient's age to complete this topic Medical Devices Implanted Type Area Php Developer Device Identifier Shelf Expiration Date Model / Serial / Lot [id number] Implanted:12/18 (Quantity not on file) Implantable Loop Recorder [id number] / [id number] / Insurance [employer] [place] MEDICA[place] [facility] Care Teams Gang Worker Relationship Specialty Start Date End Date Luca Villagran MD [address] [place] [address] Consulting Physician Electrophysiology 01/23/22
--- OUTSIDE RECORDS SUMMARY | 2024-09-16 19:13 | XMS_ITS | Referral Summary ---
Author Organization [facility] Address [address] [place] [address] Care Team Providers Care Tearoom Hostess Name Role Phone Luca Villagran MD Unavailable [...] for at least 30 minutes after. Active Social History Tobacco Use Types Packs/Day Years [...] 11/26/2020 1:45 PM EDT Plan of Treatment Not on file Medical Devices Implanted Type Area Carbon Capture Power Plant Operator Device Identifier Shelf Expiration Date Model / Serial / Lot [id number] Implanted:12/18 (Quantity not on file) Implantable Loop Recorder [id number] / [id number] / Insurance [employer] [place] [facility] Care Teams Tearoom Hostess Relationship Specialty Start Date End Date Luca Villagran MD [address] [place] [phone] Consulting Physician Electrophysiology 01/23/22
--- OUTSIDE RECORDS SUMMARY | 2024-09-16 19:13 | XMS_ITS | Encounter Summary ---
Author Organization [facility] Address [address] [place] [address] Care Team Providers Care Finish Rolls Operator Name Role Phone Lizbet Sandoval INSULATION ENGINEMAN Unavailable [phone] Francesca Stiles MD Primary Care Provider [phone] Lizbet Sandoval INSULATION ENGINEMAN Unavailable [phone] Francesca Stiles MD Unavailable [phone] Audrey King MD, IBCLC Primary Care Provid er Encounter Details Date Type Department Care Team (Late st Contact Info) Description 09/13/2022 Orders Only [facility] [address] [place] [phone] Provider, MD Dao [address] [place], [place] [id number] Social History Tobacco Use Types Packs/Day Years [...] B [address] [place] [address] Kingston Cerda MD [address] [facility] [address] [place], [place] [id number] documented as of this encounter Procedures Procedure Name Priority Date/Time Associated Diagnosis Comments CT ABDOMEN WO IV CONTRAST Routine 09/08/2022 2:41 PM EDT documented in this encounter Results * CT abdomen wo IV contrast (09/08/2022 2:41 PM EDT) Anatomical Region Laterality Modality Body, Abdomen Computed Tomogra phy us Historical Provider MD LOPEZ CT PROCEDURES Final R esult documented in this encounter Visit Diagnoses Not on filedocumented in this encounter Care Teams Finish Rolls Operator Relationship Specialty Start Date End Date Lizbet Sandoval NP [address] [place] [address] PCP - [facility] 03/19/21 Francesca Stiles MD [address] [place] [address] PCP - General Family Medicine 08/29/22 04/04/24 Lizbet Sandoval NP [address] [place] [address] PCP - [facility] 06/17/22 Francesca Stiles MD [address] [place] [address] PCP - [facility] 10/17/22 Audrey King MD, IBCLC [address] [place], [place] [id number] PCP - General Family Medicine 04/05/24 documented as of this encounter
--- OUTSIDE RECORDS SUMMARY | 2024-09-16 19:13 | XMS_ITS | Encounter Summary ---
Author Organization [facility] Address [address] [facility] [address] [place] [address] Care Team Providers Care Geriatrics Physician Name Role Phone Francesca Stiles MD Primary Care Provider [phone] Lizbet Sandoval CUSTOMER ASSISTANT Unavailable [phone] Francesca Stiles MD Unavailable [phone] Audrey King MD, IBCLC Primary Care Provid er Encounter Details Date Type Department Care Team (Late st Contact Info) Description 04/13/2023 Abstract [facility] [address] [address] Lily Marie MA Social History Tobacco Use Types Packs/Day Years Used Date Smoking Tobacco: Former Cigars Q uit: 03/19/2018 Smokeless Tobacco: Never Alcohol [...] B [address] [place] [id number] Kingston Cerda MD [address] [address] documented as of this encounter Visit Diagnoses Not on filedocumented in this encounter Care Teams Geriatrics Physician Relationship Specialty Start Date End Date Francesca Stiles MD [address] [place], [place] [id number] PCP - General Family Medicine 08/29/22 04/04/24 Lizbet Sandoval, ISAIAH [address] [place] [address] PCP - [facility] 06/17/22 Francesca Stiles MD [address] [place], [place] [phone] PCP - [facility] 10/17/22 Audrey King MD, IBCLC [address] [place] [address] PCP - General Family Medicine 04/05/24 documented as of this encounter
--- OUTSIDE RECORDS SUMMARY | 2024-09-16 19:13 | XMS_ITS | Encounter Summary ---
Author Organization [facility] Address [address] [place] [address] Care Team Providers Care Mining Consultant Name Role Phone Lizbet Sandoval CHAMBER MAGISTRATE Unavailable [phone] Francesca Stiles MD Primary Care Provider [phone] Lizbet Sandoval CHAMBER MAGISTRATE Unavailable [phone] Francesca Stiles MD Unavailable [phone] Audrey King MD, IBCLC Primary Care Provid er Encounter Details Date Type Department Care Team (Late st Contact Info) Description 09/06/2022 Orders Only [facility] [address] [place] [phone] Provider, MD Dao [address] [place], [place] [id number] Social History Tobacco Use Types Packs/Day Years [...] [facility] NEUR B [address] [facility] [address] [place] [address] Kingston Cerda MD [address] [facility] [address] [place], [place] [phone] documented as of this encounter Procedures Procedure Name Priority Date/Time Associated Diagnosis Comments XR HAND 3+ VIEWS RIGHT Routine 08/31/2022 1:45 PM EDT documented in this encounter Results * XR hand 3+ views right (08/31/2022 1:45 PM EDT) Anatomical Region Laterality Modality Upper Extremities, Hand Right Radiogra phic Imaging us Historical Provider MD LOPEZ XR PROCEDURES Final R esult documented in this encounter Visit Diagnoses Not on filedocumented in this encounter Care Teams Mining Consultant Relationship Specialty Start Date End Date Lizbet Sandoval NP [address] [place] [address] PCP - [place] [facility] 03/19/21 Francesca Stiles MD [address] [place] [address] PCP - General Family Medicine 08/29/22 04/04/24 Lizbet Sandoval NP [address] [place] [address] PCP - [facility] 06/17/22 Francesca Stiles MD [address] [place], [place] [id number] PCP - [place] [facility] 10/17/22 Audrey King MD, IBCLC [address] [place], [place] [phone] PCP - General Family Medicine 04/05/24 documented as of this encounter
--- OUTSIDE RECORDS SUMMARY | 2024-09-16 19:13 | XMS_ITS | Encounter Summary ---
Author Organization [facility] Address [address] [place] [address] Care Team Providers Care Lab Specialist Name Role Phone Lizbet Sandoval SUPERVISOR TELLERS Unavailable [phone] Francesca Stiles MD Primary Care Provider [phone] Lizbet Sandoval SUPERVISOR TELLERS Unavailable [phone] Francesca Stiles MD Unavailable [phone] Audrey King MD, IBCLC Primary Care Provid er Encounter Details Date Type Department Care Team (Late st Contact Info) Description 09/01/2022 Abstract [facility] FM [address] [place] [address] Lizbet Sandoval, SUPERVISOR TELLERS [address] [place] [address] Social History Tobacco Use Types Packs/Day Years [...] Visit [facility] B [address] [facility] [address] [place] [address] Kingston Cerda MD [address] [facility] [address] [place] [address] documented as of this encounter Visit Diagnoses Not on filedocumented in this encounter Care Teams Lab Specialist Relationship Specialty Start Date End Date Lizbet Sandoval, SUPERVISOR TELLERS [address] [place], [place] [phone] PCP - [place] [facility] 03/19/21 Francesca Stiles MD [address] [place], [place] [phone] PCP - General Family Medicine 08/29/22 04/04/24 Lizbet Sandoval, SUPERVISOR TELLERS [address] [place], [place] [phone] PCP - [facility] 06/17/22 Francesca Stiles MD [address] [place], [place] [phone] PCP - [place] [facility] 10/17/22 Audrey King MD, IBCLC [address] [place], [place] [phone] PCP - General Family Medicine 04/05/24 documented as of this encounter
--- OUTSIDE RECORDS SUMMARY | 2024-09-16 19:13 | XMS_ITS | Encounter Summary ---
Author Organization [facility] Address [address] [place] [address] Care Team Providers Care Mission Analyst Name Role Phone Francesca Stiles MD Unavailable [phone] Audrey King MD, IBCLC Primary Care Provid er Reason for Visit * Reason Onset Date Comments Med Refill 06/10/2024 Encounter Details Date Type Department Care Team (Late st Contact Info) Description 06/10/2024 Telephone [facility] NEURO [address] [place] [address] Kingston Cerda MD [address] [place], [place] [phone] Med Refill Social History Tobacco Use Types Packs/Day Years [...] encounter Miscellaneous Notes * Telephone Encounter - Manolo Rodgers - 06/10/2024 3:37 PM EDT On 05/20/24 only received 40 pills of Dexmethylphenidate ER 5 1 cap qam and 1 cap noon due to shortage. She needs a new prescription and future script sent to [facility]. Thank You, documented in this encounter Plan of Treatment Upcoming Encounters Date Type Department Care Team (Late st Contact Info) Description 12/16/2024 4:30 PM EDT Office Visit [facility] [address] [place] [address] Kingston Cerda MD 7[address] [facility] [address] [place], [place] [phone] documented as of this encounter Visit Diagnoses Not on filedocumented in this encounter Care Teams Mission Analyst Relationship Specialty Start Date End Date Francesca Stiles MD [address] [place] [address] PCP - [place] [facility] 10/17/22 Audrey King MD, IBCLC [address] [place], [place] [phone] PCP - General Family Medicine 04/05/24 documented as of this encounter
--- OUTSIDE RECORDS SUMMARY | 2024-09-16 19:13 | XMS_ITS | Encounter Summary ---
Author Organization [facility] Address [address] [place] [address] Care Team Providers Care Gusset Folder Name Role Phone Francesca Stiles MD Primary Care Provider [phone] Francesca Stiles MD Unavailable [phone] Audrey King MD, IBCLC Primary Care Provid er Encounter Details Date Type Department Care Team (Late st Contact Info) Description 08/30/2023 Orders Only [facility] FM [address] [place] [address] Lizbet Sandoval, SPINNING SUPERVISOR [address] [place] [address] Social History Tobacco Use Types [...] B [address] [place] [address] Kingston Cerda MD [address] [facility] [address] [place] [address] documented as of this encounter Procedures Procedure Name Priority Date/Time Associated Diagnosis Comments HM COLONOSCOPY Routine 05/16/2021 1:08 PM EST PAP SMEAR Routine 09/23/2020 10:19 AM EDT documented in this encounter Results * Hm Colonoscopy (05/16/2021 1:08 PM EST) Anatomical Region Laterality Modality Other us Santos Harmon MD HEALTH MAINTENANCE Final Result * Pap Smear (09/23/2020 10:19 AM EDT) Swab Cervical swab / Unknown Lizbet Sandoval SPINNING SUPERVISOR LAB CYTOLOGY ORDERABLES Paula l Result documented in this encounter Visit Diagnoses Not on filedocumented in this encounter Care Teams Gusset Folder Relationship Specialty Start Date End Date Francesca Stiles MD [address] [place], [place] [phone] PCP - General Family Medicine 08/29/22 04/04/24 Francesca Stiles MD [address] [place], [place] [phone] PCP - [place] [facility] 10/17/22 Audrey King MD, IBCLC [address] [place], [place] [phone] PCP - General Family Medicine 04/05/24 documented as of this encounter
--- NOTE | 2024-09-16 19:22 | ED.GENADUL1 ---
HPI HPI - General Adult General Stated complaint: LOWER EXTREMITY PAIN, POSSIBLE BUG BITE Time Seen by Provider: 09/16/24 19:10 Source: patient Mode of arrival: walk-in Limitations: no limitations History of Present Illness HPI narrative: Patient is a 44-year-old female who presents to the emergency department today for evaluation concerns for an insect bite to the anterior aspect of her left leg. She states this morning she noticed there was an area of erythema to her leg around 4 AM that she did not go to bed with last night. She is concerned for a spider bite. She states she does have pets however has not spent any time outside. No fever/chills or sick symptoms of nausea/vomiting. Related Data Home Medications ?Medication ?Instructions ?Recorded ?Confirmed asenapine maleate 5 mg sublingual 5 mg sublingual .at bedtime 09/15/22 09/15/22 tablet buspirone 10 mg tablet 10 mg PO BID 09/15/22 09/15/22 hydroxyzine pamoate 50 mg capsule 50 mg PO Q8H 09/15/22 09/15/22 (Vistaril) minocycline 50 mg capsule 50 mg PO DAILY 09/15/22 09/15/22 Previous Rx's ?Medication ?Instructions ?Recorded tobramycin 0.3 %-dexamethasone 1 drp ophthalmic (eye) Q6H 7 days 01/28/23 0.05 % eye drops,suspension #5 mL (Tobradex ST) doxycycline hyclate 100 mg capsule 100 mg PO BID 14 days #28 caps 09/16/24 Allergies Allergy/AdvReac Type Severity Reaction Status Date / Time No Known Drug Allergies Allergy Verified 09/16/24 19:18 Opioid HPI Opioid Management Most Recent Opioid Data: Last Pain Scale 5 09/16/24, 19:13 Review of Systems ROS Status of ROS 10 or more systems reviewed and unremarkable except as noted in history and below PFSH PFSH Social History Smoking status: Never smoker Little interest or pleasure in doing things: not at all Feeling down, depressed, or hopeless: not at all Exam Narrative Exam Narrative: Constituational: Awake/ alert, no apparent distress, well hydrated HENMT: normocephalic, external ears normal, moist oral mucous membranes and oropharynx normal Eyes: EOMI and conjunctivae normal Neck: ROM intact Chest: inspection of chest normal Respiratory: Normal respiratory effort MSK: ROM intact, +NVI Skin: + Area of erythema with target lesion to the anterior aspect of the distal L lower leg, otherwise no rashes or petechiae. Neuro: no focal deficits Psych: mental status grossly normal Constitutional Vital Signs, click to edit/add: Last Vital Signs Temp 98.5 F 09/16/24 19:13 Pulse 78 09/16/24 19:13 Resp 16 09/16/24 19:13 BP 155/92 H 09/16/24 19:13 Pulse Ox 100 09/16/24 19:13 O2 Del Method Room Air 09/16/24 19:13 Course Vital Signs Vital signs: Vital Signs Temperature 98.5 F 09/16/24 19:13 Pulse Rate 78 09/16/24 19:13 Respiratory Rate 16 09/16/24 19:13 Blood Pressure 155/92 H 09/16/24 19:13 Pulse Oximetry 100 09/16/24 19:13 Oxygen Delivery Method Room Air 09/16/24 19:13 Temperature 98.5 F 09/16/24 19:13 Pulse Rate 78 09/16/24 19:13 Respiratory Rate 16 09/16/24 19:13 Blood Pressure 155/92 H 09/16/24 19:13 Pulse Oximetry 100 09/16/24 19:13 Oxygen Delivery Method Room Air 09/16/24 19:13 Medical Decision Making MDM Narrative Medical decision making narrative: Patient is a well-appearing 44-year-old female who presented to the emergency department today for evaluation concerns for an insect bite to her left lower leg. Initial examination patient with clinical evidence concerning for tick bite as evidenced by a target lesion to the anterior and distal left lower leg. No evidence of cellulitis or abscess present. Additionally concerning neurovascular or motor findings on exam. Labs for Lyme and tickborne illness are pending at discharge. Will discharge home with doxycycline. Historically patient is on low-dose minocycline intermittently for acne. Advised on holding the minocycline and initiating doxycycline. Conditions were close follow-up with your primary care provider for reevaluation. Discussed signs and symptoms of any worsening condition and when to consider reevaluation by the emergency department. Patient verbalized an understanding of this and is agreeable with the plan to be discharged home. Medical Records Medical records reviewed: Yes I reviewed the patient's medical records Lab Data Lab results reviewed: Yes I reviewed the patient's lab results Lab results narrative: Lyme and tickborne illness labs are pending at discharge Discharge Plan Discharge Clinical Impression: Insect bite Patient Disposition: Home, Self-Care Prescriptions / Home Meds: New doxycycline hyclate 100 mg capsule 100 mg PO BID 14 Days Qty: 28 0RF No Action asenapine maleate 5 mg tablet, sublingual 5 mg SUBLINGUAL .at bedtime buspirone 10 mg tablet 10 mg PO BID hydroxyzine pamoate [Vistaril] 50 mg capsule 50 mg PO Q8H minocycline 50 mg capsule 50 mg PO DAILY Tobradex ST 0.3-0.05 % drops,suspension 1 drp ophthalmic (eye) Q6H 7 Days Qty: 5 0RF Rx Instructions: one drop to right eye Print Language: Bahamian Instructions: Tick Bite (ED) Additional Instructions: Taking doxycycline as prescribed and stop your minocycline for your acne. Please follow-up closely with your primary care provider for reevaluation as discussed. May return to the ER with any new or worsening symptoms/concerns. Referrals: Audrey King MD [Primary Care Provider] - 1 week Discharge Date/Time: 09/16/24 20:01
--- OUTSIDE RECORDS SUMMARY | 2024-09-16 19:31 | XMS_ITS | CCD ---
Author Organization [facility] Care Team Providers Care Music Pastor Name Role Phone TULIO PABLO Attending Unavailable LISE PIRES (HARNESS TIER) Attending Unavailable TULIO PABLO Referring Unavailable LISE PIRES (HARNESS TIER) Attending Unavailable TULIO PABLO Referring Unavailable LISE PIRES (HARNESS TIER) Attending Unavailable TULIO PABLO Referring Unavailable SELF, REFERRED Referring Unavailable ALEJANDRA EDWARD Primary Care Unavailable LUCA VILLAGRAN Attending Unavailable LUCA VILLAGRAN Admitting Unavailable SELF, REFERRED Referring Unavailable SELF, REFERRED Primary Care Unavailable LUCA VILLAGRAN Attending Unavailable LUCA VILLAGRAN Admitting Unavailable LUCA VILLAGRAN Admitting Unavailable SELF, REFERRED Referring Unavailable SELF, REFERRED Primary Care Unavailable LCUA VILLAGRAN Attending Unavailable Lilly Ellington Unavailable LUCA [...] Unavailable TIMOTHY Edward Primary Care Provider [phone] Attending Provider Francesca Stiles MD Primary Care Provider Kilo Edward NP Unavailable Francesca Stiles MD Unavailable Alyssa Merritt Attending Unavailable Alyssa Merritt Admitting Unavailable Alyssa Merritt Attending Unavailable Alyssa Merritt Admitting Unavailable Francesca Stiles MD Unavailable Christine SCHROEDER, IBCLC, Candice Primary Care [facility] [place] Attending Unavailab le [place] Admitting Unavailab le Kilo Edward Primary Care Unavailable JAMIL ALONZO Attending Unavailable CANDICE KING Attending Unavailable CANDICE KING Referring Unavailable GONZALO PINZON Attending Unavailable GONZALO PINZON Attending Unavailable KHANH CERDA Attending Unavailable KHANH CERDA Attending Unavailable KHANH CERDA Attending Unavailable KHANH CERDA Attending Unavailable KHANH CERDA Attending Unavailable Allergies Allergy Classification Reported Allergen(s) Allergy Type Date of Onset Reaction(s) Facility (1 source) 04698,00 Drug allergy (disorder) 1 [facility] Repository (20 sources) Azithromycin Drug Allergy 3 Shortness of breath [facility] (20 sources) Cephalexin Drug Allergy 3 Shortness of breath [facility] Medications Current Medications Medication Drug Class(es) [...] Active busPIRone hydrochloride 15 mg oral tablet (20 sources) Start: 05-16-2021 take 15 mg by mouth once daily Buspirone Active 15 MG PO Daily May 16, 2021 12:00am busPIRone (Buspa r) 5 MG tablet Take by mouth 2 (two) times a day Active BuSpar Active clonazePAM 0.5 mg oral tablet (4 sources) Benzodiazepine Start: 02-13-2023 take 0.25 mg by mouth at bedtime clonazePAM (KlonoPIN) 0.5 MG tablet Take 0.25 mg by mouth at bedtime 0 02/13/2023 Active take 0.5 tablet by mouth once da warren KlonoPIN 0.5 MG 1/2 tab Orally Once a day Active dicyclomine hydrochloride 20 mg oral tablet [...] by mouth, bid, 30 days 60 capsule 11 04/23/2024 05/12/2024 Discontinued Start: 05-16-2021 take 100 [...] Status: Ordered nitroglycerin 0.004 mg/mg rectal ointment (3 sources) Nitrate Vasodilator Start: 05-12-2024 End: 05-26-2024 nitroglycerin (Rectiv) 0.4 % (w/w) rectal ointment Indications: Hemorrhoids, unspecified hemorrhoid type Insert 1 inch (1 application ) into the rectum every 12 (twelve) hours for 14 days 30 g 05/12/2024 05/26/2024 Active oxybates, calcium, magnesium, potassium and sodium, (Xywav) 500 MG/ML solution (20 sources) oxybates, calciu m, magnesium, potassium and sodium, (Xywav) 500 MG/ML solution 3.5 g Twice nightly Active oxybates, calciu m, magnesium, potassium and sodium, (Xywav) 500 MG/ML solution 4.5 g Twice nightly Active Saphris Black Cohn (4 sources) Start: [...] a day for 30 days Feb, Not-Taking/PRN clindamycin 10 mg/ml topical lotion (20 sources) Lincosamide Antibacterial End: 08-28-2024 clindamycin (Cleocin T) 1 % lotion Apply 1 application topically 1 (one) time each day. 08/28/2024 Discontinued cyclobenzaprine hydrochloride 10 mg oral tablet (2 [...] 03, 2019 11:00pm June 11, 2019 9:13pm 24 hr dexmethylphenidate hydrochloride 5 mg extended release oral capsule (20 sources) Central Nervous System Stimulant Start: 07-12-2024 End: 08-28-2024 dexmethylphenidate XR (Focalin XR) 5 MG 24 hr capsule Indications: Narcolepsy and cataplexy (HCC) 1 cap QAM and 1 cap Qnoon Do not start before July 12, 2024. 60 capsule 07/12/2024 08/28/2024 Discontinued Start: 07-12-2024 dexmethylpheni date XR (Focalin XR) 5 MG 24 hr capsule Indications: Narcolepsy and cataplexy 1 cap QAM and 1 cap Qnoon Do not start before July 12, 2024. 60 capsule 07/12/2024 Active Start: 07-12-2024 dexmethylpheni date XR (Focalin XR) 5 MG 24 hr capsule Indications: Narcolepsy and cataplexy 1 cap QAM and 1 cap Qnoon Do not start before July 12, 2024. 60 capsule 07/12/2024 Active Start: 07-12-2024 dexmethylpheni date XR (Focalin XR) 5 MG 24 hr capsule Indications: Narcolepsy and cataplexy 1 cap QAM and 1 cap Qnoon Do not start before July 12, 2024. 60 capsule 07/12/2024 Active Start: 07-12-2024 dexmethylpheni date XR (Focalin XR) 5 MG 24 hr capsule Indications: Narcolepsy and cataplexy (CMS/HCC) 1 cap QAM and 1 cap Qnoon Do not start before July 12, 2024. 60 capsule 07/12/2024 Active Start: 06-18-2024 End: 06-12-2024 dexmethylphenidate XR (Focal in XR) 5 MG 24 hr capsule Indications: Narcolepsy and cataplexy (CMS/HCC) 1 cap QAM and 1 cap Qnoon Do not start before June 18, 2024. 60 capsule 06/18/2024 06/12/2024 Discontinued (Reorder) Start: 06-18-2024 dexmethylpheni date XR (Focalin XR) 5 MG 24 hr capsule Indications: Narcolepsy and cataplexy (CMS/HCC) 1 cap QAM and 1 cap Qnoon Do not start before June 18, 2024. 60 capsule 06/18/2024 Active Start: 06-18-2024 dexmethylpheni date XR (Focalin XR) 5 MG 24 hr capsule Indications: Narcolepsy and cataplexy (CMS/HCC) 1 cap QAM and 1 cap Qnoon Do not start before June 18, 2024. 60 capsule 06/18/2024 Active Start: 06-12-2024 End: 08-28-2024 dexmethylphenidate XR (Focal in XR) 5 MG 24 hr capsule Indications: Narcolepsy and cataplexy (HCC) Take 1 capsule (5 mg) by mouth in the morning and 1 capsule (5 mg) before bedtime. 1 cap QAM and 1 cap Qnoon. 60 capsule 06/12/2024 08/28/2024 Discontinued Start: 04-21-2024 End: 06-12-2024 dexmethylphenidate XR (Focal in XR) 5 MG 24 hr capsule Indications: Narcolepsy and cataplexy (CMS/HCC) 1 cap QAM and 1 cap Qnoon 60 capsule 05/20/2024 06/12/2024 Discontinued (Reorder) Start: 04-19-2024 dexmethylpheni date XR (Focalin XR) [...] 10 MG 1 tablet Orally qam Active lidocaine 0.05 mg/mg medicated patch (1 source) [...] 20, 2017 11:00pm June 03, 2019 9:25pm pantoprazole 40 mg delayed release oral tablet (20 sources) Proton Pump Inhibitor Start: 12-27-2022 End: 06-24-2024 take 1 tablet by mouth once daily pantoprazole (ProtoNix) 40 MG EC tablet TAKE 1 TABLET BY MOUTH EVERY DAY FOR 30 DAYS 12/27/2022 06/24/2024 Discontinued predniSONE 50 mg oral tablet (5 sources) [...] 08-29-2022 Chronic Other aftercare (1 source) Other care home (current) drug therapy; Translations: [OTH SUPERVISOR ESTERS AND EMULSIFIERS CURRENT DRUG THERAPY] Onset: 3 Episodic Other connective tissue disease (1 source) Musculoskeletal pain; Translations: [Myalgia, other site] 06-11-2019 Episodic Other connective tissue disease (20 sources) Spasm of cervical paraspinous muscle; Translations: [Other muscle spasm] Onset: 3 08-29-2022 Episodic Other gastrointestinal disorders (2 sources) Swollen [...] conditions (not mental disorders or infectious disease) (3 sources) Patient encounter status; Translations: [Encounter for [...] Onset: 08-29-2022 Resolved: 01-15-2023 01-15-2023 Chronic Other gastrointestinal disorders (20 sources) Diarrhea; Translations: [Diarrhea, unspecified] Onset: 05-14-2023 Resolved: 08-30-2023 05-16-2021 Episodic Other inflammatory condition of skin (20 [...] Value Interpretation Reference Range Facility BI MAMMOGRAM SCREENING TOMOS YNTHESIS BILATERALon 06-09-2024 BI MAMMOGRAM SCREENING TOMOSYNTHESIS BILATERAL This is a summary report. The complete report is available in the patient's medical record. If you cannot access the medical record, please contact the sending organization for a detailed fax or copy. Examination: BI MAMMOGRAM SCREENING TOMOSYNTHESIS BILATERAL Clinical History: screening Technique: Screening digital mammography study of both breasts was performed with 2-D and 3-D tomosynthesis imaging. Study was compared to the prior exam dated 05/04/2023. Findings: There is no evidence of interval dominant spiculated mass, grouped microcalcifications, or skin thickening which would be suggestive of malignancy. Axillary lymph nodes are noted on the right which appear grossly unremarkable. A loop recorder is seen overlying the left axillary region on the MLO view similar to the prior study. IMPRESSION: Impression: No specific evidence of malignancy seen in either breast. BIRADS 2 - Benign Findings DENSITY: The breasts are heterogeneously dense, which may obscure small masses. FOLLOW-UP: Routine Screening Mammogram ELECTRONICALLY SIGNED BY: Yahir Zuniga M.D. Normal Not Available PAP [id number] 12-08-2023 Cytology report Cyto stain Doc (Cvx/Vag) Note Invalid Interpretation Code [facility] Comment on above: Result Comment: TEST S RESULT FLAG UNITS REF RANGE LAB Clinician Provided Cytology Information Source.............Endocervix No. of containers..01 ThinPrep Vial DIAGNOSIS: 01 NEGATIVE FOR INTRAEPITHELIAL LESION OR MALIGNANCY. Specimen adequacy: 01 Satisfactory for evaluation. Endocervical and/or squamous metaplastic cells (endocervical component) are present. Performed by: Kevyn Reese, Foaming Machine Operator ([facility]) . 01 Note: Note 01 The Pap [...] <-Panic Low,>-Panic High,A-Abnormal,AA-Critical Abnormal Performed at: [address] [facility] [id number] Randi Sol MD, Performed By: #### 3 [id number] #### [facility] [address] [place] [id number] HPV 16+18+31+33+35+39+ 45+51+52+56+58+59+ 66+68 DNA Probe+sig amp Ql (Cvx) Negative Invalid Interpretation Code Negative [facility] Comment on above: Result Comment: This nucleic acid amplification test detects fourteen high-risk HPV types (16,18,31,33,35,39,45,51,52,56,58,59,66,68) without differentiation. Performed at: [facility] [address] [place], [place] [id number] MD Ebenezer Bryan Performed at: =[facility] [address] [facility], [place] [id number] MD Ebenezer Bryan Performed By: #### 3 [id number] #### [facility] [address] [place] [address] PAP [id number] 12-04-2023 Collection Technique BRUSH-SPATULA Normal [facility] Comment on above: Performed By: #### 3 [id number] #### [facility] [address] [place] [address] Gynecological Body Site ENDOCERVIX Normal [facility] Comment on above: Performed By: #### 3 [id number] #### [facility] [address] [place] [address] CT HEAD WO CONon 07-07-2022 CT HEAD [...] by: MAU ROSE Date: 2022-07-07 14:18 Normal [facility] CALCIUM IONIZEDon 05-19-2022 Calcium, Ionized, Serum 5.5 mg/dL Normal 4.5-5.6 [facility] Comment on above: Performed By: #### C AIONZ #### [facility] [address] [place] [address] Dr. Jason Floyd PTH INTACTon 05-19-2022 PTH, Intact 16 pg/mL Normal 15-65 [facility] Comment on above: Performed By: #### P THINT #### [facility] [address] [place] [address] Dr. Jason Floyd CBC AUTO DIFFon 05-15-2022 BASO # 0.0 103/ul Normal 0.0-0.1 [facility] Comment on above: Performed By: #### C BC #### [facility] [address] [place] [address] Dr. Jason Floyd Basophils/100 WBC (Bld) 0.5 % Normal 0.2-2.0 [facility] Comment on above: Performed By: #### C BC #### [facility] [address] [place] [address] Dr. Jason Floyd EO # 0.2 103/ul Normal 0.0-0.7 [facility] Comment on above: Performed By: #### C BC #### [facility] [address] [place] [address] Dr. Jason Floyd Eosinophils/100 WBC (Bld) 2.2 % Normal 0.9-7.0 [facility] Comment on above: Performed By: #### C BC #### [facility] [address] [place] [address] Dr. Jason Floyd Erythrocyte distribution width (RBC) [Ratio] 12.7 % Normal 11.0-15.0 [facility] Comment on above: Performed By: #### C BC #### [facility] [address] [place] [address] Dr. Jason Floyd Hematocrit (Bld) [Volume fraction] 38.2 % Normal 36.0-48.0 [facility] Comment on above: Performed By: #### C BC #### [facility] [address] [place] [address] Dr. Jason Floyd Hemoglobin (Bld) [Mass/Vol] 12.9 g/dL Normal 12.0-16.0 [facility] Comment on above: Performed By: #### C BC #### [facility] [address] [place] [address] Dr. Jason Floyd IG # 0.01 10e3/ul Normal 0.00-0.03 [facility] Comment on above: Performed By: #### C BC #### [facility] [address] [place] [address] Dr. Jason Floyd IG % 0.1 % Normal 0.0-0.5 [facility] Comment on above: Performed By: #### C BC #### [facility] [address] [place] [address] Dr. Jason Floyd LYMPH # 2.8 103/ul Normal 1.2-3.8 [facility] Comment on above: Performed By: #### C BC #### [facility] [address] [place] [address] Dr. Jason Floyd Lymphocytes/100 WBC (Bld) 33.4 % Normal 20.5-60.0 [facility] Comment on above: Performed By: #### C BC #### [facility] [address] [place] [address] Dr. Jason Floyd MANUAL DIFF REQ NO Normal [facility] Comment on above: Performed By: #### C BC #### [facility] [address] [place] [address] Dr. Jason Floyd MCH (RBC) [Entitic mass] 29.9 pg Normal 26.7-34.0 [facility] Comment on above: Performed By: #### C BC #### [facility] [address] [place] [address] Dr. Jason Floyd MCHC (RBC) [Mass/Vol] 33.8 g/dL Normal 29.9-35.2 [facility] Comment on above: Performed By: #### C BC #### [facility] [address] [place] [address] Dr. Jason Floyd MCV (RBC) [Entitic vol] 88.6 fL Normal 81.0-99.0 [facility] Comment on above: Performed By: #### C BC #### [facility] [address] [place] [address] Dr. Jason Floyd MONO # 0.6 103/ul Normal 0.3-0.8 [facility] Comment on above: Performed By: #### C BC #### [facility] [address] [place] [address] Dr. Jason Floyd Monocytes/100 WBC (Bld) 7.0 % Normal 1.7-12.0 [facility] Comment on above: Performed By: #### C BC #### [facility] [address] [place] [address] Dr. Jason Floyd NEUT # 4.7 103/ul Normal 1.4-6.5 [facility] Comment on above: Performed By: #### C BC #### [facility] [address] [place] [address] Dr. Jason Floyd Neutrophils/100 WBC (Bld) 56.8 % Normal 43.0-75.0 [facility] Comment on above: Performed By: #### C BC #### [facility] [address] [place] [address] Dr. Jason Floyd Platelet mean volume (Bld) [Entitic vol] 10.1 fL Normal 9.5-13.5 [facility] Comment on above: Performed By: #### C BC #### [facility] [address] [place] [address] Dr. Jason Floyd PLT 275 103/ul Normal 150-450 [facility] Comment on above: Performed By: #### C BC #### [facility] [address] [place] [address] Dr. Jason Floyd RBC 4.31 106/ul Normal 4.20-5.40 [facility] Comment on above: Performed By: #### C BC #### [facility] [address] [place] [address] Dr. Jason Floyd WBC 8.2 103/ul Normal 4.0-11.0 [facility] Comment on above: Performed By: #### C BC #### [facility] [address] [place] [address] Dr. Jason Floyd PROF 14(COMP METB)on 023 Albumin [Mass/Vol] 4.4 g/dL Normal 3.4-5.0 [facility] Comment on above: Performed By: #### C MP #### [facility] [address] [place] [address] Dr. Jason Floyd Albumin/Globulin [Mass ratio] 1.5 {ratio} Normal [facility] Comment on above: Performed By: #### C MP #### [facility] [address] [place] [address] Dr. Jason Floyd ALP [Catalytic activity/Vol] 73 U/L Normal 46-116 [facility] Comment on above: Performed By: #### C MP #### [facility] [address] [place] [address] Dr. Jason Floyd ALT [Catalytic activity/Vol] 30 U/L Normal 14-59 [facility] Comment on above: Performed By: #### C MP #### [facility] [address] [place] [address] Dr. Jason Floyd Anion gap [Moles/Vol] 13.0 mmol/L Normal [facility] Comment on above: Performed By: #### C MP #### [facility] [address] [place] [address] Dr. Jason Floyd AST [Catalytic activity/Vol] 17 U/L Normal 15-37 [facility] Comment on above: Performed By: #### C MP #### [facility] [address] [place] [address] Dr. Jason Floyd Bilirubin [Mass/Vol] 0.4 mg/dL Normal 0.2-1.0 [facility] Comment on above: Performed By: #### C MP #### [facility] [address] [place] [address] Dr. Jason Floyd Calcium [Mass/Vol] 10.8 mg/dL Critically high 8.5-10.1 [facility] Comment on above: Performed By: #### C MP #### [facility] [address] [place] [address] [address] Jason Floyd Chloride [Moles/Vol] 101 mmol/L Normal 98-107 [facility] Comment on above: Performed By: #### C MP #### [facility] [address] [address] [address] Jason Floyd CO2 [Moles/Vol] 27.6 mmol/L Normal 21.0-32.0 [facility] Comment on above: Performed By: #### C MP #### [facility] [address] [address] [address] Jason Floyd Creatinine [Mass/Vol] 0.83 mg/dL Normal 0.55-1.02 [facility] Comment on above: Performed By: #### C MP #### [facility] [address] [address] [address] Jason Floyd EGFR-AF [place]ER >60 Normal >=60 [facility] Comment on above: Performed By: #### C MP #### [facility] [address] [address] [address] Jason Floyd EGFR-NON AF [place] >60 Normal >=60 [facility] Comment on above: Performed By: #### C MP #### [facility] [address] [address] [address] Jason Floyd Globulin (S) [Mass/Vol] 2.9 g/dL Normal [facility] Comment on above: Performed By: #### C MP #### [facility] [address] [address] [address] Jason Floyd Glucose [Mass/Vol] 99 mg/dL Normal 74-106 [facility] Comment on above: Performed By: #### C MP #### [facility] [address] [address] [address] Jason Floyd Potassium [Moles/Vol] 3.6 mmol/L Normal 3.5-5.1 [facility] Comment on above: Performed By: #### C MP #### [facility] [address] [address] [address] Jason Floyd Protein [Mass/Vol] 7.3 g/dL Normal 6.4-8.2 [facility] Comment on above: Performed By: #### C MP #### [facility] [address] [address] [address] Jason Floyd Sodium [Moles/Vol] 138 mmol/L Normal 136-145 [facility] Comment on above: Performed By: #### C MP #### [facility] [address] [address] [address] Jason Floyd Urea nitrogen [Mass/Vol] 8.0 mg/dL Normal 7.0-18.0 [facility] Comment on above: Performed By: #### C MP #### [facility] [address] [address] [address] Jason Floyd Urea nitrogen/Creatinin e [Mass ratio] 9.6 mg/mg Normal [facility] Comment on above: Performed By: #### C MP #### [facility] [address] [address] [address] Jason Floyd 29on 01-20-2022 29 Addended by: LUCA VILLAGRAN on: 01/23/2022 09:04 AM Modules accepted: Level of Service Normal [facility] Follow-Upon 01-20-2022 Follow-Up [id number] Isis Bryson 1980 F Date Provider Department Center 01/20/2022 241-LUCA VILLAGRAN [facility] CARD MS HeartVAS Family History Problem Relation Age of Onset Heart attack Father Family Status - Relation Status Age at Father Level of Service:74241 LA OFFICE/OUTPATIENT ESTABLISHED LOW MDM 20-29 MIN Reason for Visit and Comments: Follow-up [018362] Normal [facility] Abstracton 11-10-2021 Abstract [id number] Isis Goncalves 1980 F Date Provider Department Center 11/10/2021 CAMERON BERNAL [facility] CARD MS HeartVAS Family History Problem Relation Age of Onset Heart attack Father Family Status - Relation Status Age at Father Normal [facility] SARS-CoV-2 (COVID-19) RNA NA A+probe Ql (Resp)on 10-19-2021 SARS-CoV-2 (COVID-19) RNA DIANE+probe Ql (Unsp spec) Negative Good[employer] Platform Other Cardiovascular Lab Reporton 01-06-2021 Cardiovascular Lab Report [facility] Patient Name: Isis Goncalves [facility] MR #: [id number] Physician: Luca Villagran MD Department of Service Date: 01/06/2021 Medicine Birthdate: 1980 Division of Room #: CC Cardiology Adult Cardiovascular Services [facility] [address] [facility] [place] [address] Cardiovascular Laboratory Report LOOP IMPLANT PROCEDURE NOTE [...] the sternum on the left using the [employer] tool. The loop recorder was then [...] LOOP details: Device Model: M301 Lux-Dx Serial#: [id number] Sensing is 0.18mV. IMPRESSION: Successful placement of LOOP implant with excellent sensing parameters. RECOMMENDATIONS: 1. Occlusive dressing to be changed after 7 days. 2. Do not wet the incision. Luca Villagran MD Cardiac Electrophysiology Electronically Signed by: Luca Villagran MD 01/17/2021 04:41 P Luca Villagran MD Date Dict: 01/06/2021/01:22 P/Luca Villagran MD Date Trans: 01/06/2021 01:32 P/so [id number] Normal [facility] POC SARS COV2 ANTIGEN NEGATI VEon 01-06-2021 POC SARS COV2 ANTIGEN NEG Negative Normal NEGATIVE [facility] Comment on above: Result Comment: Nega tive [...] signs and symptoms consistent with COVID-19. The NWIXW COVID-19 Ag Card is a lateral flow [...] Accreditation. Performed By: #### 3 1977 #### [facility] [address] [place] [address], [facility] LIPID PANEL (CORONARY RISK 2 )on 11-05-2019 Cholesterol [Mass/Vol] 164 mg/dL Normal 0 - 199 [facility] Comment on above: Order Comment: Order ing [...] guidelines reference: NCEP ATPIII Guidelines, YURIY 2001, 258:5006-97 . Venipuncture immediately after or during the administration of Metamizole may lead to falsely low results. Testing should be performed immediately prior to Metamizole dosing. Performed By: #### L IPID #### [facility] [address] [place], [place] [id number] Cholesterol in HDL [Mass/Vol] 39.0 mg/dL Abnormal [facility] Comment on above: Order Comment: Order ing is aware patient is non-fasting. Result Comment: . AGE VERY LOW LOW NORMAL HIGH 0-19 Y < 35 < 40 40-45 ---- 20-24 Y ---- < 40 >45 ---- >24 Y ---- < 40 40-60 >60 . Performed By: #### L IPID #### [facility] [address] [place], [place] [id number] Cholesterol in LDL [Mass/Vol] 79 mg/dL Normal 0 - 99 [facility] Comment on above: Order Comment: Order ing is aware patient is non-fasting. Result Comment: . NEAR BORD AGE DESIRABLE OPTIMAL HIGH HIGH VERY HIGH 0-19 Y 0 - 109 --- 110-129 >/= 130 ---- 20-24 Y 0 - 119 --- 120-159 >/= 160 ---- >24 Y 0 - 99 100-129 130-159 160-189 >/=190 . Performed By: #### L IPID #### [address] [id number] Cholesterol in VLDL [Mass/Vol] 46 mg/dL High 0 - 40 [facility] Comment on above: Order Comment: Order ing is aware patient is non-fasting. Performed By: #### L IPID #### [address] [id number] Cholesterol.total/ Cholesterol in HDL [Mass ratio] 4.2 {ratio} Normal [facility] Comment on above: Order Comment: Order ing is aware patient is non-fasting. Result Comment: REF VALUES DESIRABLE < 3.4 HIGH RISK > 5.0 Performed By: #### L IPID #### [address] [id number] NON-HDL CHOLESTEROL 125 mg/dL Normal [facility] Comment on above: Order Comment: Order ing is aware patient is non-fasting. Result Comment: AGE DESIRABLE BORDERLINE HIGH HIGH VERY HIGH 0-19 Y 0 - 119 120 - 144 >/= 145 >/= 160 20-24 Y 0 - 149 150 - 189 >/= 190 ---- >24 Y 30 MG/DL ABOVE LDL CHOLESTEROL GOAL . Performed By: #### L IPID #### [address] [id number] Triglyceride [Mass/Vol] 230 mg/dL High 0 - 149 [facility] Comment on above: Order Comment: Order ing [...] dosing. Performed By: #### L IPID #### [address] [id number] CNOVon 04-22-2018 CNOV Office Visit (NEUR ) ISIS GONCALVES ([id number]) 1980 F Date Time Provider Department 04/22/18 1:10 PM LISE PIRES (IAN) [facility] During your visit today, we recorded the following information about you: Pulse Respiration Blood pressure Weight 89/minute 18/minute 114/64 51.7 kg Height 1.753 m Lise Pires APRN.CNP 04/22/2018 1:58 PM Signed [facility] Follow up/ Established [...] directed. - Avoid driving when drowsy. - cover inspector for short naps (20-30 minutes) and use [...] directed. - Avoid driving when drowsy. - cover inspector for short naps (20-30 minutes) and use [...] the best time for you. Lise Pires APRN.HARNESS TIER Referring Provider: TULIO PABLO [[id number]] Allergies As of Date: 04/22/2018 (No Known [...] Status:Closed by IAN PIRES on 04/22/18 Normal [facility] PROGRESSon 04-22-2018 Protein mass conc HNO ID: [id number] Author: Lise Dewitt (Ian) Eloisa Service: (none) Author Type: Nurse Practitioner Type: Progress Notes Filed: 04/22/2018 1:58 PM Note Text: [facility] Follow up/ Established [...] directed. - Avoid driving when drowsy. - cover inspector for short naps (20-30 minutes) and use [...] directed. - Avoid driving when drowsy. - cover inspector for short naps (20-30 minutes) and use [...] time for you. Lise Pires APRN.CNP [facility] CNOVon 01-22-2018 CNOV Office Visit (NEURFH ) DARRIUSISIS LAMB ([id number]) 1980 F Date Time Provider Department 01/22/18 10:10 AM LISE PIRES ([facility]) [facility] During your visit today, we recorded the following information about you: Pulse Respiration Blood pressure Weight 64/minute 19/minute 100/64 51.4 kg Height 1.727 m Lise Pires APRN.CNP 01/22/2018 11:01 AM Signed [facility] Follow up/ Established [...] directed. - Avoid driving when drowsy. - cover inspector for short naps (20-30 minutes) and use [...] time for you. ?? ? Lise Pires APRN.HARNESS TIER Interval history : Time in: 10:08 AM [...] directed. - Avoid driving when drowsy. - cover inspector for short naps (20-30 minutes) and use [...] the best time for you. Lise Pires, STAKE DRIVER.HARNESS TIER Referring Provider: TULIO PABLO [[id number]] Allergies As of Date: 01/22/2018 (No Known [...] Status:Closed by IAN PIRES on 01/22/18 Normal [facility] PROGRESSon 01-22-2018 Protein mass conc HNO ID: [id number] Author: Lise Dewitt (Ian) Eloisa Service: (none) Author Type: Nurse Practitioner Type: Progress Notes Filed: 01/22/2018 11:01 AM Note Text: [facility] Follow up/ Established [...] directed. - Avoid driving when drowsy. - cover inspector for short naps (20-30 minutes) and use [...] time for you. ?? ? Lise Pires, STAKE DRIVER.HARNESS TIER Interval history : Time in: 10:08 AM [...] directed. - Avoid driving when drowsy. - cover inspector for short naps (20-30 minutes) and use [...] the best time for you. Lise Pires APRN.HARNESS TIER [facility] CNOVon 10-22-2017 CNOV Office Visit (NEURFH ) ISIS GONCALVES ([id number]) 1980 F Date Time Provider Department 10/22/17 8:40 AM LISE PIRES (HARNESS TIER) [facility] During your visit today, we recorded the following information about you: Pulse Blood pressure Weight Height 60/minute 105/75 58.5 kg 1.753 m Lise Pires APRN.CNP 10/22/2017 10:00 AM Signed [facility] Follow up/ Established [...] [facility] Date: 08/20/17 methylphenidate ER (METADATE ER) 10 mg ER tablet take [facility]: 09/19/17 PHYSICAL EXAMINATION: Vital Signs: [...] directed. - Avoid driving when drowsy. - cover inspector for short naps (20-30 minutes) and use [...] the best time for you. Lise Pires APRN.HARNESS TIER Referring Provider: TULIO PABLO [[id number]] Allergies As of Date: 10/22/2017 (No Known [...] about 3 months (around 01/22/2018) for with STAKE DRIVER or Dr. Pablo. Follow-up and Disposition History Recorded Encounter Status:Closed by IAN PIRES on 10/22/17 Normal [facility] PROGRESSon 10-22-2017 Protein mass conc HNO ID: [id number] Author: Lise Dewitt (Ian) Eloisa Service: (none) Author Type: Nurse Practitioner Type: Progress Notes Filed: 10/22/2017 10:00 AM Note Text: [facility] Follow up/ Established [...] [facility]: 08/20/17 methylphenidate ER (METADATE ER) 10 mg ER tablet take 2 [facility] Date: 09/19/17 PHYSICAL EXAMINATION: Vital Signs: [...] directed. - Avoid driving when drowsy. - cover inspector for short naps (20-30 minutes) and use [...] the best time for you. 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 [...] up in 3 months. Tulio Pablo MD [facility] Vital Signs Date Time Vital Sign Value Performing Clinician Facility 06-24-2024 15:50-0400 Body height 175.3 cm Gonzalo Pinzon ENGINEERING PROJECT MANAGER Work Phone: [facility] 06-24-2024 15:50-0400 Body mass index (BMI) [Ratio] 19.94 kg/m2 Gonzalo Pinzon ENGINEERING PROJECT MANAGER Work Phone: [facility] 06-24-2024 15:50-0400 Body weight 61.24 kg Gonzalo Pinzon ENGINEERING PROJECT MANAGER Work Phone: [facility] 05-12-2024 09:52-0500 Body height 175.3 cm Candice [...] mass index (BMI) [Ratio] 20.67 kg/m2 Khanh Prashant SCHROEDER Work Phone: [facility] 03-25-2024 10:22-0500 Body weight 63.5 kg Khanh Cerda MD Work Phone: [facility] 03-25-2024 10:22-0500 Diastolic blood pressure 83 mm[Hg] Khanh Cerda MD Work Phone: [facility] 03-25-2024 10:22-0500 Heart rate 86 /min Khanh Cerda MD Work Phone: [facility] 03-25-2024 10:22-0500 Systolic blood pressure 134 mm[Hg] Khanh Cerda MD Work Phone: [facility] 01-22-2024 11:35-0500 Body height 175.3 cm Khanh Cerda MD Work Phone: [facility] 01-22-2024 11:35-0500 Body mass index (BMI) [Ratio] 21.56 kg/m2 Khanh Cerda MD Work Phone: [facility] 01-22-2024 11:35-0500 Body weight 66.22 kg Khanh Cerda MD Work Phone: [facility] 01-22-2024 11:35-0500 Diastolic blood pressure 88 mm[Hg] Khanh Cerda MD Work Phone: [facility] 01-22-2024 11:35-0500 Heart rate 62 /min Khanh Cerda MD Work Phone: [facility] 01-22-2024 11:35-0500 Systolic blood pressure 117 mm[Hg] Khanh Cerda MD Work Phone: [facility] 12-18-2023 16:04-0400 Body height 175.3 cm Khanh Cerda MD Work Phone: [facility] 12-18-2023 16:04-0400 Body mass index (BMI) [Ratio] 21.41 kg/m2 Khanh Prashant SCHROEDER Work Phone: [facility] 12-18-2023 16:04-0400 Body weight 65.77 kg Khanh Prashant SCHROEDER Work Phone: [facility] 12-18-2023 16:04-0400 Diastolic blood pressure 77 mm[Hg] Khanh Prashant SCHROEDER Work Phone: [facility] 12-18-2023 16:04-0400 [...] Body height 175.26 cm Roshan Sc[employer]anner [employer] Other 03-07-2023 14:20-0500 Body mass index (BMI) [Ratio] 25.54 kg/m2 Roshan [employer] Other 03-07-2023 14:20-0500 Body weight 78.47 kg Roshan [employer] Other 12-27-2022 09:20-0400 Body height 175.26 cm Roshan Scovanner [employer] Other 12-27-2022 09:20-0400 Body mass index (BMI) [Ratio] 25.54 kg/m2 Roshan [employer] Other 12-27-2022 09:20-0400 Body weight 78.47 kg Roshan [employer] Other 12-27-2022 09:20-0400 Diastolic blood pressure 77 mm[Hg] Roshan [employer]ovanner [employer] Other 12-27-2022 09:20-0400 Systolic blood pressure 120 mm[Hg] Roshan [employer]ovanner [employer] Other 10-19-2021 10:05-0400 Body height 175.26 cm Lilly Ellington [employer] Other 10-19-2021 10:05-0400 Body mass index (BMI) [Ratio] 25.1 kg/m2 Lilly Ellington [employer] Other 10-19-2021 10:05-0400 Body temperature 98.9 [degF] Lilly Ellington [employer] Other 10-19-2021 10:05-0400 Body weight 77.11 kg Lilly Ellington [employer] Other 10-19-2021 10:05-0400 Respiratory rate 18 /min Lilly Ellington [employer] Other 10-19-2021 10:05-0400 SaO2% (BldA) [Mass fraction] 95 % Lilly Ellington [employer] Other Encounters Encounter Date Encounter Type Care Provider Facility Start: 08-28-2024 End: 08-28-2024 Office outpatient visit 10 minutes Gonzalo Pinzon ENGINEERING PROJECT MANAGER Work Phone: [facility] 111 Comment on above: Narcolepsy and catap soledad (HCC) (Primary Dx); Cervical paraspinal muscle spasm; Carpal tunnel syndrome, bilateral Start: 08-28-2024 End: 08-28-2024 ambulatory GONZALO PINZON Not Available Start: 08-28-2024 End: 08-28-2024 Bamboo flowsheet Gonzalo Ministerio Rangelgel ENGINEERING PROJECT MANAGER Work Phone: [facility] Start: 08-28-2024 End: 08-28-2024 Bamboo flowsheet Gonzalo Ministerio Rangelgel ENGINEERING PROJECT MANAGER Work Phone: [facility] Start: 07-08-2024 ambulatory Sloan Christianson acility:[facility] Start: 06-24-2024 End: 06-24-2024 Office outpatient visit 15 minutes Gonzalo C Windnagel ENGINEERING PROJECT MANAGER Work Phone: [facility] Comment on above: Narcolepsy and catap soledad (Primary Dx); Carpal tunnel syndrome, bilateral; Cervical paraspinal muscle spasm Start: 06-24-2024 End: 06-24-2024 ambulatory GONZALO C WINDNAGEL Not Available Start: 06-24-2024 End: 06-24-2024 Bamboo flowsheet Gonzalo C Windnagel ENGINEERING PROJECT MANAGER Work Phone: [facility] Start: 06-24-2024 End: 06-24-2024 Bamboo flowsheet Gonzalo C Windnagel ENGINEERING PROJECT MANAGER Work Phone: [facility] Start: 06-12-2024 End: 06-12-2024 Orders Only Candice Kign MD, IBCLC Work Phone: [facility] Comment on above: Encounter for screen ing mammogram for malignant neoplasm of breast (Primary Dx) Narcolepsy and catap soledad (CMS/HCC) Start: 06-09-2024 End: 06-09-2024 ambulatory CANDICE KING Not Available Start: 05-20-2024 End: 05-20-2024 Refill Rocio Taylor MA [facility] 111 Comment on above: Narcolepsy and catap soledad (CMS/HCC) Start: 05-12-2024 End: 05-12-2024 Bamboo flowsmiguelina King MD, IBCLC Work Phone: [facility] Start: 05-12-2024 End: 05-12-2024 Bamboo flowsmiguelina King MD, IBCLC Work Phone: [facility] Start: 05-12-2024 End: 05-12-2024 Office outpatient visit 25 minutes Candice King MD, IBCLC Work Phone: [facility] Comment on above: Diarrhea, unspecifie d type (Primary Dx); TMJ (temporomandibular joint disorder); Hemorrhoids, unspecified hemorrhoid type; Hot flashes; Encounter for screening mammogram for malignant neoplasm of breast Start: 05-12-2024 End: 05-12-2024 ambulatory CANDICE CHRISTINE Not Available Start: 04-23-2024 End: 04-23-2024 Bamboo flowsheet [facility] Work [facility]: [facility] Start: 04-23-2024 End: 04-23-2024 Bamboo flowsheet [facility] Work Phone: [facility] Start: 04-23-2024 End: 04-23-2024 Office outpatient new 45 minutes [facility] Work Phone: [facility] Comment on above: Other rosacea (Prima ry Dx); Acrochordon Start: 04-23-2024 End: 04-23-2024 [facility] Start: 04-14-2024 End: 04-15-2024 Telephone encounter Khanh Creda MD Work Phone: [facility] Start: 03-25-2024 End: 03-25-2024 Bamboo flowsheet Khanh Cerda MD Work Phone: [facility] Start: 03-25-2024 End: 03-25-2024 Bamboo flowsheet Khanh Cerda MD Work Phone: [facility] Start: 03-25-2024 End: 03-25-2024 Office outpatient visit 15 minutes Khanh Cerda MD Work Phone: [facility] Comment on above: Narcolepsy and catap soledad (CMS/HCC) (Primary Dx); Carpal tunnel syndrome, bilateral; Cervical paraspinal muscle spasm Start: 03-25-2024 End: 03-25-2024 ambulatory KHANH CERDA Not Available Start: 02-19-2024 End: 02-20-2024 Refill Rocio Taylor MA [facility] 111 Comment on above: Narcolepsy and catap soledad (CMS/HCC) (Primary Dx) Start: 01-22-2024 End: 01-22-2024 Bamboo flowsheet Khanh Cerda MD Work Phone: [facility] Start: 01-22-2024 End: 01-22-2024 Bamboo flowsheet Khanh Cerda MD Work Phone: [facility] Start: 01-22-2024 End: 01-22-2024 Office outpatient visit 25 minutes Khanh Cerda MD Work Phone: [facility] Comment on above: Narcolepsy and catap soledad (CMS/HCC) (Primary Dx); Carpal tunnel syndrome, bilateral; Cervical paraspinal muscle spasm Start: 01-22-2024 End: 01-22-2024 ambulatory KHANH CERDA Not Available Start: 01-09-2024 End: 01-09-2024 Telephone encounter Khanh Cerda MD Work Phone: [facility] 111 Start: 12-18-2023 End: 12-18-2023 Office outpatient visit 25 minutes Khanh Cerda MD Work Phone: [facility] Comment on above: Narcolepsy and catap soledad (CMS/HCC) (Primary Dx); Carpal tunnel syndrome, bilateral; Cervical paraspinal muscle spasm Start: 12-18-2023 End: 12-18-2023 ambulatory KHANH CERDA Not Available Start: 12-18-2023 End: 12-18-2023 Bamboo flowsmiguelina Cerda MD Work Phone: [facility] Start: 12-18-2023 End: 12-18-2023 Bamboo flowsheet Khanh Cerda MD Work Phone: [facility] Start: 12-11-2023 End: 12-13-2023 Telephone encounter Khanh Cerda MD Work Phone: [facility] Start: 12-03-2023 End: 12-03-2023 ambulatory Alyssa Merritt Facility:[facility] Start: 12-03-2023 End: 12-03-2023 Lab Drop off Alyssa Merritt [facility] Start: 11-23-2023 End: 11-23-2023 Refill Rocio Taylor MA [facility] 111 Comment on above: Narcolepsy and catap soledad (CMS/HCC) Start: 11-20-2023 End: 11-21-2023 Refill Khanh Cerda MD Work Phone: [facility] 111 Comment on above: Narcolepsy and catap soledad (CMS/HCC) Start: 10-26-2023 End: 10-26-2023 ambulatory Alyssa J Shaina Facility:[facility] Start: 10-26-2023 End: 10-26-2023 Lab Drop off Alyssa Navjot Merritt [facility] Start: 10-23-2023 End: 10-23-2023 ambulatory KHANH CERDA Not Available Start: 09-25-2023 End: 09-25-2023 ambulatory KHANH CERDA Not Available Start: 04-24-2023 End: 04-24-2023 Office outpatient visit 15 minutes Khanh Cerda MD Work Phone: [facility] Comment on above: Narcolepsy and catap soledad (CMS/HCC) (Primary Dx); Carpal tunnel syndrome, bilateral Start: 03-07-2023 End: 03-07-[address] [employer] Other Start: 03-07-2023 Office outpatient visit 15 minutes [address] [facility] Start: 02-19-2023 End: 02-19-2023 [address] [employer] Other Start: 02-19-2023 Telephone encounter [facility] Start: 01-25-2023 End: 01-25-2023 ambulatory TIMOTHY Edward Work Phone: [facility] Work Phone: Start: 01-25-2023 End: 01-25-2023 Patient encounter procedure TIMOTHY Edward Work Phone: [facility] Work Phone: Start: 12-27-2022 End: 12-27-20[address] [employer] Other Start: 12-27-2022 Office outpatient visit 15 [address] [facility] Start: 09-29-2022 End: 09-29-2022 Pre-admission assessment Triston Kimberly Moe [facility] Start: 08-01-2022 End: 08-01-2022 Patient encounter procedure Triston Harris Abhi [facility] Start: 07-07-2022 End: 07-07-[address] DOCTOR SHEETS Facility: Start: 05-17-2022 End: 05-18-[address] DOCTOR SHEETS Facility: Start: 05-15-2022 End: 05-16-[address] DOCTOR SHEETS Facility:[facility] Start: 04-13-2022 ambulatory [facility] Start: 01-20-2022 End: 01-21-2022 ambulatory [facility] Start: 10-19-2021 End: 10-19-2021 ambulatory Lilly Ellington [employer] Other Start: 10-19-2021 Office outpatient ne w 20 minutes Lilly Ellington [facility] Start: 01-07-2021 End: 01-16-2021 ambulatory LUCA VILLAGRAN Facility:[facility] Start: 01-06-2021 End: 01-07-2021 ambulatory REFERRED SELF Facility:[facility] Start: 11-30-2020 End: 12-30-2020 ambulatory REFERRED SELF Facility:[facility] Start: 04-22-2018 End: 04-22-2018 Patient encounter procedure LISE Dewitt (HARNESS TIER) [facility] Start: 01-22-2018 End: 01-22-2018 Patient encounter procedure LISE Dewitt (HARNESS TIER) [facility] Start: 10-22-2017 End: 10-22-2017 Patient encounter procedure LISE Dewitt (HARNESS TIER) [facility] Start: 07-20-2017 End: 07-23-2017 Patient encounter procedure TULIO PABLO [facility] Procedures Date Procedure Procedure Detail Performing Clinician Start: 06-09-2024 Mammography Candice King MD, IBCLC Work Phone: Start: 05-04-2023 Mammography Khanh Flores Work Phone: Start: 01-25-2023 Computed tomography of abdomen and pelvis with contrast TIMOTHY Edward Work Phone: Start: 09-23-2020 Microscopic observat ion [Identifier] in Cervix by Cyto stain Khanh Cerda MD Work Phone: Appendectomy Basem Moe H/O: tubal ligation Basem Zaragoza ddad Plan of Treatment Date Care Activity Detail Author Start: 09-23-2025 Screening for malign ant neoplasm of cervix [facility] Start: 06-12-2025 End: 08-12-2025 DBT Breast - bilateral screening Bilateral screening mammogram with tomosynthesis Imaging Routine Encounter for screening mammogram for malignant neoplasm of breast Expected: 06/12/2025, Expires: 08/12/2025 [facility] Work Phone: Comment on above: Expected: 06/12/2025 , Expires: 08/12/2025 Start: 06-09-2025 Screening for malign ant neoplasm of breast Mammogram [facility] Start: 11-17-2024 Influenza vaccination Influenz a Vaccine (Season Ended) [facility] Start: 09-23-2024 End: 09-23-2024 Patient encounter procedure 09/23/2024 4:15 PM EDT Office Visit [facility] [address] [place] [address] Khanh Cerda MD [address] [id number] [facility] Start: 08-28-2024 End: 08-28-2024 Patient encounter procedure 08/28/2024 2:30 PM EDT Office Visit [facility] 111 [address] [place] [address] Gonzalo Pinzon, ENGINEERING PROJECT MANAGER [address], [address] [place] [address] Arrived [facility] 111 Comment on above: Arrived Start: 06-24-2024 End: 06-24-2024 Patient encounter procedure [facility] Comment on above: Arrived Start: 06-09-2024 End: 06-09-2024 Professional / ancillary services management 06/09/2024 5:00 PM EDT Ancillary Procedure [facility] [place] [address] [facility] [address] [place] [id number] [facility] [place] Start: 05-12-2024 End: 05-12-2025 25-hydroxyvitamin D3 [Mass/volume] in Serum or Plasma Vitamin D 25 hydroxy Total Lab Routine Diarrhea, unspecified type Hot flashes Expected: 05/12/2024 (Approximate), Expires: 05/12/2025 [facility] Comment on above: Expected: 05/12/2024 (Approximate), Expires: 05/12/2025 Start: 05-12-2024 End: 05-12-2025 CBC W Auto Differential panel - Blood CBC and differential Lab Routine Diarrhea, unspecified type Hot flashes Expected: 05/12/2024 (Approximate), Expires: 05/12/2025 [facility] Work Phone: Comment on above: Expected: 05/12/2024 (Approximate), Expires: 05/12/2025 Start: 05-12-2024 End: 05-12-2025 Cobalamin (Vitamin B12) [Mass/volume] in Serum or Plasma Vitamin B12 Lab Routine Diarrhea, unspecified type Hot flashes Expected: 05/12/2024 (Approximate), Expires: 05/12/2025 [facility] Comment on above: Expected: 05/12/2024 (Approximate), Expires: 05/12/2025 Start: 05-12-2024 End: 05-12-2025 Comprehensive metabolic 2000 panel - Serum or Plasma Comprehensive metabolic panel Lab Routine Diarrhea, unspecified type Hot flashes Expected: 05/12/2024 (Approximate), Expires: 05/12/2025 [facility] Comment on above: Expected: 05/12/2024 (Approximate), Expires: 05/12/2025 Start: 05-12-2024 End: 07-10-2025 DBT Breast - bilateral screening Bilateral screening mammogram with tomosynthesis Imaging Routine Encounter for screening mammogram for malignant neoplasm of breast Expected: 05/12/2024, Expires: 07/10/2025 [facility] Comment on above: Expected: 05/12/2024 , Expires: 07/10/2025 Start: 05-12-2024 End: 05-12-2025 Ferritin [Mass/volume] in Serum or Plasma Ferritin Lab Routine Diarrhea, unspecified type Hot flashes Expected: 05/12/2024 (Approximate), Expires: 05/12/2025 [facility] Comment on above: Expected: 05/12/2024 (Approximate), Expires: 05/12/2025 Start: 05-12-2024 End: 05-12-2025 IgA [Mass/volume] in Serum or Plasma IgA Lab Routine Diarrhea, unspecified type Hot flashes Expected: 05/12/2024 (Approximate), Expires: 05/12/2025 [facility] Comment on above: Expected: 05/12/2024 (Approximate), Expires: 05/12/2025 Start: 05-12-2024 End: 05-12-2025 Lipid 1996 panel - Serum or Plasma Lipid panel Lab Routine Diarrhea, unspecified type Hot flashes Expected: 05/12/2024 (Approximate), Expires: 05/12/2025 [facility] Comment on above: Expected: 05/12/2024 (Approximate), Expires: 05/12/2025 Start: 05-12-2024 End: 05-12-2025 Thyrotropin [Units/volume] in Serum or Plasma TSH Lab Routine Diarrhea, unspecified type Hot flashes Expected: 05/12/2024 (Approximate), Expires: 05/12/2025 [facility] Comment on above: Expected: 05/12/2024 (Approximate), Expires: 05/12/2025 Start: 05-12-2024 End: 05-12-2025 Thyroxine (T4) free [Mass/volume] in Serum or Plasma T4, free Lab Routine Diarrhea, unspecified type Hot flashes Expected: 05/12/2024 (Approximate), Expires: 05/12/2025 [facility] Comment on above: Expected: 05/12/2024 (Approximate), Expires: 05/12/2025 Start: 05-12-2024 End: 05-12-2025 Tissue transglutaminase, IgA Tissue transglutaminase, IgA Lab Routine Diarrhea, unspecified type Hot flashes Expected: 05/12/2024 (Approximate), Expires: 05/12/2025 [facility] Comment on above: Expected: 05/12/2024 (Approximate), Expires: 05/12/2025 Start: 05-12-2024 End: 05-12-2024 Patient encounter procedure 05/12/2024 10:00 AM EST Office Visit [facility] [address] [place] [address] Candice King MD, IBCLC [address] [place] [address] Arrived [facility] Comment on above: Arrived Start: 05-04-2024 Screening for malign ant neoplasm of breast Mammogram [facility] Start: 04-23-2024 End: 04-23-2024 Patient encounter procedure [facility] Comment on above: Arrived Start: 03-25-2024 End: 03-25-2024 Patient encounter procedure [facility] Comment on above: Arrived Start: 03-04-2024 End: 03-04-2024 Patient encounter procedure 03/04/2024 4:30 PM EST Office Visit [facility] [address] [facility] [address] [place] [address] Khanh Cerda MD [address] [address] [facility] Start: 01-22-2024 End: 01-22-2024 Patient encounter procedure 01/22/2024 11:30 AM EST Office Visit [facility] [address] [place] [id number] Khanh Cerda MD [address] [address] Arrived [facility] Comment on above: Arrived Start: 01-21-2024 End: 01-21-2024 Patient encounter procedure 01/21/2024 4:00 PM EST Office Visit [facility] [address] [place] [id number] Candice King MD, IBCLC [address] [place] [address] [facility] Start: 12-20-2023 End: 12-20-2023 Patient encounter procedure 12/20/2023 8:20 AM EDT Office Visit [facility] [address] [place] [address] Candice King MD, IBCLC [address] [place] [facility] [place] [address] [facility] Start: 12-18-2023 End: 12-18-2023 Patient encounter procedure [facility] Comment on above: Arrived Start: 11-18-2023 Influenza vaccination Influenza Vacc ine (#1) [facility] Start: 09-24-2023 Screening for malign ant neoplasm of cervix Pap Smear [facility] Start: 09-16-2023 Influenza vaccination Influenza Vacc ine (#1) [facility] Comment on above: Postponed from 11/17 (Patient Refused) Start: 06-26-2023 End: 06-26-2023 Patient encounter procedure 06/26/2023 4:15 PM EDT Office Visit [facility] [address] [place] [address] Khanh Cerda MD [address] [facility] [address] [place] [address] [facility] Start: 2020 Screening for malign ant neoplasm of breast Mammogram [facility] Start: 2010 Screening for malign ant neoplasm of cervix [facility] Start: 2001 Screening for malign ant neoplasm of cervix Pap Smear [facility] Immunizations Immunization Date Immunization Notes Care Provider Fa cility 10-02-2020 COVID-19 mRNA, Comirnaty (Pfizer) ENGINEERING PROJECT MANAGER-C Kilo Edward Work Phone: [facility] 09-11-2020 COVID-19 mRNA, Comirnaty (Pfizer) ENGINEERING PROJECT MANAGER-Ministerio Edward Work Phone: [facility] 07-09-2014 tetanus toxoid, redu alesha diphtheria toxoid, and acellular pertussis vaccine, adsorbed Basem Moe [facility] Payers Date Payer Category Payer Self-pay [id number] 2021 [facility] [id number] 5 2021 Unknown [id number] .[id number] 2018 Unknown [id number] 2014 Medicaid [employer] [place] [id number] 2014-Present [address] [place] [address] [id number] .[id number] 1980 Unknown [id number] 2.16.840.1.895118.3.579 .2.647 1980 Unknown [id number] 2.16.840.1.919148.3.579 .2.647 1980 Unknown [id number] 2.16.840.1.484550.3.579 .2.647 1980 Unknown [id number] 2.840.1.893208.3.579 .2.593 1980 Unknown [id number] 2.16.840.1.998807.3.579 .2.593 1980 Unknown [id number] 2.16.840.1.390975.3.579 .2.593 1980 Unknown [id number] 2.16.840.1.071602.3.579 .2.727 1980 Unknown [id number] 2.16840.1.706034.3.579 .2.727 1980 Unknown [id number] 2.16.840.1.766829.3.579 .2.9 1980 Unknown [id number] 2.16.840.1.686766.3.579 .2.1258 1980 Unknown [id number] 2.16.840.1.942037.3.579 .2.9 1980 Unknown [id number] 2.16.840.1.627263.3.579 .2.1258 1980 Unknown [id number] 2.16.840.1.472105.3.579 .2.9 1980 Unknown [id number] 2.16.840.1.775243.3.579 .2.1258 1980 Unknown [id number] 2.16.840.1.093415.3.579 .2.1258 1980 Unknown [id number] 2.16.840.1.684104.3.579 .2.1258 1980 Unknown [id number] 2.16.840.1.727425.3.579 .2.1258 1980 Unknown [id number] 2.16.840.1.125314.3.579 .2.1259 1959 [facility] [id number] 2.16.840.1.812533.19 Medicaid [id number] 2.16.840.1.356865.19 Medicaid Formerly [facility] [id number] Unknown [id number] 2.16.840.1.221087.3.579 .2.531 Worker's Compensation [id number] Social History Date Type Detail Facility Start: 04-13-2023 End: 05-12-2024 Sex Assigned At [facility] Start: 04-30-2019 Tobacco smoking status Former smokeless tobacco user, quit more than 30 days ago [facility] Start: 05-16-2021 End: 08-30-2023 Tobacco smoking status INIS Ex-smoker (finding) [facility] Start: 1980 Sex Assigned At Female F [facility] End: 03-19-2018 History of tobacco use Current smoker [facility] End: 03-19-2018 History of tobacco use Cigar Smoker [facility] Start: 01-30-2023 End: 08-30-2023 Tobacco use and exposure Smokeless tobacco non-user [facility] Start: 04-13-2023 End: 05-12-2024 Alcohol intake Current drinker of alcohol (finding) [facility] Start: 04-13-2023 End: 05-12-2024 History of Social function [facility] Start: 09-01-2022 Alcohol Comment Monthly or les s, Caffeine: 1-2 cups per day [facility] Start: 1980 Sex Assigned At Not on file [facility] Start: 08-30-2023 Tobacco Comment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
== END 2024-09-16 20:01 | disposition home or self-care (01) ==
PROVIDERS: Emergency Provider Emergency Medicine; PCP Student in an Organized Health Care Education/Training Program
DX: S80.862A Insect bite (nonvenomous), left lower leg, initial encounter (principal); W57.XXXA Bitten or stung by nonvenomous insect and other nonvenomous arthropods, initial encounter
CPT/HCPCS: 36415; 86618; 86666; 86753; 99283

== ENCOUNTER 2024-10-17 16:30 | Outpatient (OUT) | payer BC, MEDICAID, SELFPAY ==
--- NOTE | 2024-10-17 | XR_ITS ---
The [address] [address] Patient Name: MELISSA BRYSON MRN: [id number] date: 1980 Sex: F Assigned Patient Location: LAB Current Patient Location: LAB Accession/Order Number: [id number] Exam Date: 10/17/2024 19:40 Report Date: 10/17/2024 19:42 At the request of: LILLI LAWRENCE NP Procedure: XR chest 2V PA AND LATERAL CHEST: CLINICAL HISTORY: HEAD AND NECK LYMPHADENOPATHY; R59.1 COMPARISON: 12/24/2019 FINDINGS: Unremarkable cardiac mediastinal silhouette. Lungs are clear. No effusion or pneumothorax. There are nipple rings. XR/XR chest 2V IMPRESSION: NO ACUTE CARDIOPULMONARY ABNORMALITY. Impression dictated by: Adiel Anne M.D. 10/17/2024 7:42 PM Dictation Location: [place] [address] Electronically authenticated by: [id number] Y Date: 10/17/2024 19:42
[2024-10-17 17:03] LABS: Hematocrit 38.1 % (36.0-48.0); Hemoglobin 12.7 g/dL (12.0-16.0); Immature Granulocytes Abs Auto 0.02 10^3/uL (0.00-0.03); Immature Granulocytes Pct Auto 0.3 % (0.0-0.5); Lymphocytes Absolute Auto 2.9 10^3/uL (1.2-3.8); Mean Corpuscular HGB Conc 33.3 g/dL (29.9-35.2); Mean Corpuscular Hemoglobin 30.8 pg (26.7-34.0); Mean Corpuscular Volume 92.5 fL (81.0-99.0); Platelet Count 268 10^3/uL (150-450); Red Blood Count 4.12 10^6/uL (4.20-5.40); White Blood Count 8.0 10^3/uL (4.0-11.0)
[2024-10-17 17:43] LABS: Mono Screen NEGATIVE (NEGATIVE)
[2024-10-17 17:47] LABS: Iron 36.0 ug/dL (50.0-170.0); Percent Iron Saturation 9.4 %; Total Iron Binding Capacity 383.0 ug/dL (250.0-450.0)
[2024-10-17 17:51] LABS: Alanine Aminotransferase 26 U/L (14-59); Albumin Globulin Ratio 1.3; Albumin Level 4.5 g/dL (3.4-5.0); Alkaline Phosphatase 63 U/L (46-116); Anion Gap 11.0; Aspartate Amino Transferase 13 U/L (15-37); Blood Urea Nitrogen 14.0 mg/dL (7.0-18.0); Calcium 9.8 mg/dL (8.5-10.1); Carbon Dioxide 30.4 mmol/L (21.0-32.0); Chloride 101 mmol/L (98-107); Estimated GFR (African America >60 (>=60 mL/min/1.73m^2); Estimated GFR (Non-African Ame 59 (>=60 mL/min/1.73m^2); Free T3 2.38 pg/mL (2.18-3.98); Globulin 3.4 g/dL; Glucose 77 mg/dL (74-106); Potassium 3.4 mmol/L (3.5-5.1); Sodium 139 mmol/L (136-145); Thyroid Stimulating Hormone 1.091 uIU/mL (0.358-3.740); Total Protein 7.9 g/dL (6.4-8.2)
[2024-10-17 18:00] LABS: Ferritin 46.0 ng/mL (8.0-252.0)
[2024-10-19 06:38] LABS: Vitamin B12 468 pg/mL (232-1245)
== END 2024-10-17 16:31 | disposition home or self-care (01) ==
PROVIDERS: PCP Student in an Organized Health Care Education/Training Program; Visit Provider Nurse Practitioner Family
DX: R59.1 Generalized enlarged lymph nodes (principal); R61 Generalized hyperhidrosis; L29.9 Pruritus, unspecified; E03.9 Hypothyroidism, unspecified; R42 Dizziness and giddiness
CPT/HCPCS: 36415; 71046; 80053; 80074; 82607; 82728; 83540; 83550; 83615; 84439; 84443; 84481; 85025; 85652; 86140; 86308; 86376; 86480; 86800; 87070; 87389

== ENCOUNTER 2024-10-30 09:17 | Outpatient (OUT) | payer BC, MEDICAID, SELFPAY ==
--- OUTSIDE RECORDS SUMMARY | 2024-10-29 16:00 | XMS_ITS | Encounter Summary ---
Author Organization [facility] Address [address] [place] [address] Care Team Providers Care Space Studies Faculty Member Name Role Phone Audrey King MD, IBCLC Primary Care Provid er Reason for Visit * Reason Comments Toenail Problem B/L grt nail fungal, Rt 3rd digit Encounter Details Date Type Department Care Team (Late st Contact Info) Description 10/29/2024 4:00 PM EDT Office Visit [facility] [address] [place] [phone] Gus Mondragon, DPM FACFAS [address] [place] [address] Hammer toe of right foot (Primary Dx); Right foot pain; Onychocryptosis; Onychomycosis Social History Tobacco Use Types Packs/Day Years Used Date Smoking Tobacco: Former Cigars Q uit: 03/19/2018 Smokeless Tobacco: Never Tobacco Cessation:Counseling Given: Yes Comments:3-4 cigars per day Alcohol Use Standard Drinks/Week Comments Yes 0 (1 standard drink = 0.6 oz pure alcohol) Monthly or less, Caffeine: 1-2 cups per day PHQ-2 Answer Date Recorded Patient Health Questionnaire-2 Score 0 10/13/2024 Comments Unknown Sex and Gender Information Value Date Recorded Sex Assigned at Not on file Legal Sex Female 6:37 PM EDT Gender Identity Not on file Sexual Orientation Not on file documented as of this encounter Last Filed Vital Signs Vital Sign Reading Time Taken Comments Blood Pressure 115/71 10/29/2024 3:58 PM EDT Pulse 66 10/29/2024 3:58 PM EDT Temperature - - Respiratory Rate - - Oxygen Saturation - - Inhaled Oxygen Concentration - - Weight 59.9 kg (132 lb) 10/29/2024 3:58 PM EDT Height 175.3 cm (5' 9 ) 10/29/2024 3:58 PM EDT Body Mass Index 19.49 10/29/2024 3:58 PM EDT documented in this encounter Progress Notes * Gus Mondragon, AFIA FACFAS - 10/29/2024 4:00 PM EDT Images from the original note were not included. Patient: Isis Dumas : 1980 PCP: Audrey King MD, IBCLC SUBJECTIVE This is a 44 y.o. female that presents today for a chief complaint of pain about the distal aspect of the right 3rd digit she would previous hammertoe surgery performed by Dr. Newman and has pain withthe distal aspect of the 3rd digit. Hurts when she walks performs activities of daily living. On a scale of 1-10 the patient rates the pain as an 8 with 10 being the worst pain of the lives. She was also complaining of thickened nails bilateral great toenails that are also incurvated and painful at times. She previously had them removed to no avail. Allergies: Allergies Allergen Reactions Azithromycin Shortness of breath Cephalexin Shortness of breath Hydroxyzine Other Past Medical History: Active Ambulatory Problems Diagnosis Date Noted Bipolar 1 disorder (HCC) 08/29/2022 Cervical paraspinal muscle spasm 08/29/2022 Gastroesophageal reflux disease without esophagitis 08/29/2022 Intractable migraine with status migrainosus 08/29/2022 Migraine without aura, intractable, with status migrainosus 08/29/2022 Narcolepsy and cataplexy ([facility]) 08/29/2022 Paresthesia of skin 08/29/2022 Primary narcolepsy without cataplexy ([facility]) 08/29/2022 PTSD (post-traumatic stress disorder) 08/29/2022 Serum calcium elevated 08/29/2022 Chronic low back pain 08/30/2022 Carpal tunnel syndrome, bilateral 01/02/2023 Tobacco use 08/30/2023 Resolved Ambulatory Problems Diagnosis Date Noted Acute right-sided low back pain with right-sided sciatica 08/29/2022 Contracture, left ankle 08/29/2022 Ischemic heart disease 08/29/2022 Hypersomnia 08/29/2022 Perioral dermatitis 08/29/2022 Smoker 08/29/2022 Abdominal pain 05/14/2023 Atypical chest pain 05/14/2023 Diarrhea 05/14/2023 Strain of lumbar region 05/14/2023 Past Medical History: Diagnosis Date Bipolar disorder (HCC) Narcolepsy (HCC) Medications: Current Outpatient Medications: busPIRone HCl 10 MG capsule, Take 10 mg by mouth in the morning and 10 mg before bedtime., Disp: , Rfl: Ca, Mg, K, and Na Oxybates (XYWAV PO), Take 1 Dose by mouth Daily, Disp: , Rfl: ferrous sulfate (Fe Tabs) 325 (65 Fe) MG EC tablet, Take 1 tablet (325 mg) by mouth in the morning.Take with meals. Do not crush, chew, or split., Disp: 30 tablet, Rfl: 2 minocycline (Dynacin) 100 MG tablet, Take 100 mg by mouth in the morning and 100 mg before bedtime., Disp: , Rfl: modafinil (Provigil) 200 MG tablet, 1/2-1 tab QAM, Disp: 30 tablet, Rfl: 3 predniSONE (Deltasone) 10 MG tablet, Take 4 tablets (40 mg) by mouth Daily for 3 days, THEN 3 tablets (30 mg) Daily for 3 days, THEN 2 tablets (20 mg) Daily for 3 days, THEN 1 tablet (10 mg) Daily for 3 days., Disp: 30 tablet, Rfl: 0 varenicline (Chantix Continuing Month ) 1 MG tablet, Take 1 tablet (1 mg) by mouth in the morning and 1 tablet (1 mg) before bedtime. Take with full glass of water.., Disp: 180 tablet, Rfl: 0 varenicline (Chantix Continuing Month ) 1 MG tablet, Take 1 tablet (1 mg) by mouth in the morning and 1 tablet (1 mg) before bedtime. Take with full glass of water.., Disp: 60 tablet, Rfl: 2 ROS: Constitutional: Denies fever, chills, nausea, vomiting GI: Denies abdominal pain, cramping, loose stool, gastric ulcers Musculoskeletal: Denies low back pain, knee pain, systemic arthritis Neurologic: Denies burning, tingling, transient paralysis OBJECTIVE Physical examination: Vascular: Dorsalis pedis posterior tibial pulses are palpable bilateral, no edema noted Neuro: [place] 5.07 monofilament intact, vibratory sensation intact Derm: All hair growth noted skin temperature is warm to cool knees to toes Bilateral great toenailsare thickened elongated yellow and crumbly lifting from the nailbed. Musculoskeletal: Muscle strength +5/5 all intrinsic and extrinsic muscles tested claw-toe deformitynoted right 3rd digit the level of the DIPJ joint pain with direct palpation of the DIPJ joint. Toeis not reducible as rigidly contracted and slightly deviated medially. XRAY: AP/MO/LAT: pedal radiographs demonstrate intact cortical margins and anatomic alignment. Joint spaces are maintained throughout the midfoot forefoot and hindfoot without evidence of acute fracture dislocation or arthropathy Hammertoe deformity noted right 3rd digit the level of the DIPJ jointappears to be slightly subluxed ASSESSMENT 1. Hammer toe of right foot 2. Right foot pain 3. Onychocryptosis 4. Onychomycosis PLAN I educated the patient on the hammertoe deformity at the level of the DIPJ joint. She was attemptednumerous conservative therapies including pads anti- inflammatory medication shoe gear modifications. She is complaining of deviation of the DIPJ joint. I did discuss possible arthroplasty of the DIPJjoint of the right 3rd digit. She will attempt to have this approved by her work to have some time off to have it done. She was to continue wearing wider toe box shoes and pads. Second digit today wedebrided both length and thickness. I discussed onychomycosis with the patient she was to apply Vicks Vaporub to the nails I offered removing the nails to her we will further discuss on her next visit AFIA Beyer documented in this encounter Plan of Treatment Upcoming Encounters Date Type Department Care Team (Late st Contact Info) Description 11/12/2024 4:00 PM EDT [facility] [address] [facility] [place] [address] Gus Mondragon, DPM FACFAS [address] [place] [address] 12/16/2024 4:30 PM EDT Office Visit [facility] Neurology [address] [facility] [address] [place] [address] Kingston Cerda MD [address] [phone] 04/14/2025 4:45 PM EST Office Visit JENN Coles [facility] Neurology [address] [facility] [address] [place] [address] Kingston Cerda MD [address] [phone] documented as of this encounter Procedures Procedure Name Priority Date/Time Associated Diagnosis Comments XR FOOT 3+ VIEWS RIGHT Routine 10/29/2024 4:20 PM EDT Right foot pain Hammer toe of right foot documented in this encounter Results * XR foot 3+ views right (10/29/2024 4:20 PM EDT) Anatomical Region Laterality Modality Lower Extremities, Foot Right [facility] Narrative 10/29/2024 9:49 PM EDT Imaging Result: XRAY: AP/MO/LAT: pedal radiographs demonstrate intact cortical margins and anatomic alignment. Joint spaces are maintained throughout the midfoot forefoot and hindfoot without evidence of acute fracture dislocation or arthropathy Hammertoe deformity noted right 3rd digit the level of the DIPJ joint appears to be slightly subluxed Gus Mondragon DPEsdras FACFAS IMG XR PROCEDURES Final Result documented in this encounter Visit Diagnoses Diagnosis Hammer toe of right foot- Primary Right foot pain Pain in soft tissues of limb Onychocryptosis Ingrowing nail Onychomycosis Dermatophytosis of nail documented in this encounter Care Teams Space Studies Faculty Member Relationship Specialty Start Date End Date Audrey King MD, IBCLC [address] [place] [id number] PCP - General Family Medicine 04/05/24 documented as of this encounter
--- OUTSIDE RECORDS SUMMARY | 2024-10-29 16:25 | XMS_ITS | Encounter Summary ---
Author Organization [facility] Address [address] [place] [address] Care Team Providers Care Head Porter Baggage Name Role Phone Audrey King MD, IBCLC Primary Care Provid er Encounter Details Date Type Department Care Team (Late Contact Info) Description 10/29/2024 4:25 PM EDT Ancillary Procedure [facility] [address] [address] Social History Tobacco Use Types Packs/Day Years [...] EDT Office Visit [facility] [address] [place] [address] Gus Mondragon, DPM FACFAS [address] [facility] [place] [address] 12/16/2024 4:30 PM EDT Office Visit [facility] [address] [facility] [address] [place] [address] Kingston Cerda MD [address] [phone] 04/14/2025 4:45 PM EST Office Visit [facility] [address] [facility] [address] [place] [address] Kingston Cerda MD [address] [phone] documented as of this encounter Procedures Procedure Name Priority Date/Time Associated Diagnosis Comments XR FOOT 3+ VIEWS RIGHT Routine 10/29/2024 4:20 PM EDT Right foot pain Hammer toe of right foot documented in this encounter Results * XR foot 3+ views right (10/29/2024 4:20 PM EDT) Anatomical Region Laterality Modality Lower Extremities, Foot Right Radiogra phic Imaging Narrative 10/29/2024 9:49 PM EDT Imaging Result: XRAY: AP/MO/LAT: pedal radiographs demonstrate intact cortical margins and anatomic alignment. Joint spaces are maintained throughout the midfoot forefoot and hindfoot without evidence of acute fracture dislocation or arthropathy Hammertoe deformity noted right 3rd digit the level of the DIPJ joint appears to be slightly subluxed us Gus Mondragon DPM FACFAS IMG XR PROCEDURES Final Result documented in this encounter Visit Diagnoses Not on filedocumented in this encounter Care Teams Head Porter Baggage Relationship Specialty Start Date End Date Audrey King MD, IBCLC [address] [place] [address] PCP - General Family Medicine 04/05/24 documented as of this encounter
--- NOTE | 2024-10-30 09:19 | CT_ITS ---
The [address] [address] Patient Name: MELISSA BRYSON MRN: [id number] date: 1980 Sex: F Assigned Patient Location: CT Current Patient Location: CT Accession/Order Number: [id number] Exam Date: 10/30/2024 10:08 Report Date: 10/30/2024 10:15 At the request of: LILLI LAWRENCE NP Procedure: CT soft tissue neck wo/w con CT soft tissue neck wo/w con 10/30/2024 9:48 AM SIGNS AND SYMPTOMS: ^Head Neck Lymphadenopathy, Night Sweats, Tobacco Use TECHNIQUE: Multidetector CT axial slices of the soft tissues of the neck were obtained with and without IV contrast. Sagittal and coronal reformats were reconstructed. CT was performed with one or more of the following dose reduction techniques: Automated exposure control, adjustment of the mA and/or kV according to patient size, or use of iterative reconstruction technique. COMPARISON: None FINDINGS: The nasopharynx, oropharynx, hypopharynx, glottic, and subglottic regions are unremarkable. The parotid glands, submandibular, and the thyroid gland are within normal limits. The visualized lung parenchyma shows no acute pathology. No acute bony abnormalities are appreciated. CT/CT soft tissue neck wo/w con IMPRESSION: No suspicious neck mass or adenopathy identified. Impression dictated by: Adiel Anne M.D. 10/30/2024 10:15 AM Dictation Location: [facility] Electronically authenticated by: [id number] Y Date: 10/30/2024 10:15
--- OUTSIDE RECORDS SUMMARY | 2024-10-30 09:21 | XMS_ITS | Encounter Summary ---
Author Organization [facility] Address [address] [place] [address] Care Team Providers Care Cafeteria Operator Name Role Phone Francesca Stiles MD Primary Care Provider [phone] Lizbet Sandoval TEXTILE DESIGNS SALES REPRESENTATIVE Unavailable [phone] Francesca Stiles MD Unavailable [phone] Audrey King MD, IBCLC Primary Care Provid er Encounter Details Date Type Department Care Team (Late st Contact Info) Description 04/13/2023 Abstract [facility] [address] [place] [id number] Lily Marie MA Social History Tobacco Use [...] Office Visit [facility] [address] [address] Gus Mondragon, DPM FACFAS [address] [facility] [place] [address] 12/16/2024 4:30 PM EDT Office Visit [facility] [address] [facility] [address] [place] [address] Kingston Cerda MD [address] [facility] [address] [phone] 04/14/2025 4:45 PM EST Office Visit [facility] [place] [facility] [address] [facility] [address] [place] [address] Kingston Cerda MD [address] [phone] documented as of this encounter Visit Diagnoses Not on filedocumented in this encounter Care Teams Cafeteria Operator Relationship Specialty Start Date End Date Francesca Stiles MD [address] [place], [place] [phone] PCP - General Family Medicine 08/29/22 04/04/24 Lizbet Sandoval, TEXTILE DESIGNS SALES REPRESENTATIVE [address] [place] [address] PCP - [facility] 06/17/22 Francesca Stiles MD [address] [place], [place] [phone] PCP - [facility] 10/17/22 Audrey King MD, IBCLC [address] [place], [place] [address]100439 PCP - General Family Medicine 04/05/24 documented as of this encounter
--- OUTSIDE RECORDS SUMMARY | 2024-10-30 09:21 | XMS_ITS | Encounter Summary ---
Author Organization [facility] Address [address] [facility] [place] [address] Care Team Providers Care Drupal Web Developer Name Role Phone Audrey King MD, IBCLC Primary Care Provid er Encounter Details Date Type Department Care Team (Late Contact Info) Description 10/21/2024 Orders Only [facility] Medicine [address] [place] [address] Daniella Abdullahi NP [address] [place] [address] Head and neck lymphadenopathy; Night sweats; Pruritus Social History Tobacco Use Types Packs/Day Years [...] Office Visit [facility] [address] [place] [address] Gus Mondragon, DPM FACFAS [address] [facility] [place] [address] 12/16/2024 4:30 PM EDT Office Visit [facility] Neurology [address] [facility] [address] [place] [address] Kingston Cerda MD [address] [phone] 04/14/2025 4:45 PM EST Office Visit JENN [facility] Neurology [address] [facility] [address] [place] [address] Kingston Cerda MD [address] [phone] documented as of this encounter Visit Diagnoses Diagnosis Head and neck lymphadenopathy Night sweats Generalized hyperhidrosis Pruritus Unspecified pruritic disorder documented in this encounter Care Teams Drupal Web Developer Relationship Specialty Start Date End Date Audrey King MD, IBCLC [address] [place] [address] PCP - General Family Medicine 04/05/24 documented as of this encounter
--- OUTSIDE RECORDS SUMMARY | 2024-10-30 09:21 | XMS_ITS | Encounter Summary ---
Author Organization [facility] Address [address] [place] [address] Care Team Providers Care Neon Pumper Name Role Phone Lizbet Sandoval SWEET PICKLE MAKER Unavailable [phone] Francesca Stiles MD Primary Care Provider [phone] Lizbet Sandoval SWEET PICKLE MAKER Unavailable [phone] Franecsca Stiles MD Unavailable [phone] Audrey King MD, IBCLC Primary Care Provid er Encounter Details Date Type Department Care Team (Late st Contact Info) Description 09/13/2022 Orders Only [facility] [address] [place] [phone] Provider, MD Dao [address] [place] [address] Social History Tobacco Use Types Packs/Day Years [...] EDT Office Visit [facility] [address] [facility] [facility] [address] Gus Mondragon, DPM FACFAS [address] [place] [address] 12/16/2024 4:30 PM EDT Office Visit [facility] Neurology [address] [facility] [address] [place] [address] Kingston Cerda MD [address] [phone] 04/14/2025 4:45 PM EST Office Visit [email or web address] Neu[facility] [address] [facility] [address] [place] [address] Kingston Cerda MD [address] [phone] documented as of this encounter Procedures Procedure [...] on filedocumented in this encounter Care Teams Neon Pumper Relationship Specialty Start Date End Date Lizbet Sandoval NP [address] [place] [address] PCP - [place] [employer] 03/19/21 Francesca Stiles MD [address] [place] [address] PCP - General Family Medicine 08/29/22 04/04/24 Lizbet Sandoval, SWEET PICKLE MAKER [address] [place] [address] PCP - [facility] 06/17/22 Francesca Stiles MD [address] [place], [place] [phone] PCP - [facility] 10/17/22 Audrey King MD, IBCLC [address] [place], [place] [phone] PCP - General Family Medicine 04/05/24 documented as of this encounter
--- OUTSIDE RECORDS SUMMARY | 2024-10-30 09:21 | XMS_ITS | Encounter Summary ---
Author Organization [facility] Address [address] [place] [address] Care Team Providers Care Hand I Thermal Cutter Name Role Phone Lizbet Sandoval CAFETERIA FOOD SERVER Unavailable [phone] Francesca Stiles MD Primary Care Provider [phone] Lizbet Sandoval CAFETERIA FOOD SERVER Unavailable [phone] Francesca Stiles MD Unavailable [phone] Audrey King MD, IBCLC Primary Care Provid er Encounter Details Date Type Department Care Team (Late st Contact Info) Description 09/06/2022 Orders Only [facility] [address] [place] [address] Provider, MD Dao [address] [place] [address] Social History Tobacco Use Types Packs/Day [...] EDT Office Visit [facility] [address] [place] [address] Gus Mondragon, DPM FACFAS [address] [place] [address] 12/16/2024 4:30 PM EDT Office Visit [facility] Neurology [address] [facility] [address] [place] [address] Kingston Cerda MD [address] [phone] 04/14/2025 4:45 PM EST Office Visit [facility]andra Ne[facility] Neurology [address] [facility] 310 [place] [address] Kingston Cerda MD [address] [phone] documented as of this encounter Procedures Procedure [...] on filedocumented in this encounter Care Teams Hand I Thermal Cutter Relationship Specialty Start Date End Date Lizbet Sandoval NP [address] [place] [address] PCP - [place] [employer] 03/19/21 Francesca Stiles MD [address] [place], [place] [phone] PCP - General Family Medicine 08/29/22 04/04/24 Lizbet Sandoval NP [address] [place] [address] PCP - [facility] 06/17/22 Francesca Stiles MD [address] [place], [place] [phone] PCP - [facility] 10/17/22 Audrey King MD, IBCLC [address] [place], [place] [phone] PCP - General Family Medicine 04/05/24 documented as of this encounter
--- OUTSIDE RECORDS SUMMARY | 2024-10-30 09:21 | XMS_ITS | Encounter Summary ---
Author Organization [facility] Address [address] [place] [address] Care Team Providers Care Heating Element Builder Name Role Phone Lizbet Sandoval TAIL RIPPER Unavailable [phone] Francesca Stiles MD Primary Care Provider [phone] Lizbet Sandoval TAIL RIPPER Unavailable [phone] Francesca Stiles MD Unavailable [phone] Audrey King MD, IBCLC Primary Care Provid er Encounter Details Date Type Department Care Team (Late st Contact Info) Description 09/29/2022 Orders Only [facility] [address] [place] [phone] Provider, MD Dao [address] [place] [address] Social History Tobacco Use Types Packs/Day [...] Office Visit [facility] [address] [address] Gsu Mondragon, DPM FACFAS [address] [place] [address] 12/16/2024 4:30 PM EDT Office Visit [facility] Neurology [address] [facility] [address] [place] [address] Kingston Cerda MD [address] [phone] 04/14/2025 4:45 PM EST Office Visit [facility] Neurology [address] [facility] [address] [place] [address] Kingston Cerda MD [address] [phone] documented as of this encounter Procedures Procedure Name Priority Date/Time Associated Diagnosis Comments ECG 12-LEAD Routine 09/15/2022 11:17 AM EDT documented in this encounter Results * ECG 12 lead (09/15/2022 11:17 AM EDT) us Historical Provider ECG ORDERABLES Final Res ult documented in this encounter Visit Diagnoses Not on filedocumented in this encounter Care Teams Heating Element Builder Relationship Specialty Start Date End Date Lizbet Sandoval NP [address] [place] [address] PCP - [place] [employer] 03/19/21 Francesca Stiles MD [address] [place] [address] PCP - General Family Medicine 08/29/22 04/04/24 Lizbet Sandoval NP [address] [place] [address] PCP - [facility] 06/17/22 Francesca Stiles MD [address] [place] [address] [facility] 10/17/22 Audrey King MD, IBCLC [address] [place] [address] PCP - General Family Medicine 04/05/24 documented as of this encounter
--- OUTSIDE RECORDS SUMMARY | 2024-10-30 09:21 | XMS_ITS | Encounter Summary ---
Author Organization [facility] Address [address] [place] [address] Care Team Providers Care Margarine Churn Operator Name Role Phone Francesca Stiles MD Unavailable [phone] Audrey King MD, IBCLC Primary Care Provid er Reason for Visit * Reason Onset Date Comments Med Refill 06/10/2024 Encounter Details Date Type Department Care Team (Late st Contact Info) Description 06/10/2024 Telephone [facility] [address] [facility] [address] [place] [address] Kingston Cerda MD [address] [place], [place] [phone] Med Refill Social History Tobacco Use Types [...] new prescription and future script sent to [facility]. Thank You, documented in this encounter Plan of Treatment Upcoming Encounters Date Type Department Care Team (Late st Contact Info) Description 11/12/2024 4:00 PM EDT Office Visit [facility] [address] [place] [address] Gus Mondragon, DPM FACFAS [address] [place] [address] 12/16/2024 4:30 PM EDT Office Visit [facility] Neurology [address] [address] Kingston Cerda MD 5319 [facility] [address] [address] 04/14/2025 4:45 PM EST Office Visit [facility] Neurology [address] [facility] [address] [place] [address] Kingston Cerda MD [address] [address] documented as of this encounter Visit Diagnoses Not on filedocumented in this encounter Care Teams Margarine Churn Operator Relationship Specialty Start Date End Date Francesca Stiles MD [address] [place] [address] PCP - [place] [employer] 10/17/22 Audrey King MD, IBCLC [address] [place], [place] [phone] PCP - General Family Medicine 04/05/24 documented as of this encounter
--- OUTSIDE RECORDS SUMMARY | 2024-10-30 09:21 | XMS_ITS | Encounter Summary ---
Author Organization [facility] Address [address] [place] [address] Care Team Providers Care Lens Grinder Apprentice Name Role Phone Lizbet Sandoval FURNITURE REMOVALIST Unavailable Francesca Stiles MD Primary Care Provider [phone] Lizbet Sandoval FURNITURE REMOVALIST Unavailable [phone] Francesca Stiles MD Unavailable [phone] Audrey King MD, IBCLC Primary Care Provid er Encounter Details Date Type Department Care Team (Late st Contact Info) Description 09/01/2022 Abstract [facility] Medicine [address] [place] [address] Lizbet Sandoval, FURNITURE REMOVALIST [address] [place] [address] Social History Tobacco Use Types [...] EDT Office Visit [facility] [address] [place] [address] Gus Mondragon, DPM FACFAS 368 [facility] [address] 12/16/2024 4:30 PM EDT Office Visit [facility] [address] [place] [address] [place] [address] Kingston Cerda MD [address] [phone] 04/14/2025 4:45 PM EST Office Visit [facility] [address] [phone] Kingston Cerda MD [address] [address] documented as of this encounter Visit Diagnoses Not on filedocumented in this encounter Care Teams Lens Grinder Apprentice Relationship Specialty Start Date End Date Lizbet Sandoval NP [address] [place] [id number] PCP - [place] [employer] 03/19/21 Francesca Stiles MD [address] [place] [address] PCP - General Family Medicine 08/29/22 04/04/24 Lizbet Sandoval NP [address] [place] [address] PCP - [facility] 06/17/22 Francesca Stiles MD [address] [place] [address] PCP - [place] [employer] 10/17/22 Audrey King MD, IBCLC [address] [place] [address] PCP - General Family Medicine 04/05/24 documented as of this encounter
--- OUTSIDE RECORDS SUMMARY | 2024-10-30 09:21 | XMS_ITS | Encounter Summary ---
Author Organization [facility] Address [address] [facility] [place] [address] Care Team Providers Care Barbering Teacher Name Role Phone Audrey King MD, IBCLC Primary Care Provid er Encounter Details Date Type Department Care Team (Late st Contact Info) Description 10/29/2024 Bamboo flowsheet [facility] [address] [place] [address] Gus Mondragon, DPM FACFAS [address] [facility] [address] [address] Social History Tobacco Use Types Packs/Day Years [...] Office Visit [facility] [address] [place] [address] Gus Mondragon, DPM FACFAS 368 [facility] [place] [address] 12/16/2024 4:30 PM EDT Office Visit [facility] [address] [facility] 310 [place] [address] Kingston Cerda MD [address] [phone] 04/14/2025 4:45 PM EST [facility] [address] [facility] 310 [place] [address] Kingston Cerda MD 5359 [facility] [address] [phone] documented as of this encounter Visit Diagnoses Not on filedocumented in this encounter Care Teams Barbering Teacher Relationship Specialty Start Date End Date Audrey King MD, IBCLC [address] [place] [address] PCP - General Family Medicine 04/05/24 documented as of this encounter
--- OUTSIDE RECORDS SUMMARY | 2024-10-30 09:21 | XMS_ITS | Encounter Summary ---
Author Organization [facility] Address [address] [place] [address] Care Team Providers Care Equipment Coordinator Name Role Phone Francesca Stiles MD Primary Care Provider [phone] Francesca Stiles MD Unavailable [phone] Audrey King MD, IBCLC Primary Care Provid er Encounter Details Date Type Department Care Team (Late st Contact Info) Description 08/30/2023 Orders Only [facility] [address] [place] [address] Lizbet Sandoval, TRACTOR TRAILER MOVING VAN DRIVER [address] [place], [place] [phone] Social History Tobacco Use Types Packs/Day Years [...] EDT Office Visit [facility] [address] [place] [address] Gus Mondragon, DPM FACFAS 368 [facility] [place] [address] 12/16/2024 4:30 PM EDT Office Visit [facility]rology [address] [facility] [address] [place] [address] Kingston Cerda MD [address] [phone] 04/14/2025 4:45 PM EST Office Visit [facility]rology [address] [facility] [address] [place] [address] Kingston Cerda MD [address] [phone] documented as of this encounter Procedures Procedure Name Priority Date/Time Associated Diagnosis Comments COLONOSCOPY Routine 05/16/2021 1:08 PM EST PAP SMEAR Routine 09/23/2020 10:19 AM EDT documented in this encounter Results * Colonoscopy (05/16/2021 1:08 PM EST) Anatomical Region Laterality Modality Other Santos Harmon MD [facility] Final Result * Pap Smear (09/23/2020 10:19 AM EDT) Swab Cervical swab / Unknown us Lizbet Sandoval TRACTOR TRAILER MOVING VAN DRIVER LAB CYTOLOGY ORDERABLES Paula l Result documented in this encounter Visit Diagnoses Not on filedocumented in this encounter Care Teams Equipment Coordinator Relationship Specialty Start Date End Date Francesca Stiles MD [address] [place] [address] PCP - General Family Medicine 08/29/22 04/04/24 Francesca Stiles MD [address] [place] [address] PCP - [facility] 10/17/22 Audrey King MD, IBCLC [address] [place], [place] [phone] PCP - General Family Medicine 04/05/24 documented as of this encounter
--- OUTSIDE RECORDS SUMMARY | 2024-10-30 09:21 | XMS_ITS | Encounter Summary ---
Author Organization [facility] Address [address] [facility] [place] [address] Care Team Providers Care Director Of Personnel Name Role Phone Audrey King MD, IBCLC Primary Care Provid er Encounter Details Date Type Department Care Team (Late Contact Info) Description 10/20/2024 Orders Only [facility] [address] [place] [address] Daniella Abdullahi NP [address] [place] [address] Social History Tobacco Use Types [...] Encounters Date Type Department Care Team (Late Contact Info) Description 11/12/2024 4:00 PM EDT Office Visit [facility] [address] [place] [address] Gus Mondragon, DPM FACFAS 368 [facility] [address] [place] [address] 12/16/2024 4:30 PM EDT Office Visit [facility] [address] [facility] 310 [place] [address] Kingston Cerda MD [address] [phone] 04/14/2025 4:45 PM EST Office Visit [facility] [address] [facility] [address] [place] [address] Kingston Cerda MD [address] [phone] documented as of this encounter Procedures Procedure Name Priority Date/Time Associated Diagnosis Comments ACUTE HEPATITIS Routine 10/17/2024 11:56 AM EDT VITAMIN B12 Routine 10/17/2024 11:56 AM EDT documented in this encounter Results * Vitamin B12 (10/17/2024 11:56 AM EDT) Blood Venous blood specimen / Unknown Daniella Abdullahi FILM PAINTER LAB BLOOD ORDERABLES Paula l Result * ACUTE HEPATITIS (10/17/2024 11:56 AM EDT) us Daniella Abdullahi FILM PAINTER LAB BLOOD ORDERABLES Paula l Result documented in this encounter Visit Diagnoses Not on filedocumented in this encounter Care Teams Director Of Personnel Relationship Specialty Start Date End Date Audrey King MD, IBCLC [address] [place] [address] PCP - General Family Medicine 04/05/24 documented as of this encounter
--- OUTSIDE RECORDS SUMMARY | 2024-10-30 09:21 | XMS_ITS | Clinical Summary ---
Author Organization [facility] Address [address] [place] [address] Care Team Providers Care Cant Gang Sawyer Name Role Phone Audrey King MD, IBCLC Primary Care Provid er Allergies Active Allergy Reactions Criticality Noted Date Comments Azithromycin Shortness of breath High 08/30/2022 Cephalexin Shortness of breath High 08/30/2022 Hydroxyzine Other Medium 10/22/2024 Medications varenicline (Chantix Continuing ) 1 MG tabletIndicatio ns:Tobacco use,Encounter for smoking cessation counseling Take 1 tablet (1 mg) by mouth in the morning and 1 tablet (1 mg) before bedtime. Take with full glass of water.. 180 tablet 4 Active varenicline (Chantix Continuing Month ) 1 MG tabletIndicatio ns:Tobacco use Take 1 tablet (1 mg) by mouth in the morning and 1 tablet (1 mg) before bedtime. Take with full glass of water.. 60 tablet 2 4 Active busPIRone HCl 10 MG capsule Take 10 mg by mouth in the morning and 10 mg before bedtime. Active minocycline (Dynacin) 100 MG tablet Take 100 mg by mouth in the morning and 100 mg before bedtime. Active Ca, Mg, K, and Na Oxybates (XYWAV PO) Take 1 Dose by mouth Daily Active modafinil (Provigil) 200 MG tabletIndicatio ns:Narcolepsy and cataplexy (HCC) 1/2-1 tab QAM 30 tablet 3 5 Active ferrous sulfate (Fe Tabs) 325 (65 Fe) MG EC tabletIndicatio ns:Iron deficiency Take 1 tablet (325 mg) by mouth in the morning. Take with meals. Do not crush, chew, or split. 30 tablet 2 5 11/20/19 25 Active predniSONE (Deltasone) 10 MG tabletIndicatio ns:Pruritus Take 4 tablets (40 mg) by mouth Daily for 3 days, THEN 3 tablets (30 mg) Daily for 3 days, THEN 2 tablets (20 mg) Daily for 3 days, THEN 1 tablet (10 mg) Daily for 3 days. 30 tablet 5 11/04/19 25 Active doxycycline (Vibramycin) 100 MG capsule 5 10/14/19 25 Discontinue d(Med list cleanup) Ca, Mg, K, and Na Oxybates (XYWAV PO) Take by mouth 10/15/19 25 Discontinue d(Duplicate order) potassium chloride CR (K-Tab) 20 MEQ ER tabletIndicatio ns:Hypokalemia Take 1 tablet (20 mEq) by mouth in the morning and 1 tablet (20 mEq) before bedtime. Do all this for 2 days. Do not crush, chew, or split. 4 tablet 5 10/23/19 25 Active Problems Problem Noted Date Diagnosed Date Tobacco use 08/30/2023 Carpal tunnel syndrome, bilateral 01/02/2023 Assessment & Plan (10/14/2024 5:36 PM EDT): (Continue splints B nightly.) Assessment & Plan (06/24/2024 4:26 PM EDT): (Continue splints B nightly.) Assessment & Plan (03/25/2024 10:50 AM EST): (Continue splints B nightly.) Assessment & Plan (01/24/2024 12:00 AM EST): (Continue splints B nightly.) Assessment & Plan (12/18/2023 4:32 PM EDT): (Continue splints B nightly.) Assessment & Plan (10/23/2023 5:01 PM EDT): (Continue splints B nightly.) Assessment & Plan (09/25/2023 5:08 PM EDT): (Continue splints B nightly.) Assessment & Plan (06/26/2023 4:36 PM EDT): (Continue splints B nightly.) Assessment & Plan (04/24/2023 4:27 PM EST): (Continue splints B.) Assessment & Plan (02/27/2023 4:40 PM EST): Continue splints B. Reschedule injections. Assessment & Plan (01/02/2023 1:24 PM EDT): Continue splints B. (Injections pending.) Chronic low back pain 08/30/2022 Bipolar 1 disorder 08/29/2022 Cervical paraspinal muscle spasm 08/29/2022 Assessment & Plan (10/14/2024 5:36 PM EDT): (Continue home PT.) Assessment & Plan (06/24/2024 4:26 PM EDT): (Continue home PT) XR cerv 4 view with flex/exten Assessment & Plan (03/25/2024 10:50 AM EST): (Continue home PT, Mg.) Assessment & Plan (01/24/2024 12:00 AM EST): (Continue home PT, Mg.) Assessment & Plan (12/18/2023 4:32 PM EDT): (Continue home PT, Mg.) Assessment & Plan (10/23/2023 5:01 PM EDT): (Continue home PT, Mg.) Assessment & Plan (09/25/2023 5:09 PM EDT): (Continue home PT, Mg.) Assessment & Plan (06/26/2023 4:40 PM EDT): (Continue home PT.) Restart formal PT. - [facility]. Mg, titrate. Assessment & Plan (04/24/2023 4:27 PM EST): (Continue home PT.) Assessment & Plan (02/27/2023 4:41 PM EST): Incr rotational PT as demonstrated to pt. Assessment & Plan (01/02/2023 1:25 PM EDT): Incr rotational PT as demonstrated to pt. Assessment & Plan (10/31/2022 1:26 PM EDT): (Home PT.) Gastroesophageal reflux disease without esophagi tis 08/29/2022 Intractable migraine with status migrainosus Migraine without aura, intractable, with status migrainosus 08/29/2022 Narcolepsy and cataplexy 08/29/2022 Assessment & Plan (10/14/2024 5:40 PM EDT): Retry modafinil 100 qam, may incr to 200. May adjust timing as well. If fog side effect recurs, pt may stop med. (Continue GHB.) Urine level q Dec. Assessment & Plan (06/24/2024 4:26 PM EDT): (Continue dMPH.) Recommend not taking 2nd dose sooner than 11:00. Cont GHB to 4.5 g bin. Urine level q Oct. Assessment & Plan (03/25/2024 10:50 AM EST): (Continue dMPH.) Recommend not taking 2nd dose sooner than 11:00. Incr GHB to 4.5 g bin. Urine level q Dec. Assessment & Plan (01/24/2024 12:00 AM EST): Incr dMPH ER to 15/5. Pt to observe effect [...] (15 mg) by mouth in the morning. Assessment & Plan (12/18/2023 4:34 PM EDT): Continue GHB titration. Pt may need further titration toward 6 g for first dose. (Pt must remain off clonazepam & THC gummies while on GHB. Pt must remain on tx for bipolar while on GHB.) Urine level q Jun. Assessment & Plan (11/06/2023 12:37 PM EDT): Long discussion again. I feel that GHB could be dosed with Saphris (asenapine), as the latter has no respiratory suppressant effect. Nevertheless, pt is not willing. Proceed with taper of asenapine - 1/2 pill SL x 4 d, then stop. Then GHB 2.25 g bin -> 3 g bin -> if needed -> 4.5 g bin. (1.5 g has already been tried.) (Pt must remain off clonazepam & THC gummies while on GHB. Pt must remain on tx for bipolar while on GHB.) <11/05>Change to Xywav due to AEs. Assessment & Plan (09/25/2023 5:08 PM EDT): Long discussion. Proceed with GHB 1.5 g bin -> 2.25 g bin. Saphris - last dose on night 1 (e.g. Kavita), no GHB night 2 (Sun) but could use e.g. Benadryl, then start GHB night 3 (Sat). Pt will need to stop clonazepam before starting this. (If she does not stop earlier) (Pt must stay off clonazepam & THC gummies while on GHB. Pt must remain on tx for bipolar while on GHB.) Assessment & Plan (06/26/2023 4:42 PM EDT): Hold off on GHB. Pt to discuss first with psych, see if med could be changed to another, less sedating, med. If this is done, then retry GHB 1.5 g bin -> 2.25 g bin. Urine tox screen before starting. Incr Adderall XR o 05/01. (Stop dMPH.) Urine level. Pt will need to stop clonazepam before starting this. (If she does not stop earlier) (Pt must stay off clonazepam & THC gummies while on GHB. Pt must remain on tx for bipolar while on GHB.) Assessment & Plan (06/01/2023 11:36 AM EDT): Resubmit for generic GHB (sodium oxybate/Hikma). 1.5 g bin -> 2.25 g bin after 1-2 weeks. Pt will need to stop clonazepam before starting this. (If she does not stop earlier) <3/15>Pt must stay off THC gummies while on GHB. <3/15>Urine tox screen before next appt. <3/15>Bipolar, hx suicide attempt. Pt must remain on tx for bipolar while on GHB. Assessment & Plan (02/27/2023 4:39 PM EST): Incr dMPH to 10. Resubmit for Xywav 1.5 g bin -> 2.25 g bin. (Or Xyrem if insurance insists.) Assessment & Plan (01/02/2023 1:22 PM EDT): Add dMPH XR 5 qam. Then may try incr to 10. If better, call for permanent Rx. If still tired with that regimen, resubmit for GHB. Assessment & Plan (11/13/2022 8:39 PM EDT): Restart modafinil 200/100. Add GHB (Xywav) 1.5 g twice nightly. Discussed possibly retrying *nonracemic* stimulant in the future. <11/13>Insurance denying Xywav. May go with Xyrem instead (or pt assistance, if appropriate). Paresthesia of skin 08/29/2022 Primary narcolepsy without cataplexy 08/29/2022 PTSD (post-traumatic stress disorder) 08/29/2022 Serum calcium elevated 08/29/2022 Resolved Problems Problem Noted Date Diagnosed Date Resolved Date Abdominal pain 05/14/2023 08/30/2023 Atypical chest pain 05/14/2023 08/30/19 24 Diarrhea 05/14/2023 08/30/2023 Strain of lumbar region 05/14/202308/17 Acute right-sided low back p ain with right-sided sciatica 08/29/2022 08/30/2023 Contracture, left ankle 08/29/202212/19 Ischemic heart disease 08/29/202205/12 Hypersomnia 08/29/2022 01/15/2023 Perioral dermatitis 08/29/2022 01/16/20 23 Smoker 08/29/2022 08/30/2023 Encounters Date Type Department Care Team Description 10/29/2024 4:25 PM EDT Ancillary Procedure [facility] [address] [place] [address] 10/29/2024 4:00 PM EDT Office Visit [facility] [address] [place] [address] Gus Mondragon, DPM FACFAS Hammer toe of right foot (Primary Dx); Right foot pain; Onychocryptosis; Onychomycosis 10/29/2024 Bamboo flowsheet [facility] [address] [place] [address] Gus Mondragon, DPM FACFAS 10/21/2024 Orders Only [facility] [address] [place] [address] Daniella Abdullahi NP Head and neck lymphadenopathy; Night sweats; Pruritus 10/20/2024 Orders Only [facility] [address] [address] Daniella Abdullahi NP 10/20/2024 Telephone [facility] [address] [address] Daniella Abdullahi NP Results 10/15/2024 Telephone [facility] [address] [address] Zulema Magana MA lab work 10/14/2024 4:30 PM EDT Office Visit [facility] [address] [address] [place] [address] Kingston Cerda MD Narcolepsy and cataplexy (HCC) (Primary Dx); Carpal tunnel syndrome, bilateral; Cervical paraspinal muscle spasm 10/14/2024 Bamboo flowsheet [facility] [address] [place] [address] Kingston Cerda MD 10/14/2024 Travel 10/13/2024 4:20 PM EDT Office Visit [address] [address] Daniella Abdullahi NP Head and neck lymphadenopathy (Primary Dx); Night sweats; Pruritus; Dizziness; Hypothyroidism, unspecified type 10/13/2024 Bamboo flowsheet [facility] [address] [address] Daniella Abdullahi NP 10/13/2024 Travel 09/18/2024 9:20 AM EDT Office Visit [address] [address] Audrey King MD, IBCLC Spider bite wound, accidental or unintentional, subsequent encounter (Primary Dx); Bipolar disorder, unspecified (HCC) 09/18/2024 Travel 09/17/[address] [place] [place] [address] Maral Jefferson MA ER Follow-up 08/28/2024 2:30 PM EDT Office Visit [facility] [address] [place] [address] Kiarra Macias NP Narcolepsy and cataplexy (HCC) (Primary Dx); Cervical paraspinal muscle spasm; Carpal tunnel syndrome, bilateral 08/28/2024 Bamboo flowsheet [facility] [address] [place] [address] Kiarra Macias NP 08/28/2024 Travel from Last 3 Months Immunizations Immunization Administration Dates Next Due Tdap 07/09/2014 Family History Medical History Relation Name Comments Heart disease Father Hypertension Father Bipolar disorder Mother Depression Mother Diabetes Mother Mental illness Mother Cancer Sibling Melanoma Neg Hx Relation Name Status Comments Brother 2 brothers Daughter Alive Father Alive Mother Sibling Sister 4 sisters Son 1 Alive Son 2 Alive Social History Tobacco Use Types Packs/Day Years [...] Pulse 66 10/29/2024 3:58 PM EDT Temperature 36.3 C (97.4 F) 10/13/2024 4:12 PM EDT Respiratory Rate 17 04/12/2023 4:38 PM EST Oxygen Saturation 99% 10/13/2024 4:12 PM EDT Inhaled Oxygen Concentration - - Weight 59.9 kg (132 lb) 10/29/2024 3:58 PM EDT Height 175.3 cm (5' 9 ) 10/29/2024 3:58 PM EDT Body Mass Index 19.49 10/29/2024 3:58 PM EDT Plan of Treatment Upcoming Encounters Date Type Department Care Team (Late st Contact Info) Description 11/12/2024 4:00 PM EDT Office Visit [facility] [address] [place] [address] Gus Mondragon, DPM FACFAS [address] [place] [address] 12/16/2024 4:30 PM EDT [facility] [address] [address] [place] [address] Kingston Cerda MD [address] [phone] 04/14/2025 4:45 PM EST Office Visit [facility] [address] [address] Kingston Cerda MD [address] [phone] Health Maintenance Due Date Last Done Comments Pap Smear 09/24/2023 09/23/2020 Influenza Vaccine (#1) 2024 Mammogram 06/09/2025 06/09/2024, 05/04/2023 Cervical Cancer Screening 09/23/2025 HPV/Cotest 09/23/2025 09/23/2020 Procedures Procedure Name Priority Date/Time Associated Diagnosis Comments XR FOOT 3+ VIEWS RIGHT Routine 4:20 PM EDT Right foot pain Hammer toe of right foot VITAMIN B12 Routine 10/17/2024 11:56 AM EDT ACUTE HEPATITIS Routine 10/17/2024 11:56 AM EDT BI MAMMOGRAM SCREENING TOMOSYNTHESIS BILATERAL Routine 06/09/2024 5:01 PM EDT Encounter for screening mammogram for malignant neoplasm of breast PAP SMEAR Routine 09/23/2020 10:19 AM EDT from Last 3 Months or Most Recently Relevant to Health Maintenance Results * XR foot 3+ views right [...] appears to be slightly subluxed Gus Mondragon DPM FACFAS IMG XR PROCEDURES Final Result * ACUTE HEPATITIS (10/17/2024 11:56 AM EDT) Daniella Abdullahi NP LAB BLOOD ORDERABLES Paula l Result * Vitamin B12 (10/17/2024 11:56 AM EDT) Blood Venous blood specimen / Unknown Daniella Abdullahi NP LAB BLOOD ORDERABLES Paula l Result * Bilateral screening mammogram with tomosynthesis (06/09/2024 5:01 PM EDT) Anatomical Region Laterality Modality Breast Bilateral Mammography 06/11/2024 9:46 AM EDT Impressions 06/11/2024 9:52 AM EDT Impression: No specific evidence of malignancy seen in either breast. BIRADS 2 - Benign Findings DENSITY: The breasts are heterogeneously dense, which may obscure small masses. FOLLOW-UP: Routine Screening Mammogram ELECTRONICALLY SIGNED BY: Yahir Zuniga M.D. Narrative 06/11/2024 9:52 AM EDT Examination: BI MAMMOGRAM SCREENING TOMOSYNTHESIS BILATERAL Clinical [...] MLO view similar to the prior study. Procedure Note Yahir Zuniga MD - 06/11/2024 Examination: BI MAMMOGRAM SCREENING TOMOSYNTHESIS BILATERAL Clinical History: screening Technique: Screening digital mammography study of both breasts wasperformed with 2-D and 3-D tomosynthesis imaging. Study was compared tothe prior exam dated 05/04/2023. Findings: There is no evidence of interval dominant spiculated mass,grouped microcalcifications, or skin thickening which would be suggestiveof malignancy. Axillary lymph nodes are noted on the right which appear grosslyunremarkable. A loop recorder is seen overlying the left axillary regionon the MLO view similar to the prior study. IMPRESSION: Impression: No specific evidence of malignancy seen in either breast. BIRADS 2 - Benign Findings DENSITY: The breasts are heterogeneously dense, which may obscure smallmasses. FOLLOW-UP: Routine Screening Mammogram ELECTRONICALLY SIGNED BY: Yahir Zuniga M.D. Audrey King MD, IBCLC IMG BI PROCEDURES Fi nal Result * Pap Smear (09/23/2020 10:19 AM EDT) Swab Cervical swab / Unknown Lizbet Sandoval E [employer] LAB CYTOLOGY ORDERABLES Paula l Result from Last 3 Months or Most Recently Relevant to Health Maintenance Insurance [facility] [employer] [place] Care Teams Cant Gang Sawyer Relationship Specialty Start Date End Date Audrey King MD, IBCLC [address] [place], [place] [phone] PCP - General Family Medicine 04/05/24
--- OUTSIDE RECORDS SUMMARY | 2024-10-30 09:21 | XMS_ITS | Encounter Summary ---
Author Organization [facility] Address [address] [place] [address] Care Team Providers Care Wool Hat Finisher Name Role Phone Francesca Stiles MD Primary Care Provider [phone] Francesca Stiles MD Unavailable [phone] Audrey King MD, IBCLC Primary Care Provid er Reason for Visit * Reason Comments Med Refill Encounter Details Date Type Department Care Team (Late st Contact Info) Description 09/30/2023 Refill [facility] [address] [place] [address] Audrey King MD, IBCLC [address] [place] [address] Tobacco use; Encounter for smoking [...] EDT Office Visit [facility] [address] [place] [address] Gus Mondragon, DPM FACFAS [address] [place] [address] 12/16/2024 4:30 PM EDT Office Visit [facility] [address] [facility] [address] [place] [address] Kingston Cerda MD [address] [facility] [address] [address] 04/14/2025 4:45 PM EST Office Visit [facility] [address] [facility] [address] [place] [address] Kingston Cerda MD [address] [facility] [address] [address] documented as of this encounter Visit Diagnoses Diagnosis Tobacco use Encounter for smoking cessation counseling documented in this encounter Care Teams Wool Hat Finisher Relationship Specialty Start Date End Date Francesca Stiles MD [address] [place] [address] PCP - General Family Medicine 08/29/22 04/04/24 Francesca Stiles MD [address] [place] [address] PCP - [place] [employer] 10/17/22 Audrey King MD, IBCLC [address] [phone] PCP - General Family Medicine 04/05/24 documented as of this encounter
--- OUTSIDE RECORDS SUMMARY | 2024-10-30 09:21 | XMS_ITS | Encounter Summary ---
Author Organization [facility] Address [address] [place] [address] Care Team Providers Care Load Mixer Name Role Phone Audrey King MD, IBCLC Primary Care Provid er Reason for Referral * Imaging (Routine) - Authorized Specialty Diagnoses / Procedures Referred By González stone Referred To Contact Radiology Diagnoses Pruritus Head and neck lymphadenopathy Night sweats Dizziness Tobacco use Abnormal thyroid function test Supraclavicular adenopathy Procedures CT soft tissue neck w and wo IV contrast Daniella Abdullahi NP [address] [place] [address] Phone: tel: fax: [place] [facility] [address] [place] [address] Phone: tel: fax: Referral ID Status Reason Start Date Expiration Date V isits Requested Visits Authorized [id number] Authorized 10/22/2024 04/20/2025 1 1 Reason for Visit * Reason Onset Date Comments Results 10/20/2024 Encounter Details Date Type Department Care Team ([facility] st Contact Info) Description 10/20/2024 Telephone [facility] Medicine [address] [place] [address] Daniella Abdullahi NP [address] [place] [address] Results Social History Tobacco Use Types Packs/Day Years [...] encounter Miscellaneous Notes * Telephone Encounter - Emili Hanks MA - 10/22/2024 11:44 AM EDT Patient notified. * Telephone Encounter - Lori Styles LPN - 10/22/2024 11:35 AM EDT Lm for pt to return call. * Telephone Encounter - Daniella Abdullahi NP - 10/22/2024 8:10 AM EDT No interactions with your Xywav for the prednisone so I sent tapering dose to take that steps down every 3 days for 12 days total. I have not identified a cause for the lymph node tenderness but we can see if it improves with the steroid also along with the itching. Schedule appt for after steroid completed please. TB test negative and throat culture negative. I did put in for soft tissue ct of neck to evaluate bc of the enlarged lymph nodes as we have not yet found cause. (Please fax order to [facility]). * Telephone Encounter - LORRIE BOSE - 10/21/2024 10:23 AM EDT Pt notified and states yes she would like to try as long as it is safe with medication dennis [facility] to [facility]. She is asking what the reason is for the inflammation of the lymph nodes? Sending to Daniella chaue * Telephone Encounter - Daniella Abdullahi NP - 10/21/2024 10:09 AM EDT Can she do a steroid? That will help with inflammation and itching. * Telephone Encounter - Lori Styles LPN - 10/20/2024 2:30 PM EDT Pt notified. Were you going to send in something for potassium? She can't take hydroxyzine, she states that anything like an antihistamine or something that can make her drowsy she can not take. She is still having the itching intermittently. Lymphnodes are stillswollen and tender. * Telephone Encounter - Daniella Abdullahi NP - 10/20/2024 2:13 PM EDT Chest xray normal. Kidney liver B12 inflammatory markers and thyroid function normal. Monotest, HIV, hepatitis tests negative. Your iron is low and iron saturation low which can cause pruritus. I would start iron supplement daily at 325 MG. Some labs are still not back yet but so far no signs of infection I am seeing. Potassium also slightly low so I will give booster dose to increase bc can affect heart. Try to increase foods rich in iron in diet. How is the itching and tender lymph nodes in neck? If she is still itchy we can try hydroxyzine. See me in several weeks please for appt. * Telephone Encounter - Lori Styles LPN - 10/20/2024 10:32 AM EDT Printed labs and chest xray from [employer]. Labs are being scanned to you. We do not have results for Thyroid peroxidase, TB gold and Throat culture yet. * Telephone Encounter - Brunilda Sherman - 10/20/2024 9:23 AM EDT Pt called and she had her labs done on 10/17 at [facility]. She was to notify us when she had completed them. documented in this encounter Plan of Treatment Upcoming Encounters Date Type Department Care Team (Late st Contact Info) Description 11/12/2024 4:00 PM EDT Office Visit [facility] [address] [place] [address] Gus Mondragon, DPM FACFAS [address] [place] [address] 12/16/2024 4:30 PM EDT [facility] [address] [phone] Kingston Cerda MD [address] [phone] 04/14/2025 4:45 PM EST [facility] [address] [facility] [place] [address] Kingston Cerda MD [address] [phone] Scheduled Orders Name Type Priority Associated Diagnoses Orde r Schedule CT soft tissue neck w and wo IV contrast Imaging Routine Pruritus Head and neck lymphadenopathy Night sweats Dizziness Tobacco use Abnormal thyroid function test Supraclavicular adenopathy Expected: 10/22/2024, Expires: 10/22/2025 documented as of this encounter Visit Diagnoses Diagnosis Iron deficiency- Primary Disorders of iron metabolism Hypokalemia Hypopotassemia Pruritus Unspecified pruritic disorder Head and neck lymphadenopathy Night sweats Generalized hyperhidrosis Dizziness Dizziness and giddiness Tobacco use Abnormal thyroid function test Nonspecific abnormal results of thyroid function study Supraclavicular adenopathy Enlargement of lymph nodes documented in this encounter Care Teams Load Mixer Relationship Specialty Start Date End Date Audrey King MD, IBCLC [address] [phone] PCP - General Family Medicine 04/05/24 documented as of this encounter
--- OUTSIDE RECORDS SUMMARY | 2024-10-30 09:21 | XMS_ITS | Clinical Summary ---
Author Organization [facility] Address [address] [place] [address] Care Team Providers Care Fishing Guide Name Role Phone Luca Villagran MD Unavailable [...] 2020 Adult Tetanus 07/09/2024 07/09/2014 Influenza Vaccine (#1) 2024 Zoster Vaccines (1 of 2) 2030 [...] this topic Medical Devices Implanted Type Area Derrick Builder Device Identifier Shelf Expiration Date Model / Serial / Lot [id number] Implanted:12/18 (Quantity not on file) Implantable Loop Recorder [id number] / [id number] / Insurance [employer] [place] MEDICAID [facility] Care Teams Fishing Guide Relationship Specialty Start Date End Date Luca Villagran MD [address] [place] [address] Consulting Physician Electrophysiology 01/23/22
--- OUTSIDE RECORDS SUMMARY | 2024-10-30 09:23 | XMS_ITS | CCD ---
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 parameters. RECOMMENDATIONS: 1. Occlusive dressing to be changed after 7 days. 2. Do not wet the incision. Luca Simmons MD Cardiac Electrophysiology Electronically Signed by: Luca Simmons MD 01/17/2021 04:41 P Luca Simmons MD Date Dict: 01/06/2021/01:22 P/Luca Simmons MD Date Trans: 01/06/2021 01:32 P/so [id number] Normal [facility] POC SARS COV2 ANTIGEN NEGATI VEon 01-06-2021 POC SARS COV2 ANTIGEN NEG Negative Normal NEGATIVE [facility] Comment on above: Result Comment: Nega [...] signs and symptoms consistent with COVID-19. The [employer] COVID-19 Ag Card is a lateral flow [...] Accreditation. Performed By: #### 3 1977 #### [facility] [address] [facility]. [address] LIPID PANEL (CORONARY RISK 2 )on 11-05-2019 Cholesterol [Mass/Vol] 164 mg/dL Normal 0 - 199 [facility] Comment on above: Order Comment: Order [...] dosing. Performed By: #### L IPID #### [address] [id number] Cholesterol in HDL [Mass/Vol] 39.0 mg/dL Abnormal [facility] Comment on above: Order Comment: Order ing is aware patient is non-fasting. Result Comment: . AGE VERY LOW LOW NORMAL HIGH 0-19 Y < 35 < 40 40-45 ---- 20-24 Y ---- < 40 >45 ---- >24 Y ---- < 40 40-60 >60 . Performed By: #### L IPID #### [address] [id number] Cholesterol in LDL [Mass/Vol] 79 mg/dL Normal 0 - 99 [facility] Comment on above: Order Comment: Order ing is aware patient is non-fasting. Result Comment: . NEAR BORD AGE DESIRABLE OPTIMAL HIGH HIGH VERY HIGH 0-19 Y 0 - 109 --- 110-129 >/= 130 ---- 20-24 Y 0 - 119 --- 120-159 >/= 160 ---- >24 Y 0 - 99 100-129 130-159 160-189 >/=190 . Performed By: #### L IPID #### [address] [id number] Cholesterol in VLDL [Mass/Vol] 46 mg/dL High 0 - 40 [facility] Comment on above: Order Comment: Order ing is aware patient is non-fasting. Performed By: #### L IPID #### [address] [id number] Cholesterol.total/Cho lesterol in HDL [Mass ratio] 4.2 {ratio} Normal [facility] Comment on above: Order Comment: Order ing is aware patient is non-fasting. Result Comment: REF VALUES DESIRABLE < 3.4 HIGH RISK > 5.0 Performed By: #### L IPID #### [address] [id number] NON-HDL CHOLESTEROL 125 mg/dL Normal [facility] Comment on above: Order Comment: Order ing is aware patient is non-fasting. Result Comment: AGE DESIRABLE BORDERLINE HIGH HIGH VERY HIGH 0-19 Y 0 - 119 120 - 144 >/= 145 >/= 160 20-24 Y 0 - 149 150 - 189 >/= 190 ---- >24 Y 30 MG/DL ABOVE LDL CHOLESTEROL GOAL . Performed By: #### L IPID #### [address] [id number] Triglyceride [Mass/Vol] 230 mg/dL High 0 - 149 [facility] Comment on above: Order Comment: Order [...] dosing. Performed By: #### L IPID #### [address] [id number] CNOVon 04-22-2018 CNOV Office Visit ([facility]) ISIS GONCALVES ([id number]) 1980 F Date Time Provider Department 04/22/18 1:10 PM LISE AMIN (ALISON) MARIA G During your visit today, we recorded the following information about you: Pulse Respiration Blood pressure Weight 89/minute 18/minute 114/64 51.7 kg Height 1.753 m Lise mAin APRN.ALISON 04/22/2018 1:58 PM Signed [facility] Follow up/ [...] directed. - Avoid driving when drowsy. - requisition approver for short naps (20-30 minutes) and use [...] best time for you. ? ?? Lise Amin APRN.CNP Interval history : Here for follow [...] directed. - Avoid driving when drowsy. - requisition approver for short naps (20-30 minutes) and use of caffeine if needed to help stay awake when driving. - Try to get at least 7-9 hours of sleep in a 24 hour period. Healthy diet and exercise can also promote better sleep. - Follow up in 3 months in the office. Recommend scheduling this appointment now to ensure the best time for you. Lise Amin APRN.REGISTERED ASSOCIATE Referring Provider: TULIO PABLO [[id number]] Allergies As of Date: 04/22/2018 (No Known [...] Disposition History Recorded Encounter Status:Closed by ALISON AMIN on 04/22/[address] [facility] PROGRESSon 04-22-2018 Protein mass conc HNO ID: [id number] Author: Lise Dewitt (Geoscientist) Eloisa Service: (none) Author Type: Nurse Practitioner Type: Progress Notes Filed: 04/22/2018 1:58 PM Note Text: [facility] Follow up/ [...] directed. - Avoid driving when drowsy. - requisition approver for short naps (20-30 minutes) and use [...] best time for you. ? ?? Lise Amin, RN SURGERY.REGISTERED ASSOCIATE Interval history : Here for follow up [...] directed. - Avoid driving when drowsy. - requisition approver for short naps (20-30 minutes) and use of caffeine if needed to help stay awake when driving. - Try to get at least 7-9 hours of sleep in a 24 hour period. Healthy diet and exercise can also promote better sleep. - Follow up in 3 months in the office. Recommend scheduling this appointment now to ensure the best time for you. Lise Amin APRN.[facility] Normal [facility] CNKENNETHon 01-22-2018 CNOV Office Visit ([facility]) ISIS GONCALVES ([id number]) 1980 F Date Time Provider Department 01/22/18 10:10 AM LISE AMIN (ALISON) MARIA G During your visit today, we recorded the following information about you: Pulse Respiration Blood pressure Weight 64/minute 19/minute 100/64 51.4 kg Height 1.727 m Lise Amin APRN.CNP 01/22/2018 11:01 AM Signed [facility] Follow up/ [...] directed. - Avoid driving when drowsy. - requisition approver for short naps (20-30 minutes) and use [...] best time for you. ?? ? Lise Amin APRN.CNP Interval history : Time in: 10:08 [...] directed. - Avoid driving when drowsy. - requisition approver for short naps (20-30 minutes) and use of caffeine if needed to help stay awake when driving. - Try to get at least 7-9 hours of sleep in a 24 hour period. Healthy diet and exercise can also promote better sleep. - Follow up in 3 months in the office. Recommend scheduling this appointment now to ensure the best time for you. Lise Amin APRN.REGISTERED ASSOCIATE Referring Provider: TULIO PABLO [[id number]] Allergies As of Date: 01/22/2018 (No Known [...] Disposition History Recorded Encounter Status:Closed by ALISON AMIN on 01/22/[address] [facility] PROGRESSon 01-22-2018 Protein mass conc HNO ID: [id number] Author: Lise Dewitt (Viri Amin Service: (none) Author Type: Nurse Practitioner Type: Progress Notes Filed: 01/22/2018 11:01 AM Note Text: [facility] Follow up/ [...] directed. - Avoid driving when drowsy. - requisition approver for short naps (20-30 minutes) and use [...] best time for you. ?? ? Lise Amin, RN SURGERY.REGISTERED ASSOCIATE Interval history : Time in: 10:08 AM [...] directed. - Avoid driving when drowsy. - requisition approver for short naps (20-30 minutes) and use of caffeine if needed to help stay awake when driving. - Try to get at least 7-9 hours of sleep in a 24 hour period. Healthy diet and exercise can also promote better sleep. - Follow up in 3 months in the office. Recommend scheduling this appointment now to ensure the best time for you. Lise Amin APRN.ALISON Normal [facility] CNOVon 10-22-2017 CN Office Visit (NEUR) ISIS GONCALVES ([id number]) 1980 F Date Time Provider Department 10/22/17 8:40 AM LISE AMIN ([facility]) [facility] During your visit today, we recorded the following information about you: Pulse Blood pressure Weight Height 60/minute 105/75 58.5 kg 1.753 m Lise Amin APRN.CNP 10/22/2017 10:00 AM Signed [facility] Follow up/ [...] directed. - Avoid driving when drowsy. - requisition approver for short naps (20-30 minutes) and use [...] ensure the best time for you. Lise Amin APRN.REGISTERED ASSOCIATE Referring Provider: TULIO PABLO [[id number]] Allergies As of Date: 10/22/2017 (No Known [...] Disposition History Recorded Encounter Status:Closed by ALISON AMIN on 10/22/17 [facility] 10-22-2017 Protein mass conc HNO ID: [id number] Author: Lise Dewitt (Viri Amin Service: (none) Author Type: Nurse Practitioner Type: Progress Notes Filed: 10/22/2017 10:00 AM Note Text: [facility] Follow up/ [...] directed. - Avoid driving when drowsy. - requisition approver for short naps (20-30 minutes) and use [...] ensure the best time for you. Lise Amin, MACK.REGISTERED ASSOCIATE Normal [facility] CNOVon 07-20-2017 CNOV Office Visit ([facility]) ISIS GONCALVES ([id number]) 1980 F Date Time Provider Department 07/20/17 8:25 AM TULIO PABLO During your visit today, we recorded the following information about you: Pulse Blood pressure Weight 67/minute 100/70 52.8 kg Tulio Pablo 07/20/2017 10:09 AM Signed [facility] New Patient [...] day. She has gained 3 pounds since '13. 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 Three children (12, 14 AND 17 [...] in 3 months. Tulio Pablo MD Normal [facility] Vital Signs Date Time Vital Sign Value Performing Clinician Facility 10-29-2024 15:58-0400 Body height 175.3 cm Gus Mondragon DPM FACFAS Work Phone: [facility] 10-29-2024 15:58-0400 Body mass index (BMI) [Ratio] 19.49 kg/m2 Gus Antonioeli DPM [facility]AS Work Phone: [facility] 10-29-2024 15:58-0400 Body weight 59.88 kg Gus Antonioeli DPM FACFAS Work Phone: [facility] 10-29-2024 15:58-0400 Diastolic blood pressure 71 mm[Hg] Gus Antonioeli DPM FACFAS Work Phone: [facility] 10-29-2024 15:58-0400 Heart rate 66 /min Gus Antonioeli DPM FAC[facility]AS Work Phone: [facility] 10-29-2024 15:58-0400 Systolic blood pressure 115 mm[Hg] Gus Antonioeli DPM FACFAS Work Phone: [facility] 10-13-2024 16:12-0400 Body height 175.3 cm Daniella Abdullahi ASSEMBLY MACHINE OPERATOR Work Phone: [facility] 10-13-2024 16:12-0400 Body mass index (BMI) [Ratio] 19.55 kg/m2 Daniella Abdullahi ASSEMBLY MACHINE OPERATOR Work Phone: [facility] 10-13-2024 16:12-0400 Body temperature 97.39 [degF] Daniella Abdullahi ASSEMBLY MACHINE OPERATOR Work Phone: [facility] 10-13-2024 16:12-0400 Body weight 60.06 kg Daniella Abdullahi ASSEMBLY MACHINE OPERATOR Work Phone: [facility] 10-13-2024 16:12-0400 Diastolic blood pressure 68 mm[Hg] Daniella Abdullahi ASSEMBLY MACHINE OPERATOR Work Phone: [facility] 10-13-2024 16:12-0400 Heart rate 64 /min Daniella Abdullahi ASSEMBLY MACHINE OPERATOR Work Phone: [facility] 10-13-2024 16:12-0400 SaO2% (BldA) [Mass fraction] 99 % Daniella Abdullahi ASSEMBLY MACHINE OPERATOR Work Phone: [facility] 10-13-2024 16:12-0400 Systolic blood pressure 112 mm[Hg] Daniella Dollson ASSEMBLY MACHINE OPERATOR Work Phone: [facility] 09-18-2024 09:30-0400 Body height 175.3 cm Candice King MD, IBCLC Work Phone: [facility] 09-18-2024 09:30-0400 Body mass index (BMI) [Ratio] 19.58 kg/m2 Candice King MD, IBCLC Work Phone: [facility] 09-18-2024 09:30-0400 Body temperature 97.39 [degF] Candice King MD, IBCLC Work Phone: [facility] 09-18-2024 09:30-0400 Body weight 60.15 kg Candice King MD, IBCLC Work Phone: [facility] 09-18-2024 09:30-0400 Diastolic blood pressure 72 mm[Hg] Candice King MD, IBCLC Work Phone: [facility] 09-18-2024 09:30-0400 Heart rate 79 /min Candice King MD, IBCLC Work Phone: [facility] 09-18-2024 09:30-0400 SaO2% (BldA) [Mass fraction] 99 % Candice King MD, IBCLC Work Phone: [facility] 09-18-2024 09:30-0400 Systolic blood pressure 120 mm[Hg] Candice King MD, IBCLC Work Phone: [facility] 06-24-2024 15:50-0400 Body height 175.3 cm Gonzalo Macias ASSEMBLY MACHINE OPERATOR Work Phone: [facility] 06-24-2024 15:50-0400 Body mass index (BMI) [Ratio] 19.94 kg/m2 Gonzalo Macias ASSEMBLY MACHINE OPERATOR Work Phone: [facility] 06-24-2024 15:50-0400 Body weight 61.24 kg Gonzalo Macias ASSEMBLY MACHINE OPERATOR Work Phone: [facility] 05-12-2024 09:52-0500 Body height 175.3 cm Candice King MD, IBCLC Work Phone: [facility] 05-12-2024 09:52-0500 Body mass index (BMI) [Ratio] 20.05 kg/m2 Candice King MD, IBCLC Work Phone: [facility] 05-12-2024 09:52-0500 Body temperature 97.11 [degF] Candice King MD, IBCLC Work Phone: [facility] 05-12-2024 09:52-0500 Body weight 61.6 kg Candice King MD, IBCLC Work Phone: [facility] 05-12-2024 09:52-0500 Diastolic blood pressure 74 mm[Hg] Candice King MD, IBCLC Work Phone: [facility] 05-12-2024 09:52-0500 Heart rate 75 /min Candice King MD, IBCLC Work Phone: [facility] 05-12-2024 09:52-0500 SaO2% (BldA) [Mass fraction] 99 % Candice King MD, IBCLC Work Phone: [facility] 05-12-2024 09:52-0500 Systolic blood pressure 124 mm[Hg] Candice King MD, IBCLC Work Phone: [facility] 03-25-2024 10:22-0500 Body height 175.3 cm Khanh Cerda MD Work Phone: [facility] 03-25-2024 10:22-0500 Body mass index (BMI) [Ratio] 20.67 kg/m2 Khanh Cerda MD Work Phone: [facility] 03-25-2024 10:22-0500 Body weight 63.5 kg Khanh Cerda MD Work Phone: [facility] 03-25-2024 10:22-0500 Diastolic blood pressure 83 mm[Hg] Khanh Cerda MD Work Phone: [facility] 03-25-2024 10:22-0500 Heart rate 86 /min Khanh Prashant SCHROEDER Work Phone: [facility] 03-25-2024 10:22-0500 Systolic blood pressure 134 mm[Hg] Khanh Prashant SCHROEDER Work Phone: [facility] 01-22-2024 11:35-0500 Body height 175.3 cm Khanh Cerda MD Work Phone: [facility] 01-22-2024 11:35-0500 Body mass index (BMI) [Ratio] 21.56 kg/m2 Khanh Prashant SCHROEDER Work Phone: [facility] 01-22-2024 11:35-0500 Body weight 66.22 kg Khanh Cerda MD Work Phone: [facility] 01-22-2024 11:35-0500 Diastolic blood pressure 88 mm[Hg] Khanh Cerda MD Work Phone: [facility] 01-22-2024 11:35-0500 Heart rate 62 /min Khanh Cerda MD Work Phone: [facility] 01-22-2024 11:35-0500 Systolic blood pressure 117 mm[Hg] Khanh Cerda MD Work Phone: [facility] 12-18-2023 16:04-0400 Body height 175.3 cm Khanh Cerda MD Work Phone: [facility] 12-18-2023 16:04-0400 Body mass index (BMI) [Ratio] 21.41 kg/m2 Khanh Cerda MD Work Phone: [facility] 12-18-2023 16:04-0400 Body weight 65.77 kg Khanh Cerda MD Work Phone: [facility] 12-18-2023 16:04-0400 Diastolic blood pressure 77 mm[Hg] Khanh Cerda MD Work Phone: [facility] 12-18-2023 16:04-0400 Heart rate 72 /min Khanh Cerda MD Work Phone: [facility] 12-18-2023 16:04-0400 Systolic blood pressure 117 mm[Hg] Khanh Cerda MD Work Phone: [facility] 04-24-2023 16:14-0500 Body height 175.3 cm Khanh Cerda MD Work Phone: [facility] 04-24-2023 16:14-0500 Body mass index (BMI) [Ratio] 24.22 kg/m2 Khanh Cerda MD Work Phone: [facility] 04-24-2023 16:14-0500 Body weight 74.39 kg Khanh Cerda MD Work Phone: [facility] 04-24-2023 16:14-0500 Diastolic blood pressure 77 mm[Hg] Khanh Cerda MD Work Phone: [facility] 04-24-2023 16:14-0500 Heart rate 67 /min Khanh Cerda MD Work Phone: [facility] 04-24-2023 16:14-0500 Systolic blood pressure 128 mm[Hg] Khanh Cerda MD Work Phone: [facility] 03-07-2023 14:20-0500 Body height 175.[address] Other [facility] Other 03-07-2023 14:20-0500 Body mass index (BMI) [Ratio] 25.54 kg/m2 Roshan Scovanner Other [facility] Other 03-07-2023 14:20-0500 Body weight 78.47 kg Roshan Scovanner Other [facility] Other 12-27-2022 09:20-0400 Body height 175.26 cm Roshan Scovanner Other [facility] Other 12-27-2022 09:20-0400 Body mass index (BMI) [Ratio] 25.54 kg/m2 Roshan Kanaovanner Other [facility] Other 12-27-2022 09:20-0400 Body weight 78.47 kg Roshan Kanaovanner Other [facility] Other 12-27-2022 09:20-0400 Diastolic blood pressure 77 mm[Hg] Roshan Scovanner Other [facility] Other 12-27-2022 09:20-0400 Systolic blood pressure 120 mm[Hg] Roshan Scovanner Other [facility] Other 10-19-2021 10:05-0400 Body height 175.26 cm Lilly Rakel Other [facility] Other 10-19-2021 10:05-0400 Body mass index (BMI) [Ratio] 25.1 kg/m2 Lilly Duttonmond Other [facility] Other 10-19-2021 10:05-0400 Body temperature 98.9 [degF] Lilly Rakel Other [facility] Other 10-19-2021 10:05-0400 Body weight 77.11 kg Lilly Duttonmond Other [facility] Other 10-19-2021 10:05-0400 Respiratory rate 18 /min Lilly Rakel Other [facility] Other 10-19-2021 10:05-0400 SaO2% (BldA) [Mass fraction] 95 % Lilly Rakel Other [facility] Other Encounters Encounter Date Encounter Type Care Provider Facility Start: 10-29-2024 End: 10-29-2024 Office outpatient visit 25 minutes Gus Mondragon DPM FACFAS Work Phone: [facility] Comment on above: Hammer toe of right foot (Primary Dx); Right foot pain; Onychocryptosis; Onychomycosis Start: 10-29-2024 End: 10-29-2024 Bamboo flowsheet Gus Mondragon DPM FACFAS Work Phone: [facility] Start: 10-29-2024 End: 10-29-2024 Bamboo flowsheet Gus Mondragon DPM FACFAS Work Phone: [facility] Start: 10-14-2024 End: 10-14-2024 Office outpatient visit 15 minutes Khanh Cerda MD Work Phone: [facility] Ronnie Vo [facility] Comment on above: Narcolepsy and catap soledad (HCC) (Primary Dx); Carpal tunnel syndrome, bilateral; Cervical paraspinal muscle spasm Start: 10-14-2024 End: 10-14-2024 ambulatory KHANH CERDA Not Available Start: 10-14-2024 End: 10-14-2024 Bamboo flowsheet Khanh Cerda MD Work Phone: [facility] Start: 10-14-2024 End: 10-14-2024 Bamboo flowsheet Khanh Cerda MD Work Phone: [facility] Start: 10-13-2024 End: 10-13-2024 Office outpatient visit 25 minutes Daniella Abdullahi NP Work Phone: [facility] Comment on above: Head and neck lympha denopathy (Primary Dx); Night sweats; Pruritus; Dizziness; Hypothyroidism, unspecified type Start: 10-13-2024 End: 10-13-2024 ambulatory DANIELLA ABDULLAHI Not Available Start: 10-13-2024 End: 10-13-2024 Bamboo flowsmiguelina Abdullahi ASSEMBLY MACHINE OPERATOR Work Phone: [facility] Start: 10-13-2024 End: 10-13-2024 Bamboo flowsheet Daniella Abdullahi ASSEMBLY MACHINE OPERATOR Work Phone: [facility] Start: 10-07-2024 ambulatory [place] Facility:[facility] Start: 09-18-2024 End: 09-18-2024 ambulatory CANDICE KING Not Available Start: 09-18-2024 End: 09-18-2024 Office outpatient visit 15 minutes Candice King MD, IBCLC Work Phone: [facility] Comment on above: Spider bite wound, a ccidental or unintentional, subsequent encounter (Primary Dx); Bipolar disorder, unspecified (HCC) Start: 09-17-2024 End: 09-17-2024 Emergency department patient visit Jethro Garcia [facility] Start: 08-28-2024 End: 08-28-2024 Office outpatient visit 10 minutes Gonzalo C Colleen ASSEMBLY MACHINE OPERATOR Work Phone: [facility] 111 Comment on above: Narcolepsy and catap soledad (HCC) (Primary Dx); Cervical paraspinal muscle spasm; Carpal tunnel syndrome, bilateral Start: 08-28-2024 End: 08-28-2024 ambulatory GONZALO C WINDNAGEL Not Available Start: 08-28-2024 End: 08-28-2024 Bamboo flowsheet Gonzalo C Windnagel ASSEMBLY MACHINE OPERATOR Work Phone: [facility] Start: 08-28-2024 End: 08-28-2024 Bamboo flowsheet Gonzalo C Windnagel ASSEMBLY MACHINE OPERATOR Work Phone: [facility] Start: 06-24-2024 End: 06-24-2024 Office outpatient visit 15 minutes Gonzalo C Windnagel ASSEMBLY MACHINE OPERATOR Work Phone: [facility] Comment on above: Narcolepsy and catap soledad (Primary Dx); Carpal tunnel syndrome, bilateral; Cervical paraspinal muscle spasm Start: 06-24-2024 End: 06-24-2024 ambulatory GONZALO Ministerio MACIAS Not Available Start: 06-24-2024 End: 06-24-2024 Bamboo flowsheet Gonzalo Ministerio Porternagel ASSEMBLY MACHINE OPERATOR Work Phone: [facility] Start: 06-24-2024 End: 06-24-2024 Bamboo flowsheet Gonzalo Ministerio Rangelgel ASSEMBLY MACHINE OPERATOR Work Phone: [facility] Start: 06-12-2024 End: 06-12-2024 Orders Only Candice King MD, IBCLC Work Phone: [facility] Comment on above: Encounter for screen ing mammogram for malignant neoplasm of breast (Primary Dx) Narcolepsy and catap soledad (CMS/HCC) Start: 06-09-2024 End: 06-09-2024 ambulatory CANDICE KING Not Available Start: 05-20-2024 End: 05-20-2024 Refglenn Taylor MA [facility] 111 Comment on above: Narcolepsy and catap soledad (CMS/HCC) Start: 05-12-2024 End: 05-12-2024 Bamboo capri King MD, [facility] Work Phone: [facility] Start: 05-12-2024 End: 05-12-2024 Bamboo capri King MD, [facility] Work Phone: [facility] Start: 05-12-2024 End: 05-12-2024 Office outpatient visit 25 minutes Candice King MD, IBCLC Work Phone: [facility] Comment on above: Diarrhea, unspecifie d type (Primary Dx); TMJ (temporomandibular joint disorder); Hemorrhoids, unspecified hemorrhoid type; Hot flashes; Encounter for screening mammogram for malignant neoplasm of breast Start: 05-12-2024 End: 05-12-2024 ambulatory CANDICE KING Not Available Start: 04-23-2024 End: 04-23-2024 Bamboo flowsheet Jamil Hoang PA Work Phone: [facility] Start: 04-23-2024 End: 04-23-2024 Bamboo flowsheet Jamilmedardo Bolton PA Work Phone: [facility] Start: 04-23-2024 End: 04-23-2024 Office outpatient new 45 minutes Jamil Hoang PA Work Phone: [facility] Comment on above: Other rosacea (Prima ry Dx); Acrochordon Start: 04-23-2024 End: 04-23-2024 ambulatory JAMILLacie MARINELLIM Not Available Start: 04-14-2024 End: 04-15-2024 Telephone encounter Khanh Cerda MD Work Phone: [facility] 111 Start: 03-25-2024 End: 03-25-2024 Bamboo flowsmiguelina Cerda MD Work Phone: [facility] Start: 03-25-2024 End: 03-25-2024 Bamboo flowsmiguelina Cerda MD Work Phone: [facility] Start: 03-25-2024 End: 03-25-2024 Office outpatient visit 15 minutes Khanh Cerda MD Work Phone: [facility] Comment on above: Narcolepsy and catap soledad (CMS/HCC) (Primary Dx); Carpal tunnel syndrome, bilateral; Cervical paraspinal muscle spasm Start: 03-25-2024 End: 03-25-2024 ambulatory KHANH CERDA Not Available Start: 02-19-2024 End: 02-20-2024 Refill Rocio Taylor MA [facility] 111 Comment on above: Narcolepsy and catap soledad (CMS/HCC) (Primary Dx) Start: 01-22-2024 End: 01-22-2024 Bamboo flowsmiguelina Cerda MD Work Phone: [facility] Start: 01-22-2024 End: 01-22-2024 Bamboo flowsmiguelina Cerda MD Work Phone: [facility] Start: 01-22-2024 End: 01-22-2024 Office outpatient visit 25 minutes Khanh Cerda MD Work Phone: [facility] Comment on above: Narcolepsy and catap soledad (CMS/HCC) (Primary Dx); Carpal tunnel syndrome, bilateral; Cervical paraspinal muscle spasm Start: 01-22-2024 End: 01-22-2024 ambulatory KHANH Mark BEJ Not Available Start: 01-09-2024 End: 01-09-2024 Telephone encounter Khanh Cerda MD Work Phone: [facility] 111 Start: 12-18-2023 End: 12-18-2023 Office outpatient visit 25 minutes Khanh Cerda MD Work Phone: [facility] Comment on above: Narcolepsy and catap soledad (CMS/HCC) (Primary Dx); Carpal tunnel syndrome, bilateral; Cervical paraspinal muscle spasm Start: 12-18-2023 End: 12-18-2023 ambulatory KHANH CERDA Not Available Start: 12-18-2023 End: 12-18-2023 Bamboo flowsheet Khanh Cerda MD Work Phone: [facility] Start: 12-18-2023 End: 12-18-2023 Bamboo flowsheet Khanh Cerda MD Work Phone: [facility] Start: 12-11-2023 End: 12-13-2023 Telephone encounter Khanh Cerda MD Work Phone: [facility] 111 Start: 12-03-2023 End: 12-03-2023 ambulatory Alyssa Merritt [facility] Start: 12-03-2023 End: 12-03-2023 Lab Drop off Alyssa Merritt [facility] Start: 11-23-2023 End: 11-23-2023 Refglenn Taylor MA [facility] 111 Comment on above: Narcolepsy and catap soledad (CMS/HCC) Start: 11-20-2023 End: 11-21-2023 Refill Khanh Cerda MD Work Phone: [facility] 111 Comment on above: Narcolepsy and catap soledad (CMS/HCC) Start: 10-26-2023 End: 10-26-2023 ambulatory Alyssa J Shaina [facility] Start: 10-26-2023 End: 10-26-2023 Lab Drop off Alyssa Navjot Merritt [facility] Start: 10-23-2023 End: 10-23-2023 ambulatory KHANH CERDA Not Available Start: 04-24-2023 End: 04-24-2023 Office outpatient visit 15 minutes Khanh Cerda MD Work Phone: [facility] Comment on above: Narcolepsy and catap soledad (CMS/HCC) (Primary Dx); Carpal tunnel syndrome, bilateral Start: 03-07-2023 End: 03-07-[address] Other [facility] Other Start: 03-07-2023 Office outpatient vi sit 15 minutes Ros[address] [facility] Start: 02-19-2023 End: 02-19-2023 [address] Other [facility] Other Start: 02-19-2023 Telephone encounter [facility] Start: 01-25-2023 End: 01-25-2023 ambulatory ISAIAH-Ministerio Edward Work Phone: [facility] Work Phone: Start: 01-25-2023 End: 01-25-2023 Patient encounter procedure ASSEMBLY MACHINE OPERATOR-Ministerio Edward Work Phone: [facility] [place] Work Phone: Start: 12-27-2022 End: 12-27-2022 [address] Other [facility] Other Start: 12-27-2022 Office outpatient vi sit 15 minutes Roshan Plaza [facility] Start: 09-29-2022 End: 09-29-2022 Pre-admission assessment Triston Moe [facility] Start: 08-01-2022 End: 08-01-2022 Patient encounter procedure Triston Moe [facility] Start: 07-07-2022 End: 07-07-[address] DOCTOR SHEETS Facility: Start: 05-17-2022 End: 05-18-[address] DOCTOR SHEETS Facility: Start: 05-15-2022 End: 05-16-[address] DOCTOR SHEETS Facility:[facility] Start: 04-13-2022 ambulatory [facility] Start: 01-20-2022 End: 01-21-2022 ambulatory [facility] Start: 10-19-2021 End: 10-19-2021 ambulatory Lilly Ellington Other [facility] Other Start: 10-19-2021 Office outpatient ne w 20 minutes Lilly Ellington [facility] Start: 01-07-2021 End: 01-16-2021 ambulatory LUCA SIMMONS Facility:[facility] Start: 01-06-2021 End: 01-07-2021 ambulatory REFERRED SELF Facility:[facility] Start: 11-30-2020 End: 12-30-2020 ambulatory REFERRED SELF Facility:[facility] Start: 04-22-2018 End: 04-22-2018 [facility] Start: 01-22-2018 End: 01-22-2018 Patient encounter procedure LISE AMIN [facility] Start: 10-22-2017 End: 10-22-2017 Patient encounter procedure LISE Dewitt (REGISTERED ASSOCIATE) ELOISA [facility] Start: 07-20-2017 End: 07-23-2017 Patient encounter procedure TULIO Oden DANDY [facility] Procedures Date Procedure Procedure Detail Performing Clinician Start: 10-29-2024 Radex foot complete minimum 3 views Gus Mondragon DPM FACFAS Work Phone: Start: 06-09-2024 Mammography Candice King MD, IBCLC [...] Screening for malign ant neoplasm of cervix [facility] Start: 06-12-2025 End: 08-12-2025 DBT Breast - bilateral screening Bilateral screening mammogram with tomosynthesis Imaging Routine Encounter for screening mammogram for malignant neoplasm of breast Expected: 06/12/2025, Expires: 08/12/2025 [facility] Work Phone: Comment on above: Expected: 06/12/2025 , Expires: 08/12/2025 Start: 06-09-2025 Screening for malign ant neoplasm of breast Mammogram [facility] Start: 04-14-2025 End: 04-14-2025 Patient encounter procedure 04/14/2025 4:45 PM EST Office Visit [facility] [address] [facility] [address] [place] [address] Khanh Cerda MD [address] [phone] [facility] Start: 12-16-2024 End: 12-16-2024 Patient encounter procedure [facility] Start: 11-17-2024 Influenza vaccination [facility] Start: 11-12-2024 End: 11-12-2024 Patient encounter procedure 11/12/2024 4:00 PM EDT Office Visit [facility] [address] [place] [phone] Gus Mondragon, DPM [facility] [address] [place] [address] [facility] Start: 10-29-2024 End: 10-29-2024 Patient encounter procedure 10/29/2024 4:00 PM EDT Office Visit [facility] [address] [place] [phone] Gus Mondragon, DPM [facility] [address] [place] [address] Arrived [facility] Comment on above: Arrived Start: 10-15-2024 End: 10-14-2025 XR Chest 2 Views XR chest 2 views Imaging Routine Head and neck lymphadenopathy Night sweats Pruritus Expected: 10/15/2024 (Approximate), Expires: 10/14/2025 [facility] Comment on above: Expected: 10/15/2024 (Approximate), Expires: 10/14/2025 Start: 10-14-2024 End: 10-14-2024 Patient encounter procedure [facility] Comment on above: Arrived Start: 10-13-2024 End: 10-13-2024 Patient encounter procedure 10/13/2024 4:20 PM EDT Office Visit [facility] [address] [place] [phone] Daniella Abdullahi NP [address] [place] [address] Arrived JENN Garcia [facility] Comment on above: Arrived Start: 09-23-2024 End: 09-23-2024 Patient encounter procedure 09/23/2024 4:15 PM EDT Office Visit [facility] [address] [place] [address] Khanh Cerda MD [address] [phone] [facility] Start: 08-28-2024 End: 08-28-2024 Patient encounter procedure 08/28/2024 2:30 PM EDT Office Visit [facility] 111 [address] [place] [phone] Gonzalo Macias, ASSEMBLY MACHINE OPERATOR [address] Muniz, [address] [place] [address] Arrived [facility] 111 Comment on above: Arrived Start: 06-24-2024 End: 06-24-2024 Patient encounter procedure [facility] Comment on above: Arrived Start: 06-09-2024 End: 06-09-2024 Professional / ancillary services management 06/09/2024 5:00 PM EDT Ancillary Procedure [facility] [place] [address] [facility] [address] [place] [phone] [facility] [place] Start: 05-12-2024 End: 05-12-2025 25-hydroxyvitamin D3 [Mass/volume] in Serum or Plasma Vitamin D 25 hydroxy Total Lab Routine Diarrhea, unspecified type Hot flashes Expected: 05/12/2024 (Approximate), Expires: 05/12/2025 [facility] Comment on above: Expected: 05/12/2024 (Approximate), Expires: 05/12/2025 Start: 05-12-2024 End: 05-12-2025 CBC W Auto Differential panel - Blood CBC and differential Lab Routine Diarrhea, unspecified type Hot flashes Expected: 05/12/2024 (Approximate), Expires: 05/12/2025 [facility] Work Phone: Comment on above: Expected: 05/12/2024 (Approximate), Expires: 05/12/2025 Start: 05-12-2024 End: 05-12-2025 Cobalamin (Vitamin B12) [Mass/volume] in Serum or Plasma Vitamin B12 Lab Routine Diarrhea, unspecified type Hot flashes Expected: 05/12/2024 (Approximate), Expires: 05/12/2025 [facility] Comment on above: Expected: 05/12/2024 (Approximate), Expires: 05/12/2025 Start: 05-12-2024 End: 05-12-2025 Comprehensive metabolic 2000 panel - Serum or Plasma Comprehensive metabolic panel Lab Routine Diarrhea, unspecified type Hot flashes Expected: 05/12/2024 (Approximate), Expires: 05/12/2025 [facility] Comment on above: Expected: 05/12/2024 (Approximate), Expires: 05/12/2025 Start: 05-12-2024 End: 07-10-2025 DBT Breast - bilateral screening Bilateral screening mammogram with tomosynthesis Imaging Routine Encounter for screening mammogram for malignant neoplasm of breast Expected: 05/12/2024, Expires: 07/10/2025 [facility] Comment on above: Expected: 05/12/2024 , Expires: 07/10/2025 Start: 05-12-2024 End: 05-12-2025 Ferritin [Mass/volume] in Serum or Plasma Ferritin Lab Routine Diarrhea, unspecified type Hot flashes Expected: 05/12/2024 (Approximate), Expires: 05/12/2025 [facility] Comment on above: Expected: 05/12/2024 (Approximate), Expires: 05/12/2025 Start: 05-12-2024 End: 05-12-2025 IgA [Mass/volume] in Serum or Plasma IgA Lab Routine Diarrhea, unspecified type Hot flashes Expected: 05/12/2024 (Approximate), Expires: 05/12/2025 [facility] Comment on above: Expected: 05/12/2024 (Approximate), Expires: 05/12/2025 Start: 05-12-2024 End: 05-12-2025 Lipid 1996 panel - Serum or Plasma Lipid panel Lab Routine Diarrhea, unspecified type Hot flashes Expected: 05/12/2024 (Approximate), Expires: 05/12/2025 [facility] Comment on above: Expected: 05/12/2024 (Approximate), Expires: 05/12/2025 Start: 05-12-2024 End: 05-12-2025 Thyrotropin [Units/volume] in Serum or Plasma TSH Lab Routine Diarrhea, unspecified type Hot flashes Expected: 05/12/2024 (Approximate), Expires: 05/12/2025 [facility] Comment on above: Expected: 05/12/2024 (Approximate), Expires: 05/12/2025 Start: 05-12-2024 End: 05-12-2025 Thyroxine (T4) free [Mass/volume] in Serum or Plasma T4, free Lab Routine Diarrhea, unspecified type Hot flashes Expected: 05/12/2024 (Approximate), Expires: 05/12/2025 [facility] Comment on above: Expected: 05/12/2024 (Approximate), Expires: 05/12/2025 Start: 05-12-2024 End: 05-12-2025 Tissue transglutaminase, IgA Tissue transglutaminase, IgA Lab Routine Diarrhea, unspecified type Hot flashes Expected: 05/12/2024 (Approximate), Expires: 05/12/2025 [facility] Comment on above: Expected: 05/12/2024 (Approximate), Expires: 05/12/2025 Start: 05-12-2024 End: 05-12-2024 Patient encounter procedure 05/12/2024 10:00 AM EST Office Visit [facility] [address] [place] [phone] Candice King MD, IBCLC [address] [place] [address] Arrived [facility] Comment on above: Arrived Start: 05-04-2024 Screening for malign ant neoplasm of breast Mammogram [facility] Start: 04-23-2024 End: 04-23-2024 Patient encounter procedure [facility] Comment on above: Arrived Start: 03-25-2024 End: 03-25-2024 Patient encounter procedure [facility] Comment on above: Arrived Start: 03-04-2024 End: 03-04-2024 Patient encounter procedure 03/04/2024 4:30 PM EST Office Visit [facility] [address] [facility] [address] [place] [phone] Khanh Cerda MD [address] [facility] [address] [phone] [facility] Start: 01-22-2024 End: 01-22-2024 Patient encounter procedure 01/22/2024 11:30 AM EST Office Visit [facility] [address] [facility] [address] [place] [phone] Khanh Cerda MD [address] [phone] Arrived [facility] Comment on above: Arrived Start: 01-21-2024 End: 01-21-2024 Patient encounter procedure 01/21/2024 4:00 PM EST Office Visit [facility] [address] [place] [phone] Candice King MD, IBCLC [address] [place] [address] [facility] Start: 12-20-2023 End: 12-20-2023 Patient encounter procedure 12/20/2023 8:20 AM EDT Office Visit [facility] [address] [place] [address] Candice King MD, IBCLC [address] [place] [address] [facility] Start: 12-18-2023 End: 12-18-2023 Patient encounter procedure [facility] Comment on above: Arrived Start: 11-18-2023 Influenza vaccination Influenza Vacc ine (#1) [facility] Start: 09-24-2023 Screening for malign ant neoplasm of cervix Pap Smear [facility] Start: 09-16-2023 Influenza vaccination Influenza Vacc ine (#1) [facility] Comment on above: Postponed from 11/17 (Patient Refused) Start: 06-26-2023 End: 06-26-2023 Patient encounter procedure 06/26/2023 4:15 PM EDT Office Visit [facility] [address] [facility] [address] [place] [address] Khanh Cerda MD [address] [facility] [address] [place] [address] [facility] Start: 2020 Screening for malign ant neoplasm of breast Mammogram [facility] Start: 2010 Screening for malign ant neoplasm of cervix [facility] Start: 2001 Screening for malign ant neoplasm of cervix Pap Smear [facility] Bacteria identified in Throat by Aerobe culture Throat culture, comprehensive Microbiology Routine Head and neck lymphadenopathy Night sweats Pruritus Ordered: 10/15/2024 [facility] Comment on above: Ordered: 10/15/2024 C reactive protein [Mass/volume] in Serum or Plasma C-reactive protein Lab Routine Head and neck lymphadenopathy Night sweats Pruritus Ordered: 10/15/2024 [facility] Comment on above: Ordered: 10/15/2024 CBC W Auto Different ial panel - Blood CBC and differential Lab Routine Head and neck lymphadenopathy Night sweats Pruritus Ordered: 10/15/2024 [facility] Work Phone: Comment on above: Ordered: 10/15/2024 Cobalamin (Vitamin B 12) [Mass/volume] in Serum or Plasma Vitamin B12 Lab Routine Dizziness Ordered: 10/15/2024 [facility] Comment on above: Ordered: 10/15/2024 Comprehensive metabo lic 2000 panel - Serum or Plasma Comprehensive metabolic panel Lab Routine Dizziness Ordered: 10/15/2024 [facility] Comment on above: Ordered: 10/15/2024 Erythrocyte sediment ation rate Sedimentation rate, automated Lab Routine Head and neck lymphadenopathy Night sweats Pruritus Ordered: 10/15/2024 [facility] Comment on above: Ordered: 10/15/2024 Ferritin [Mass/volum e] in Serum or Plasma Ferritin Lab Routine Head and neck lymphadenopathy Night sweats Pruritus Dizziness Ordered: 10/15/2024 [facility] Comment on above: Ordered: 10/15/2024 Hepatitis 1996 panel - Serum Hepatitis panel, acute Lab Routine Head and neck lymphadenopathy Night sweats Pruritus Ordered: 10/15/2024 [facility] Comment on above: Ordered: 10/15/2024 HIV-1/HIV-2 antigen/antibody combination immunoassay HIV-1 and HIV-2 antibodies Lab Routine Head and neck lymphadenopathy Night sweats Pruritus Ordered: 10/15/2024 [facility] Comment on above: Ordered: 10/15/2024 Iron and Iron bindin g capacity panel - Serum or Plasma Iron and TIBC Lab Routine Head and neck lymphadenopathy Night sweats Pruritus Dizziness Ordered: 10/15/2024 [facility] Comment on above: Ordered: 10/15/2024 Lactate dehydrogenas e [Enzymatic activity/volume] in Serum or Plasma by Lactate to pyruvate reaction Lactate dehydrogenase Lab Routine Head and neck lymphadenopathy Night sweats Ordered: 10/15/2024 [facility] Comment on above: Ordered: 10/15/2024 Mononucleosis screen Mononucleos is screen Lab Routine Head and neck lymphadenopathy Night sweats Pruritus Ordered: 10/15/2024 [facility] Comment on above: Ordered: 10/15/2024 QUANTIFERON TB GOLD Quantiferon TB Gold Lab Routine Head and neck lymphadenopathy Night sweats Pruritus Ordered: 10/15/2024 [facility] Comment on above: Ordered: 10/15/2024 Thyroid peroxidase a nd thyroglobulin antibodies Thyroid peroxidase and thyroglobulin antibodies Lab Routine Hypothyroidism, unspecified type Ordered: 10/15/2024 [facility] Comment on above: Ordered: 10/15/2024 Thyrotropin [Units/volume] in Serum or Plasma TSH Lab Routine Hypothyroidism, unspecified type Ordered: 10/15/2024 [facility] Comment on above: Ordered: 10/15/2024 Thyroxine (T4) free [Mass/volume] in Serum or Plasma T4, free Lab Routine Head and neck lymphadenopathy Night sweats Pruritus Hypothyroidism, unspecified type Ordered: 10/15/2024 [facility] Comment on above: Ordered: 10/15/2024 Triiodothyronine (T3 ) Free [Mass/volume] in Serum or Plasma T3, free Lab Routine Hypothyroidism, unspecified type Ordered: 10/15/2024 [facility] Comment on above: Ordered: 10/15/2024 Immunizations Immunization Date Immunization Notes Care Provider Syed beckman 10-02-2020 COVID-19 mRNA, Comirnaty (Pfizer) TIMOTHY Edward Work Phone: [facility] 09-11-2020 COVID-19 mRNA Comirnaty (Pfizer) TIMOTHY Edward Work Phone: [facility] 07-09-2014 tetanus toxoid, redu alesha diphtheria toxoid, and acellular pertussis vaccine, adsorbed Basem Moe [facility] Payers Date Payer Category Payer Private Health Insurance [id number] 2024 Medicaid [id number] 2022 Self-pay [id number] 2021 Blue [employer] Blue Shield BCBS [id number] 5 2021 Unknown [id number] .[id number] 2018 Unknown [id number] 2014 Medicaid [id number] .[id number] 1980 Unknown [id number] 2.16.840.1.563758.3.579 .2. 1980 Unknown [id number] 2.16.840.1.353078.3.579 .2.647 1980 Unknown [id number] 2.16.840.1.233754.3.579 .2. 1980 Unknown [id number] 2.16.840.1.404957.3.579 .2.59 1980 Unknown [id number] 2.16840.1.623053.3.579 .2.59 1980 Unknown [id number] 2.16.840.1.254732.3.579 .2.59 1980 Unknown [id number] 2.16840.1.075074.3.579 .2. 1980 Unknown [id number] 2.16840.1.967773.3.579 .2. 1980 Unknown [id number] 2.840.1.689804.3.579 .2. 1980 Unknown [id number] 2.840.1.347699.3.579 .2. 1980 Unknown [id number] 2.16840.1.253328.3.579 .2.1258 1980 Unknown [id number] 2.16840.1.276677.3.579 .2.1258 1980 Unknown [id number] 2.16840.1.976994.3.579 .2.1258 1980 Unknown [id number] 2.16840.1.619744.3.579 .2.1258 1980 Unknown [id number] 2.16840.1.676825.3.579 .2.1258 1980 Unknown [id number] 2.16.840.1.696268.3.579 .2.1258 1980 Unknown [id number] 2.16840.1.903819.3.579 .2.1258 1980 Unknown [id number] 2.16.840.1.258198.3.579 .2.1258 1980 Unknown [id number] 2.16.840.1.306278.3.579 .2.1258 1980 Unknown [id number] 2.16.840.1.255368.3.579 .2.1258 1980 Unknown [id number] 2.16.840.1.669942.3.579 .2.1258 1980 Unknown [id number] 2.16.840.1.415210.3.579 .2.1259 1959 [facility] [id number] 2.16.840.1.401843.19 Medicaid [employer] [id number] Unknown [id number] 2.16.840.1.678789.3.579 .2.531 Worker's Compensation [id number] Social History Date Type Detail Facility Start: 04-13-2023 End: 10-13-2024 Sex Assigned At [facility] Start: 04-30-2019 Tobacco smoking status Former smokeless tobacco user, quit more than 30 days ago [facility] Start: 05-16-2021 End: 08-30-2023 Tobacco smoking status [facility] Ex-smoker (finding) [facility] Start: 1980 Sex Assigned At Female F [facility] End: 03-19-2018 History of tobacco use Current smoker [facility] End: 03-19-2018 History of tobacco use Cigar Smoker [facility] Start: 01-30-2023 End: 08-30-2023 Tobacco use and exposure Smokeless tobacco non-user [facility] Start: 04-13-2023 End: 10-29-2024 Alcohol intake Current drinker of alcohol (finding) [facility] Start: 04-13-2023 End: 10-13-2024 History of Social function [facility] Start: 09-01-2022 Alcohol Comment Monthly or les s, Caffeine: 1-2 cups per day [facility] Start: 1980 Sex Assigned At Not on file N [facility] Start: 08-30-2023 Tobacco Comment 3-4 cigars per day N [facility] Sexual Orientation [facility] Start: 06-07-2018 Sex Female (finding) [facility] Functional Status Date Assessment Result Facility 10-13-2024 Patient Health [facility] ionnaire 2 item (PHQ-2) [Reported] [facility] Clinical Notes 10-19-2021 to 10-29-2024 Gus Mondragon DPM FACFAS - 10/29/2024 4:00 PM EDTMarthur Cerda MD - 10/14/2024 4:30 PM EDPradip Cerda MD - 10/14/2024 4:30 PM EDTMarthur Cerda MD - 10/14/2024 4:30 PM EDT Note Date & Type Note Facility 10-29-2024 History of Present illness Narrative Images from the original note were not included. Patient: Isis Bryson : 1980 PCP: Candice King MD, IBCLC SUBJECTIVE This is a 44 y.o. female that presents today for a chief complaint of pain about the distal aspect of the right 3rd digit she would previous hammertoe surgery performed by Dr. Newman and has pain with the distal aspect of the 3rd digit. 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) Narcolepsy ([facility]) Medications: Current Outpatient Medications: busPIRone HCl 10 [...] tablet, Rfl: 0 varenicline (Chantix Continuing Month Mai) 1 MG tablet, Take 1 tablet (1 mg) by mouth in the morning and 1 tablet (1 mg) before bedtime. Take with full glass of water.., Disp: 180 tablet, Rfl: 0 varenicline (Chantix Continuing Month Mai) 1 MG tablet, Take 1 tablet (1 [...] are palpable bilateral, no edema noted Neuro: [place] 5.07 monofilament intact, vibratory sensation intact Derm: All hair growth noted skin temperature is warm to cool knees to toes Bilateral great toenails are thickened elongated yellow and crumbly lifting from the nailbed. Musculoskeletal: Muscle strength +5/5 all intrinsic and extrinsic muscles tested claw-toe deformity noted right 3rd digit the level of the DIPJ joint pain with direct palpation of the DIPJ joint. Toe is not reducible as rigidly contracted and slightly deviated medially. XRAY: AP/MO/LAT: pedal radiographs demonstrate intact cortical margins and anatomic alignment. Joint spaces are maintained throughout the midfoot forefoot and hindfoot without evidence of acute fracture dislocation or arthropathy Hammertoe deformity noted right 3rd digit the level of the DIPJ joint appears to be slightly subluxed ASSESSMENT 1. Hammer toe of right foot 2. Right foot pain 3. Onychocryptosis 4. Onychomycosis PLAN I educated the patient on the hammertoe deformity at the level of the DIPJ joint. She was attempted numerous conservative therapies including pads anti-inflammatory medication shoe gear modifications. She is complaining of deviation of the DIPJ joint. I did discuss possible arthroplasty of the DIPJ joint of the right 3rd digit. She will attempt to have this approved by her work to have some time off to have it done. She was to continue wearing wider toe box shoes and pads. Second digit today we debrided both length and thickness. I discussed onychomycosis with the patient she was to apply Vicks Vaporub to the nails I offered removing the nails to her we will further discuss on her next visit AFIA Beyer documented in this encounter [facility] 10-14-2024 History of Present illness Narrative Associated Problem(s): Narcolepsy and cataplexy (HCC) Retry modafinil 100 qam, may incr to 200. May adjust timing as well. If fog side effect recurs, pt may stop med. (Continue GHB.) Urine level q Dec. Associated Problem(s): Carpal tunnel syndrome, bilateral (Continue splints B nightly.) Associated Problem(s): Cervical paraspinal muscle spasm (Continue home PT.) Images from the original note were not included. Outpatient Progress Note Patient: Isis Bryson Dept: Neurology : 1980 Appt Date: 10/14/2024 Prev Appt: 06/24/2024 Chief Complaint Patient presents with Narcolepsy Appointment Note -- Follow Up Assessment and Plan - Assessment & Plan Narcolepsy and cataplexy (HCC) Retry modafinil 100 qam, may incr to 200. May adjust timing as well. If fog side effect recurs, pt may stop med. (Continue GHB.) Urine level q Dec. Carpal tunnel syndrome, bilateral (Continue splints B nightly.) Cervical paraspinal muscle spasm (Continue home PT.) No orders of the defined types were placed in this encounter. Follow-Up - Follow up in about 6 months (around 04/16/2025). Lab Frequency Next Occurrence History of Present Illness, Associated Treatments and Results - Dx NARCOLEPSY Tx OFF dMPH ER 5 bid + GHB (Xywav) 4.5 g bin (buspirone 10 bid --psych) + CBT for insomnia AEs Hx Diurnal - off dMPH, which was causing significant anxiety. However, dragging somewhat in the afternoon. Nocturnal - tolerating GHB well, quite well rested AM. Remains noticeably more alert 1st AM. Some nights waking up 2.5 h after 1st dose, though rather variable. Sometimes sleeps 8 h on one dose. Bipolar, hx suicide attempt. Failed MPH XR 30 ( hyper even with XR, tachycardia, anxiety), Adderall (tachycardia), modafinil 300 ( fog ) GHB/Xyrem (nausea) Semeiology Diurnal hypersomnia. Sleep paralysis. No known HH. 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 getting upset. Circ[place] Often works until 1800, sometimes 1900. In bed 2633-0311. Noct oxim PSG ([facility] [...] new complaints. Myofasciitis - neck remains stiff. Sharp pain in R hand > L.. Neck pain rad into shlds bilat. PT made pain worse Onset Semeiology Imaging Testing [facility] (08/2023, medians) [...] ___, unchanged: ___, orig: ___ MS - ___, unchanged: Significantly more alert, not yawning, orig: Yawning frequently CNN - ___, unchanged: ___, orig: ___ Motor - ___, unchanged: ___, orig: ___ Sens - ___, unchanged: ___, orig: ___ Reflex - ___, unchanged: ___, orig: ___ Coord - ___, unchanged: ___, orig: ___ Gait - ___, unchanged: ___, orig: ___ Vestib - ___, unchanged: ___, orig: ___ MSK - Spasm - SCMs mild Tr C min, unchanged: ___, orig: ___ Other - ___, unchanged: ___, orig: ___ Vital Signs - Visit Vitals Smoking Status Former Review of Systems - . Const: Denies [...] Diagnosis Date Bipolar disorder (HCC) Narcolepsy (HCC) PTSD (post-traumatic stress disorder) Past Surgical History: Procedure Laterality Date APPENDECTOMY 1999 FOOT SURGERY Right 08/2017 LOOP RECORDER IMPLANT 12/2020 TUBAL LIGATION 2002 Allergies Allergen Reactions Azithromycin Shortness of breath Cephalexin Shortness of breath Family History Problem Relation Name Age of Onset Mental illness Mother Diabetes Mother Bipolar disorder Mother Depression Mother Heart disease Father Hypertension Father Cancer Sibling Melanoma Neg Hx Outpatient Encounter Medications as of 10/14/2024 Medication Sig Dispense Refill busPIRone (Buspar) 5 MG tablet Take by mouth 2 (two) times a day (Patient taking differently: Take 10 mg by mouth in the morning and 10 mg before bedtime.) Ca, Mg, K, and Na Oxybates (XYWAV PO) Take by mouth varenicline (Chantix Continuing Month ) 1 MG tablet Take 1 tablet (1 mg) by mouth in the morning and 1 tablet (1 mg) before bedtime. Take with full glass of water.. 180 tablet 0 varenicline (Chantix Continuing Month ) 1 MG tablet Take 1 tablet (1 mg) by mouth in the morning and 1 tablet (1 mg) before bedtime. Take with full glass of water.. 60 tablet 2 [DISCONTINUED] doxycycline (Vibramycin) 100 MG capsule No facility-administered encounter medications on file as of 10/14/2024. Khanh Cerda M.D. [facility] Neurology ? [id number] ? [place], [place] [address] ? ? fax Neurology ? Clinical Neurophysiology ? Epilepsy ? Sleep Disorders ? Clinical Informatics documented in this encounter [facility] 10-13-2024 History of Present illness Narrative Images from the original note were not included. Isis Bryson is a 44 y.o. female here today for lump on neck SUBJECTIVE: History Provided by: patient History of Present Illness The patient presents for evaluation of a hard lump on the back of her neck, scalp itchiness, and fatigue. She reports several hard, painless lumps on the back of her neck and tender lump to head posteriorly. Noticed recently but unsure of time frame and has bee worried she had lice or something bc of the head itching she has been experiencing. Had her kids check and no signs of lice or any wounds, lesions, erythema. She also mentions frequent neck pain and a recent spider bite on her leg. Denies hitting her head or trauma to head. She has been experiencing severe itchiness and soreness on the back of her head for over a month, which she initially attributed to frequent hair washing. She has reduced the frequency of hair washing but the symptoms persist. Her children have checked her for lice multiple times due to the itchiness. She has not experienced any fevers or other signs of infection or illness. She has not had any rashes or sore throat. She does palpate areas on head and neck that are lumps and tender to post head and non tender to left neck under chin and at base of neck. She has a history of narcolepsy and continues to experience fatigue. She was previously on Focalin for narcolepsy but discontinued it due to severe anxiety. She is currently taking Xywav for narcolepsy, which sometimes helps her sleep. She experiences night sweats also and is not sure if it is a side effect of medication. She is also taking Chantix since 08/2024 and minocycline as needed for acne flare-ups around her menstrual period. She took doxycycline for 14 days for the spider bite. She has lost weight from 196 pounds to 132 pounds and was not intentionally trying to lose weight. She does not have much of an appetite anymore. She is currently taking BuSpar 10 mg twice daily. She experiences intermittent diarrhea, particularly around her menstrual period. She has been evaluated for polyps and diagnosed with GERD in the past. She underwent a colonoscopy, which was normal. She was prescribed medication for GERD but discontinued it as she felt well. She has a history of poor dental health and does still smoke cigarrettes. She has a history of anxiety and panic attacks, which can cause dizziness. She is currently in counseling, which she finds beneficial. 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 Current Outpatient Medications Medication Instructions busPIRone HCl 10 mg, Oral, 2 times daily Ca, Mg, K, and Na Oxybates (XYWAV PO) 1 Dose, Daily minocycline (DYNACIN) 100 mg, 2 times daily modafinil (Provigil) 200 MG tablet 1/2-1 tab QAM varenicline (CHANTIX CONTINUING MONTH MAI) 1 mg, Oral, 2 times daily, Take with full glass of water. varenicline (CHANTIX CONTINUING MONTH MAI) 1 mg, Oral, 2 times daily, Take with full glass of water. I have reviewed and reconciled the history, allergies, family history, social history, and medication list with the patient today. OBJECTIVE: BP 112/68 Pulse 64 Temp 97.4 F Ht 5' 9 Wt 132 lb 6.4 oz SpO2 99% BMI 19.55 kg/m Physical Exam Vitals and nursing note reviewed. Constitutional: Appearance: Normal appearance. HENT: Head: Normocephalic and atraumatic. Comments: No visible erythema, rash to head or insects where pt reports itchy. Does have tender lump to post head flat raised slightly. Right Ear: Tympanic membrane, ear canal and external ear normal. Left Ear: Tympanic membrane, ear canal and external ear normal. Nose: Nose normal. Mouth/Throat: Mouth: Mucous membranes are moist. Pharynx: No posterior oropharyngeal erythema. Eyes: Extraocular Movements: Extraocular movements intact. Conjunctiva/sclera: Conjunctivae normal. Pupils: Pupils are equal, round, and reactive to light. Cardiovascular: Rate and Rhythm: Normal rate and regular rhythm. Heart sounds: Normal heart sounds. Pulmonary: Effort: Pulmonary effort is normal. Breath sounds: Normal breath sounds. Abdominal: General: Abdomen is flat. Palpations: Abdomen is soft. Musculoskeletal: General: Normal range of motion. Lymphadenopathy: Cervical: Cervical adenopathy present. Left cervical: Superficial cervical adenopathy and posterior cervical adenopathy present. Skin: General: Skin is warm and dry. Comments: Multiple palpable lumps to post head on right, left lateral neck x 2, left neck base x 1. Neurological: General: No focal deficit present. Mental Status: She is alert and oriented to person, place, and time. Psychiatric: Mood and Affect: Mood normal. Behavior: Behavior normal. Thought Content: Thought content normal. Judgment: Judgment normal. Physical Exam Results Depression screening Over the past 2 weeks, how often have you been bothered by any of the following problems? Little interest or pleasure in doing things: Not at all Feeling down, depressed, or hopeless: Not at all Patient Health Questionnaire-2 Score: 0 ASSESSMENT AND PLAN: Diagnoses and all orders for this visit: Head and neck lymphadenopathy - CBC and differential - Sedimentation rate, automated - C-reactive protein - Hepatitis panel, acute - HIV-1 and HIV-2 antibodies - Mononucleosis screen - Throat culture, comprehensive - XR chest 2 views; Future - Quantiferon TB Gold - T4, free - Lactate dehydrogenase - Ferritin - Iron and TIBC Night sweats - CBC and differential - Sedimentation rate, automated - C-reactive protein - Hepatitis panel, acute - HIV-1 and HIV-2 antibodies - Mononucleosis screen - Throat culture, comprehensive - XR chest 2 views; Future - Quantiferon TB Gold - T4, free - Lactate dehydrogenase - Ferritin - Iron and TIBC Pruritus - CBC and differential - Sedimentation rate, automated - C-reactive protein - Hepatitis panel, acute - HIV-1 and HIV-2 antibodies - Mononucleosis screen - Throat culture, comprehensive - XR chest 2 views; Future - Quantiferon TB Gold - T4, free - Ferritin - Iron and TIBC Dizziness - Comprehensive metabolic panel - Ferritin - Iron and TIBC - Vitamin B12 Hypothyroidism, unspecified type - T4, free - TSH - T3, free - Thyroid peroxidase and thyroglobulin antibodies Assessment & Plan 1. Head and Neck Lympadenopathy. - Several painful raised areas to post head and non tender to neck on left. Further evaluation is necessary to determine the cause. No visible signs of infection or cause of pt pruritus nor the enlarged nodes. - Ordered lab tests to investigate. 2. Itchy scalp. - The scalp shows no signs of flaking or significant redness, except for a small area in the center. The itchiness has been present for over a month. - Physical examination reveals no signs of lice or infection. - Discussed differential diagnoses including dermatitis or an allergic reaction to shampoo ingredients vs other cause not related to the scalp itself. - Lab work ordered. 3. Fatigue. - The patient has a history of narcolepsy and continues to experience fatigue which is difficult for her to differentiate from her normal fatigue. - Reviewed previous lab results and discussed the need for further lab tests to assess current levels and rule out other potential causes. 4. Weight loss. - The patient has unintentionally lost weight, dropping from 196 pounds to 132 pounds. - Physical examination reveals no signs of infection or illness. - Discussed the weight loss and potential causes, such as changing jobs. - Ordered lab tests and imaging to rule out underlying conditions causing weight loss. 5. Night sweats. - The patient has been experiencing night sweats, which she initially attributed to a medication. - Physical examination reveals no signs of infection or illness. - Discussed the possibility of night sweats indicating an infection or other underlying condition. - Ordered lab tests and chest xray to investigate the cause of night sweats. - Pt did complete mammogram in May 2024 that was overall normal but did have dense appearing breasts, could consider further imaging if indicated. 6. Poor dentition. - The patient reports having bad teeth and crooked teeth. - Physical examination reveals no immediate intervention is necessary. - Discussed the need for follow-up with a dentist for further evaluation and management. - Advised the patient to schedule a dental appointment for further evaluation. 7. Intermittent diarrhea. - The patient experiences intermittent diarrhea and cramping when needing to defecate. - Previous colonoscopy results were normal, and she was diagnosed with GERD. - Reviewed previous GI evaluation and discussed the need for further evaluation if symptoms persist. 8. Anxiety and panic attacks. - The patient experiences anxiety and panic attacks, which sometimes lead to dizziness. - Physical examination reveals no immediate intervention is necessary. - Discussed the patient's current counseling, which she finds beneficial. - No changes to current management, continue counseling. Daniella Abdullahi CNP [facility] documented in this encounter [facility] 09-18-2024 History of Present illness Narrative Images from the original note were not included. Flowsheet Row Telephone from 09/17/2024 in [facility] with Maral Jefferson MA Hospital Information ED, Hospital or Long-Term Facility Discharge? ED Diagnosis LLL pain, insect bite Discharge Date 09/16/24 Discharged To: Home Setting Discharge Hospital [facility] Engagement Admission Date 09/16/24 Medications Discharge medications reviewed and reconciled from hospital? Yes Appointments Self Management Patient Teaching Wrap Up Flowsheet Row Office Visit from 09/18/2024 in [facility] with Candice King MD, IBCLC Hospital Information ED, Hospital or Long-Term Facility Discharge? ED Patient has been contacted within 2 days of being seen in the ED Yes Have two attempts been made, within 2 days of being seen in the ED, to contact the patient? Yes Diagnosis dizziness Discharge Date 09/17/24 Discharged To: Home Setting Discharge Hospital [facility] Engagement Admission Date 09/16/24 Medications Discharge medications reviewed and reconciled from hospital? Yes Appointments Does the patient have a primary care provider? Yes Self Management Patient Teaching Wrap Up Wrap Up Additional Comments [facility] seen at [facility] for dizziness and they did labs -wnl given cephalexin but has an allergy so she has not started the medication Isis Bryson is a 44 y.o. female here today for No chief complaint on file. SUBJECTIVE: History Provided by: patient History of Present Illness The patient is a 44-year-old female who is here today for a follow-up after visiting the ER. She was seen at [facility] on September 17, 2024, because she was feeling dizzy and extremely tired after getting a bug bite on her left lower leg. She first went to [facility] on September 16, 2024, for the bug bite and was given doxycycline. She then went to [facility] the next day due to dizziness and fatigue. Her lab work came back normal. She was given Keflex but hasn't taken it because she's allergic to it. She reports feeling better overall but still very exhausted. The area around the bite has started to turn purple, although the swelling has gone down. The bite has a white head. She has taken four doses of doxycycline so far. Her extreme tiredness started yesterday morning, and she also felt nauseous, which she thinks is because of the antibiotics. She tried taking the medication with food to help with the nausea. Last night, she had severe pain that made her bend over in tears. She has been taking ibuprofen and Tylenol, which have helped a bit. The pain has lessened since starting the antibiotics, making it more bearable. She put an ice pack on the area while at work yesterday and wrapped wet towels around it all day. Towards the end of her shift, she felt dizzy and couldn't drive home, so she went to the emergency room and didn't get home until 7:00 PM. She describes her dizziness as feeling like she was going to pass out and being disoriented. The dizziness started after she began taking the antibiotic. She also reports swelling in her ankle. She has bipolar disorder and follows up with Cameron Moralez for this. She is currently taking BuSpar 10 mg twice daily, which was increased from 5 mg to 10 mg twice daily in December 2023. She has a history of ischemic heart disease diagnosed in 2020. Current Outpatient Medications Medication Instructions busPIRone (Buspar) 5 MG tablet 2 times daily Ca, Mg, K, and Na Oxybates (XYWAV PO) Take by mouth doxycycline (Vibramycin) 100 MG capsule varenicline (CHANTIX CONTINUING MONTH MAI) 1 mg, Oral, 2 times daily, Take with full glass of water. varenicline (CHANTIX CONTINUING MONTH MAI) 1 mg, Oral, 2 times daily, Take with full glass of water. I have reviewed and reconciled the history, allergies, family history, social history, and medication list with the patient today. OBJECTIVE: BP 120/72 Pulse 79 Temp 97.4 F Ht 5' 9 Wt 132 lb 9.6 oz SpO2 99% BMI 19.58 kg/m Physical Exam Physical Exam General Appearance: Awake, Alert, NAD. Eyes: conjunctiva clear, no discharge Extremities: Bug bite on the left lower leg measures 3 cm x 2.5 cm. Swelling has decreased. Area is raised slightly with a ferguson present. Skin: Bug bite on the left lower leg is turning purple around the edge. Neurological: motor and sensory function grossly intact, normal gait Psychiatric: appropriate affect, normal speech, good eye contact Media Information Document Information Wound Care Image: Wound Image 09/18/2024 09:48 Attached To: Office Visit on 09/18/24 with Candice King MD, IBCLC Source Information Candice King MD, IBCLC [facility] Document History Results Labs - Lab work: 09/17/2024, Unremarkable ASSESSMENT AND PLAN: Assessment & Plan Spider bite wound, accidental or unintentional, subsequent encounter - acute - reviewed [facility] report. - Symptoms suggest a possible spider bite, although it does not appear to be a recluse spider bite. Dizziness could be a side effect of the antibiotic or a result of toxins from the bite. - Swelling is likely due to the body's immune response to the bite. Redness may extend slightly as the body continues to fight the infection. - Advised to continue taking doxycycline to prevent any potential skin infections. Discontinue Keflex due to allergy. - [id number] ibuprofen up to 800 mg at a time is recommended for pain management, with awareness of potential stomach upset. Ice application is suggested for pain relief. If episodes of passing out, yellow crusting, bleeding, pus discharge, or fevers occur, immediate notification is advised. Bipolar disorder, unspecified (HCC) - chronic, stable - Currently on BuSpar 10 mg twice daily, which was increased from 5 mg twice daily in 12/2023. Candice King MD, IBCLC [facility] documented in this encounter [facility] 09-17-2024 Hospital Discharge instructions Patient Education 09/17/2024 17:24:14 Insect Bite, Adult Insect Bite, Adult An insect bite can make your skin red, itchy, and swollen. An insect bite is different from an insect sting, which happens when an insect injects poison (venom) into the skin. Some insects can spread disease to people through a bite. However, most insect bites do not lead to disease and are not serious. What are the causes? Insects may bite for a variety of reasons, including: Hunger. To defend themselves. Insects that bite include: Spiders. Mosquitoes and flies. Ticks and fleas. Ants. Kissing bugs. Chiggers. What are the signs or symptoms? In many cases, symptoms last for 2 4 days. However, itching can last up to 10 days. Symptoms include: Itching or pain in the bite area. Redness and swelling in the bite area. An open wound (skin ulcer). In rare cases, a person may have a severe allergic reaction (anaphylactic reaction) to a bite. Symptoms of an anaphylactic reaction may include: Feeling shingles roofer helper the face (flushed). This may include redness. Itchy, red, swollen areas of skin (hives). Swelling of the eyes, lips, face, mouth, tongue, or throat. Wheezing or difficulty breathing, speaking, or swallowing. Dizziness, light-headedness, or fainting. Abdominal symptoms like cramping, nausea, vomiting, or diarrhea. How is this diagnosed? This condition is usually diagnosed based on symptoms and a physical exam. During the exam, your health care provider will look at the bite and ask you what kind of insect bit you. How is this treated? Most insect bites are not serious. Symptoms often go away on their own and treatment is not usually needed. When treatment is recommended, it may include: Applying ice to the affected area. Applying steroid or other anti-itch creams, like calamine lotion, to the bite area. Medicines called antihistamines to reduce itching. You may also need: ?A tetanus shot if you are not up to date. ?Antibiotic cream or an oral antibiotic if the bite becomes infected (this is uncommon). Follow these instructions at home: Bite area care Do not scratch the bite area. It may help to cover the bite area with a bandage or close-fitting clothing. Keep the bite area clean and dry. Wash it every day with soap and water as told by your health care provider. Check the bite area every day for signs of infection. Check for: ?More redness, swelling, or pain. ?Fluid or blood. ?Warmth. ?Pus or a bad smell. Managing pain, itching, and swelling You may apply cortisone cream, calamine lotion, or a paste made of baking soda and water to the bite area as told by your health care provider. If directed, put ice on the bite area. To do this: ?Put ice in a plastic bag. ?Place a towel between your skin and the bag. ?Leave the ice on for 20 minutes, 2 3 times a day. ?If your skin turns bright red, remove the ice right away to prevent skin damage. The risk of skin damage is higher if you cannot feel pain, heat, or cold. General instructions Apply or take ppge-lfd-yqkenkq and prescription medicine only as told by your health care provider. If you were prescribed antibiotics, take or apply them as told by your health care provider. Do not stop using the antibiotic even if you start to feel better. How is this prevented? To help reduce your risk of insect bites: When you are outdoors, wear clothing that covers your arms and legs. This is especially important in the traffic ii manager and evening. Use insect repellent. The best insect repellents contain DEET, picaridin, oil of lemon eucalyptus (OLE), or [id number]. Consider spraying your clothing with a pesticide called permethrin. Permethrin helps prevent insect bites. It works for several weeks and for up to 5 6 clothing washes. Do not apply permethrin directly to the skin. If your home windows do not have screens, consider installing them. If you will be sleeping in an area where there are mosquitoes, consider covering your sleeping area with a mosquito net. Contact a health care provider if: Your bite area has signs of infection, such as: ?More redness, swelling, or pain. ?Fluid or blood. ?Warmth. ?Pus or a bad smell. You have a fever. Get help right away if: You have a rash. You have muscle or joint pain. You feel unusually tired or weak. You have neck pain or a headache. You develop symptoms of an anaphylactic reaction. These may include: ?Swelling of the eyes, lips, face, mouth, tongue, or throat. ?Flushed skin or hives. ?Wheezing. ?Difficulty breathing, speaking, or swallowing. ?Dizziness, light-headedness, or fainting. ?Abdominal pain, cramping, vomiting, or diarrhea. These symptoms may be an emergency. Get help right away. Call 911. Do not wait to see if the symptoms will go away. Do not drive yourself to the hospital. Summary An insect bite can make your skin red, itchy, and swollen. Treatment is usually not needed. Symptoms often go away on their own. When treatment is recommended, it may involve taking medicine, applying medicine to the area, or applying ice. Apply or take rura-eob-byszpms and prescription medicines only as told by your health care provider. Use insect repellent to help prevent insect bites. Contact a health care provider if your bite area has signs of infection. This information is not intended to replace advice given to you by your health care provider. Make sure you discuss any questions you have with your health care provider. Document Revised: 06/14/2022 Document Reviewed: 05/30/2022 [employer] Patient Education 2023 [employer]. Follow Up Care 09/17/2024 15:27:32 With:KILO EDWARD Address: When:09/20/2024 17:18:43 Comments:Call Dr for diagnosis based follow up [facility] 09-17-2024 Note ED Patient Education Note Infectious Disease Insect Bite, Adult An insect bite can make your skin red, itchy, and swollen. An insect bite is different from an insect sting, which happens when an insect injects poison (venom) into the skin. Some insects can spread disease to people through a bite. However, most insect bites do not lead to disease and are not serious. What are the causes? Insects may bite for a variety of reasons, including: ??? Hunger. ??? To defend themselves. Insects that bite include: ??? Spiders. ??? Mosquitoes and flies. ??? Ticks and fleas. ??? Ants. ??? Kissing bugs. ??? Chiggers. What are the signs or symptoms? In many cases, symptoms last for 2?4 days. However, itching can last up to 10 days. Symptoms include: ??? Itching or pain in the bite area. ??? Redness and swelling in the bite area. ??? An open wound (skin ulcer). In rare cases, a person may have a severe allergic reaction (anaphylactic reaction) to a bite. Symptoms of an anaphylactic reaction may include: ??? Feeling shingles roofer helper the face (flushed). This may include redness. ??? Itchy, red, swollen areas of skin (hives). ??? Swelling of the eyes, lips, face, mouth, tongue, or throat. ??? Wheezing or difficulty breathing, speaking, or swallowing. ??? Dizziness, light-headedness, or fainting. ??? Abdominal symptoms like cramping, nausea, vomiting, or diarrhea. How is this diagnosed? This condition is usually diagnosed based on symptoms and a physical exam. During the exam, your health care provider will look at the bite and ask you what kind of insect bit you. How is this treated? Most insect bites are not serious. Symptoms often go away on their own and treatment is not usually needed. When treatment is recommended, it may include: ??? Applying ice to the affected area. ??? Applying steroid or other anti-itch creams, like calamine lotion, to the bite area. ??? Medicines called antihistamines to reduce itching. ??? You may also need: ? A tetanus shot if you are not up to date. ? Antibiotic cream or an oral antibiotic if the bite becomes infected (this is uncommon). Follow these instructions at home: Bite area care ??? Do not scratch the bite area. It may help to cover the bite area with a bandage or close-fitting clothing. ??? Keep the bite area clean and dry. Wash it every day with soap and water as told by your health care provider. ??? Check the bite area every day for signs of infection. Check for: ? More redness, swelling, or pain. ? Fluid or blood. ? Warmth. ? Pus or a bad smell. Managing pain, itching, and swelling ??? You may apply cortisone cream, calamine lotion, or a paste made of baking soda and water to the bite area as told by your health care provider. ??? If directed, put ice on the bite area. To do this: ? Put ice in a plastic bag. ? Place a towel between your skin and the bag. ? Leave the ice on for 20 minutes, 2?3 times a day. ? If your skin turns bright red, remove the ice right away to prevent skin damage. The risk of skin damage is higher if you cannot feel pain, heat, or cold. General instructions ??? Apply or take ctsl-lkn-tbkgthw and prescription medicine only as told by your health care provider. ??? If you were prescribed antibiotics, take or apply them as told by your health care provider. Do not stop using the antibiotic even if you start to feel better. How is this prevented? To help reduce your risk of insect bites: ??? When you are outdoors, wear clothing that covers your arms and legs. This is especially important in the traffic ii manager and evening. ??? Use insect repellent. The best insect repellents contain DEET, picaridin, oil of lemon eucalyptus (OLE), or [id number]. ??? Consider spraying your clothing with a pesticide called permethrin. Permethrin helps prevent insect bites. It works for several weeks and for up to 5?6 clothing washes. Do not apply permethrin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 - [facility] 10/17/22 Litigation Services Manager Relationship Specialty Start Date End Date Francesca Stiles MD [address] [place] [address] PCP - General Family Medicine 08/29/22 Francesca Stiles MD [address] [place] [address] PCP - [facility] 10/17/22 Litigation Services Manager Relationship Specialty Start Date End Date Francesca Stiles MD [address] [place] [address] PCP - General Family Medicine 08/29/22 Francesca Stiles MD [address] [place] [address] PCP - [facility] 10/17/22 Litigation Services Manager Relationship Specialty Start Date End Date Francesca Stiles MD [address] [place] [address] PCP - General Family Medicine 08/29/22 Francesca Stiles MD [address] [place] [address] PCP - [facility] 10/17/22 Litigation Services Manager Relationship Specialty Start Date End Date Francesca Stiles MD [address] [facility] [place] [address] PCP - General Family Medicine 08/29/22 Francesca Stiles MD [address] [place] [address] PCP - [facility] 10/17/22 Litigation Services Manager Relationship Specialty Start Date End Date Francesca Stiles MD [address] [facility] [place] [address] PCP - General Family Medicine 08/29/22 Francesca Stiles MD [address] [place] [address] PCP - [facility] 10/17/22 Litigation Services Manager Relationship Specialty Start Date End Date Francesca Stiles MD [address] [facility] [place] [address] PCP - General Family Medicine 08/29/22 Francesca Stiles MD [address] [place] [address] PCP - [facility] 10/17/22 Litigation Services Manager Relationship Specialty Start Date End Date Francesca Stiles MD [address] [facility] [place] [address] PCP - General Family Medicine 08/29/22 Francesca Stiles MD [address] [facility] [place] [address] PCP - [facility] 10/17/22 Litigation Services Manager Relationship Specialty Start Date End Date Francesca Stiles MD [address] [facility] [place] [address] PCP - [facility] 10/17/22 Candice King MD, IBCLC [address] [place] [facility] [place] [address] PCP - General Family Medicine 04/05/24 Litigation Services Manager Relationship Specialty Start Date End Date Francesca Stiles MD [address] [facility] [place] [address] PCP - [facility] 10/17/22 Candice King MD, IBCLC [address] [place] [facility] [place] [facility] [place] [address] PCP - General Family Medicine 04/05/24 Litigation Services Manager Relationship Specialty Start Date End Date Francesca Stiles MD [address] [facility] [place] [address] PCP - [facility] 10/17/22 Candice King MD, IBCLC [address] [place] [facility] [place] [facility] [place] [address] PCP - General Family Medicine 04/05/24 Litigation Services Manager Relationship Specialty Start Date End Date Francesca Stiles MD [address] [place] [facility] [place] [address] PCP - [facility] 10/17/22 Candice King MD, IBCLC [address] [place] [facility] [place] [address] PCP - General Family Medicine 04/05/24 Litigation Services Manager Relationship Specialty Start Date End Date Francesca Stiles MD [address] [place] [address] PCP - [facility] 10/17/22 Candice King MD, IBCLC [address] [place] [address] PCP - General Family Medicine 04/05/24 Litigation Services Manager Relationship Specialty Start Date End Date Francesca Stiles MD [address] [place] [address] PCP - [facility] 10/17/22 Candice King MD, IBCLC [address] [place] [address] PCP - General Family Medicine 04/05/24 Litigation Services Manager Relationship Specialty Start Date End Date Francesca Stiles MD [address] [place] [address] PCP - [facility] 10/17/22 Candice King MD, IBCLC [address] [place] [address] PCP - General Family Medicine 04/05/24 Litigation Services Manager Relationship Specialty Start Date End Date Candice King MD, IBCLC [address] [place] [address] PCP - General Family Medicine 04/05/24 Litigation Services Manager Relationship Specialty Start Date End Date Candice King MD, IBCLC [address] [place] [address] PCP - General Family Medicine 04/05/24 Litigation Services Manager Relationship Specialty Start Date End Date Candice King MD, IBCLC [address] [place] [address] PCP - General Family Medicine 04/05/24 Litigation Services Manager Relationship Specialty Start Date End Date Candice King MD, IBCLC [address] [place] [address] PCP - General Family Medicine 04/05/24 Litigation Services Manager Relationship Specialty Start Date End Date Candice King MD, IBCLC [address] [place] [address] PCP - General Family Medicine 04/05/24 Litigation Services Manager Relationship Specialty Start Date End Date Candice King MD, IBCLC [address] [place] [address] PCP - General Family Medicine 04/05/24 Litigation Services Manager Relationship Specialty Start Date End Date Candice King MD, IBCLC [address] [place] [facility] [place] [address] PCP - General Family Medicine 04/05/24 Litigation Services Manager Relationship Specialty Start Date End Date Candice King MD, IBCLC [address] [place] [facility] [place] [address] PCP - General Family Medicine 04/05/24 Goals [...] BE BASED ON THE PRIMARY CLINICAL RECORDS. [employer] [facility]. provides no warranty or guarantee of the accuracy or completeness of information in this document.
== END 2024-10-30 09:18 | disposition home or self-care (01) ==
LOC: CT 09:17
PROVIDERS: PCP Student in an Organized Health Care Education/Training Program; Visit Provider Nurse Practitioner Family
DX: L29.9 Pruritus, unspecified (principal); R59.1 Generalized enlarged lymph nodes; R61 Generalized hyperhidrosis; R42 Dizziness and giddiness; Z72.0 Tobacco use; R94.6 Abnormal results of thyroid function studies; R59.0 Localized enlarged lymph nodes
CPT/HCPCS: 70492; Q9967

== ENCOUNTER 2024-12-01 16:55 | Outpatient (OUT) | payer BC, MEDICAID, SELFPAY ==
[2024-12-01 17:09] LABS: Hematocrit 36.6 % (36.0-48.0); Hemoglobin 12.1 g/dL (12.0-16.0); Immature Granulocytes Abs Auto 0.02 10^3/uL (0.00-0.03); Immature Granulocytes Pct Auto 0.2 % (0.0-0.5); Lymphocytes Absolute Auto 3.2 10^3/uL (1.2-3.8); Mean Corpuscular HGB Conc 33.1 g/dL (29.9-35.2); Mean Corpuscular Hemoglobin 30.7 pg (26.7-34.0); Mean Corpuscular Volume 92.9 fL (81.0-99.0); Platelet Count 249 10^3/uL (150-450); Red Blood Count 3.94 10^6/uL (4.20-5.40); White Blood Count 8.3 10^3/uL (4.0-11.0)
--- NOTE | 2024-12-01 17:14 | ECG_ITS ---
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 Measurements Intervals [place] Rate: 61 P: 64 IN: 145 QRS: 65 QRSD: 77 T: 64 QT: 389 QTc: 394 Interpretive Statements SINUS RHYTHM POSSIBLE LEFT ATRIAL ENLARGEMENT [-0.1mV P WAVE IN V1/V2] Abnormal ECG Compared to ECG 09/15/2022 14:50:10 ST (T wave) deviation no longer present Electronically Signed On 12-02-2024 20:07:59 EDT by MARTIN PRESTON M.D.
[2024-12-01 17:19] LABS: Anion Gap 11.3; Blood Urea Nitrogen 12.0 mg/dL (7.0-18.0); Calcium 8.8 mg/dL (8.5-10.1); Carbon Dioxide 28.8 mmol/L (21.0-32.0); Chloride 104 mmol/L (98-107); Estimated GFR (African America >60 (>=60 mL/min/1.73m^2); Estimated GFR (Non-African Ame >60 (>=60 mL/min/1.73m^2); Glucose 104 mg/dL (74-106); Potassium 3.1 mmol/L (3.5-5.1); Sodium 141 mmol/L (136-145)
--- OUTSIDE RECORDS SUMMARY | 2024-12-01 19:06 | XMS_ITS | CCD ---
Author Organization [facility] Care Team Providers Care Gore Maker Name Role Phone TULIO PALBO Attending Unavailable LISE AMIN (MOTORIZED SQUAD LIEUTENANT) Attending Unavailable TULIO PABLO Referring Unavailable LISE AMIN (MOTORIZED SQUAD LIEUTENANT) Attending Unavailable TULIO PABLO Referring Unavailable LISE AMIN (MOTORIZED SQUAD LIEUTENANT) Attending Unavailable TULIO PABLO Referring Unavailable SELF, [...] Unavailable TIMOTHY Edward Primary Care Provider [phone] [address] Attending Provider Francesca Stiles MD Primary Care Provider Kilo Edward NP Unavailable Francesca Stiles MD Unavailable Alyssa Merritt Attending Unavailable Alyssa Merritt Admitting Unavailable Alyssa Merritt Attending Unavailable Alyssa Merritt Admitting Unavailable Francesca Stiles MD Unavailable Christine SCHROEDER, IBCLC, Candice Primary Care [facility] er Jethro Garcia Attending Unavailable Jethro Garcia Attending Unavailable Sloan West Attending Unavailab Sloan Mercedes Admitting Unavailab le Kilo Edward Primary Care Unavailable Christine SCHROEDER, MARISSA, Candice Unavailable JAMIL BOLTON Attending Unavailable CANDICE KING Attending Unavailable CANDICE KING Referring Unavailable GONZALO MACIAS Attending Unavailable GONZALO MACIAS Attending Unavailable CANDICE KING Attending Unavailable BEKHANH Morfin Attending Unavailable DANIELLA ABDULLAHI Attending Unavailable BEKHANH Morfin Attending Unavailable GUS TOMAS Attending Unavailable GUS TOMAS Referring Unavailable DANIELLA ABDULLAHI Attending Unavailable GUS TOMAS Attending Unavailable DOLGUS CHOI Attending Unavailable BEJKHANH Attending Unavailable BEKHANH Morfin Attending Unavailable Allergies Allergy Classification Reported Allergen(s) Allergy Type Date of Onset Reaction(s) Facility (1 source) 56521,00 Drug allergy (disorder) 1 [facility] (20 sources) Azithromycin Drug Allergy 3 Shortness of breath [facility] Healthcare (20 sources) Cephalexin Drug Allergy 3 Shortness of breath [facility] (14 sources) hydrOXYzine Drug Allergy 5 Other [facility] Healthcare Work Phone: Medications Current Medications Medication [...] Mg, K, and Na Oxybates (XYWAV PO) (20 sources) End: 10-14-2024 Ca, Mg, K, and [...] sulfate 325 mg delayed release oral tablet (10 sources) Start: 10-20-2024 End: 11-19-2024 take 1 [...] food, # 30 tab(s), Refills(s) 1, Pharmacy: [place] [id number] [address] Start Date: 05/06/20 Status: Ordered Quantity: [...] HCl Active modafinil 200 mg oral tablet (20 sources) Sympathomimetic-like Agent Start: 10-15-2024 mod afinil [...] BID, # 20 tab(s), Refills(s) 0, [facility] M[facility]ATMAN, 175, cm, 04/30/19 20:26:00 EST, Height/Length [...] Status: Ordered Repeat number: 1 Start: 04-30-2019 Saphris Black Cohn SubLingual, BID, [...] of water.. 60 tablet 2 10/02/2023 Active Xywav 500 MG/ML solution (7 sources) Start: 11-10-2024 take 4.5 g by mouth at bedtime Xywav 500 MG/ML solution Take 4.5 g by mouth at bedtime 11/10/2024 Active Completed/Discontinued Medications Medication Drug Class(es) Dates [...] Documented Da te Episodic/Chronic Acquired foot deformities (7 sources) Hammer toe; Translations: [Other hammer toe(s) [...] Hemorrhoids; Translations: [Unspecified hemorrhoids] 05-12-2024 Episodic Lymphadenitis (4 sources) Head and neck lymphadenopathy; Translations: [Generalized enlarged lymph nodes] 10-13-2024 Episodic Mood disorders (20 sources) Bipolar disorder, unspecified; Translations: [Bipolar I disorder] Onset: 3 08-29-2022 Chronic Mycoses (2 sources) Onychomycosis; Translations: [Tinea unguium] 10-29-2024 Episodic Nutritional deficiencies (2 sources) Iron deficiency; Translations: [Iron deficiency] 11-10-2024 Episodic Other aftercare (1 source) Other [place] [facility] (current) drug therapy; Translations: [OTH HALFWAY CURRENT DRUG THERAPY] Onset: Episodic Other connective tissue disease (1 source) Musculoskeletal pain; Translations: [Myalgia, other site] 06-11-2019 Episodic Other connective tissue disease (2 sources) Pain in right foot; Translations: [Pain in right foot] 10-29-2024 Episodic Other connective tissue disease (2 sources) Pain of toe of right foot; Translations: [Pain in right toe(s)] 11-26-2024 Episodic Other gastrointestinal disorders (2 sources) Swollen [...] 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 Other nervous system disorders (5 sources) [...] Translations: [Hypercalcemia] Onset: 3 08-29-2022 Chronic Other nutritional; endocrine; and metabolic disorders (2 sources) Weight decreased; Translations: [Abnormal weight loss] 11-10-2024 Episodic Other screening for suspected conditions (not mental disorders or infectious disease) (3 sources) Patient encounter status; Translations: [Encounter for screening mammogram for malignant neoplasm of breast] 05-12-2024 Episodic Other skin disorders (1 source) Acne, unspecified; Translations: [ACNE UNSPECIFIED] Onset: Episodic Other skin disorders (2 sources) Skin tag; Translations: [Other hypertrophic disorders of the skin] 04-23-2024 Episodic Other skin disorders (2 sources) Night sweats; Translations: [Generalized hyperhidrosis] 10-13-2024 Episodic Other skin disorders (2 sources) Ingrowing nail; Translations: [Ingrowing nail] 10-29-2024 Episodic Otitis media and related conditions (2 sources) Acute secretory otitis media; Translations: [Other acute nonsuppurative otitis media, bilateral] 11-06-2024 Episodic Poisoning by nonmedicinal substances (2 sources) Spider bite wound; Translations: [Toxic effect of unspecified spider venom, accidental (unintentional), subsequent encounter] 09-18-2024 Episodic Residual codes; unclassified (5 sources) Sleep paralysis 05-30-2013 Chronic Residual codes; unclassified (2 sources) Flushing; Translations: [Flushing] 05-12-2024 Episodic Superficial injury; contusion (1 source) Insect bite, nonvenomous, lower leg; Translations: [Insect bite (nonvenomous), left lower leg, initial encounter] Onset: Episodic Thyroid disorders (2 sources) Hypothyroidism; Translations: [...] Test Name Value Interpretation Reference Range Facility ALL CBC WITH AUTO DIFFon BASOPHILS ABSOLUTE AUTO 0.1 [facility] Basophils/100 WBC (Bld) 0.6 % 0.2 - 2.0 % [facility] Eosinophils/100 WBC (Bld) 1.4 % 0.9 - 7.0 % [facility] Erythrocyte distribution width (RBC) [Ratio] 12.3 % 11.0 - 15.0 % [facility] Hematocrit (Bld) [Volume fraction] 36.6 % 36.0 - 48.0 % [facility] Hemoglobin (Bld) [Mass/Vol] 12.1 g/dL 12.0 - 16.0 g/dL [facility] IMMATURE GRANULOCYTES ABS AUTO 0.02 [facility] Immature granulocytes/100 WBC (Bld) 0.2 % 0.0 - 0.5 % [facility] Interpretation and review of laboratory results Abnormal [facility] LYMPHOCYTES ABSOLUTE AUTO 3.2 [facility] Lymphocytes/100 WBC (Bld) 38.7 % 20.5 - 60.0 % [facility] MCH (RBC) [Entitic mass] 30.7 pg 26.7 - 34.0 pg [facility] MCHC (RBC) [Mass/Vol] 33.1 g/dL 29.9 - 35.2 g/dL [facility] MCV (RBC) [Entitic vol] 92.9 fL 81.0 - 99.0 fL [facility] MONOCYTES ABSOLUTE AUTO 0.6 [facility] Monocytes/100 WBC (Bld) 6.7 % 1.7 - 12.0 % [facility] NEUTROPHILS ABSOLUTE AUTO 4.4 [facility] Neutrophils/100 WBC (Bld) 52.4 % 43.0 - 75.0 % [facility] Platelet mean volume (Bld) [Entitic vol] 10.6 fL 9.5 - 13.5 fL [facility] TBH EO # 0.1 [facility] TBH PLT 249 [facility] RBC 3.94 Low [facility] WBC 8.3 [facility] XR Foot - right 3 [facility] Result: XRAY: AP/MO/LAT: pedal radiographs demonstrate intact cortical margins and anatomic alignment. Joint spaces are maintained throughout the midfoot forefoot and hindfoot without evidence of acute fracture dislocation or arthropathy Hammertoe deformity noted right 3rd digit the level of the DIPJ joint appears to be slightly subluxed [facility] Rad[facility] Study observation (narrative) [facility] BMPon 09-17-2024 Anion gap [Moles/Vol] 13 mmol/L Normal 6-[address] [facility] Comment on above: Performed By: #### 2 [id number] #### [facility] [address] [place] [address] BUN/Creat Ratio 14 No Units Normal 10-20 [facility] Comment on above: Performed By: #### 2 [id number] #### [facility] [address] [place] [address] Calcium [Mass/Vol] 9.4 mg/dL Normal 8.9-11.1 [facility] Comment on above: Performed By: #### 2 [id number] #### [facility] [address] [place] [address] Chloride [Moles/Vol] 104 mmol/L Normal 101-111 [facility] Comment on above: Performed By: #### 2 [id number] #### [facility] [address] [place] [address] CO2 [Moles/Vol] 25 mmol/L Normal 21-31 [facility] Comment on above: Performed By: #### 2 [id number] #### [facility] [address] [place] [address] Creatinine [Mass/Vol] 0.8 mg/dL Normal 0.5-1.[address] [facility] Comment on above: Performed By: #### 2 [id number] #### [facility] [address] [place] [address] Glucose [Mass/Vol] 88 mg/dL Normal 55-199 [facility] Comment on above: Performed By: #### 2 [id number] #### [facility] [address] [place] [address] Potassium [Moles/Vol] 3.6 mmol/L Normal 3.5-5.[address] [facility] Comment on above: Performed By: #### 2 [id number] #### [facility] [address] [place] [address] Sodium [Moles/Vol] 138 mmol/L Normal 135-145 [facility] Comment on above: Performed By: #### 2 [id number] #### [facility] [address] [place] [address] Urea nitrogen [Mass/Vol] 11 mg/dL Normal 5-21 [facility] Comment on above: Performed By: #### 2 [id number] #### [facility] [address] [place] [address] CBC w/ Auto Diffon 5 Basophil Absolute 0.1 E9/L Normal 0.0-0.2 [facility] Comment on above: Performed By: #### 2 [id number] #### [facility] [address] [place] [address] Basophils/100 WBC (Bld) 0.9 % Normal 0.0-2.0 [facility] Comment on above: Performed By: #### 2 [id number] #### [facility] [address] [place] [address] Eos Absolute 0.2 E9/L Normal 0.0-0.5 [facility] Comment on above: Performed By: #### 2 [id number] #### [facility] [address] [place] [address] Eosinophils/100 WBC (Bld) 2.9 % Normal 0.0-8.0 [facility] Comment on above: Performed By: #### 2 [id number] #### [facility] [address] [place] [address] Erythrocyte distribution width (RBC) [Ratio] 13.6 % Normal 10.9-14.2 [facility] Comment on above: Performed By: #### 2 [id number] #### [facility] [address] [place] [address] Hematocrit (Bld) [Volume fraction] 38.3 % Normal 34.0-46.0 [facility] Comment on above: Performed By: #### 2 [id number] #### [facility] [address] [place] [address] Hemoglobin (Bld) [Mass/Vol] 13.2 g/dL Normal 12.0-16.0 [facility] Comment on above: Performed By: #### 2 [id number] #### [facility] [address] [place] [address] Lymph Absolute 2.3 E9/L Normal 1.0-4.0 [facility] Comment on above: Performed By: #### 2 [id number] #### [facility] [address] [place] [address] Lymphocytes/100 WBC (Bld) 29.8 % Normal 14.0-50.0 [facility] Comment on above: Performed By: #### 2 [id number] #### [facility] [address] [place] [address] MCH (RBC) [Entitic mass] 31.5 pg Normal 27.0-34.0 [facility] Comment on above: Performed By: #### 2 [id number] #### [facility] [address] [place] [address] MCHC (RBC) [Mass/Vol] 34.4 g/dL Normal 31.4-36.[address] [facility] Comment on above: Performed By: #### 2 [id number] #### [facility] [address] [place] [address] MCV (RBC) [Entitic vol] 91.7 fL Normal 80.0-100.0 [facility] Comment on above: Performed By: #### 2 [id number] #### [facility] [address] [place] [address] Hubbard Absolute 0.5 E9/L Normal 0.2-1.[address] [facility] Comment on above: Performed By: #### 2 [id number] #### [facility] [address] [place] [address] Monocytes/100 WBC (Bld) 7.1 % Normal 4.0-14.0 [facility] Comment on above: Performed By: #### 2 [id number] #### [facility] [address] [place] [address] Neutro Absolute 4.6 E9/L Normal 2.0-7.5 [facility] Comment on above: Performed By: #### 2 [id number] #### [facility] [address] [place] [address] Neutro Auto 59.3 % Normal 36.0-75.0 [facility] Comment on above: Performed By: #### 2 [id number] #### [facility] [address] [place] [address] Platelet 266.0 E9/L Normal 150.0-500.0 [facility] Comment on above: Performed By: #### 2 [id number] #### [facility] [address] [place] [address] Platelet mean volume (Bld) [Entitic vol] 9.2 fL Normal 6.4-10.8 [facility] Comment on above: Performed By: #### 2 [id number] #### [facility] [address] [place] [address] RBC 4.2 E12/L Low 4.3-5.9 [facility] Comment on above: Performed By: #### 2 [id number] #### [facility] [address] [place] [address] WBC 7.7 E9/L Normal 4.0-11.0 [facility] Comment on above: Performed By: #### 2 [id number] #### [facility] [address] [place] [address] CHEMISTRYOrdered By: SYSTEM SYSTEM on 09-17-2024 Anion [...] Sensitivity Troponin I Instructions For Use, Mindy Krista, October 2017) Urea nitrogen [Mass/Vol] 11 mg/dL Normal 5 - 21 mg/dL [facility] Urea nitrogen/Creatinine [Mass ratio] 14 mg/mg Normal 10 - 20 [facility] COAGULATIONOrdered By: Raisa Diaz on 09-17-2024 aPTT Coag (PPP) [Time] 30.2 s Normal 25.1 - 36.5 second(s) [facility] Comment on above: Interpretive Data: Mitra lomira 15 days - 4 weeks 1 - 5 months 6 - 11 months 1 - 5 years 6 - 10 years 11 - 17 years PTT Mean: 35.4 (27.6-45.6) Mean: 33.5 (24.8-40.7) Mean: 32.4 (25.1-40.7) Mean: 31.6 (24.0-39.2) Mean: 31.6 (26.9-38.7) Mean: 31.0 (24.6-38.4) Pediatric Reference ranges were obtained from a study by briana Zamora prepared from 1437 samples obtained at 7 different centers using the same coagulation reagent and instrumentation as [facility]. Currently there are no coagulation studies available worldwide for children to 14 days, and no normal ranges. Heparin therapeutic range (represented by Anti-Factor Xa activity of 0.2 - 0.4 U/mL) corresponds to PTT of 56.6 - 109.0 sec. INR Coag (PPP) [Relative time] 1.02 {INR} Invalid Interpretation Code [facility] Comment on above: Interpretive Data: I NR results are specifically intended to assess patients stabilized on long-term Anticoagulation therapy suggested INR s Less Intensive Anticoagulation 2.0 3.0 Conventional Range 3.0 4.5 PT Coag (PPP) [Time] 11.4 s Normal 9.4 - 1 2.5 second(s) [facility] Comment on above: Interpretive Data: 1 5 days - 4 weeks 1 - 5 months 6 -11 months 1-5 years 6-10 years 11 -17 years Mean: 11.2 (9.5-12.6) Mean: 11.0 (9.7-12.8) Mean: 11.0 (9.8-13.0) Mean: 11.3 (9.9-13.4) Mean: 11.7 (10.0-14.6) Mean: 11.8 (10.0 - 14.1) Pediatric Reference ranges were obtained from a study by briana Zamora prepared from 1437 samples obtained at 7 different centers using the same coagulation reagent and instrumentation as [facility]. Currently there are no coagulation studies available worldwide for children to 14 days, and no normal ranges. ED Clinical Summaryon 2024 ED Clinical Summary ED Clinical Summary [address] [address] ED Clinical Summary Person Information Name: ISIS BRYSON [place] Age: 44 Years : 1980 Sex: Female Language: Sinhala PCP: KILO EDWARD CNP Marital Status: Phone: [phone] Visit Id: Visit Reason: Dizziness; Skin problem; [...] 09/17/2024 17:24:13 09/17/2024 17:24:13 09/17/2024 17:24:13 ADDRESS: [address] [place] [id number] PHYS DOC NOTES: MEDICAL INFORMATION: Prescriptions Given: New Medications [facility]/pharmacy #[id number], [address], [place] [id number], [phone] cephalexin (Keflex 500 mg Cap) 1 Capsules [...] encounter; Insect bite of left leg Normal [facility] ED Note-Physicianon 09-18-19 ED Note-Physician ED Note-Physician Basic Information Time Seen: Sherif Fofana PA-C NavjotShahrzad 09/17/2024 15:36 Chief Complaint pt states she [...] day(s), # 28 cap(s), Refills(s) 0, Pharmacy: [facility]/pharmacy #[id number], 175, cm, 09/17/24 15:41:00 EDT, Height/Length [...] Patient seen and evaluated by the physician mri assistant. Attending physician was present in the emergency department and supervised care. This visit was performed by both the physician and an APC. I performed all aspects of the MDM as documented. This report was transcribed using voice recognition software. Every effort was made to ensure accuracy, however, inadvertently computerized trouble shooting mechanic mistakes may be present. Appropriate healthcare PPE [...] refills Nap (more content not included)... Normal [facility] Comment on above: Result Comment: Elec tronically Signed By: Sherif Fofana PA-C\.br\Date and Time Signed: 09/17/24 18:17 EDT\.br\Electronically Co-Signed By: Jethro Garcia DO\.br\Date and Time Co-Signed: 09/17/24 19:17 EDT ED Patient Summaryon 025 ED Patient Summary ED Patient Summary [place] [address] Patient Discharge Instructions Person Information Name: ISIS BRYSON Age: 44 Years Arrival Date: 09/17/2024 15:24:50 Discharge Diagnosis: Bitten or stung by nonvenomous insect and other nonvenomous arthropods, initial encounter; Insect bite of left leg Primary Care Physician: KILO EDWARD CNP Provider Information Primary Provider: Jethro Garcia DO Advanced Senior Java Web Developer:Sherif Fofana PA-C The exam and treatment you received in the Emergency Department were for an urgent problem and are not intended as complete care. It is important that you follow up with a doctor, nurse practitioner, or physician???s mri assistant for ongoing care. If your symptoms become worse or you do not improve as expected and you are unable to reach your usual health care provider, you should return to the Emergency Department. We are available 24 hours a day. ISIS BRYSON has been given the following list of patient education materials, prescriptions and follow-up instructions: Follow-up Instructions: With: Address: When: KILOTitus EDWARD In 3 days 09/20/2024 Comments: Call [...] opioids can be used to help relieve [id number] pain and are often prescribed following a [...] may be (more content not included)... Normal [facility] HEMATOLOGYOrdered By: SYSTEM SYSTEM on 09-17-2024 [...] [Relative time] 1.02 {INR} Invalid Interpretation Code [facility] Comment on above: Result Comment: INR results are specifically intended to assess patients stabilized on long-term Anticoagulation therapy suggested INR???s ???Less Intensive Anticoagulation??? 2.0 ??? 3.0 Conventional Range 3.0 ??? 4.5 Performed By: #### 1 [id number] #### [facility] [address] [place] [address] PT 11.4 second(s) Normal 9.4-12.5 [facility] Comment on above: Result Comment: 15 d ays - 4 weeks 1 - 5 months 6 -11 months 1- 5 years 6-10 years 11 -17 years Mean: 11.2 (9.5-12.6) Mean: 11.0 (9.7-12.8) Mean: 11.0 (9.8-13.0) Mean: 11.3 (9.9-13.4) Mean: 11.7 (10.0-14.6) Mean: 11.8 (10.0 - 14.1) Pediatric Reference ranges were obtained from a study by briana Zamora prepared from 1437 samples obtained at 7 different centers using the same coagulation reagent and instrumentation as [facility]. Currently there are no coagulation studies available worldwide for children to 14 days, and no normal ranges. Performed By: #### 1 [id number] #### [facility] [address] [place] [address] PTT 30.2 second(s) Normal 25.1-36.5 [facility] Comment on above: Result Comment: Para meter 15 days - 4 weeks 1 - 5 months 6 - 11 months 1 - 5 years 6 - 10 years 11 - 17 years PTT Mean: 35.4 (27.6-45.6) Mean: 33.5 (24.8-40.7) Mean: 32.4 (25.1-40.7) Mean: 31.6 (24.0-39.2) Mean: 31.6 (26.9-38.7) Mean: 31.0 (24.6-38.4) Pediatric Reference ranges were obtained from a study by briana Zamora prepared from 1437 samples obtained at 7 different centers using the same coagulation reagent and instrumentation as [facility]. Currently there are no coagulation studies available worldwide for children to 14 days, and no normal ranges. Heparin therapeutic range (represented by Anti-Factor Xa activity of 0.2 - 0.4 U/mL) corresponds to PTT of 56.6 - 109.0 sec. Performed By: #### 1 [id number] #### [facility] [address] [place] [address] Troponin 0 Hr.on 09-17-2024 Troponin HS <2.30 Low 10.10-27.10 [facility] Comment on above: Result Comment: The 95% CI (Confidence Interval) PPV (Positive Predictive Value) for myocardial infarction in females is 38 pg/mL, in males 51 pg/mL. The results should be used in conjunction with clinical conditions of myocardial infarction. (Access High Sensitivity Troponin I Instructions For Use, Recombine, October 2017) Performed By: #### 1 [id number] #### [facility] [address] [place] [address] eGFRon 09-17-2024 eGFR 93 mL/min/1.73 m2 Normal >=59 [facility] Comment on above: Performed By: #### 1 [id number] #### [facility] [address] [place] [address] BI MAMMOGRAM SCREENING TOMOS YNTHESIS BILATERALon 06-09-2024 [...] Yahir Zuniga M.D. Normal Not Available PAP [id number] 12-08-2023 Cytology report Cyto stain Doc (Cvx/Vag) Note Invalid Interpretation Code [facility] Comment on above: Result Comment: TEST S RESULT FLAG UNITS REF RANGE LAB Clinician Provided Cytology Information Source.............Endocervix No. of containers..01 ThinPrep Vial DIAGNOSIS: 01 NEGATIVE FOR INTRAEPITHELIAL LESION OR MALIGNANCY. Specimen adequacy: 01 Satisfactory for evaluation. Endocervical and/or squamous metaplastic cells (endocervical component) are present. Performed by: 01 Kevyn Reese, Egg Trayer ([facility]) . 01 Note: Note 01 The [...] <-Panic Low,>-Panic High,A-Abnormal,AA-Critical Abnormal Performed at: [address] [id number] Randi Sol MD, Performed By: #### 3 [id number] #### [facility] [address] [place] [address] HPV 16+18+31+33+35+39+45+ 51+52+56+58+59+66+68 DNA Probe+sig amp Ql (Cvx) Negative Invalid Interpretation Code Negative [facility] Comment on above: Result Comment: This nucleic acid amplification test detects fourteen high-risk HPV types (16,18,31,33,35,39,45,51,52,56,58,59,66,68) without differentiation. Performed at: [facility] [address], [place] [id number] MD Ebenezer Bryan Performed at: =G [facility] [address], [place] [id number] MD Ebenezer Bryan Performed By: #### 3 [id number] #### [facility] [address] [place] [address] PAP [id number] 12-04-2023 Collection Technique BRUSH-SPATULA Normal F [facility] Comment on above: Performed By: #### 3 [id number] #### [facility] [address] [place] [address] Gynecological Body Site ENDOCERVIX Normal [facility] Comment on above: Performed By: #### 3 [id number] #### [facility] [address] [place] [address] CT HEAD WO CONon 07-07-2022 CT HEAD [...] MAU ROSE Date: 2022-07-07 14:18 Normal [facility] CALCIUM IONIZEDon 05-19-2022 Calcium, Ionized, Serum 5.5 mg/dL Normal 4.5-5.6 [facility] Health Comment on above: Performed By: #### C AIONZ #### [facility] [address] [place] [address] Dr. Jason Floyd PTH INTACTon 05-19-2022 PTH, Intact 16 pg/mL Normal 15-65 [facility] Comment on above: Performed By: #### P THINT #### [facility] [address] [place] [address] Dr. Jason Floyd CBC AUTO DIFFon 05-15-2022 BASO # 0.0 103/ul Normal 0.0-0.1 [facility] Comment on above: Performed By: #### C BC #### [facility] [address] [place] [address] Dr. Jason Floyd Basophils/100 WBC (Bld) 0.5 % Normal 0.2-2.0 [facility] Comment on above: Performed By: #### C BC #### [facility] [address] [place] [address] Dr. Jason Floyd EO # 0.2 103/ul Normal 0.0-0.7 [facility] Comment on above: Performed By: #### C BC #### [facility] [address] [place] [address] Dr. Jason Floyd Eosinophils/100 WBC (Bld) 2.2 % Normal 0.9-7.0 [facility] Comment on above: Performed By: #### C BC #### [facility] [address] [place] [address] Dr. Jason Floyd Erythrocyte distribution width (RBC) [Ratio] 12.7 % Normal 11.0-15.0 [facility] Comment on above: Performed By: #### C BC #### [facility] [address] [place] [address] Dr. Jason Floyd Hematocrit (Bld) [Volume fraction] 38.2 % Normal 36.0-48.0 [facility] Comment on above: Performed By: #### C BC #### [facility] [address] [place] [address] Dr. Jason Floyd Hemoglobin (Bld) [Mass/Vol] 12.9 g/dL Normal 12.0-16.0 [facility] Comment on above: Performed By: #### C BC #### [facility] [address] [place] [address] Dr. Jason Floyd IG # 0.01 10e3/ul Normal 0.00-0.03 [facility] Comment on above: Performed By: #### C BC #### [facility] [address] [place] [address] Dr. Jason Floyd IG % 0.1 % Normal 0.0-0.5 [facility] Comment on above: Performed By: #### C BC #### [facility] [address] [place] [address] Dr. Jason Floyd LYMPH # 2.8 103/ul Normal 1.2-3.8 [facility] Comment on above: Performed By: #### C BC #### [facility] [address] [place] [address] Dr. Jason Floyd Lymphocytes/100 WBC (Bld) 33.4 % Normal 20.5-60.0 [facility] Comment on above: Performed By: #### C BC #### [facility] [address] [place] [address] Dr. Jason Floyd MANUAL DIFF REQ NO Normal [facility] Comment on above: Performed By: #### C BC #### [facility] [address] [place] [address] Dr. Jason Floyd MCH (RBC) [Entitic mass] 29.9 pg Normal 26.7-34.0 [facility] Comment on above: Performed By: #### C BC #### [facility] [address] [place] [address] Dr. Jason Floyd MCHC (RBC) [Mass/Vol] 33.8 g/dL Normal 29.9-35.2 [facility] Comment on above: Performed By: #### C BC #### [facility] [address] [address] [address] Jason Floyd MCV (RBC) [Entitic vol] 88.6 fL Normal 81.0-99.0 [facility] Comment on above: Performed By: #### C BC #### [facility] [address] [address] [address] Jason Floyd MONO # 0.6 103/ul Normal 0.3-0.8 [facility] Comment on above: Performed By: #### C BC #### [facility] [address] [place] [address] Dr. Jason Floyd Monocytes/100 WBC (Bld) 7.0 % Normal 1.7-12.0 [facility] Comment on above: Performed By: #### C BC #### [facility] [address] [place] [address] Dr. Jason Floyd NEUT # 4.7 103/ul Normal 1.4-6.5 [facility] Comment on above: Performed By: #### C BC #### [facility] [address] [place] [address] Dr. Jason Floyd Neutrophils/100 WBC (Bld) 56.8 % Normal 43.0-75.0 [facility] Comment on above: Performed By: #### C BC #### [facility] [address] [place] [address] Dr. Jason Floyd Platelet mean volume (Bld) [Entitic vol] 10.1 fL Normal 9.5-13.5 [facility] Comment on above: Performed By: #### C BC #### [facility] [address] [place] [address] Dr. Jason Floyd PLT 275 103/ul Normal 150-450 [facility] Comment on above: Performed By: #### C BC #### [facility] [address] [place] [address] Dr. Jason Floyd RBC 4.31 106/ul Normal 4.20-5.40 [facility] Comment on above: Performed By: #### C BC #### [facility] [address] [place] [address] Dr. Jason Floyd WBC 8.2 103/ul Normal 4.0-11.0 [facility] Comment on above: Performed By: #### C BC #### [facility] [address] [place] [address] Dr. Jason Floyd PROF 14(COMP METB)on 023 Albumin [Mass/Vol] 4.4 g/dL Normal 3.4-5.0 [facility] Comment on above: Performed By: #### C MP #### [facility] [address] [place] [address] Dr. Jason Floyd Albumin/Globulin [Mass ratio] 1.5 {ratio} Normal [facility] Comment on above: Performed By: #### C MP #### [facility] [address] [place] [address] Dr. Jason Floyd ALP [Catalytic activity/Vol] 73 U/L Normal 46-116 [facility] Comment on above: Performed By: #### C MP #### [facility] [address] [place] [address] Dr. Jason Floyd ALT [Catalytic activity/Vol] 30 U/L Normal 14-59 [facility] Comment on above: Performed By: #### C MP #### [facility] [address] [place] [address] Dr. Jason Floyd Anion gap [Moles/Vol] 13.0 mmol/L Normal [facility] Comment on above: Performed By: #### C MP #### [facility] [address] [place] [address] Dr. Jason Floyd AST [Catalytic activity/Vol] 17 U/L Normal 15-37 [facility] Comment on above: Performed By: #### C MP #### [facility] [address] [place] [address] Dr. Jason Floyd Bilirubin [Mass/Vol] 0.4 mg/dL Normal 0.2-1.0 [facility] Comment on above: Performed By: #### C MP #### [facility] [address] [place] [address] Dr. Jason Floyd Calcium [Mass/Vol] 10.8 mg/dL Critically high 8.5-10.1 [facility] Comment on above: Performed By: #### C MP #### [facility] [address] [place] [address] Dr. Jason Floyd Chloride [Moles/Vol] 101 mmol/L Normal 98-107 [facility] Comment on above: Performed By: #### C MP #### [facility] [address] [address] [address] Jason Floyd CO2 [Moles/Vol] 27.6 mmol/L Normal 21.0-32.0 [facility] Comment on above: Performed By: #### C MP #### [facility] [address] [place] [address] Dr. Jason Floyd Creatinine [Mass/Vol] 0.83 mg/dL Normal 0.55-1.02 [facility] Comment on above: Performed By: #### C MP #### [facility] [address] [place] [address] Dr. Jason Floyd EGFR-AF CAMBODIAN >60 Normal >=60 [facility] Comment on above: Performed By: #### C MP #### [facility] [address] [place] [address] Dr. Jason Floyd EGFR-NON AF CAMBODIAN >60 Normal >=60 [facility] Comment on above: Performed By: #### C MP #### [facility] [address] [place] [address] Dr. Jason Floyd Globulin (S) [Mass/Vol] 2.9 g/dL Normal [facility] Comment on above: Performed By: #### C MP #### [facility] [address] [place] [address] Dr. Jason Floyd Glucose [Mass/Vol] 99 mg/dL Normal 74-106 [facility] Comment on above: Performed By: #### C MP #### [facility] [address] [place] [address] Dr. Jason Floyd Potassium [Moles/Vol] 3.6 mmol/L Normal 3.5-5.1 [facility] Comment on above: Performed By: #### C MP #### [facility] [address] [address] [address] Jason Floyd Protein [Mass/Vol] 7.3 g/dL Normal 6.4-8.2 [facility] Comment on above: Performed By: #### C MP #### [facility] [address] [address] [address] Jason Floyd Sodium [Moles/Vol] 138 mmol/L Normal 136-145 [facility] Comment on above: Performed By: #### C MP #### [facility] [address] [address] [address] Jason Floyd Urea nitrogen [Mass/Vol] 8.0 mg/dL Normal 7.0-18.0 [facility] Comment on above: Performed By: #### C MP #### [facility] [address] [address] [address] Jason Floyd Urea nitrogen/Creatinine [Mass ratio] 9.6 mg/mg Normal [facility] Comment on above: Performed By: #### C MP #### [facility] [address] [address] [address] Jason Floyd 29on 01-20-2022 29 Addended by: LUCA SIMMONS on: 01/23/2022 09:04 AM Modules accepted: Level of Service Normal [facility] Follow-Upon 01-20-2022 Follow-Up [id number] Isis Bryson 1980 F Date Provider Department Center 01/20/2022 LUCA CEJA [facility] [place] [facility] Family History Problem Relation Age of Onset Heart attack Father Family Status - Relation Status Age at Father Level of Service:87135 [place] OFFICE/OUTPATIENT ESTABLISHED LOW MDM 20-29 MIN Reason for Visit and Comments: Follow-up [430647] Normal [facility] Abstracton 11-10-2021 Abstract [id number] Isis Goncalves 1980 F Date Provider Department Center 11/10/2021 CAMERON BERNAL [facility] [place] [facility] Family History Problem Relation Age of Onset Heart attack Father Family Status - Relation Status Age at Father Normal [facility] SARS-CoV-2 (COVID-19) RNA NA A+probe Ql (Resp)on 10-19-2021 SARS-CoV-2 (COVID-19) RNA DIANE+probe Ql (Unsp spec) Negative [employer] Other Cardiovascular Lab Reporton 01-06-2021 Cardiovascular Lab Report [facility] Patient Name: Isis Goncalves [facility] MR #: [id number] Physician: Luca Simmons MD Department of Service Date: 01/06/2021 Medicine Birthdate: 1980 Division of Room #: CC Cardiology Adult Cardiovascular Services [facility] [address] [facility]. [place] [address] Cardiovascular Laboratory Report LOOP IMPLANT PROCEDURE NOTE [...] the sternum on the left using the [employer] tool. The loop recorder was then [...] LOOP details: Device Model: M301 Lux-Dx Serial#: [id number] Sensing is 0.18mV. IMPRESSION: Successful placement of LOOP implant with excellent sensing parameters. RECOMMENDATIONS: 1. Occlusive dressing to be changed after 7 days. 2. Do not wet the incision. Luca Simmons MD Cardiac Electrophysiology Electronically Signed by: Luca Simmons MD 01/17/2021 04:41 P Luca Simmons MD Date Dict: 01/06/2021/01:22 P/Luca Simmons MD Date Trans: 01/06/2021 01:32 P/so [id number] Normal [facility] POC SARS COV2 ANTIGEN NEGATI VEon 01-06-2021 POC SARS COV2 ANTIGEN NEG Negative Normal NEGATIVE [facility] Comment on above: Result Comment: Nega [...] signs and symptoms consistent with COVID-19. The [employer] COVID-19 Ag Card is a lateral flow [...] Accreditation. Performed By: #### 3 1977 #### [facility] [address] [place] [address], [facility] LIPID PANEL (CORONARY RISK 2 )on 11-05-2019 Cholesterol [Mass/Vol] 164 mg/dL Normal 0 - 199 [facility] Comment on above: Order Comment: Order ing [...] dosing. Performed By: #### L IPID #### [facility] [address], [place] [id number] Cholesterol in HDL [Mass/Vol] 39.0 mg/dL Abnormal [facility] Comment on above: Order Comment: Order ing is aware patient is non-fasting. Result Comment: . AGE VERY LOW LOW NORMAL HIGH 0-19 Y < 35 < 40 40-45 ---- 20-24 Y ---- < 40 >45 ---- >24 Y ---- < 40 40-60 >60 . Performed By: #### L IPID #### [facility] [address], [place] [id number] Cholesterol in LDL [Mass/Vol] 79 mg/dL Normal 0 - 99 [facility] Comment on above: Order Comment: Order ing is aware patient is non-fasting. Result Comment: . NEAR BORD AGE DESIRABLE OPTIMAL HIGH HIGH VERY HIGH 0-19 Y 0 - 109 --- 110-129 >/= 130 ---- 20-24 Y 0 - 119 --- 120-159 >/= 160 ---- >24 Y 0 - 99 100-129 130-159 160-189 >/=190 . Performed By: #### L IPID #### [address] [id number] Cholesterol in VLDL [Mass/Vol] 46 mg/dL High 0 - 40 [facility] Comment on above: Order Comment: Order ing is aware patient is non-fasting. Performed By: #### L IPID #### [address] [id number] Cholesterol.total/Cho lesterol in HDL [Mass ratio] 4.2 {ratio} Normal [facility] Comment on above: Order Comment: Order ing is aware patient is non-fasting. Result Comment: REF VALUES DESIRABLE < 3.4 HIGH RISK > 5.0 Performed By: #### L IPID #### [address] [id number] NON-HDL CHOLESTEROL 125 mg/dL Normal [facility] Comment on above: Order Comment: Order ing is aware patient is non-fasting. Result Comment: AGE DESIRABLE BORDERLINE HIGH HIGH VERY HIGH 0-19 Y 0 - 119 120 - 144 >/= 145 >/= 160 20-24 Y 0 - 149 150 - 189 >/= 190 ---- >24 Y 30 MG/DL ABOVE LDL CHOLESTEROL GOAL . Performed By: #### L IPID #### [address] [id number] Triglyceride [Mass/Vol] 230 mg/dL High 0 - 149 [facility] Comment on above: Order Comment: Order ing [...] dosing. Performed By: #### L IPID #### [address] [id number] MARIAHOVsameera 04-22-2018 CNOV Office Visit (NEURFH) ISIS GONCALVES ([id number]) 1980 F Date Time Provider Department 04/22/18 1:10 PM LISE AMIN (IAN) [facility] During your visit today, we recorded the following information about you: Pulse Respiration Blood pressure Weight 89/minute 18/minute 114/64 51.7 kg Height 1.753 m Lise Amin APRN.CNP 04/22/2018 1:58 PM Signed [facility] Follow up/ Established patient [...] directed. - Avoid driving when drowsy. - overnight caregiver for short naps (20-30 minutes) and use [...] directed. - Avoid driving when drowsy. - overnight caregiver for short naps (20-30 minutes) and use [...] the best time for you. Lise Amin APRN.[employer] Referring Provider: TULIO PABLO [[id number]] Allergies As of Date: 04/22/2018 (No Known [...] Disposition History Recorded Encounter Status:Closed by IAN AMIN on 04/22/18 Normal [facility] PROGRESSon 04-22-2018 Protein mass conc HNO ID: [id number] Author: Lise Dewitt (Ian) Eloisa Service: (none) Author Type: Nurse Practitioner Type: Progress Notes Filed: 04/22/2018 1:58 PM Note Text: [facility] Follow up/ Established patient [...] directed. - Avoid driving when drowsy. - overnight caregiver for short naps (20-30 minutes) and use [...] time for you. ? ?? Lise Amin APRN.IAN Interval history : Here for follow [...] directed. - Avoid driving when drowsy. - overnight caregiver for short naps (20-30 minutes) and use [...] the best time for you. Lise Amin APRN.IAN Normal [facility] CNOVon 01-22-2018 CNOV Office Visit (NEURFH) ISIS GONCALVES ([id number]) 1980 F Date Time Provider Department 01/22/18 10:10 AM LISE AMIN ([facility]) [facility] During your visit today, we recorded the following information about you: Pulse Respiration Blood pressure Weight 64/minute 19/minute 100/64 51.4 kg Height 1.727 m Lise Amin APRN.CNP 01/22/2018 11:01 AM Signed [facility] Follow up/ Established patient [...] directed. - Avoid driving when drowsy. - overnight caregiver for short naps (20-30 minutes) and use [...] time for you. ?? ? Lise Amin APRN.[employer] Interval history : Time in: 10:08 AM [...] directed. - Avoid driving when drowsy. - overnight caregiver for short naps (20-30 minutes) and use [...] the best time for you. Lise Amin, MACK.[employer] Referring Provider: TULIO PABLO [[id number]] Allergies As of Date: 01/22/2018 (No Known [...] Disposition History Recorded Encounter Status:Closed by IAN AMIN on 01/22/18 Normal [facility] PROGRESSon 01-22-2018 Protein mass conc HNO ID: [id number] Author: Lise Amin Service: (none) Author Type: Nurse Practitioner Type: Progress Notes Filed: 01/22/2018 11:01 AM Note Text: [facility] Follow up/ Established patient [...] directed. - Avoid driving when drowsy. - overnight caregiver for short naps (20-30 minutes) and use [...] time for you. ?? ? Lise Amin, SALES SERVICE ASSISTANT.[employer] Interval history : Time in: 10:08 AM [...] directed. - Avoid driving when drowsy. - overnight caregiver for short naps (20-30 minutes) and use [...] the best time for you. Lise Amin APRN.CNP Normal [facility] CNOVon 10-22-2017 CNOV Office Visit (NEURFH) ISIS GONCALVES ([id number]) 1980 F Date Time Provider Department 10/22/17 8:40 AM LISE AMIN ([employer]) GABE During your visit today, we recorded the following information about you: Pulse Blood pressure Weight Height 60/minute 105/75 58.5 kg 1.753 m Lise Amin APRN.CNP 10/22/2017 10:00 AM Signed [facility] Follow up/ Established patient [...] directed. - Avoid driving when drowsy. - overnight caregiver for short naps (20-30 minutes) and use [...] the best time for you. Lise Amin APRN.[employer] Referring Provider: TULIO PABLO [[id number]] Allergies As of Date: 10/22/2017 (No Known [...] about 3 months (around 01/22/2018) for with SALES SERVICE ASSISTANT or Dr. Pablo. Follow-up and Disposition History Recorded Encounter Status:Closed by IAN AMIN on 10/22/17 Normal [facility] PROGRESSon 10-22-2017 Protein mass conc HNO ID: [id number] Author: Lise Dewitt (Ian) Eloisa Service: (none) Author Type: Nurse Practitioner Type: Progress Notes Filed: 10/22/2017 10:00 AM Note Text: [facility] Follow up/ Established patient [...] directed. - Avoid driving when drowsy. - overnight caregiver for short naps (20-30 minutes) and use [...] the best time for you. 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 [...] in 3 months. Tulio Pablo MD Normal [facility] Vital Signs Date Time Vital Sign Value Performing Clinician Facility 11-26-2024 16:57-0400 Body height 175.3 cm Gus Dolce DPM FACFAS Work Phone: [facility] 11-26-2024 16:57-0400 Body mass index (BMI) [Ratio] 18.9 kg/m2 Gus Dolce DPM FACFAS Work Phone: [facility] 11-26-2024 16:57-0400 Body weight 58.06 kg Gus Dolce DPM FACFAS Work Phone: [facility] 11-26-2024 16:57-0400 Diastolic blood pressure 71 mm[Hg] Gus Dolce DPM FACFAS Work Phone: [facility] 11-26-2024 16:57-0400 Heart rate 61 /min Gus Dolce DPM FACFAS Work Phone: [facility] 11-26-2024 16:57-0400 Systolic blood pressure 118 mm[Hg] Gus Dolce DPM FACFAS Work Phone: [facility] 11-12-2024 16:23-0400 Body height 175.3 cm Gus Dolce DPM FACFAS Work Phone: [facility] 11-12-2024 16:23-0400 Body mass index (BMI) [Ratio] 18.9 kg/m2 Gus Dolce DPM FACFAS Work Phone: [facility] 11-12-2024 16:23-0400 Body weight 58.06 kg Gus Dolce DPM FACFAS Work Phone: [facility] 11-12-2024 16:23-0400 Diastolic blood pressure 69 mm[Hg] Gus Tomas DPM FACFAS Work Phone: [facility] 11-12-2024 16:23-0400 Heart rate 58 /min Gus Tomas DPM FACFAS Work Phone: [facility] 11-12-2024 16:23-0400 Systolic blood pressure 115 mm[Hg] Gus Tomas DPM FACFAS Work Phone: [facility] 11-06-2024 12:58-0400 Body height 175.3 cm Daniella Abdullahi RESIDENT ASSISTANT CNA Work Phone: [facility] 11-06-2024 12:58-0400 Body mass index (BMI) [Ratio] 18.9 kg/m2 Daniella Abdullahi RESIDENT ASSISTANT CNA Work Phone: [facility] 11-06-2024 12:58-0400 Body temperature 98.49 [degF] Daniella Abdullahi RESIDENT ASSISTANT CNA Work Phone: [facility] 11-06-2024 12:58-0400 Body weight 58.06 kg Daniella Abdullahi RESIDENT ASSISTANT CNA Work Phone: [facility] 11-06-2024 12:58-0400 Diastolic blood pressure 68 mm[Hg] Daniella Abdullahi RESIDENT ASSISTANT CNA Work Phone: [facility] 11-06-2024 12:58-0400 Heart rate 55 /min Daniella Abdullahi RESIDENT ASSISTANT CNA Work Phone: [facility] 11-06-2024 12:58-0400 Respiratory rate 17 /min Daniella Abdullahi RESIDENT ASSISTANT CNA Work Phone: [facility] 11-06-2024 12:58-0400 SaO2% (BldA) [Mass fraction] 97 % Daniella Abdullahi RESIDENT ASSISTANT CNA Work Phone: [facility] 11-06-2024 12:58-0400 Systolic blood pressure 116 mm[Hg] Daniella Abdullahi RESIDENT ASSISTANT CNA Work Phone: [facility] 10-29-2024 15:58-0400 Body height 175.3 cm Gus Antonioeli DPM FACFAS Work Phone: [facility] 10-29-2024 15:58-0400 Body mass index (BMI) [Ratio] 19.49 kg/m2 Gus Tomas DPM FACFAS Work Phone: [facility] 10-29-2024 15:58-0400 Body weight 59.88 kg Gus Antonioeli DPM FACFAS Work Phone: [facility] 10-29-2024 15:58-0400 Diastolic blood pressure 71 mm[Hg] Gus Antonioeli DPM FACFAS Work Phone: [facility] 10-29-2024 15:58-0400 Heart rate 66 /min Gus Antonioeli DPM FACFAS Work Phone: [facility] 10-29-2024 15:58-0400 Systolic blood pressure 115 mm[Hg] Gus Antonioeli DPM FACFAS Work Phone: [facility] 10-13-2024 16:12-0400 Body height 175.3 cm Daniella Abdullahi RESIDENT ASSISTANT CNA Work Phone: [facility] 10-13-2024 16:12-0400 Body mass index (BMI) [Ratio] 19.55 kg/m2 Daniella Abdullahi RESIDENT ASSISTANT CNA Work Phone: [facility] 10-13-2024 16:12-0400 Body temperature 97.39 [degF] Daniella Abdullahi RESIDENT ASSISTANT CNA Work Phone: [facility] 10-13-2024 16:12-0400 Body weight 60.06 kg Daniella Abdullahi RESIDENT ASSISTANT CNA Work Phone: [facility] 10-13-2024 16:12-0400 Diastolic blood pressure 68 mm[Hg] Daniella Abdullahi RESIDENT ASSISTANT CNA Work Phone: [facility] 10-13-2024 16:12-0400 Heart rate 64 /min Daniella Abdullahi RESIDENT ASSISTANT CNA Work Phone: [facility] 10-13-2024 16:12-0400 SaO2% (BldA) [Mass fraction] 99 % Daniella Abdullahi RESIDENT ASSISTANT CNA Work Phone: [facility] 10-13-2024 16:12-0400 Systolic blood pressure 112 mm[Hg] Daniella Abdullahi RESIDENT ASSISTANT CNA Work Phone: [facility] 09-18-2024 09:30-0400 Body height 175.3 cm Candice King MD, IBCLC Work Phone: [facility] 09-18-2024 09:30-0400 Body mass index (BMI) [Ratio] 19.58 kg/m2 Candice King MD, IBCLC Work Phone: [facility] 09-18-2024 09:30-0400 Body temperature 97.39 [degF] Candice King MD, IBCLC Work Phone: [facility] 09-18-2024 09:30-0400 Body weight 60.15 kg Candice King MD, IBCLC Work Phone: [facility] 09-18-2024 09:30-0400 Diastolic blood pressure 72 mm[Hg] Candice King MD, IBCLC Work Phone: [facility] 09-18-2024 09:30-0400 Heart rate 79 /min Candice King MD, IBCLC Work Phone: [facility] 09-18-2024 09:30-0400 SaO2% (BldA) [Mass fraction] 99 % Candice King MD, IBCLC Work Phone: [facility] 09-18-2024 09:30-0400 Systolic blood pressure 120 mm[Hg] Candice King MD, IBCLC Work Phone: [facility] 06-24-2024 15:50-0400 Body height 175.3 cm Gonzalo Macias RESIDENT ASSISTANT CNA Work Phone: [facility] 06-24-2024 15:50-0400 Body mass index (BMI) [Ratio] 19.94 kg/m2 Gonzalo Macias RESIDENT ASSISTANT CNA Work Phone: [facility] 06-24-2024 15:50-0400 Body weight 61.24 kg Gonzalo Macias RESIDENT ASSISTANT CNA Work Phone: [facility] 05-12-2024 09:52-0500 Body height 175.3 cm Candice King MD, IBCLC Work Phone: [facility] 05-12-2024 09:52-0500 Body mass index (BMI) [Ratio] 20.05 kg/m2 Candice King MD, IBCLC Work Phone: [facility] 05-12-2024 09:52-0500 Body temperature 97.11 [degF] Candice King MD, IBCLC Work Phone: [facility] 05-12-2024 09:52-0500 Body weight 61.6 kg Candice King MD, IBCLC Work Phone: [facility] 05-12-2024 09:52-0500 Diastolic blood pressure 74 mm[Hg] Candice King MD, IBCLC Work Phone: [facility] 05-12-2024 09:52-0500 Heart rate 75 /min Candice King MD, IBCLC Work Phone: [facility] 05-12-2024 09:52-0500 SaO2% (BldA) [Mass fraction] 99 % Candice King MD, IBCLC Work Phone: [facility] 05-12-2024 09:52-0500 Systolic blood pressure 124 mm[Hg] Candice King MD, IBCLC Work Phone: [facility] 03-25-2024 10:22-0500 Body height 175.3 cm Khanh Cerda MD Work Phone: [facility] 03-25-2024 10:22-0500 Body mass index (BMI) [Ratio] 20.67 kg/m2 Khanh Cerda MD Work Phone: [facility] 03-25-2024 10:22-0500 Body weight 63.5 kg Khanh Cerda MD Work Phone: [facility] 03-25-2024 10:22-0500 Diastolic blood pressure 83 mm[Hg] Khanh Cerda MD Work Phone: [facility] 03-25-2024 10:22-0500 Heart rate 86 /min Khanh Cerda MD Work Phone: [facility] 03-25-2024 10:22-0500 Systolic blood pressure 134 mm[Hg] Khanh Prashant SCHROEDER Work Phone: [facility] 01-22-2024 11:35-0500 Body height 175.3 cm Khanh Cerda MD Work Phone: [facility] 01-22-2024 11:35-0500 Body mass index (BMI) [Ratio] 21.56 kg/m2 Khanh Cerda MD Work Phone: [facility] 01-22-2024 11:35-0500 Body weight 66.22 kg Khanh Cerda MD Work Phone: [facility] 01-22-2024 11:35-0500 Diastolic blood pressure 88 mm[Hg] Khanh Cerda MD Work Phone: [facility] 01-22-2024 11:35-0500 Heart rate 62 /min Khanh Cerda MD Work Phone: [facility] 01-22-2024 11:35-0500 Systolic blood pressure 117 mm[Hg] Khanh Cerda MD Work Phone: [facility] 12-18-2023 16:04-0400 Body height 175.3 cm Khanh Cerda MD Work Phone: [facility] 12-18-2023 16:04-0400 Body mass index (BMI) [Ratio] 21.41 kg/m2 Khanh Cerda MD Work Phone: [facility] 12-18-2023 16:04-0400 Body weight 65.77 kg Khanh Cerda MD Work Phone: [facility] 12-18-2023 16:04-0400 Diastolic blood pressure 77 mm[Hg] Khanh Cerda MD Work Phone: [facility] 12-18-2023 16:04-0400 Heart rate 72 /min Khanh Cerda MD Work Phone: [facility] 12-18-2023 16:04-0400 Systolic blood pressure 117 mm[Hg] Khanh Cerda MD Work Phone: [facility] 04-24-2023 16:14-0500 Body height 175.3 cm Khanh Cerda MD Work Phone: [facility] 04-24-2023 16:14-0500 Body mass index (BMI) [Ratio] 24.22 kg/m2 Khanh Cerda MD Work Phone: [facility] 04-24-2023 16:14-0500 Body weight 74.39 kg Khanh Cerda MD Work Phone: [facility] 04-24-2023 16:14-0500 Diastolic blood pressure 77 mm[Hg] Khanh Cerda MD Work Phone: [facility] 04-24-2023 16:14-0500 Heart rate 67 /min Khanh Cerda MD Work Phone: [facility] 04-24-2023 16:14-0500 Systolic blood pressure 128 mm[Hg] Khanh Cerda MD Work Phone: [facility] 03-07-2023 14:20-0500 Body height 175.[address] Other [employer] Other 03-07-2023 14:20-0500 Body mass index (BMI) [Ratio] 25.54 kg/m2 Roshan Scovanner Other [employer] Other 03-07-2023 14:20-0500 Body weight 78.47 kg Roshan Scovanner Other [employer] Other 12-27-2022 09:20-0400 Body height 175.[address] Other [employer] Other 12-27-2022 09:20-0400 Body mass index (BMI) [Ratio] 25.54 kg/m2 Roshan Kanaovanner Other [employer] Other 12-27-2022 09:20-0400 Body weight 78.47 kg Roshan Kanaovanner Other [employer] Other 12-27-2022 09:20-0400 Diastolic blood pressure 77 mm[Hg] Roshan Kanaovanner Other [employer] Other 12-27-2022 09:20-0400 Systolic blood pressure 120 mm[Hg] Roshan Buenoner Other [employer] Other 10-19-2021 10:05-0400 Body height 175.26 cm Lilly Ellington Other [employer] Other 10-19-2021 10:05-0400 Body mass index (BMI) [Ratio] 25.1 kg/m2 Lilly Ellington Other [employer] Other 10-19-2021 10:05-0400 Body temperature 98.9 [degF] Lilly Duttonmond Other [employer] Other 10-19-2021 10:05-0400 Body weight 77.11 kg Lilly Ellington Other [employer] Other 10-19-2021 10:05-0400 Respiratory rate 18 /min Lilly Duttonmond Other [employer] Other 10-19-2021 10:05-0400 SaO2% (BldA) [Mass fraction] 95 % Lilly Duttonmond Other [facility] [employer] Other Encounters Encounter Date Encounter Type Care Provider Facility Start: 12-01-2024 End: 12-01-2024 Clinisync Result Encounter Gus D Dolce DPM FACFAS Work Phone: [facility] External Department Unsolicited Start: 12-01-2024 End: 12-01-2024 Clinisync Result Encounter Gus D Dolce DPM FACFAS Work Phone: [facility] External Department Unsolicited Start: 11-26-2024 End: 11-26-2024 Office outpatient visit 25 minutes Gus D Dolce DPM FACFAS Work Phone: [facility] Comment on above: Hammer toe of right foot (Primary Dx); Pain in right toe(s) Start: 11-26-2024 End: 11-26-2024 ambulatory GUS D DOLCE Not Available Start: 11-26-2024 End: 11-26-2024 Bamboo flowsheet Gus D Dolce DPM FACFAS [facility] Phone: [facility] Start: 11-26-2024 End: 11-26-2024 Bamboo flowsheet Gus D Dolce DPM FACFAS [facility] Start: 11-12-2024 End: 11-12-2024 Office outpatient visit 25 minutes Gus D Dolce DPM FACFAS Work Phone: [facility] Comment on above: Hammer toe of right foot (Primary Dx) Start: 11-12-2024 End: 11-12-2024 ambulatory GUS D DOLCE Not Available Start: 11-12-2024 End: 11-12-2024 Bamboo flowsheet Gus D Dolce DPM FACFAS [facility] Phone: [facility] Start: 11-12-2024 End: 11-12-2024 Bamboo flowsheet Gus D Dolce DPM FACFAS Work Phone: [facility] Start: 11-12-2024 End: 11-12-2024 Telephone encounter Gus Alvarezce DPM FACFAS Work Phone: [facility] Start: 11-06-2024 End: 11-06-2024 Bamboo flowsheet Daniella Abdullahi RESIDENT ASSISTANT CNA Work Phone: [facility] Start: 11-06-2024 End: 11-06-2024 Bamboo flowsheet Daniella Abdullahi RESIDENT ASSISTANT CNA Work Phone: [facility] Start: 11-06-2024 End: 11-06-2024 Office outpatient visit 25 minutes Daniella Abdullahi RESIDENT ASSISTANT CNA Work Phone: [facility] Comment on above: Other non-recurrent acute nonsuppurative otitis media of both ears (Primary Dx); Weight loss; Head and neck lymphadenopathy; Cervical paraspinal muscle spasm; Iron deficiency Start: 11-06-2024 End: 11-06-2024 ambulatory DANIELLA ABDULLAHI Not Available Start: 10-29-2024 End: 10-29-2024 Office outpatient visit 25 minutes Gus Alvarezce DPM FACFAS Work Phone: [facility] Comment on above: Hammer toe of right foot (Primary Dx); Right foot pain; Onychocryptosis; Onychomycosis Start: 10-29-2024 End: 10-29-2024 ambulatory GUS TOMAS Not Available Start: 10-29-2024 End: 10-29-2024 Bamboo flowsheet Gus Mark Dolce DPM FACFAS Work Phone: [facility] Start: 10-29-2024 End: 10-29-2024 Bamboo flowsheet Gus Mark Dolce DPM FACFAS Work Phone: [facility] Start: 10-14-2024 End: 10-14-2024 Office outpatient visit 15 minutes Khanh Cerda MD Work Phone: [facility]nie [facility] Neurology Comment on above: Narcolepsy and catap soledad (HCC) (Primary Dx); Carpal tunnel syndrome, bilateral; Cervical paraspinal muscle spasm Start: 10-14-2024 End: 10-14-2024 ambulatory KHANH CERDA Not Available Start: 10-14-2024 End: 10-14-2024 Bamboo flowsheet Khanh Cerda MD Work Phone: [facility] Start: 10-14-2024 End: 10-14-2024 Bamboo flowsheet Khanh Cerda MD Work Phone: [facility] Start: 10-13-2024 End: 10-13-2024 Office outpatient visit 25 minutes Daniella Abdullahi RESIDENT ASSISTANT CNA Work Phone: [facility] Comment on above: Head and neck lympha denopathy (Primary Dx); Night sweats; Pruritus; Dizziness; Hypothyroidism, unspecified type Start: 10-13-2024 End: 10-13-2024 ambulatory DANIELLA ABDULLAHI Not Available Start: 10-13-2024 End: 10-13-2024 Bamboo flowsheet Daniella Abdullahi RESIDENT ASSISTANT CNA Work Phone: [facility] Start: 10-13-2024 End: 10-13-2024 Bamboo flowsheet Daniella Abdullahi RESIDENT ASSISTANT CNA Work Phone: [facility] Start: 10-07-2024 ambulatory [place] [place] Facility:[facility] Start: 09-18-2024 End: 09-18-2024 ambulatory CANDICE KING Not Available Start: 09-18-2024 End: 09-18-2024 Office outpatient visit 15 minutes Candice King MD, IBCLC Work Phone: [facility] Comment on above: Spider bite wound, a ccidental or unintentional, subsequent encounter (Primary Dx); Bipolar disorder, unspecified (HCC) Start: 09-17-2024 End: 09-17-2024 Emergency department patient visit Jethro Garcia [facility] Start: 08-28-2024 End: 08-28-2024 Office outpatient visit 10 minutes Gonzalo C Windnagel RESIDENT ASSISTANT CNA Work Phone: [facility] 111 Comment on above: Narcolepsy and catap soledad (HCC) (Primary Dx); Cervical paraspinal muscle spasm; Carpal tunnel syndrome, bilateral Start: 08-28-2024 End: 08-28-2024 ambulatory GONZALO C WINDNAGEL Not Available Start: 08-28-2024 End: 08-28-2024 Bamboo flowsheet Gonzalo C Windnagel RESIDENT ASSISTANT CNA Work Phone: [facility] Start: 08-28-2024 End: 08-28-2024 Bamboo flowsheet Gonzalo C Windnagel RESIDENT ASSISTANT CNA Work Phone: [facility] Start: 06-24-2024 End: 06-24-2024 Office outpatient visit 15 minutes Gonzalo C Windnagel RESIDENT ASSISTANT CNA Work Phone: [facility] Comment on above: Narcolepsy and catap soledad (Primary Dx); Carpal tunnel syndrome, bilateral; Cervical paraspinal muscle spasm Start: 06-24-2024 End: 06-24-2024 ambulatory GONZALO C WINDNAGEL Not Available Start: 06-24-2024 End: 06-24-2024 Bamboo flowsheet Gonzalo C Windnagel RESIDENT ASSISTANT CNA Work Phone: [facility] Start: 06-24-2024 End: 06-24-2024 Bamboo flowsheet Gonzalo C Windnagel RESIDENT ASSISTANT CNA Work Phone: [facility] Start: 06-12-2024 End: 06-12-2024 Orders Only Candice King MD, IBCLC Work Phone: [facility] Comment on above: Encounter for screen ing mammogram for malignant neoplasm of breast (Primary Dx) Narcolepsy and catap soledad (CMS/HCC) Start: 06-09-2024 End: 06-09-2024 ambulatory CANDICE KING Not Available Start: 05-20-2024 End: 05-20-2024 Dionte Taylor MA [facility] 111 Comment on above: Narcolepsy and catap soledad (CMS/HCC) Start: 05-12-2024 End: 05-12-2024 Bamboo flowsheet Candice King MD, IBCLC Work Phone: [facility] Start: 05-12-2024 End: 05-12-2024 Bamboo flowsmiguelina King MD, IBCLC Work Phone: [facility] Start: 05-12-2024 End: 05-12-2024 Office outpatient visit 25 minutes Candice King MD, IBCLC Work Phone: [facility] Comment on above: Diarrhea, unspecifie d type (Primary Dx); TMJ (temporomandibular joint disorder); Hemorrhoids, unspecified hemorrhoid type; Hot flashes; Encounter for screening mammogram for malignant neoplasm of breast Start: 05-12-2024 End: 05-12-2024 ambulatory CANDICE KING Not Available Start: 04-23-2024 End: 04-23-2024 Bamboo flowsheet Jamil Northeim PA Work Phone: [facility] Start: 04-23-2024 End: 04-23-2024 Bamboo flowsheet Jamil Northeim PA Work Phone: [facility] Start: 04-23-2024 End: 04-23-2024 Office outpatient new 45 minutes Jamil Northeim PA Work Phone: [facility] Comment on above: Other rosacea (Prima ry Dx); Acrochordon Start: 04-23-2024 End: 04-23-2024 ambulatory JAMIL NORTHEIM Not Available Start: 04-14-2024 End: 04-15-2024 Telephone encounter Khanh Cerda MD Work Phone: [facility] 111 Start: 03-25-2024 End: 03-25-2024 Bamboo flowsheet Khanh Cerda MD Work Phone: [facility] Start: 03-25-2024 End: 03-25-2024 Bamboo flowsheet Khanh Cerda MD Work Phone: [facility] Start: 03-25-2024 End: 03-25-2024 Office outpatient visit 15 minutes Khanh Cerda MD Work Phone: [facility] Comment on above: Narcolepsy and catap soledad (CMS/HCC) (Primary Dx); Carpal tunnel syndrome, bilateral; Cervical paraspinal muscle spasm Start: 03-25-2024 End: 03-25-2024 ambulatory KHANH D BEJ Not Available Start: 02-19-2024 End: 02-20-2024 Refglenn Taylor MA [facility] 111 Comment on above: Narcolepsy and catap soledad (CMS/HCC) (Primary Dx) Start: 01-22-2024 End: 01-22-2024 Bamboo flowsheet Khanh Cerda MD Work Phone: [facility] Start: 01-22-2024 End: 01-22-2024 Bamboo flowsheet Khanh Cerda MD Work Phone: [facility] Start: 01-22-2024 End: 01-22-2024 Office outpatient visit 25 minutes Khanh Cerda MD Work Phone: [facility] Comment on above: Narcolepsy and catap soledad (CMS/HCC) (Primary Dx); Carpal tunnel syndrome, bilateral; Cervical paraspinal muscle spasm Start: 01-22-2024 End: 01-22-2024 ambulatory KHANH Mark BEJ Not Available Start: 01-09-2024 End: 01-09-2024 Telephone encounter Khanh Cerda MD Work Phone: [facility] 111 Start: 12-18-2023 End: 12-18-2023 Office outpatient visit 25 minutes Khanh Cerda MD Work Phone: [facility] Comment on above: Narcolepsy and catap soledad (CMS/HCC) (Primary Dx); Carpal tunnel syndrome, bilateral; Cervical paraspinal muscle spasm Start: 12-18-2023 End: 12-18-2023 ambulatory KHANH D BEJ Not Available Start: 12-18-2023 End: 12-18-2023 Bamboo flowsheet Khanh Cerda MD Work Phone: [facility] Start: 12-18-2023 End: 12-18-2023 Bamboo flowsheet Khanh Cerda MD Work Phone: [facility] Start: 12-11-2023 End: 12-13-2023 Telephone encounter Khanh Cerda MD Work Phone: [facility] 111 Start: 12-03-2023 End: 12-03-2023 ambulatory Alyssa J Shaina Facility:[facility] Start: 12-03-2023 End: 12-03-2023 Lab Drop off Alyssa J Shaina [facility] Start: 11-23-2023 End: 11-23-2023 Refill Rocio Taylor MA [facility] 111 Comment on above: Narcolepsy and catap soledad (CMS/HCC) Start: 11-20-2023 End: 11-21-2023 Refill Khanh Cerda MD Work Phone: [facility] 111 Comment on above: Narcolepsy and catap soledad (CMS/HCC) Start: 10-26-2023 End: 10-26-2023 ambulatory Alyssa J Shaina Facility:[facility] Start: 10-26-2023 End: 10-26-2023 Lab Drop off Alyssa J Shaina [facility] Start: 04-24-2023 End: 04-24-2023 Office outpatient visit 15 minutes Khanh Cerda MD Work Phone: [facility] Comment on above: Narcolepsy and catap soledad (CMS/HCC) (Primary Dx); Carpal tunnel syndrome, bilateral Start: 03-07-2023 End: 03-07-[address] Other [employer] Other Start: 03-07-2023 Office outpatient vi sit 15 [address] [facility] Start: 02-19-2023 End: 02-19-2023 [address] Other [employer] Other Start: 02-19-2023 Telephone encounter Roshan Christianson [facility] Start: 01-25-2023 End: 01-25-2023 ambulatory RESIDENT ASSISTANT CNA-Ministerio Edward Work Phone: [facility] Work Phone: Start: 01-25-2023 End: 01-25-2023 Patient encounter procedure RESIDENT ASSISTANT CNA-Ministerio Edward Work Phone: [facility] Work Phone: Start: 12-27-2022 End: 12-27-[address] Other [employer] Other Start: 12-27-2022 Office outpatient vi sit 15 minutes Roshan Plaza [facility] Start: 09-29-2022 End: 09-29-2022 Pre-admission assessment Triston Moe [facility] Start: 08-01-2022 End: 08-01-2022 Patient encounter procedure Triston Moe [facility] Start: 07-07-2022 End: 07-07-[address] DOCTOR SHEETS Facility:[facility] Start: 05-17-2022 End: 05-18-[address] DOCTOR SHEETS Facility:[facility] Start: 05-15-2022 End: 05-16-[address] DOCTOR SHEETS Facility:[facility] Start: 04-13-2022 ambulatory [facility] Start: 01-20-2022 End: 01-21-2022 ambulatory [facility] Start: 10-19-2021 End: 10-19-2021 ambulatory Lilly Ellington Other [employer] Other Start: 10-19-2021 Office outpatient ne w 20 minutes Lilly Ellington [facility] Start: 01-07-2021 End: 01-16-2021 ambulatory LUCA SIMMONS Facility:[facility] Start: 01-06-2021 End: 01-07-2021 ambulatory REFERRED SELF Facility:[facility] Start: 11-30-2020 End: 12-30-2020 ambulatory REFERRED SELF Facility:[facility] Start: 04-22-2018 End: 04-22-2018 Patient encounter procedure LISE Dewitt (MOTORIZED SQUAD LIEUTENANT) [facility] Start: 01-22-2018 End: 01-22-2018 Patient encounter procedure LISE Dewitt (MOTORIZED SQUAD LIEUTENANT) [facility] Start: 10-22-2017 End: 10-22-2017 Patient encounter procedure LISE Dewitt (MOTORIZED SQUAD LIEUTENANT) [facility] Start: 07-20-2017 End: 07-23-2017 Patient encounter procedure TULIO PABLO [facility] Procedures Date Procedure Procedure Detail Performing Clinician Start: 12-01-2024 ALL CBC WITH AUTO DIFF Gsu Tomas DPM FACFAS Work Phone: Start: 10-29-2024 Radex foot complete minimum 3 views Gus Tomas DPM FACFAS Work Phone: Start: 06-09-2024 Mammography Cadnice King MD, IBCLC Work Phone: Start: 05-04-2023 [...] Screening for malign ant neoplasm of cervix [facility] Start: 06-12-2025 End: 08-12-2025 DBT Breast - bilateral screening Bilateral screening mammogram with tomosynthesis Imaging Routine Encounter for screening mammogram for malignant neoplasm of breast Expected: 06/12/2025, Expires: 08/12/2025 [facility] Work Phone: Comment on above: Expected: 06/12/2025 , Expires: 08/12/2025 Start: 06-09-2025 Screening for malign ant neoplasm of breast Mammogram [facility] Start: 04-14-2025 End: 04-14-2025 Patient encounter procedure 04/14/2025 4:45 PM EST [facility] [address] [facility] [address] [place] [phone] Khanh Cerda MD [address] [facility] [address] [id number] [facility] Neurology Start: 12-16-2024 End: 12-16-2024 Patient encounter procedure [facility] Start: 12-09-2024 End: 12-09-2024 Patient encounter procedure 12/09/2024 8:50 AM EDT Office Visit [facility] [address] [place] [phone] Gus Tomas, DPM FACFAS [address] [place] [address] [facility] Start: 12-03-2024 End: 12-03-2024 Patient encounter procedure 12/03/2024 4:40 PM EDT Office Visit [facility] [address] [place] [phone] Gus Tomas, DPM FACFAS [address] [place] [address] [facility] Start: 11-26-2024 End: 11-26-2024 Patient encounter procedure 11/26/2024 4:30 PM EDT Office Visit [facility] [address] [facility] [place] [phone] Gus Tomas, DPM FACFAS [address] [facility] [place], [place] [id number] Arrived [facility] Comment on above: Arrived Start: 11-17-2024 Influenza vaccination [facility] Start: 11-12-2024 End: 11-12-2024 Patient encounter procedure [facility] Comment on above: Arrived Start: 11-06-2024 End: 11-06-2024 Patient encounter procedure 11/06/2024 1:00 PM EDT [facility] Visit [facility] [address] [place] [phone] Daniella Abdullahi NP [address] [place] [address] [facility] Comment on above: Arrived Start: 10-29-2024 End: 10-29-2024 Patient encounter procedure 10/29/2024 4:00 PM EDT Office Visit [facility] [address] [place] [phone] Gus Tomas, DPM FACFAS [address] [place] [address] Arrived [facility] Comment on above: Arrived Start: 10-15-2024 End: 10-14-2025 XR Chest 2 Views XR chest 2 views Imaging Routine Head and neck lymphadenopathy Night sweats Pruritus Expected: 10/15/2024 (Approximate), Expires: 10/14/2025 [facility] Comment on above: Expected: 10/15/2024 (Approximate), Expires: 10/14/2025 Start: 10-14-2024 End: 10-14-2024 Patient encounter procedure [facility] Comment on above: Arrived Start: 10-13-2024 End: 10-13-2024 Patient encounter procedure 10/13/2024 4:20 PM EDT Office Visit [facility] [address] [place] [phone] Daniella Abdullahi NP [address] [place] [address] Arrived [facility] Comment on above: Arrived Start: 09-23-2024 End: 09-23-2024 Patient encounter procedure 09/23/2024 4:15 PM EDT Office Visit [facility] [address] [place] [address] Khanh Cerda MD [address] [address] [facility] Start: 08-28-2024 End: 08-28-2024 Patient encounter procedure 08/28/2024 2:30 PM EDT Office Visit [facility] 111 [address] [phone] Gonzalo Macias RESIDENT ASSISTANT CNA [address] [phone] Arrived [facility] 111 Comment on above: Arrived Start: 06-24-2024 End: 06-24-2024 Patient encounter procedure [facility] Comment on above: Arrived Start: 06-09-2024 End: 06-09-2024 Professional / ancillary services management 06/09/2024 5:00 PM EDT Ancillary Procedure [facility] [place] [address] [place] [address] [facility] [place] Start: 05-12-2024 End: 05-12-2025 [...] Hot flashes Expected: 05/12/2024 (Approximate), Expires: 05/12/2025 [facility] Work Phone: Comment on above: Expected: 05/12/2024 (Approximate), Expires: 05/12/2025 Start: 05-12-2024 End: 05-12-2025 Cobalamin (Vitamin B12) [Mass/volume] in Serum or Plasma Vitamin B12 Lab Routine Diarrhea, unspecified type Hot flashes Expected: 05/12/2024 (Approximate), Expires: 05/12/2025 [facility] Comment on above: Expected: 05/12/2024 (Approximate), Expires: 05/12/2025 Start: 05-12-2024 End: 05-12-2025 Comprehensive metabolic 2000 panel - Serum or Plasma Comprehensive metabolic panel Lab Routine Diarrhea, unspecified type Hot flashes Expected: 05/12/2024 (Approximate), Expires: 05/12/2025 [facility] Comment on above: Expected: 05/12/2024 (Approximate), Expires: 05/12/2025 Start: 05-12-2024 End: 07-10-2025 DBT Breast - bilateral screening Bilateral screening mammogram with tomosynthesis Imaging Routine Encounter for screening mammogram for malignant neoplasm of breast Expected: 05/12/2024, Expires: 07/10/2025 [facility] Comment on above: Expected: 05/12/2024 , Expires: 07/10/2025 Start: 05-12-2024 End: 05-12-2025 Ferritin [Mass/volume] in Serum or Plasma Ferritin Lab Routine Diarrhea, unspecified type Hot flashes Expected: 05/12/2024 (Approximate), Expires: 05/12/2025 [facility] Comment on above: Expected: 05/12/2024 (Approximate), Expires: 05/12/2025 Start: 05-12-2024 End: 05-12-2025 IgA [Mass/volume] in Serum or Plasma IgA Lab Routine Diarrhea, unspecified type Hot flashes Expected: 05/12/2024 (Approximate), Expires: 05/12/2025 [facility] Comment on above: Expected: 05/12/2024 (Approximate), Expires: 05/12/2025 Start: 05-12-2024 End: 05-12-2025 Lipid 1996 panel - Serum or Plasma Lipid panel Lab Routine Diarrhea, unspecified type Hot flashes Expected: 05/12/2024 (Approximate), Expires: 05/12/2025 [facility] Healthcare Comment on above: Expected: 05/12/2024 (Approximate), Expires: 05/12/2025 Start: 05-12-2024 End: 05-12-2025 Thyrotropin [Units/volume] in Serum or Plasma TSH Lab Routine Diarrhea, unspecified type Hot flashes Expected: 05/12/2024 (Approximate), Expires: 05/12/2025 [facility] Comment on above: Expected: 05/12/2024 (Approximate), Expires: 05/12/2025 Start: 05-12-2024 End: 05-12-2025 Thyroxine (T4) free [Mass/volume] in Serum or Plasma T4, free Lab Routine Diarrhea, unspecified type Hot flashes Expected: 05/12/2024 (Approximate), Expires: 05/12/2025 [facility] Comment on above: Expected: 05/12/2024 (Approximate), Expires: 05/12/2025 Start: 05-12-2024 End: 05-12-2025 Tissue transglutaminase, IgA Tissue transglutaminase, IgA Lab Routine Diarrhea, unspecified type Hot flashes Expected: 05/12/2024 (Approximate), Expires: 05/12/2025 [facility] Comment on above: Expected: 05/12/2024 (Approximate), Expires: 05/12/2025 Start: 05-12-2024 End: 05-12-2024 Patient encounter procedure 05/12/2024 10:00 AM EST Office Visit [facility] [address] [place] [id number] Candice King MD, IBCLC [address], [place] [id number] Arrived [facility] Comment on above: Arrived Start: 05-04-2024 [...] B [address] [place] [phone] Khanh Cerda MD [address] [facility] [address] [id number] [facility] Start: 01-22-2024 End: 01-22-2024 Patient encounter procedure 01/22/2024 11:30 AM EST Office Visit [facility] [address] [place] [phone] Khanh Cerda MD [address] [facility] [address] [address] Arrived [facility] Comment on above: Arrived Start: 01-21-2024 End: 01-21-2024 Patient encounter procedure 01/21/2024 4:00 PM EST Office Visit [facility] [address] [place] [phone] Candice King MD, IBCLC [address] [place] [address] [facility] Start: 12-20-2023 End: 12-20-2023 Patient encounter procedure 12/20/2023 8:20 AM EDT Office Visit [facility] [address] [facility] [place] [address] Candice King MD, IBCLC [address] [place] [address] [facility] Start: 12-18-2023 End: 12-18-[address] [facility] Comment on above: Arrived Start: 11-18-2023 Influenza vaccination Influenza Vacc ine (#1) [facility] Start: 09-24-2023 Screening for malign ant neoplasm of cervix Pap Smear [facility] Start: 09-16-2023 Influenza vaccination Influenza Vacc ine (#1) [facility] Comment on above: Postponed from 11/17 (Patient Refused) Start: 06-26-2023 End: 06-26-2023 Patient encounter procedure 06/26/2023 4:15 PM EDT Office Visit [facility] [address] [place] [address] Khanh Cerda MD [address] [place] [address] [facility] Start: 2020 Screening for malign ant neoplasm of breast Mammogram [facility] Start: 2010 Screening for malign ant neoplasm of cervix [facility] Start: 2001 Screening for malign ant neoplasm of cervix Pap Smear [facility] Bacteria identified in Throat by Aerobe culture Throat culture, comprehensive Microbiology Routine Head and neck lymphadenopathy Night sweats Pruritus Ordered: 10/15/2024 [facility] Comment on above: Ordered: 10/15/2024 C reactive protein [Mass/volume] in Serum or Plasma C-reactive protein Lab Routine Head and neck lymphadenopathy Night sweats Pruritus Ordered: 10/15/2024 [facility] Comment on above: Ordered: 10/15/2024 CBC W Auto Different ial panel - Blood CBC and differential Lab Routine Head and neck lymphadenopathy Night sweats Pruritus Ordered: 10/15/2024 [facility] Work Phone: Comment on above: Ordered: 10/15/2024 Cobalamin (Vitamin B 12) [Mass/volume] in Serum or Plasma Vitamin B12 Lab Routine Dizziness Ordered: 10/15/2024 [facility] Comment on above: Ordered: 10/15/2024 Comprehensive metabo lic 2000 panel - Serum or Plasma Comprehensive metabolic panel Lab Routine Dizziness Ordered: 10/15/2024 [facility] Comment on above: Ordered: 10/15/2024 Erythrocyte sediment ation rate Sedimentation rate, automated Lab Routine Head and neck lymphadenopathy Night sweats Pruritus Ordered: 10/15/2024 [facility] Comment on above: Ordered: 10/15/2024 Ferritin [Mass/volum e] in Serum or Plasma Ferritin Lab Routine Head and neck lymphadenopathy Night sweats Pruritus Dizziness Ordered: 10/15/2024 [facility] Comment on above: Ordered: 10/15/2024 Hepatitis 1996 panel - Serum Hepatitis panel, acute Lab Routine Head and neck lymphadenopathy Night sweats Pruritus Ordered: 10/15/2024 [facility] Comment on above: Ordered: 10/15/2024 HIV-1/HIV-2 antigen/antibody combination immunoassay HIV-1 and HIV-2 antibodies Lab Routine Head and neck lymphadenopathy Night sweats Pruritus Ordered: 10/15/2024 [facility] Comment on above: Ordered: 10/15/2024 Iron and Iron bindin g capacity panel - Serum or Plasma Iron and TIBC Lab Routine Head and neck lymphadenopathy Night sweats Pruritus Dizziness Ordered: 10/15/2024 [facility] Comment on above: Ordered: 10/15/2024 Lactate dehydrogenas e [Enzymatic activity/volume] in Serum or Plasma by Lactate to pyruvate reaction Lactate dehydrogenase Lab Routine Head and neck lymphadenopathy Night sweats Ordered: 10/15/2024 [facility] Comment on above: Ordered: 10/15/2024 Mononucleosis screen Mononucleos is screen Lab Routine Head and neck lymphadenopathy Night sweats Pruritus Ordered: 10/15/2024 [facility] Comment on above: Ordered: 10/15/2024 QUANTIFERON TB GOLD Quantiferon TB Gold Lab Routine Head and neck lymphadenopathy Night sweats Pruritus Ordered: 10/15/2024 [facility] Comment on above: Ordered: 10/15/2024 Thyroid peroxidase a nd thyroglobulin antibodies Thyroid peroxidase and thyroglobulin antibodies Lab Routine Hypothyroidism, unspecified type Ordered: 10/15/2024 [facility] Comment on above: Ordered: 10/15/2024 Thyrotropin [Units/volume] in Serum or Plasma TSH Lab Routine Hypothyroidism, unspecified type Ordered: 10/15/2024 [facility] Comment on above: Ordered: 10/15/2024 Thyroxine (T4) free [Mass/volume] in Serum or Plasma T4, free Lab Routine Head and neck lymphadenopathy Night sweats Pruritus Hypothyroidism, unspecified type Ordered: 10/15/2024 [facility] Comment on above: Ordered: 10/15/2024 Triiodothyronine (T3 ) Free [Mass/volume] in Serum or Plasma T3, free Lab Routine Hypothyroidism, unspecified type Ordered: 10/15/2024 [facility] Comment on above: Ordered: 10/15/2024 Immunizations Immunization Date Immunization Notes Care Provider Syed beckman 10-02-2020 COVID-19 mRNA, Comirnaty (Pfizer) RESIDENT ASSISTANT CNA-Ministerio Edward Work Phone: [facility] 09-11-2020 COVID-19 mRNA, Comirnaty (Pfizer) RESIDENT ASSISTANT CNA-Ministerio Edward Work Phone: [facility] 07-09-2014 tetanus toxoid, redu alesha diphtheria toxoid, and acellular pertussis vaccine, adsorbed Basem Moe [facility] Payers Date Payer Category Payer Private Health Insurance [id number] 2024 Medicaid [id number] 2022 Self-pay [id number] 2021 [facility] [id number] .[id number] 5 2021 Unknown [id number]. 1.13.693 .2.7.3.193059.315 2018 Unknown [id number] 2014 Medicaid [id number] 1.13.693 .[id number] 1980 Unknown [id number] 2.16.840.1.622641.3.579 .2.647 1980 Unknown [id number] 2.16.840.1.237189.3.579 .2.647 1980 Unknown [id number] 2.16.840.1.440017.3.579 .2.647 1980 Unknown [id number] 2.16.840.1.646038.3.579 .2.593 1980 Unknown [id number] 2.16.840.1.700237.3.579 .2.593 1980 Unknown [id number] 2.16.840.1.570939.3.579 .2.593 1980 Unknown [id number] 2.16.840.1.914252.3.579 .2.727 1980 Unknown [id number] 2.16.840.1.052586.3.579 .2.727 1980 Unknown [id number] 2.16.840.1.280284.3.579 .2.727 1980 Unknown [id number] 2.16.840.1.595603.3.579 .2.727 1980 Unknown [id number] 2.16.840.1.021222.3.579 .2.1259 1980 Unknown [id number] 2.16.840.1.618381.3.579 .2.1259 1980 Unknown [id number] 2.16.840.1.730116.3.579 .2.1259 1980 Unknown [id number] 2.16.840.1.704581.3.579 .2.1258 1980 Unknown [id number] 2.840.1.254531.3.579 .2.1258 1980 Unknown [id number] 2.16.840.1.847740.3.579 .2.1258 1980 Unknown [id number] 2.840.1.375495.3.579 .2.1258 1980 Unknown [id number] 2.840.1.905484.3.579 .2.1258 1980 Unknown [id number] 2.840.1.166529.3.579 .2.1258 1980 Unknown [id number] .840.1.248803.3.579 .2.1258 1980 Unknown [id number] .0.1.995362.3.579 .2.1258 1980 Unknown [id number] .0.1.519306.3.579 .2.1258 1980 Unknown [id number] .0.1.120747.3.579 .2.1258 1980 Unknown [id number] .840.1.698537.3.579 .2.1258 1980 Unknown [id number] .840.1.828376.3.579 .2.1258 1980 Unknown [id number] .840.1.306506.3.579 .2.1258 1959 [place] [employer] [facility] [id number] Medicaid [employer] [id number] Unknown [id number] 2840.1.771850.3.579 .2.531 Worker's Compensation [id number] Social History Date Type Detail Facility Start: 04-13-2023 End: 10-13-2024 Sex Assigned At [facility] Start: 04-30-2019 Tobacco smoking status Former smokeless tobacco user, quit more than 30 days ago [facility] Start: 05-16-2021 End: 08-30-2023 Tobacco smoking status NHIS Ex-smoker (finding) [facility] Start: 1980 Sex Assigned At Female F [facility] End: 03-19-2018 History of tobacco use Current smoker [facility] End: 03-19-2018 History of tobacco use Cigar Smoker [facility] Start: 01-30-2023 End: 08-30-2023 Tobacco use and exposure Smokeless tobacco non-user [facility] Start: 04-13-2023 End: 11-26-2024 Alcohol intake Current drinker of alcohol (finding) [facility] Start: 04-13-2023 End: 10-13-2024 History of Social function [facility] Start: 09-01-2022 Alcohol Comment Monthly or les s, Caffeine: 1-2 cups per day [facility] Start: 1980 Sex Assigned At Not on file [facility] Start: 08-30-2023 Tobacco Comment 3-4 cigars per day N [facility] Sexual Orientation [facility] Start: 06-07-2018 Sex Female (finding) [facility] Functional Status Date Assessment Result Facility 10-13-2024 Patient Health [facility] ionnaire 2 item (PHQ-2) [Reported] [facility] Clinical Notes 10-19-2021 to 11-26-2024 Gus Tomas DPM [facility] - 11/26/2024 4:30 PM EDTTelephone Encounter - Gus Tomas DPM [facility] - 11/12/2024 9:11 PM EDTTelephone Encounter - Gus Tomas DPM [facility] - 11/12/2024 9:11 PM EDT Note Date & Type Note Facility 11-26-2024 History of Presen t illness Narrative Images from the original note [...] the worst pain of the lives. She wishes to undergo surgical correction Allergies: Allergies Allergen Reactions Azithromycin Shortness of [...] Dose by mouth Daily, Disp: , Rfl: minocycline (Dynacin) 100 MG tablet, Take 100 mg by mouth in the morning and 100 mg before bedtime., Disp: , Rfl: modafinil (Provigil) 200 MG tablet, 1/2-1 tab QAM, Disp: 30 tablet, Rfl: 3 varenicline (Chantix Continuing Month ) 1 MG tablet, Take 1 tablet (1 mg) by mouth in the morning and 1 tablet (1 mg) before bedtime. Take with full glass of water.. (Patient not taking: Reported on 11/06/2024), Disp: 180 tablet, Rfl: 0 varenicline (Chantix Continuing Month ) 1 MG tablet, Take 1 tablet (1 mg) by mouth in the morning and 1 tablet (1 mg) before bedtime. Take with full glass of water.. (Patient not taking: Reported on 11/06/2024), Disp: 60 tablet, Rfl: 2 Xywav 500 MG/ML solution, Take 4.5 g by mouth at bedtime, Disp: , Rfl: ROS: Constitutional: Denies fever, chills, nausea, vomiting GI: Denies abdominal pain, cramping, loose stool, gastric ulcers Musculoskeletal: Denies low back pain, knee pain, systemic arthritis Neurologic: Denies burning, tingling, transient paralysis OBJECTIVE Physical examination: Vascular: Dorsalis pedis posterior tibial pulses are palpable bilateral, no edema noted Neuro: [place] 5.07 monofilament intact, vibratory sensation intact Derm: [...] rigidly contracted and slightly deviated medially. XRAY: reviewed AP/MO/LAT: pedal radiographs demonstrate intact cortical margins and anatomic alignment. Joint spaces are maintained throughout the midfoot forefoot and hindfoot without evidence of acute fracture dislocation or arthropathy Hammertoe deformity noted right 3rd digit the level of the DIPJ joint appears to be slightly subluxed ASSESSMENT 1. Hammer toe of right foot 2. Pain in right toe(s) PLAN I educated the patient on the hammertoe deformity at the level of the DIPJ joint. She was attempted numerous conservative therapies including pads anti-inflammatory medication shoe gear modifications. She is complaining of deviation of the DIPJ joint. I did discuss possible arthroplasty of the DIPJ joint of the right 3rd digit. The patient was educated on the pre, davonte, postoperative course of the procedure in great detail. We discussed further conservative therapies which the patient has attempted and has failed. I discussed the surgical procedure in great detail including the risks and possible complications. We discussed the following complications in great detail including but not limited to: Pain, infection, prolonged swelling, numbness, tingling, burning, nonhealing wound, nonunion, malunion, chronic pain, development of complex regional pain syndrome, development of deep venous thrombosis. Patient fully understood all possible risks and complications. All questions have been asked and answered. They have consented for the above-stated procedure. She wishes to have surgery RANI AFIA Beyer documented in this encounter [facility] 11-12-2024 Telephone encounter Note Phone #: [phone] Insurance: Payor: BCBS / Plan: BCBS / Product Type: *No Product type* / Preferred Date/Time: First Available [x] after December 27 [facility] [] Patient Name: Isis Bryson : 1980 Surgeon: Dr. Gus Tomas [x] Dr. Shun Tomas [] Location: [facility] [x] [facility] [] [facility] [] Procedure(s): 62313 CPT Code(s): arthroplasty DIPJ joint right 3rd digit Diagnosis: ICD-10-CM 1. Hammer toe of right foot M20.41 Procedure Time: 30 min [x] 1 Hour [] 1.5 Hour [] 2 Hours [] Anesthesia: MAC [x] General [] Local [] Popliteal Block [] Position: Supine [x] Prone [] Lateral [] Special Requests: C-arm [] Pulse Lavage [] VersaJet [] Special Equipment: Arthrex plate /screws [] Internal brace [] Arthrex FiberTak [] Biopro Staple [] Biopro Tavares Impant [] Other [] Pre-op Orders: Abx 30 min Prior: 2g Ancef [x] Clindamycin 600mg [] Vancomycin 1 g [] Post-op WB: Partial WB [x] Non-WB [] Crutches [] Walker [] Knee Scooter [] PCP Clearance: Candice King MD, IBCLC Other Clearance: Cardiology [] Rheumatology [] Other [] [facility] 11-12-2024 Miscellaneous Notes Phone #: [phone] Insurance: Payor: BCBS / Plan: BCBS / Product Type: *No Product type* / Preferred Date/Time: First Available [x] after December 27 [facility] [] Patient Name: Isis Bryson : 1980 Surgeon: Dr. Gus Tomas [x] Dr. Shun Tomas [] Location: [facility] [x] [facility] [] [facility] [] Procedure(s): 29728 CPT Code(s): arthroplasty DIPJ joint right 3rd digit Diagnosis: ICD-10-CM 1. Hammer toe of right foot M20.41 Procedure Time: 30 min [x] 1 Hour [] 1.5 Hour [] 2 Hours [] Anesthesia: MAC [x] General [] Local [] Popliteal Block [] Position: Supine [x] Prone [] Lateral [] Special Requests: C-arm [] Pulse Lavage [] VersaJet [] Special Equipment: Arthrex plate /screws [] Internal brace [] Arthrex FiberTak [] Biopro Staple [] Biopro Tavares Impant [] Other [] Pre-op Orders: Abx 30 min Prior: 2g Ancef [x] Clindamycin 600mg [] Vancomycin 1 g [] Post-op WB: Partial WB [x] Non-WB [] Crutches [] Walker [] Knee Scooter [] PCP Clearance: Candice King MD, IBCLC Other Clearance: Cardiology [] Rheumatology [] Other [] documented in this encounter [facility] 11-12-2024 History of Presen t illness Narrative Images from the original note [...] the worst pain of the lives. She wishes to undergo surgical correction Allergies: Allergies Allergen Reactions Azithromycin Shortness of [...] (HCC) Narcolepsy (HCC) Medications: Current Outpatient Medications: Xywav 500 MG/ML solution, Take 4.5 g by mouth at bedtime, Disp: , Rfl: busPIRone HCl 10 MG capsule, Take 10 [...] tab QAM, Disp: 30 tablet, Rfl: 3 varenicline (Chantix Continuing Month ) 1 MG tablet, Take 1 tablet (1 mg) by mouth in the morning and 1 tablet (1 mg) before bedtime. Take with full glass of water.. (Patient not taking: Reported on 11/06/2024), Disp: 180 tablet, Rfl: 0 varenicline (Chantix Continuing Month ) 1 MG tablet, Take 1 tablet (1 mg) by mouth in the morning and 1 tablet (1 mg) before bedtime. Take with full glass of water.. (Patient not taking: Reported on 11/06/2024), Disp: 60 tablet, Rfl: 2 ROS: Constitutional: Denies fever, chills, nausea, vomiting GI: Denies abdominal pain, cramping, loose stool, gastric ulcers Musculoskeletal: Denies low back pain, knee pain, systemic arthritis Neurologic: Denies burning, tingling, transient paralysis OBJECTIVE Physical examination: Vascular: Dorsalis pedis posterior tibial pulses are palpable bilateral, no edema noted Neuro: [place] 5.07 monofilament intact, vibratory sensation intact Derm: [...] rigidly contracted and slightly deviated medially. XRAY: reviewed AP/MO/LAT: pedal radiographs demonstrate intact cortical margins and anatomic alignment. Joint spaces are maintained throughout the midfoot forefoot and hindfoot without evidence of acute fracture dislocation or arthropathy Hammertoe deformity noted right 3rd digit the level of the DIPJ joint appears to be slightly subluxed ASSESSMENT 1. Hammer toe of right foot PLAN I educated the patient on the hammertoe deformity at the level of the DIPJ joint. She was attempted numerous conservative therapies including pads anti-inflammatory medication shoe gear modifications. She is complaining of deviation of the DIPJ joint. I did discuss possible arthroplasty of the DIPJ joint of the right 3rd digit. The patient was educated on the pre, davonte, postoperative course of the procedure in great detail. We discussed further conservative therapies which the patient has attempted and has failed. I discussed the surgical procedure in great detail including the risks and possible complications. We discussed the following complications in great detail including but not limited to: Pain, infection, prolonged swelling, numbness, tingling, burning, nonhealing wound, nonunion, malunion, chronic pain, development of complex regional pain syndrome, development of deep venous thrombosis. Patient fully understood all possible risks and complications. All questions have been asked and answered. They have consented for the above-stated procedure. She wishes to have this done after December 27 AFIA Beyer documented in this encounter [facility] 11-06-2024 History of Presen t illness Narrative Images from the original note were not included. Isis Bryson is a 44 y.o. female here today for Ear Fullness (Right ear feels full then gets pain going up her neck. ) SUBJECTIVE: History Provided by: patient History of Present Illness The patient presents for evaluation of ear pain. She reports experiencing ear pain, which she believes is worsening. The sensation is described as a feeling of fullness in her ears, though it is not constant. She has not noticed any lumps or tenderness in her ears. She has not been swimming recently. She has not taken any antibiotics for an ear infection. She has not tried Flonase nasal spray but has previously used Sudafed for colds. She has not noticed any hearing loss, although her daughter has mentioned that she speaks loudly at times. 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 She is unable to take antihistamines due to intolerance but can tolerate non-drowsy Sudafed. She is currently taking minocycline for acne and was on doxycycline last month for a spider bite. She has been diagnosed with low iron levels and is currently taking iron supplements without any adverse effects. Her menstrual periods are not heavy. She also mentions occasional sharp neck pain, which occurs at least once daily. A previous doctor suggested this could be due to TMJ and recommended a mouthpiece, but she is hesitant to use it due to her medication-induced sleepiness. She has noticed a decrease in the size of her lymph nodes. Current Outpatient Medications Medication Instructions busPIRone HCl 10 mg, 2 times daily Ca, Mg, K, and Na Oxybates (XYWAV PO) 1 Dose, Daily ferrous sulfate (FE TABS) 325 mg, Oral, Daily with breakfast, Do not crush, chew, or split. minocycline (DYNACIN) 100 mg, 2 times daily modafinil (Provigil) 200 MG tablet 1/2-1 tab QAM varenicline (CHANTIX CONTINUING MONTH MAI) 1 mg, Oral, 2 times daily, Take with full glass of water. varenicline (CHANTIX CONTINUING MONTH ) 1 mg, Oral, 2 times daily, Take with full glass of water. I have reviewed and reconciled the history, allergies, family history, social history, and medication list with the patient today. OBJECTIVE: BP 116/68 Pulse 55 Temp 98.5 F Resp 17 Ht 5' 9 Wt 128 lb SpO2 97% BMI 18.90 kg/m Physical Exam Vitals and nursing note reviewed. Constitutional: General: She is not in acute distress. Appearance: Normal appearance. She is normal weight. She is not ill-appearing, toxic-appearing or diaphoretic. HENT: Head: Normocephalic and atraumatic. Right Ear: Ear canal and external ear normal. Decreased hearing noted. A middle ear effusion is present. Left Ear: Ear canal and external ear normal. Decreased hearing noted. A middle ear effusion is present. Mouth/Throat: Mouth: Mucous membranes are moist. Eyes: Extraocular Movements: Extraocular movements intact. Conjunctiva/sclera: Conjunctivae normal. Pupils: Pupils are equal, round, and reactive to light. Cardiovascular: Rate and Rhythm: Normal rate and regular rhythm. Heart sounds: Normal heart sounds. Pulmonary: Effort: Pulmonary effort is normal. Breath sounds: Normal breath sounds. Abdominal: General: Abdomen is flat. Palpations: Abdomen is soft. Musculoskeletal: General: Normal range of motion. Cervical back: Neck supple. Skin: General: Skin is warm and dry. Neurological: General: No focal deficit present. Mental Status: She is alert and oriented to person, place, and time. Psychiatric: Mood and Affect: Mood normal. Behavior: Behavior normal. Thought Content: Thought content normal. Judgment: Judgment normal. Physical Exam Results Imaging - CT of neck: No enlarged lymph nodes or masses, glands in the base of mouth and throat appeared normal, thyroid appeared normal, upper portions of lungs appeared normal - Chest x-ray: Heart looked normal in size, lungs were clear, no changes to lungs, no signs of pneumonia or collapsed lung Depression screening ASSESSMENT AND PLAN: Diagnoses and all orders for this visit: Other non-recurrent acute nonsuppurative otitis media of both ears Weight loss Head and neck lymphadenopathy Cervical paraspinal muscle spasm Iron deficiency Assessment & Plan 1. Ear pain: - The ear discomfort could be attributed to fluid accumulation in the middle ear, which may also be causing a sensation of fullness and diminished hearing. - The eardrum does not exhibit redness, but the fluid could still pose a risk to the ear. The ear canal appears healthy, with no signs of redness, narrowing, or inflammation. The issue seems to be localized to the middle ear. - The patient's work environment, which involves exposure to loud noises, could also be contributing to the hearing loss. - Flonase nasal spray was recommended, with instructions to use one squirt in each nostril daily for several weeks consistently. [id number] Claritin or Zyrtec can be taken to alleviate allergy symptoms. If there is no improvement after several weeks, an antibiotic will be prescribed. If symptoms persist, a referral to an ENT specialist will be considered. 2. Low iron levels: - The patient's iron levels are slightly below the normal range, with an overall iron level of 36 (normal range 50-170) and an iron saturation of 9% (normal range 20-50%). - The patient is advised to continue taking iron supplements and to incorporate more iron-rich foods into her diet, such as leafy greens, fortified foods, cereals, red meats, nuts, and eggs. Iron levels will be rechecked in a few months to ensure they are increasing. If they are not, further investigation will be warranted. 3. Weight loss: - The patient has experienced a slight weight loss, dropping from 132 pounds to 128 pounds. - She is advised to monitor her weight and dietary intake. - Weight has remained stable since last appt. Workup did not identify malicious cause of weight changes. 4. Enlarged lymph nodes: - The patient reports that the previously enlarged lymph nodes have decreased in size. - A recent CT scan of the neck showed no concerning findings. 5. Neck pain: - The patient experiences sharp neck pain at least once a day. - This could be related to TMJ as previously suggested by another doctor. - The patient is advised to monitor the pain and report any changes. Daniella Abdullahi CNP [facility] documented in this encounter [facility] 10-29-2024 History of Presen t illness Narrative Images from the original note [...] Past Medical History: Diagnosis Date Bipolar disorder ([facility]) Narcolepsy ([facility]) Medications: Current Outpatient Medications: busPIRone HCl [...] are palpable bilateral, no edema noted Neuro: [place] 5.07 monofilament intact, vibratory sensation intact Derm: [...] visit AFIA Beyer documented in this encounter [facility] 10-14-2024 History of Presen t illness Narrative Associated Problem(s): Narcolepsy and cataplexy [...] works until 1800, sometimes 1900. In bed 6465-1640. Noct oxim PSG ([facility]) - AHI=0.8, REM=3.3 vs 0, supine=2.9 vs 0.2; PLMI=3.7, PLMAI=1.1 ~2009, ([facility]) - no longer available. PAPT MSLT ([facility]) - SOREM x 5 ~2009 ([facility]) - no longer available. [...] Take by mouth varenicline (Chantix Continuing Month Mai) 1 MG [...] file as of 10/14/2024. Khanh Cerda M.D. [facility] Neurology ? [address] ? [place], [place] [address] ? ? fax Neurology ? Clinical Neurophysiology ? Epilepsy ? Sleep Disorders ? Clinical Informatics documented in this encounter [facility] 10-13-2024 History of Presen t illness Narrative Images from the original note [...] 1/2-1 tab QAM varenicline (CHANTIX CONTINUING MONTH ) 1 mg, Oral, 2 times daily, Take with full glass of water. varenicline (CHANTIX CONTINUING MONTH ) 1 mg, Oral, 2 times daily, Take [...] changes to current management, continue counseling. Daniella Abdlulahi CNP [facility] documented in this encounter [facility] 09-18-2024 History of Presen t illness Narrative Images from the original note were not included. Flowsheet Row Telephone from 09/17/2024 in [facility] with Maral Jefferson MA [facility] ED, Hospital or Senior Living Facility Discharge? ED Diagnosis LLL pain, insect bite Discharge Date 09/16/24 Discharged To: Home Setting Discharge Hospital [facility] Engagement Admission Date 09/16/24 Medications Discharge medications reviewed and reconciled from hospital? Yes Appointments Self Management Patient Teaching Wrap Up Flowsheet Row Office Visit from 09/18/2024 in [facility] with Candice King MD, IBCLC Hospital Information ED, Hospital or Senior Living Facility Discharge? ED Patient has been contacted within 2 days of being seen in the ED Yes Have two attempts been made, within 2 days of being seen in the ED, to contact the patient? Yes Diagnosis dizziness Discharge Date 09/17/24 Discharged To: Home Setting Discharge Hospital [facility] Engagement Admission Date 09/16/24 Medications Discharge medications reviewed and reconciled from hospital? Yes Appointments Does the patient have a primary care provider? Yes Self Management Patient Teaching Wrap Up Wrap Up Additional Comments pt seen at [facility] on 09-17-24 for dizziness and they did [...] visiting the ER. She was seen at [facility] on September 17, 2024, because she was feeling dizzy and extremely tired after getting a bug bite on her left lower leg. She first went to [facility] on September 16, 2024, for the bug bite and was given doxycycline. She then went to [facility] the next day due to dizziness and [...] Source Information Candice King MD, IBCLC [facility] Document History Results Labs - Lab work: 09/17/2024, Unremarkable ASSESSMENT AND PLAN: Assessment & Plan Spider bite wound, accidental or unintentional, subsequent encounter - acute - reviewed [facility] ER report. - Symptoms suggest a possible [...] infections. Discontinue Keflex due to allergy. - Pqhs-ugz-xphnnou ibuprofen up to 800 mg at a [...] daily in 12/2023. Candice King MD, IBCLC [facility] documented in this encounter [facility] 09-17-2024 Hospital Discharg e instructions Patient Education 09/17/2024 17:24:14 Insect Bite, [...] of an anaphylactic reaction may include: Feeling nail making machine tender the face (flushed). This may include redness. [...] or cold. General instructions Apply or take vhyg-hyf-nxknbrd and prescription medicine only as told by [...] legs. 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 Use insect repellent. The best insect repellents contain DEET, picaridin, oil of lemon eucalyptus (OLE), or [id number]. Consider spraying your clothing with a pesticide [...] area, or applying ice. Apply or take qxey-fdf-skpmfya and prescription medicines only as told by [...] provider. Document Revised: 06/14/2022 Document Reviewed: 05/30/2022 [email or web address] Patient Education 2023 [employer]. Follow Up Care 09/17/2024 15:27:32 With:KILO EDWARD Address: When:09/20/2024 17:18:43 Comments:Call Dr for diagnosis based follow up [facility] 09-17-2024 Note ED Patient Education Note [...] an anaphylactic reaction may include: ??? Feeling nail making machine tender the face (flushed). This may include redness. [...] cold. General instructions ??? Apply or take gncl-irj-igcewiq and prescription medicine only as told by [...] legs. 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 ??? Use insect repellent. The best insect repellents contain DEET, picaridin, oil of lemon eucalyptus (OLE), or [id number]. ??? Consider spraying your clothing with a [...] be an emergency. (more content not included)... [facility] 09-17-2024 Evaluation + Plan note Extrac [...] day(s), # 28 cap(s), Refills(s) 0, Pharmacy: [facility]/pharmacy #[id number], 175, cm, 09/17/24 15:41:00 EDT, Height/Length Dosing, 60.8, kg, 09/17/24 15:41:00 EDT, Weight Dosing Basic Metabolic Panel CBC w/ Auto Diff eGFR PT & PTT Troponin 0 Hr. [facility] 06-12-2025 History of Present illness Narrative* Gonzalo Macias NP - 08/28/2024 2:30 PM EDT Images from the original note were not included. Outpatient Progress Note Patient: Isis Bo Piter Dept: Neurology : 1980 Appt Date: 08/28/2024 Prev Appt: 06/10/2024 Patient seen to complete for investigation [facility] ? [address] ? [place], [place] [address] ? ? fax Neurology ? Clinical Neurophysiology ? Epilepsy ? Sleep Disorders ? Clinical Informatics documented [id number] History of Present illness Narrative* Gonzalo Macias NP - 06/24/2024 4:00 PM EDTAssociated Problem(s): Narcolepsy and cataplexy (Continue dMPH.) Recommend not taking 2nd dose sooner than 11:00. Cont GHB to 4.5 g bin. Urine level q Dec. * Gonzalo Macias NP - 06/24/2024 4:00 PM EDTAssociated Problem(s): Carpal tunnel syndrome, bilateral (Continue splints B nightly.) * Gonzalo Macias NP - 06/24/2024 4:00 PM EDTAssociated Problem(s): Cervical paraspinal muscle spasm (Continue home PT) XR cerv 4 view with flex/exten documented in this encounterNOSainte [facility]ev[facility] HospitalRgqyokrtrn65-37-0021 Telephone encounter Note* Telephone Encounter - Gonzalo Macias NP - 06/12/2024 3:58 PM EDT Script sent [facility] [id number] Miscellaneous Notes* Telephone Encounter - Gonzalo Macias NP - 06/12/2024 3:58 PM EDT Script sent documented in this [facility]03-04-2025 Telephone encounter Note* Telephone Encounter - Rocio Taylor MA - 05/20/2024 10:30 AM EST See 04/21/24 tel enc. Pt reports she is still happy with Focalin XR 5 AM and noon. Asking for refillsuntil 06/24/24 appt. [facility] [id number] Miscellaneous Notes* Telephone Encounter - Rocio Taylor MA - 05/20/2024 10:30 AM EST See 04/21/24 tel enc. Pt reports she is still happy with Focalin XR 5 AM and noon. Asking for refillsuntil 06/24/24 appt. documented in this [facility]02-24-2025 History of Present illness Narrative* Candice [...] arrangements or pillows. 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 She also mentioned [...] with loose, watery stools. 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
== END 2024-12-01 16:56 | disposition home or self-care (01) ==
PROVIDERS: PCP Student in an Organized Health Care Education/Training Program; Visit Provider Podiatrist Foot & Ankle Surgery
DX: Z01.818 Encounter for other preprocedural examination (principal)
CPT/HCPCS: 36415; 80048; 85025; 93005